=== PATIENT | female | born 2000 | race Caucasian/White ===

== ENCOUNTER 2023-05-18 20:14 | Outpatient (REF) | payer OTHER, SELFPAY ==
[2023-05-22 13:07] LABS: Age Gdln ACOG Testing Note (.); IGP, rfx Aptima HPV ASCU Note (.)
== END 2023-05-18 20:15 | disposition home or self-care (01) ==
LOC: LAB 20:14
PROVIDERS: Visit Provider Obstetrics & Gynecology
DX: Z01.419 Encounter for gynecological examination (general) (routine) without abnormal findings (principal); R87.610 Atypical squamous cells of undetermined significance on cytologic smear of cervix (ASC-US); R87.810 Cervical high risk human papillomavirus (HPV) DNA test positive
CPT/HCPCS: G0145

== ENCOUNTER 2023-06-26 21:48 | Emergency (ER) | payer OTHER, SELFPAY ==
[2023-06-26 21:53] VITALS: BP 143/93; PULSE 88; RESP 16; TEMP 37.1; O2SAT 100; BMI 27.6
--- NOTE | 2023-06-26 22:04 | ED.GENADUL1 ---
HPI - General Adult General Chief complaint: Headache Stated complaint: HEADACHE Time Seen by Provider: 06/26/23 22:02 Source: patient Mode of arrival: walk-in Limitations: no limitations History of Present Illness HPI narrative: presents complaining of migraine headache. similar headaches in the past. Headache started 3 days ago and is associated with nausea. headache along right side of her head. No visual complaint or involvement of her extremities. Onset (ago): day(s) Related Data Allergies Allergy/AdvReac Type Severity Reaction Status Date / Time No Known Drug Allergies Allergy Verified 06/26/23 21:53 Review of Systems ROS Status of ROS 10 or more systems reviewed and unremarkable except as noted in history and [facility] Social History Smoking status: Never smoker Exam Constitutional Vital Signs, click to edit/add: Last Vital Signs Temp 98.7 F 06/26/23 21:53 Pulse 88 06/26/23 21:53 Resp 16 06/26/23 21:53 BP 143/93 H 06/26/23 21:53 Pulse Ox 100 06/26/23 21:53 O2 Del Method Room Air 06/26/23 21:53 Common normals: no apparent distress, average body habitus, oriented x3, no limitations, healthy appearing and alert Eye Common normals: PERRL, EOMs intact bilaterally and conjunctivae normal Respiratory Common normals: normal respiratory effort, no retractions, no use of accessory muscles and clear to auscultation bilaterally Cardio Common normals: regular rate, regular rhythm, S1 normal heart sound and S2 normal heart sound GI Common normals: Normal to inspection, nondistended, normoactive bowel sounds present, soft to palpation and non-tender Extremity Common normals: normal to inspection and full ROM Neuro Common normals: oriented x3, CN's II-XII intact bilaterally, moves all extremities, no focal motor deficits and no sensory deficits noted Psych Appearance: grossly normal Course Vital Signs Vital signs: Vital Signs Temperature 98.7 F 06/26/23 21:53 Pulse Rate 88 06/26/23 21:53 Respiratory Rate 16 06/26/23 21:53 Blood Pressure 143/93 H 06/26/23 21:53 Pulse Oximetry 100 06/26/23 21:53 Oxygen Delivery Method Room Air 06/26/23 21:53 Temperature 98.7 F 06/26/23 21:53 Pulse Rate 88 06/26/23 21:53 Respiratory Rate 16 06/26/23 21:53 Blood Pressure 143/93 H 06/26/23 21:53 Pulse Oximetry 100 06/26/23 21:53 Oxygen Delivery Method Room Air 06/26/23 21:53 Medical Decision Making MDM Narrative Medical decision making narrative: patient presents complaining of migraine headache. similar to past headache. Headache improved with treatment in the department and patient is discharged home Lab Data Labs: Lab Results 06/26/23 Range/Units 22:00 WBC 8.5 (4.0-11.0) 10^3/uL RBC 5.01 (4.20-5.40) 10^6/uL Hgb 13.6 (12.0-16.0) g/dL Hct 41.8 (36.0-48.0) % MCV 83.4 (81.0-99.0) fL MCH 27.1 (26.7-34.0) pg MCHC 32.5 (29.9-35.2) g/dL RDW 14.2 (11.0-15.0) % Plt Count 338 (150-450) 10^3/uL MPV 9.8 (9.5-13.5) fL Neut % (Auto) 41.3 L (43.0-75.0) % Lymph % (Auto) 47.9 (20.5-60.0) % [place] % (Auto) 8.2 (1.7-12.0) % Eos % (Auto) 2.0 (0.9-7.0) % Baso % (Auto) 0.4 (0.2-2.0) % Neut # (Auto) 3.5 (1.4-6.5) 10^3/uL Lymph # (Auto) 4.1 H (1.2-3.8) 10^3/uL [place] # (Auto) 0.7 (0.3-0.8) 10^3/uL Eos # (Auto) 0.2 (0.0-0.7) 10^3/uL Baso # (Auto) 0.0 (0.0-0.1) 10^3/uL Abs Immat Gran (auto) 0.02 (0.00-0.03) 10^3/uL Imm/Tot Granulo (auto) 0.2 (0.0-0.5) % Sodium 137 (136-145) mmol/L Potassium 3.7 (3.5-5.1) mmol/L Chloride 104 (98-107) mmol/L Carbon Dioxide 25.8 (21.0-32.0) mmol/L Anion Gap 10.9 BUN 14.0 (7.0-18.0) mg/dL Creatinine 0.74 (0.55-1.02) mg/dL Est GFR ( Amer) >60 (>=60) Est GFR (Non-Af Amer) >60 (>=60) BUN/Creatinine Ratio 18.9 Glucose 90 (74-106) mg/dL Calcium 8.9 (8.5-10.1) mg/dL Discharge Plan Discharge Chief Complaint: Headache Clinical Impression: Migraine Instructions: Migraine Headache (ED) Additional Instructions: follow up with your doctor next week for recheck Stand Alone Forms: Portal Instructions Referrals: KODY CHICAS [Primary Care Provider] - 1 week
[2023-06-26 22:13] LABS: Basophils Percent Auto 0.4 % (0.2-2.0); Eosinophils Absolute Auto 0.2 10^3/uL (0.0-0.7); Hematocrit 41.8 % (36.0-48.0); Hemoglobin 13.6 g/dL (12.0-16.0); Immature Granulocytes Abs Auto 0.02 10^3/uL (0.00-0.03); Immature Granulocytes Pct Auto 0.2 % (0.0-0.5); Lymphocytes Absolute Auto 4.1 10^3/uL (1.2-3.8); Lymphocytes Percent Auto 47.9 % (20.5-60.0); Mean Corpuscular HGB Conc 32.5 g/dL (29.9-35.2); Mean Corpuscular Hemoglobin 27.1 pg (26.7-34.0); Mean Corpuscular Volume 83.4 fL (81.0-99.0); Mean Platelet Volume 9.8 fL (9.5-13.5); Monocytes Absolute Auto 0.7 10^3/uL (0.3-0.8); Monocytes Percent Auto 8.2 % (1.7-12.0); Neutrophils Absolute Auto 3.5 10^3/uL (1.4-6.5); Neutrophils Percent Auto 41.3 % (43.0-75.0); Platelet Count 338 10^3/uL (150-450); Red Blood Count 5.01 10^6/uL (4.20-5.40); Red Cell Distribution Width 14.2 % (11.0-15.0); White Blood Count 8.5 10^3/uL (4.0-11.0)
[2023-06-26 22:22] LABS: Anion Gap 10.9; BUN Creatinine Ratio 18.9; Calcium 8.9 mg/dL (8.5-10.1); Carbon Dioxide 25.8 mmol/L (21.0-32.0); Chloride 104 mmol/L (98-107); Estimated GFR (African America >60 (>=60); Estimated GFR (Non-African Ame >60 (>=60); Glucose 90 mg/dL (74-106); Potassium 3.7 mmol/L (3.5-5.1); Sodium 137 mmol/L (136-145)
[2023-06-26] MEDS: METOCLOPRAMIDE HCL 10 MG/2 ML VIAL IVP (22:29)
[2023-06-26] MEDS: METHYLPREDNISOLONE SOD SUCC PF 125 MG/2 ML VIAL IVP (22:29)
--- NOTE | 2023-06-26 23:35 | ED.GENADUL1 ---
HPI - General Adult General Chief complaint: Headache Stated complaint: HEADACHE Time Seen by Provider: 06/26/23 22:02 Source: patient Mode of arrival: walk-in Limitations: no limitations Related Data Allergies Allergy/AdvReac Type Severity Reaction Status Date / Time No Known Drug Allergies Allergy Verified 06/26/23 21:53 PFSH PFSH Social History Smoking status: Never smoker Exam Constitutional Vital Signs, click to edit/add: Last Vital Signs Temp 98.7 F 06/26/23 21:53 Pulse 88 06/26/23 21:53 Resp 16 06/26/23 21:53 BP 143/93 H 06/26/23 21:53 Pulse Ox 100 06/26/23 21:53 O2 Del Method Room Air 06/26/23 21:53 Course Vital Signs Vital signs: Vital Signs Temperature 98.7 F 06/26/23 21:53 Pulse Rate 88 06/26/23 21:53 Respiratory Rate 16 06/26/23 21:53 Blood Pressure 143/93 H 06/26/23 21:53 Pulse Oximetry 100 06/26/23 21:53 Oxygen Delivery Method Room Air 06/26/23 21:53 Temperature 98.7 F 06/26/23 21:53 Pulse Rate 88 06/26/23 21:53 Respiratory Rate 16 06/26/23 21:53 Blood Pressure 143/93 H 06/26/23 21:53 Pulse Oximetry 100 06/26/23 21:53 Oxygen Delivery Method Room Air 06/26/23 21:53 Medical Decision Making Lab Data Labs: Lab Results 06/26/23 Range/Units 22:00 WBC 8.5 (4.0-11.0) 10^3/uL RBC 5.01 (4.20-5.40) 10^6/uL Hgb 13.6 (12.0-16.0) g/dL Hct 41.8 (36.0-48.0) % MCV 83.4 (81.0-99.0) fL MCH 27.1 (26.7-34.0) pg MCHC 32.5 (29.9-35.2) g/dL RDW 14.2 (11.0-15.0) % Plt Count 338 (150-450) 10^3/uL MPV 9.8 (9.5-13.5) fL Neut % (Auto) 41.3 L (43.0-75.0) % Lymph % (Auto) 47.9 (20.5-60.0) % [place] % (Auto) 8.2 (1.7-12.0) % Eos % (Auto) 2.0 (0.9-7.0) % Baso % (Auto) 0.4 (0.2-2.0) % Neut # (Auto) 3.5 (1.4-6.5) 10^3/uL Lymph # (Auto) 4.1 H (1.2-3.8) 10^3/uL [place] # (Auto) 0.7 (0.3-0.8) 10^3/uL Eos # (Auto) 0.2 (0.0-0.7) 10^3/uL Baso # (Auto) 0.0 (0.0-0.1) 10^3/uL Abs Immat Gran (auto) 0.02 (0.00-0.03) 10^3/uL Imm/Tot Granulo (auto) 0.2 (0.0-0.5) % Sodium 137 (136-145) mmol/L Potassium 3.7 (3.5-5.1) mmol/L Chloride 104 (98-107) mmol/L Carbon Dioxide 25.8 (21.0-32.0) mmol/L Anion Gap 10.9 BUN 14.0 (7.0-18.0) mg/dL Creatinine 0.74 (0.55-1.02) mg/dL Est GFR ( Amer) >60 (>=60) Est GFR (Non-Af Amer) >60 (>=60) BUN/Creatinine Ratio 18.9 Glucose 90 (74-106) mg/dL Calcium 8.9 (8.5-10.1) mg/dL Discharge Plan Discharge Chief Complaint: Headache Clinical Impression: Migraine Patient Disposition: Home, Self-Care Mode of Transportation: Private Vehicle Instructions: Migraine Headache (ED) Additional Instructions: follow up with your doctor next week for recheck Stand Alone Forms: Portal Instructions Referrals: KODY CHICAS [Primary Care Provider] - 1 week Discharge Date/Time: 06/26/23 23:43
== END 2023-06-26 23:43 | disposition home or self-care (01) ==
PROVIDERS: Emergency Provider Internal Medicine; PCP Nurse Practitioner Family
DX: G43.909 Migraine, unspecified, not intractable, without status migrainosus (principal)
CPT/HCPCS: 36415; 80048; 85025; 96374; 96375; 99284; J2930

== ENCOUNTER 2023-11-09 11:40 | Outpatient (OUT) | payer OTHER, SELFPAY ==
--- NOTE | 2023-11-09 11:46 | US_ITS ---
[address] [address] Patient Name: ELLIS SNYDER MRN: [id number] date: 2000 Sex: F Assigned Patient Location: US Current Patient Location: US Accession/Order Number: [id number] Exam Date: 11/09/2023 11:45 Report Date: 11/09/2023 15:16 At the request of: BETH BO Procedure: US pelvis transvaginal EXAM: US pelvis transvaginal INDICATION: PELVIC PAIN COMPARISON: Obstetrical ultrasound 02/03/2021 TECHNIQUE: Transabdominal and transvaginal ultrasound with grayscale, color Doppler and spectral Doppler imaging. FINDINGS: Retroverted Uterus:7.6 x 3.4 x 5.8 cm Grossly normal myometrial echotexture. Endometrium:8.0 mm. Intrauterine device appears to be within the upper and mid endometrial canal. Right ovary: 3.2 x 1.8 x 1.9 cm. Volume: 5.9 cc Left ovary: 4.2 x 1.9 x 3.5cm. Volume: 14.1 cc 2.9 x 1.7 x 1.6 cm simple left ovarian cyst. Normal color Doppler with arterial spectral tracing to both ovaries. No free fluid in the cul-de-sac. US/US pelvis transvaginal IMPRESSION: 1. Simple left ovarian cyst. No ovarian torsion. 2. Intrauterine device appears to be in satisfactory position. Electronically authenticated by: VERENICE ADAMS Date: 11/09/2023 15:16
== END 2023-11-09 11:41 | disposition home or self-care (01) ==
LOC: US 11:43
PROVIDERS: PCP Nurse Practitioner Family; Visit Provider Obstetrics & Gynecology
DX: N94.10 Unspecified dyspareunia (principal); N83.292 Other ovarian cyst, left side
CPT/HCPCS: 76830

== ENCOUNTER 2023-12-08 15:27 | Outpatient (OUT) | payer OTHER, SELFPAY ==
--- NOTE | 2023-12-08 15:31 | US_ITS ---
[address] [address] Patient Name: ELLIS SNYDER MRN: [id number] date: 2000 Sex: F Assigned Patient Location: US Current Patient Location: Accession/Order Number: [id number] Exam Date: 12/08/2023 15:45 Report Date: 12/09/2023 05:07 At the request of: BETH BO Procedure: US pelvis transvaginal EXAMINATION: US pelvis transvaginal HISTORY: Dyspareunia in female N94.10 COMPARISON: No relevant comparison available. FINDINGS: Uterus measures 7.0 x 5.3 0.6 cm. Normal in size, contour and echotexture. No focal myometrial mass. The endometrium measures 5 mm. Linear hyperechogenicity within the endometrial cavity with acoustic shadowing, normally positioned IUD The right ovary is normal measuring 3.2 x 2.2 x 1.7 cm. Normal color Doppler flow. The left ovary measures 5.0 x 3.0 x 2.2 cm. Normal color Doppler flow. No ascites US/US pelvis transvaginal IMPRESSION: No acute abnormality Normal position of the IUD Electronically authenticated by: ORLIN LOCK Date: 12/09/2023 05:07
--- OUTSIDE RECORDS SUMMARY | 2023-12-08 15:38 | XMS_ITS | CCD ---
Author Name Unknown Address [address] [place] [address] Organization [facility] Care Team Providers Care Vp Public Relations Name Role Phone [place] TRylanJackie Adriana Primary Care Provider 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 Unavailable Unavailable Unavailable ANUPAM, DR CAMPOS Admitting Unavailable ANUPAM, DR CAMPOS Attending Unavailable JUAN FRANCISCO, ANGELINA Primary Care Unavailable ANUPAM, DR CAMPOS Consulting Unavailable ANUPAM, DR CAMPOS Admitting Unavailable ANUPAM, DR CAMPOS Attending Unavailable JUAN FRANCISCO, ANGELINA Primary Care Unavailable ANUPAM, DR CAMPOS Admitting Unavailable ANUPAM, DR CAMPOS Attending Unavailable JUAN FRANCISCO, ANGELINA Primary Care Unavailable ANUPAM, DR CAMPOS Consulting Unavailable JUAN FRANCISCO, ANGELINA Primary Care Unavailable SAMARA RUCKER Consulting Unavailable SAMARA RUCKER Admitting Unavailable SAMARA RUCKER Attending Unavailable SHIV CALVO Consulting Unavailable JUAN FRANCISCO, ANGELINA Admitting Unavailable ANGELINA CHICAS Attending Unavailable JUAN FRANCISCO, ANGELINA Primary Care Unavailable DR STELLA BROWN Consulting Unavailable ANGELINA CHICAS Consulting Unavailable GABRIEL, DR HALEY Admitting Unavailable GABRIEL, DR HALEY Attending Unavailable JUAN FRANCISCO, ANGELINA Primary Care Unavailable GABRIEL, DR HALEY Consulting Unavailable Jayshree, Dr. Rosmery Haynes Attending U myles Martell, Dr. Rosmery Haynes Attending U myles CEDILLO, PCP Primary Care Unavailable Jayshree, Dr. Rosmery Haynes Attending U myles Esqueda Jr, Dr. Cecilia Rubio Referring U myles Martell, Dr. Rosmery Haynes Attending U myles Martell, Dr. Rosmery Haynes Attending U navsatyaable Jayshree, Dr. Rosmery Haynes Referring U navailable Gerry, Dr. Gustavo Cedeño Attending Unavailable Dumot, Dr. Gustavo Cedeño Attending Unavailable Jayshree, Dr. Rosmery Haynes Referring U annaleesatyaable Juan Francisco, CLEANING TEAM MEMBER-C Angelina De La O Primary Care Provider Tomas, SITE SAFETY REPRESENTATIVE-BC Emily Demetria Emergency Provider DO Niraj Guzman Admit Provider DO Niraj Guzman Attending Provider Ishaan Alvarado Attending Unavailable Ishaan Alvarado Admitting Unavailable 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 Primary Care Unavailable 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 Primary Care Unavailable Niraj Guzman Admitting Unavailable Niraj Guzman Attending Unavailable BETH BO Attending Unavailable BETH BO Attending Unavailable Medications Current Medications Medication Drug Class(es) Dates Sig (Normalized) Sig (Original) [id number]-Cydioom Fumarate-Fa () 28-800 mg-mcg Tablet (3 sources) Start: 04-25-2021 [id number]-Uujmtcc Fumarate-Fa () 28-800 mg-mcg Tablet Active TAB PO April 25, 2021 7:11pm Start: 04-25-2021 End: 05-21-2023 [id number]-Vuytijo Fumarate-Fa ( ) 28-800 mg-mcg Tablet Discontinued TAB PO April 25, 2021 12:00am May 21, 2023 7:30am terconazole 4 mg/ml vaginal cream (2 sources) Azole Antifungal Start: 05-21-2023 Terconazole A ctive VAGINAL May 21, 2023 12:00am traMADol hydrochloride 50 mg oral tablet (1 source) Opioid Agonist Start: 05-22-2023 take 50 mg by mouth every six hours Tramadol Active 50 MG PO Q6H 20 7 May 22, 2023 12:00am Completed/Discontinued Medications Medication Drug Class(es) Dates Sig (Normalized) Sig (Original) Norethindrone-E.Est radiol-Iron (3 sources) Estrogen Start: 09-20-2020 End: 04-25-2021 Norethindrone-E.Estr adiol-Iron (12/10 ()) 1 mg-20 mcg (21)/75 mg (7) tablet Discontinued 1 TAB PO Daily September 20, 2020 10:23pm April 25, 2021 7:10pm Start: 09-20-2020 End: 04-25-2021 Norethindrone-E.Estradiol-Ir on (12/10 (28)) 1 mg-20 mcg (21)/75 mg (7) tablet Discontinued 1 TAB PO Daily September 20, 2020 12:00am April 25, 2021 7:10pm No Reported Medications (11 sources) No Reported Medi cations Quantity: 0 Refills: 0 Ordered: 29-Jun-2022 DO Active Problems Active Problems Problem Classification Problem Date Documented Date Episodic/Chronic Abdominal pain (5 sources) Right lower quadrant pain; Translations: [Right lower quadrant pain] Onset: 3 05-21-2023 Episodic Appendicitis and other appendiceal conditions (5 sources) Appendicitis; Translations: [Unspecified appendicitis] Onset: 3 05-21-2023 Episodic Esophageal disorders (2 sources) Gastro-esophageal reflux disease without esophagitis; Translations: [Gastro-esophageal reflux disease without esophagitis] Onset: 3 Chronic Headache; including migraine (2 sources) Migraine; Translations: [Migraine, unspecified, not intractable, without status migrainosus] 06-03-2022 Chronic Headache; including migraine (1 source) Headache; including migraine; Translations: [Headache, unspecified] Onset: 2 Immunizations and screening for infectious disease (1 source) Encounter for screening for human papillomavirus (HPV); Translations: [ENC SCREENING HUMAN PAPILLOMAVIRUS] Onset: 2 Episodic Other connective tissue disease (3 sources) Musculoskeletal pain; Translations: [Myalgia, other site] 09-21-2020 Episodic Other gastrointestinal disorders (12 sources) Dysphagia; Translations: [Dysphagia, pharyngoesophageal phase] Onset: 3 Episodic Other gastrointestinal disorders (2 sources) Dysphagia, pharyngoesophageal phase; Translations: [Dysphagia, pharyngoesophageal phase] Onset: 3 Episodic Other lower respiratory disease (11 sources) H/O: respiratory disease; Translations: [Personal history of other diseases of respiratory system] Episodic Other nutritional; endocrine; and metabolic disorders (11 sources) Overweight in adulthood with body mass index of 25 or more but less than 30; Translations: [Body Mass Index 26.0-26.9, adult] Episodic Other nutritional; endocrine; and metabolic disorders (1 source) Abnormal weight loss; Translations: [Abnormal weight loss] Onset: 3 Episodic Other and delivery including normal (3 sources) ; Translations: [Encounter for supervision of normal , unspecified, unspecified trimester] 04-25-2021 Episodic Other screening for suspected conditions (not mental disorders or infectious disease) (4 sources) Encounter for screening for malignant neoplasm of cervix; Translations: [ENC SCREENING MALIG NEOPLASM CERV] Onset: 2 Episodic Other upper respiratory disease (11 sources) Edema of larynx; Translations: [Vocal cord edema] Episodic Other upper respiratory disease (11 sources) Vocal cord dysfunction; Translations: [Other diseases of vocal cords] Episodic Other upper respiratory disease (11 sources) Disorder of the larynx; Translations: [Other diseases of larynx, not elsewhere classified] Episodic Other upper respiratory disease (11 sources) Dysphonia; Translations: [Dysphonia] Episodic Residual codes; unclassified (2 sources) Personal history of other specified conditions; Translations: [Personal history of other specified conditions] Onset: 3 Episodic Residual codes; unclassified (1 source) Early satiety; Translations: [Early satiety] Onset: 3 Episodic Unclassified (3 sources) COUGH, UNSPECIFIED; Translations: [COUGH, UNSPECIFIED] Onset: 2 Past or Other Problems Problem Classification Problem Date Documented Da te Episodic/Chronic Other aftercare (1 source) 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; Translations: [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] Onset: 01-15-2022 Episodic Other female genital disorders (4 sources) Other specified conditions associated with female genital organs and menstrual cycle; Translations: [OTH SPEC COND FE GEN ORG MENST CYCL] Onset: 04-27-2022 Episodic Other gastrointestinal disorders (4 sources) Dysphagia, unspecified; Translations: [DYSPHAGIA UNSPECIFIED] Onset: 01-12-2022 Episodic Unclassified (1 source) COUGH, UNSPECIFIED; Translations: [COUGH, UNSPECIFIED] Onset: 01-13-2022 Results Test Name Value Interpretation Reference Range Facility Basophils Auto (Bld) [#/Vol] Ordered By: Niraj Guzman on 05-22-2023 Basophils (Bld) [#/Vol] 0.0 10*3/uL 0.0-0.2 [facility] Basophils/100 WBC Auto (Bld) Ordered By: Niraj Guzman on 05-22-2023 Basophils/100 WBC (Bld) 0.1 % . [facility] Complete Blood Count Auto Di ffon 05-22-2023 Basophils (Bld) [#/Vol] 0.0 10*3/uL Normal 0.0-0.2 [facility] Comment on above: Result Comment: PERF ORMED BY: [facility] [address] [place] [address] PATHOLOGIST RELOCATION ASSOCIATE NANCY NAPIER M.D. Performed By: #### C BC ####[address] Basophils/100 WBC (Bld) 0.1 % Normal . [facility] Comment on above: Performed By: #### C BC ####[place] [id number] [facility] Eosinophils (Bld) [#/Vol] 0.0 10*3/uL Normal 0.0-0.45 [facility] Comment on above: Performed By: #### C BC ####[place] [id number] [facility] Eosinophils/100 WBC (Bld) 0.0 % Normal . [facility] Comment on above: Performed By: #### C BC ####[place] [id number] [facility] Erythrocyte distribution width (RBC) [Ratio] 14.3 % Normal 11.9-15.3 [facility] Comment on above: Performed By: #### C BC ####[place] [id number] [facility] Hematocrit (Bld) [Volume fraction] 37.0 % Normal 34.0-46.4 [facility] Comment on above: Performed By: #### C BC ####[place] [id number] [facility] Hemoglobin (Bld) [Mass/Vol] 12.1 g/dL Normal 11.8-15.4 [facility] Comment on above: Performed By: #### C BC ####[place] [id number] [facility] Lymphocytes (Bld) [#/Vol] 1.1 10*3/uL Normal 1.00-4.8 [facility] Comment on above: Performed By: #### C BC ####[place] [id number] [facility] Lymphocytes/100 WBC (Bld) 10.7 % Normal . [facility] Comment on above: Performed By: #### C BC ####[place] [id number] [facility] MCH (RBC) [Entitic mass] 26.7 pg Normal 24.7-34.3 [facility] Comment on above: Performed By: #### C BC ####[place] [id number] [facility] MCV (RBC) [Entitic vol] 81.6 fL Normal 80-100 [facility] Comment on above: Performed By: #### C BC ####[place] [id number] [facility] Mean Corpuscular HGB Conc 32.7 g/dL Normal 32.0-35.0 [facility] Comment on above: Performed By: #### C BC ####[place] [id number] [facility] Monocytes (Bld) [#/Vol] 0.4 10*3/uL Normal 0.0-0.8 [facility] Comment on above: Performed By: #### C BC ####[place] [id number] [facility] Monocytes/100 WBC (Bld) 4.2 % Normal . [facility] Comment on above: Performed By: #### C BC ####[place] [id number] [facility] Neutrophils (Bld) [#/Vol] 8.5 10*3/uL High 1.8-7.7 [facility] Comment on above: Performed By: #### C BC ####[address] Neutrophils/100 WBC (Bld) 85.0 % Normal . [facility] Comment on above: Performed By: #### C BC ####[address] NRBC% 0.2 /100{WBC} Normal 0-0.5 [facility] Comment on above: Performed By: #### C BC ####[address] Platelet mean volume (Bld) [Entitic vol] 8.4 fL Normal 6.3-10.7 [facility] Comment on above: Performed By: #### C BC ####[address] Platelets (Bld) [#/Vol] 302 10*3/uL Normal 150-450 [facility] Comment on above: Performed By: #### C BC ####[address] RBC (Bld) [#/Vol] 4.54 10*6/uL Normal 3.60-5.00 [facility] Comment on above: Performed By: #### C BC ####[address] WBC (Bld) [#/Vol] 10.1 10*3/uL Normal 3.8-11.6 [facility] Comment on above: Performed By: #### C BC ####[address] Eosinophils Auto (Bld) [#/Vo l]Ordered By: Niraj Guzman on 05-22-2023 Eosinophils (Bld) [#/Vol] 0.0 10*3/uL 0.0-0.45 [facility] Eosinophils/100 WBC Auto (Bl d)Ordered By: Niraj Guzman on 05-22-2023 Eosinophils/100 WBC (Bld) 0.0 % . [facility] Erythrocyte distribution wid th Auto (RBC) [Ratio]Ordered By: Niraj Guzman on 05-22-2023 Erythrocyte distribution width (RBC) [Ratio] 14.3 % 11.9-15.3 [facility] Hematocrit Auto (Bld) [Volum e fraction]Ordered By: Niraj Guzman on 05-22-2023 Hematocrit (Bld) [Volume fraction] 37.0 % 34.0-46.4 [facility] Hemoglobin [Mass/volume] in BloodOrdered By: Niraj Guzman on 05-22-2023 Hemoglobin (Bld) [Mass/Vol] 12.1 g/dL 11.8-15.4 [facility] Leukocytes [#/volume] correc geo for nucleated erythrocytes in Blood by Automated counOrdered By: Niraj Guzman on 05-22-2023 WBC corrected for nucl RBC Auto (Bld) [#/Vol] 10.1 10*3/uL 3.8-11.6 [facility] Lymphocytes Auto (Bld) [#/Vo l]Ordered By: Niraj Guzman on 05-22-2023 Lymphocytes (Bld) [#/Vol] 1.1 10*3/uL 1.00-4.8 [facility] Lymphocytes/100 WBC Auto (Bl d)Ordered By: Niraj Guzman on 05-22-2023 Lymphocytes/100 WBC (Bld) 10.7 % . [facility] MCH Auto (RBC) [Entitic mass ]Ordered By: Niraj Guzman on 05-22-2023 MCH (RBC) [Entitic mass] 26.7 pg 24.7-34.3 [facility] MCHC Auto (RBC) [Mass/Vol]Or dered By: Niraj Guzman on 05-22-2023 MCHC (RBC) [Mass/Vol] 32.7 g/dL 32.0-35.0 [facility] MCV Auto (RBC) [Entitic vol] Ordered By: Niraj Guzman on 05-22-2023 MCV (RBC) [Entitic vol] 81.6 fL 80-100 [facility] Monocytes Auto (Bld) [#/Vol] Ordered By: Niraj Guzman on 05-22-2023 Monocytes (Bld) [#/Vol] 0.4 10*3/uL 0.0-0.8 [facility] Monocytes/100 WBC Auto (Bld) Ordered By: Niraj Guzman on 05-22-2023 Monocytes/100 WBC (Bld) 4.2 % . [facility] Neutrophils Auto (Bld) [#/Vo l]Ordered By: Niraj Guzman on 05-22-2023 Neutrophils (Bld) [#/Vol] 8.5 10*3/uL 1.8-7.7 [facility] Neutrophils/100 WBC Auto (Bl d)Ordered By: Niraj Guzman on 05-22-2023 Neutrophils/100 WBC (Bld) 85.0 % . [facility] Nucleated erythrocytes [Pres ence] in Blood by Automated countOrdered By: Niraj Guzman on 05-22-2023 Nucleated RBC Auto Ql (Bld) 0.2 /100{WBC} 0-0.5 [facility] Platelet mean volume Auto (B ld) [Entitic vol]Ordered By: Niraj Guzman on 05-22-2023 Platelet mean volume (Bld) [Entitic vol] 8.4 fL 6.3-10.7 [facility] Platelets Auto (Bld) [#/Vol] Ordered By: Niraj Guzman on 05-22-2023 Platelets (Bld) [#/Vol] 302 10*3/uL 150-450 [facility] RBC Auto (Bld) [#/Vol]Ordere d By: Niraj Guzman on 05-22-2023 RBC (Bld) [#/Vol] 4.54 10*6/uL 3.60-5.00 [facility] WBC Auto (Bld) [#/Vol]Ordere d By: Niraj Guzman on 05-22-2023 WBC (Bld) [#/Vol] 10.1 10*3/uL 3.8-11.6 [facility] Alanine aminotransferase [En zymatic activity/volume] in Serum or PlasmaOrdered By: Emily Marin on 05-21-2023 ALT [Catalytic activity/Vol] 16 U/L 7-52 [facility] Albumin [Mass/volume] in Ser um or Plasma by Bromocresol green (BCG) dye binding methoOrdered By: Emily Reidore on 05-21-2023 Albumin BCG dye [Mass/Vol] 4.3 g/dL 3.5-5.7 [facility] Alkaline phosphatase [Enzyma tic activity/volume] in Serum or PlasmaOrdered By: Emily Aaronimore on 05-21-2023 ALP [Catalytic activity/Vol] 131 U/L 34-104 [facility] Aspartate aminotransferase [ Enzymatic activity/volume] in Serum or PlasmaOrdered By: Emily Reidore on 05-21-2023 AST [Catalytic activity/Vol] 13 U/L 13-39 [facility] Automated erythrocytes count in urine sediment (number/area)Ordered By: Emily Marin on 05-21-2023 RBC Auto (Urine sed) [#/Area] 0-1 [HPF] 0-4 [facility] Automated leukocytes count i n urine sediment (number/area)Ordered By: Emily Marin on 05-21-2023 WBC Auto (Urine sed) [#/Area] 3-4 [HPF] 0-4 [facility] Basophils Auto (Bld) [#/Vol] Ordered By: Emily Marin on 05-21-2023 Basophils (Bld) [#/Vol] 0.0 10*3/uL 0.0-0.2 [facility] Basophils/100 WBC Auto (Bld) Ordered By: Emilyshae Marin on 05-21-2023 Basophils/100 WBC (Bld) 0.3 % . [facility] Bilirubin Test strip Ql (U)O rdered By: Emily Marin on 05-21-2023 Bilirubin Ql (U) Negative Negative [facility] Bilirubin.total [Mass/volume ] in Serum or PlasmaOrdered By: Emily Marin on 05-21-2023 Bilirubin [Mass/Vol] 0.3 mg/dL 0.3-1.[address] [facility] CT abdomen pelvis w conon CT abdomen pelvis w [facility] [place] [address] [place] [address] CT Scan Report Signed Patient: Yoanna Snyder MR#: [id number] 2 : 2000 Acct:[id number] Age/Sex: 23 / F ADM Date: 05/21/23 Loc: ER Room: Type: [facility] ER Attending Dr: Copies to: JAREN Mcmillan Ordering Provider: JAREN Mcmillan Date of Service: 05/21/23 CT/CT abdomen pelvis w con: rlq abd pain r/o cyst appy CT Abdomen and Pelvis withcontrast TECHNIQUE: Axial imaging with 2-D reconstruction.90 cc of Isovue-300. The CT exam was performed using one or more the following dose reduction techniques: Automated exposure control, adjustment of the MA and/or Kv according to patient size, or use of the iterative reconstruction technique. COMPARISON: None History: Right lower quadrant pain since last night. Leukocytosis. LIMITATIONS: None LOWER THORAX Unremarkable LIVER: Unremarkable GALLBLADDER: No gallbladder abnormality identified. BILE DUCTS: No dilatation SPLEEN: Unremarkable PANCREAS: Unremarkable ADRENAL GLANDS: Unremarkable KIDNEYS:Unremarkable AORTA: No abdominal aortic aneurysm identified. RETROPERITONEUM: No significant retroperitoneal abnormalities identified. MESENTERY:Unremarkabl e SMALL BOWEL: The small bowel loops are nondistended. APPENDIX: The appendix is dilated with diameter of 8 mm. Adjacent stranding identified. 4 mm appendicolith is in the ostium region. No adjacent abscess. No pneumoperitoneum. COLON: Unremarkable URINARY BLADDER: Urinary bladder is unremarkable. REPRODUCTIVE SYSTEM: Reproductive structures are unremarkable. PNEUMOPERITONEUM: None PERITONEAL FLUID:None BONY STRUCTURES: Unremarkable ABDOMINAL WALL: Unremarkable CT/CT abdomen pelvis w con IMPRESSION: Findings consistent with acute appendicitis. A preliminary findings given at 1210 hours 05/21/2023 Impression dictated by: Francisco Burroughs M.D.05/21/2023 12:19 PM Dictation Location: [place] [address] Transcribed By: [facility] 05/21/23 1219 Dictated By: Francisco Burruoghs DO 05/21/23 1207 Signed By: 05/21/23 1219 [facility] Calcium [Mass/volume] in Ser um or PlasmaOrdered By: Emily Bullimore on 05-21-2023 Calcium [Mass/Vol] 9.1 mg/dL 8.6-10.3 [facility] Carbon dioxide, total [Moles /volume] in Serum or PlasmaOrdered By: Emily Bullimore on 05-21-2023 CO2 [Moles/Vol] 24.3 mmol/L 21.0-31.0 [facility] Chloride [Moles/volume] in S diana or PlasmaOrdered By: Emily Bullimore on 05-21-2023 Chloride [Moles/Vol] 104 mmol/L 98-107 [facility] Color Auto (U)Ordered By: Gi nger Bullimore on 05-21-2023 Color (U) Yellow Yellow [facility] Complete Blood Count Auto Di ffon 05-21-2023 Basophils (Bld) [#/Vol] 0.0 10*3/uL Normal 0.0-0.2 [facility] Comment on above: Result Comment: PERF ORMED BY: [facility] [address] [place] [address] PATHOLOGIST RELOCATION ASSOCIATE NANCY NAPIER M.D. Performed By: #### C MP, CBC ####[address] Basophils/100 WBC (Bld) 0.3 % Normal . [facility] Comment on above: Performed By: #### C MP, CBC ####[address] Eosinophils (Bld) [#/Vol] 0.1 10*3/uL Normal 0.0-0.45 [facility] Comment on above: Performed By: #### C MP, CBC ####[place] [id number] [facility] Eosinophils/100 WBC (Bld) 0.8 % Normal . [facility] Comment on above: Performed By: #### C MP, CBC ####[address] Erythrocyte distribution width (RBC) [Ratio] 14.2 % Normal 11.9-15.3 [facility] Comment on above: Performed By: #### C MP, CBC ####[address] Hematocrit (Bld) [Volume fraction] 40.7 % Normal 34.0-46.4 [facility] Comment on above: Performed By: #### C MP, CBC ####[address] Hemoglobin (Bld) [Mass/Vol] 13.6 g/dL Normal 11.8-15.4 [facility] Comment on above: Performed By: #### C MP, CBC ####[address] Lymphocytes (Bld) [#/Vol] 1.3 10*3/uL Normal 1.00-4.8 [facility] Comment on above: Performed By: #### C MP, CBC ####[address] Lymphocytes/100 WBC (Bld) 11.1 % Normal . [facility] Comment on above: Performed By: #### C MP, CBC ####[address] MCH (RBC) [Entitic mass] 27.3 pg Normal 24.7-34.3 [facility] Comment on above: Performed By: #### C MP, CBC ####[address] MCV (RBC) [Entitic vol] 81.9 fL Normal 80-100 [facility] Comment on above: Performed By: #### C MP, CBC ####[address] Mean Corpuscular HGB Conc 33.3 g/dL Normal 32.0-35.0 [facility] Comment on above: Performed By: #### C MP, CBC ####[address] Monocytes (Bld) [#/Vol] 0.7 10*3/uL Normal 0.0-0.8 [facility] Comment on above: Performed By: #### C MP, CBC ####[address] [address] [facility] Monocytes/100 WBC (Bld) 17.88 % Normal 0.00-20.00 [facility] Comment on above: Performed By: #### C MP, CBC ####[place] [id number] [facility] Monocytes/100 WBC (Bld) 5.8 % Normal . [facility] Comment on above: Performed By: #### C MP, CBC ####[place] [id number] [facility] Neutrophils (Bld) [#/Vol] 9.8 10*3/uL High 1.8-7.7 [facility] Comment on above: Performed By: #### C MP, CBC ####[place] [id number] [facility] Neutrophils/100 WBC (Bld) 82.0 % Normal . [facility] Comment on above: Performed By: #### C MP, CBC ####[place] [id number] [facility] NRBC% 0.0 /100{WBC} Normal 0-0.5 [facility] Comment on above: Performed By: #### C MP, CBC ####[place] [id number] [facility] Platelet mean volume (Bld) [Entitic vol] 8.4 fL Normal 6.3-10.7 [facility] Comment on above: Performed By: #### C MP, CBC ####[address] [address] [facility] Platelets (Bld) [#/Vol] 313 10*3/uL Normal 150-450 [facility] Comment on above: Performed By: #### C MP, CBC ####[place] [id number] [facility] RBC (Bld) [#/Vol] 4.97 10*6/uL Normal 3.60-5.00 [facility] Comment on above: Performed By: #### C MP, CBC ####[place] [id number] [facility] WBC (Bld) [#/Vol] 12.0 10*3/uL High 3.8-11.6 [facility] Comment on above: Performed By: #### C MP, CBC ####[place] [id number] [facility] Comprehensive Metabolic Pane gee 05-21-2023 Albumin [Mass/Vol] 4.3 g/dL Normal 3.5-5.7 [facility] Comment on above: Performed By: #### C MP, CBC ####[address] Albumin/Globulin [Mass ratio] 1.3 {ratio} Normal [facility] Comment on above: Performed By: #### C MP, CBC ####[place] [id number] [facility] ALP [Catalytic activity/Vol] 131 U/L High 34-104 [facility] Comment on above: Performed By: #### C MP, CBC ####[place] [id number] [facility] ALT [Catalytic activity/Vol] 16 U/L Normal 7-52 [facility] Comment on above: Performed By: #### C MP, CBC ####[place] [id number] [facility] Anion gap [Moles/Vol] 9.7 mmol/L Normal 6.0-15.0 [facility] Comment on above: Performed By: #### C MP, CBC ####[place] [id number] [facility] AST [Catalytic activity/Vol] 13 U/L Normal 13-39 [facility] Comment on above: Performed By: #### C MP, CBC ####[place] [id number] [facility] Bilirubin [Mass/Vol] 0.3 mg/dL Normal 0.3-1.0 [facility] Comment on above: Performed By: #### C MP, CBC ####[place] [id number] [place] [address] [facility] Calcium [Mass/Vol] 9.1 mg/dL Normal 8.6-10.3 [facility] Comment on above: Performed By: #### C MP, CBC ####[place] [id number] [place] [address] [facility] Chloride [Moles/Vol] 104 mmol/L Normal 98-107 [facility] Comment on above: Performed By: #### C MP, CBC ####[place] [address] [place] [address] [facility] CO2 [Moles/Vol] 24.3 mmol/L Normal 21.0-31.0 [facility] Comment on above: Performed By: #### C MP, CBC ####[place] [id number] [facility] Creatinine [Mass/Vol] 0.67 mg/dL Normal 0.60-1.20 [facility] Comment on above: Performed By: #### C MP, CBC ####[place] [id number] [place] Creatinine Clr Calc Pharmacy 134.83 [facility] Comment on above: Result Comment: PERF ORMED BY: [facility] [address] [facility] [place] [address] PATHOLOGIST RELOCATION ASSOCIATE NANCY NAPIER M.D. Performed By: #### C MP, CBC ####[place] [id number] [facility] GFR/1.73 sq M.predicted MDRD (S/P/Bld) [Vol rate/Area] mL/min/{1.73_m2} [facility] Comment on above: Performed By: #### C MP, CBC ####[address] [address] [facility] Globulin (S) [Mass/Vol] 3.4 g/dL Normal [facility] Comment on above: Performed By: #### C MP, CBC ####[facility] Glucose [Mass/Vol] 114 mg/dL High 70-100 [facility] Comment on above: Result Comment: [facility] Glucose Reference Range is dependent on time and content of last meal. Glucose of more than 200 mg/dL in a nonstressed, ambulatory subject supports the diagnosis of Diabetes Mellitus. ADA recommended reference range Performed By: #### C MP, CBC ####[place] [id number] Potassium [Moles/Vol] 4.0 mmol/L Normal 3.5-5.1 [facility] Comment on above: Performed By: #### C MP, CBC ####[address] Protein [Mass/Vol] 7.7 g/dL Normal 6.4-8.9 [facility] Comment on above: Performed By: #### C MP, CBC ####[address] Sodium [Moles/Vol] 134 mmol/L Low 136-145 [facility] Comment on above: Performed By: #### C MP, CBC ####[place] [id number] Urea nitrogen [Mass/Vol] 14 mg/dL Normal 7-25 [facility] Comment on above: Performed By: #### C MP, CBC ####[place] [id number] [facility] Creatinine [Mass/volume] in Serum or PlasmaOrdered By: Emily Marin on 05-21-2023 Creatinine [Mass/Vol] 0.67 mg/dL 0.60-1.20 [facility] Dipstick and Microscopicon 0 05-21-2023 Appearance (U) Clear Normal Clear [facility] Comment on above: Order Comment: Name Collection Type:: Clean-Voided Midstream Performed By: #### U HCG, ADDONUAPLUS #### [facility] [address] [place] [address] [place] Bacteria,Urine 1+ High None Seen [facility] Comment on above: Order Comment: Name Collection Type:: Clean-Voided Midstream Performed By: #### U HCG, ADDONUAPLUS #### [facility] [address] [place] [address] [place] Bilirubin,Urine Negative Normal Negative [facility] Comment on above: Order Comment: Name Collection Type:: Clean-Voided Midstream Performed By: #### U HCG, ADDONUAPLUS #### [facility] [address] [place] [address] [place] Color (U) Yellow Normal Yellow [facility] Comment on above: Order Comment: Name Collection Type:: Clean-Voided Midstream Performed By: #### U HCG, ADDONUAPLUS #### [facility] [address] [place] [address] [place] Glucose Ql (U) Normal Normal Normal [facility] Comment on above: Order Comment: Name Collection Type:: Clean-Voided Midstream Performed By: #### U HCG, ADDONUAPLUS #### [facility] [address] [place] [address] [place] Hyaline Casts,Urine 0-8 Normal 0-8 [facility] Comment on above: Order Comment: Name Collection Type:: Clean-Voided Midstream Performed By: #### U HCG, ADDONUAPLUS #### [facility] [address] [place] [address] [place] Ketones Ql (U) Negative Normal Negative [facility] Comment on above: Order Comment: Name Collection Type:: Clean-Voided Midstream Performed By: #### U HCG, ADDONUAPLUS #### [facility] [address] [place] [address] [place] Leukocyte esterase Test strip Ql (U) 1+ High Negative [facility] Comment on above: Order Comment: Name Collection Type:: Clean-Voided Midstream Performed By: #### U HCG, ADDONUAPLUS #### [facility] [address] [place] [address] [place] Nitrite,Urine Negative Normal Negative [facility] Comment on above: Order Comment: Name Collection Type:: Clean-Voided Midstream Performed By: #### U HCG, ADDONUAPLUS #### [facility] [address] [place] [address] Occult Blood,Urine Negative Normal Negative [facility] Comment on above: Order Comment: Name Collection Type:: Clean-Voided Midstream Performed By: #### U HCG, ADDONUAPLUS #### [address] pH (U) 5.5 [pH] Normal 5.0-9.0 [facility] Comment on above: Order Comment: Name Collection Type:: Clean-Voided Midstream Performed By: #### U HCG, ADDONUAPLUS #### [address] Protein,Urine Negative Normal Negative [facility] Comment on above: Order Comment: Name Collection Type:: Clean-Voided Midstream Performed By: #### U HCG, ADDONUAPLUS #### [facility] [address] [place] [address] RBC LM.HPF (Urine sed) [#/Area] 0 /[HPF] Normal 0-4 [facility] Comment on above: Order Comment: Name Collection Type:: Clean-Voided Midstream Performed By: #### U HCG, ADDONUAPLUS #### [address] Specificy [place],Urine 1.027 Normal 1.001-1.030 [facility] Comment on above: Order Comment: Name Collection Type:: Clean-Voided Midstream Performed By: #### U HCG, ADDONUAPLUS #### [facility] [address] [place] [address] Squamous Epithelial Cell,Urine 5-9 High 0-2 [facility] Comment on above: Order Comment: Name Collection Type:: Clean-Voided Midstream Performed By: #### U HCG, ADDONUAPLUS #### [address] Urobilinogen,Urine Normal Normal Normal [facility] Comment on above: Order Comment: Name Collection Type:: Clean-Voided Midstream Performed By: #### U HCG, ADDONUAPLUS #### [facility] [address] [place] [address] [place] WBC,Urine 3-4 Normal 0-4 [facility] Comment on above: Order Comment: Name Collection Type:: Clean-Voided Midstream Performed By: #### U HCG, ADDONUAPLUS #### [facility] [address] Eosinophils Auto (Bld) [#/Vo l]Ordered By: Emily Aaronimore on 05-21-2023 Eosinophils (Bld) [#/Vol] 0.1 10*3/uL 0.0-0.45 [facility] Eosinophils/100 WBC Auto (Bl d)Ordered By: Emilyshae Aaronimore on 05-21-2023 Eosinophils/100 WBC (Bld) 0.8 % . [facility] Erythrocyte distribution wid th Auto (RBC) [Ratio]Ordered By: Emily Marin on 05-21-2023 Erythrocyte distribution width (RBC) [Ratio] 14.2 % 11.9-15.3 [facility] Globulin Calc (S) [Mass/Vol] Ordered By: [facility] Tomas on 05-21-2023 Globulin (S) [Mass/Vol] 3.4 g/dL F [facility] Glucose [Mass/volume] in Ser um or PlasmaOrdered By: Emily Marin on 05-21-2023 Glucose [Mass/Vol] 114 mg/dL 70-100 [facility] Comment on above: ADA recommended refe rence rangeRandom Glucose Reference Range is dependent on time and content of last meal. Glucose of more than 200 mg/dL in a nonstressed, ambulatory subject supports the diagnosis of Diabetes Mellitus. HCG ( test) Nora gómez Ql (U)Ordered By: KAREN WALKER on 05-21-2023 HCG ( test) Ql (U) Negative [facility] HCG,Urineon 05-21-2023 Beta HCG ( test) Ql (U) Negative Normal [facility] Comment on above: Order Comment: Name Collection Type:: Clean-Voided Midstream Result Comment: PERF ORMED BY: [facility] [address] [place] [address] PATHOLOGIST RELOCATION ASSOCIATE NANCY NAPIER M.D. Performed By: #### U MAXIMILIANO, JUSTICE #### [address] Hematocrit Auto (Bld) [Volum e fraction]Ordered By: Emily Bullimore on 05-21-2023 Hematocrit (Bld) [Volume fraction] 40.7 % 34.0-46.4 [facility] Hemoglobin [Mass/volume] in BloodOrdered By: Emily Bullimore on 05-21-2023 Hemoglobin (Bld) [Mass/Vol] 13.6 g/dL 11.8-15.4 [facility] Ketones Auto test strip (U) [Mass/Vol]Ordered By: Emily Bullimore on 05-21-2023 Ketones (U) [Mass/Vol] Negative Negative [facility] Gee 05-21-2023 L - -------- Specimen: [id number] Received: 05/23/23 Status: NANCY Oneill Num: [id number] Spec Type: Surgical Subm Dr: Niraj Guzman DO Tissues: A Appendix - Other than Incidental (APPENDIX) Procedures: SHAGGY, Gross/Micro L3 -------- Age/ Patient Sex Location Account Attending Physician -------- Yoanna Snyder / 4N [id number] Niraj Guzman,DO -------- SPEC NUM: [id number] RECD: 05/23/23 STATUS: NANCY ONEILL NUM: [id number] MICHELLE: 05/21/23145[facility] DR: Niraj Guzman DO ENTERED: 05/23/23 [facility] DR: GAYE TYPE: Surgical DEPT: S ORDERED: HE, Gross/Micro L3 ORDERED: HE, Gross/Micro L3 Pathological Diagnosis Appendix, appendectomy: - Acute suppurative appendicitis and periappendicitis. Clinical Information Cramps Gross Description Received in formalin labeled with the patient's name, number and appendix is a 4.5 x 0.7 cm vermiform appendix with attached mesoappendix measuring up to 1.8 cm. The serosa is dutton- bustamante with lozoya-white fibrinous exudate at the distal tip. The average wall thickness is 0.3 cm. The lumen measures up to 0.3 cm in diameter and contains red brown semisolid material. The mucosa is hemorrhagic towards the distal tip of the specimen. No discrete site of perforation is identified. Cut Off Saw Operator sections are submitted in one cassette labeled A1. Microscopic Description One H E slide reviewed. The microscopic examination confirms the diagnosis. -------- Specimen: [id number] Received: 05/23/23 Status: NANCY Oneill Num: [id number] Spec Type: Surgical Subm Dr: Niraj Guzman DO Tissues: A Appendix - Other than Incidental (APPENDIX) Procedures: SHAGGY Gross/Nino L3 -------- Patient: Yoanna Snyder [id number] (Continued) -------- Specimen: [id number] Received: 05/23/23 (Continued) Signed (signature on file) Alia Tatum MD 05/25/23 1159 -------- Specimen: [id number] Received: 05/23/23 Status: NANCY Oneill Num: [id number] Spec Type: Surgical Subm Dr: Niraj Guzman DO Tissues: A Appendix - Other than Incidental (APPENDIX) Procedures: Alok COON L3 -------- Patient: Yoanna Snyder [id number] (Continued) -------- Specimen: [id number] Received: 05/23/23 (Continued) CPT Codes 51692 -------- -------- Specimen: [id number] Received: 05/23/23 Status: NANCY Oneill Num: [id number] Spec Type: Surgical Subm Dr: Niraj Guzman DO Tissues: A Appendix - Other than Incidental (APPENDIX) Procedures: Alok COON L3 -------- Patient: Yoanna Snyder [id number] (Continued) -------- Signed (signature on file) Alia Tatum MD 05/25/23 1159 Normal [facility] Laboratory - UrinalysisOrder ed By: Emily Marin on 05-21-2023 Hyaline casts LM Ql (Urine sed) 0-8 [LPF] 0-8 [facility] Leukocytes [#/volume] correc geo for nucleated erythrocytes in Blood by Automated counOrdered By: Emily Marin on 05-21-2023 WBC corrected for nucl RBC Auto (Bld) [#/Vol] 12.0 10*3/uL 3.8-11.6 [facility] Lymphocytes Auto (Bld) [#/Vo l]Ordered By: Emily Marin on 05-21-2023 Lymphocytes (Bld) [#/Vol] 1.3 10*3/uL 1.00-4.8 [facility] Lymphocytes/100 WBC Auto (Bl d)Ordered By: Emily Marin on 05-21-2023 Lymphocytes/100 WBC (Bld) 11.1 % . [facility] MCH Auto (RBC) [Entitic mass ]Ordered By: Emily Marin on 05-21-2023 MCH (RBC) [Entitic mass] 27.3 pg 24.7-34.3 [facility] MCHC Auto (RBC) [Mass/Vol]Or dered By: Emily Bullimore on 05-21-2023 MCHC (RBC) [Mass/Vol] 33.3 g/dL 32.0-35.0 [facility] MCV Auto (RBC) [Entitic vol] Ordered By: Emily Aaronimore on 05-21-2023 MCV (RBC) [Entitic vol] 81.9 fL 80-100 F [facility] Monocyte distribution width [Entitic volume] in Blood by AutomatedOrdered By: Emily Bullimore on 05-21-2023 Monocyte distribution width Auto (Bld) [Entitic vol] 17.88 % 0.00-20.00 [facility] Monocytes Auto (Bld) [#/Vol] Ordered By: Emily Bullimore on 05-21-2023 Monocytes (Bld) [#/Vol] 0.7 10*3/uL 0.0-0.8 [facility] Monocytes/100 WBC Auto (Bld) Ordered By: Emily Bullimore on 05-21-2023 Monocytes/100 WBC (Bld) 5.8 % . [facility] Neutrophils Auto (Bld) [#/Vo l]Ordered By: Emily Bullimore on 05-21-2023 Neutrophils (Bld) [#/Vol] 9.8 10*3/uL 1.8-7.7 [facility] Neutrophils/100 WBC Auto (Bl d)Ordered By: Emily Aaronimore on 05-21-2023 Neutrophils/100 WBC (Bld) 82.0 % . [facility] Nitrite Test strip Ql (U)Ord ered By: Emily Aaronimdionte on 05-21-2023 Nitrite Ql (U) Negative Negative [facility] No Panel InformationOrdered By: Emily Marin on 05-21-2023 Estimated GFR (CKD-EPI) > 60.0 mL/Min [facility]acy Creatinine Clearance (Chem 134.83 [facility] Nucleated erythrocytes [Pres ence] in Blood by Automated countOrdered By: Emily Aaronimore on 05-21-2023 Nucleated RBC Auto Ql (Bld) 0.0 /100{WBC} 0-0.5 [facility] Platelet mean volume Auto (B ld) [Entitic vol]Ordered By: Emily Bullimore on 05-21-2023 Platelet mean volume (Bld) [Entitic vol] 8.4 fL 6.3-10.7 [facility] Platelets Auto (Bld) [#/Vol] Ordered By: Emily Bullimore on 05-21-2023 Platelets (Bld) [#/Vol] 313 10*3/uL 150-450 [facility] Potassium [Moles/volume] in Serum or PlasmaOrdered By: Emily Bullimore on 05-21-2023 Potassium [Moles/Vol] 4.0 mmol/L 3.5-5.1 [facility] Protein Auto test strip (U) [Mass/Vol]Ordered By: Emily Bullimore on 05-21-2023 Protein (U) [Mass/Vol] Negative Negative [facility] Protein [Mass/volume] in Ser um or PlasmaOrdered By: Emily Bullimore on 05-21-2023 Protein [Mass/Vol] 7.7 g/dL 6.4-8.9 [facility] RBC Auto (Bld) [#/Vol]Ordere d By: Emily Bullimore on 05-21-2023 RBC (Bld) [#/Vol] 4.97 10*6/uL 3.60-5.00 [facility] Serum or plasma albumin/glob ulin mass ratioOrdered By: Emily Bullimore on 05-21-2023 Albumin/Globulin [Mass ratio] 1.3 {ratio} [facility] Serum or plasma anion gap de terminationOrdered By: Emily Bullimore on 05-21-2023 Anion gap [Moles/Vol] 9.7 mmol/L 6.0-15.0 [facility] Sodium [Moles/volume] in Ser um or PlasmaOrdered By: Emily Bullimore on 05-21-2023 Sodium [Moles/Vol] 134 mmol/L 136-145 [facility] Specific gravity Auto test s trip (U) [Rel density]Ordered By: Emily Bullimore on 05-21-2023 Specific gravity (U) [Rel density] 1.027 1.001-1.030 [facility] Squamous epithelial cells de tection in urine sediment by light microscopyOrdered By: Emily Marin on 05-21-2023 Epithelial cells.squamous LM Ql (Urine sed) 5-9 [HPF] 0-2 [facility] Urea nitrogen [Mass/volume] in Serum or PlasmaOrdered By: Emily Marin on 05-21-2023 Urea nitrogen [Mass/Vol] 14 mg/dL 7-25 [facility] Urine bacteria detection by automated methodOrdered By: Emily Marin on 05-21-2023 Bacteria Auto Ql (U) 1+ None Seen [facility] Urine clarity by refractomet ry automatedOrdered By: Emily Marin on 05-21-2023 Clarity Refractometry automated (U) Clear Clear [facility] Urine glucose measurement by automated test strip (mass/volume)Ordered By: Emily Marin on 05-21-2023 Glucose Auto test strip (U) [Mass/Vol] Normal mg/dL Normal [facility] Urine hemoglobin detection b y automated test stripOrdered By: Emily Marin on 05-21-2023 Hemoglobin Auto test strip Ql (U) Negative Negative [facility] Urine leukocyte esterase det ection by automated test stripOrdered By: Emily Marin on 05-21-2023 Leukocyte esterase Auto test strip Ql (U) 1+ Negative [facility] Urobilinogen Auto test strip (U) [Mass/Vol]Ordered By: Emily Marin on 05-21-2023 Urobilinogen (U) [Mass/Vol] Normal mg/dL Normal [facility] WBC Auto (Bld) [#/Vol]Ordere d By: Emily Marin on 05-21-2023 WBC (Bld) [#/Vol] 12.0 10*3/uL 3.8-11.6 [facility] pH Auto test strip (U)Ordere d By: Emily Marin on 05-21-2023 pH (U) 5.5 [pH] 5.0-9.0 [facility] Esophageal MALAGON pH Capsule Results / Interpretationon 01-26-2023 Esophageal MALAGON pH Capsule Results / Interpretation PATIENTNAME Patient Name: Yoanna Snyder EXAMDATE Procedure Date: 01/26/2023 2:40 PM PATIENTID PATIENTACCOUNTNUM PATIENTDOB Date of : 2000 PATIENTROOM Site: ETHNICITY Ethnicity: Not or RACE Race: White PROVDR Attending MD: Gustavo Garrett DO, [id number] ENDOPROCEDURENAME Procedure: Esophageal MALAGON pH Capsule Results / Interpretation INDICATION Indications: Failure to respond to treatment of esophageal reflux PRIMARYPROVIDER Providers: Gustavo Garrett DO (Doctor) Gastroenterology EDREFPROVIDER Referring MD: Rosmery Martell MD CURRENT_MEDS Medicines: None COMPLIC Complications: No immediate complications. ENDOPROCEDURETEXT Procedure: The MALAGON pH capsule was previously placed. Results from that study were obtained for interpretation. The MALAGON was accomplished without difficulty. The patient tolerated the procedure well. FINDING Findings: DAY 1 ACID REFLUX ANALYSIS: - Acid Exposure with pH < 4.0: Total Percent Time: 1.3 %. - Number of Reflux Episodes: Total Refluxes: 12 Number of reflux episodes > 5 minutes: 1. - Longest reflux episode: 8 minutes. - See the [employer] MALAGON data report for further details. DAY 2 ACID REFLUX ANALYSIS: - Acid Exposure Time(s) for pH < 4.0: Total Percent Time: 0.5 %. - Number of Reflux Episodes: Total Refluxes: 7 Number of reflux episodes > 5 minutes: 0. - Longest reflux episode: 3 minutes. - See the [employer] MALAGON data report for further details. TOTALS FOR ACID REFLUX ANALYSIS: - Acid Exposure Time(s) for pH < 4.0: Total Percent Time: 0.9 %. - Number of Reflux Episodes: Total Refluxes: 18 Number of reflux episodes > 5 minutes: 1. - Longest reflux episode: 8 minutes - Symptom Correlation: Reflux episodes did not correlate with symptoms noted during the study. - See the [employer] MALAGON data report for further details. EBL Estimated Blood Loss: Estimated blood loss: none. IMPRESS Impression: - Normal ambulatory esophageal pH study. ENDORECOMMENDATION Recommendation: - Return to referring physician as previously scheduled. ATTDRPART Attending Participation: I have reviewed and interpreted the results of the above documented diagnostic study. SIGNATURENAME DO Gustavo Diasot, DO SIGNATUREDATE 01/26/2023 2:51:11 PM SIGNATUREONFILEIND This report has been signed electronically. NUMADDENDA Number of Addenda: 0 INITIATEDON Note Initiated On: 01/26/2023 2:40 PM Normal [facility] No Panel Informationon 01-26 [email or web address] } [facility] Work Phone: [facility] Work Phone: High Resolution esophageal m anometryon 01-20-2023 High Resolution esophageal manometry PATIENTNAME Patient Name: Yoanna Snyder EXAMDATE Procedure Date: 01/20/2023 1:00 PM PATIENTID PATIENTACCOUNTNUM PATIENTDOB Date of : 2000 PATIENTROOM Site: [facility] 1 ETHNICITY Ethnicity: Not or RACE Race: White PROVDR Attending MD: Ross Du MD, [id number] ENDOPROCEDURENAME Procedure: High Resolution esophageal manometry INDICATION Indications: Esophageal dysphagia, Weight loss, pt sts difficulty to initiate to swallow solid food and hot cold liquids, that causes to cough, pt sts sometimes chest pain with just sitting up , pt denies acid reflux. pt sts off meds x 2-3 months. PRIMARYPROVIDER Providers: Ross Du MD (Doctor) Gastroenterology, Tati Gutierrez RN (Nurse) EDREFPROVIDER Referring MD: Rosmery Martell MD ENDOPROCEDURETEXT Procedure: After obtaining informed consent, the manometry catheter was inserted. Throughout the procedure, the patient's blood pressure, pulse, and oxygen saturations were monitored. FINDING Findings: The LES pressure is normal at 31 mmHg and it appears to relax normally with a normal median IRP at 3 mmHg There is no evidence of a hiatal hernia The study of the esophageal peristalsis shows normal esophageal motility in all liquid swallows with a normal mean DCI of 1010 mmHg.sec.cm IMPEDANCE: - There was complete bolus clearance in 80 % of swallows. IMPRESS Impression: - Normal esophageal manometry. ENDORECOMMENDATION Recommendation: - Return to referring physician as previously scheduled. SIGNATURENAME Ross Du MD SIGNATUREDATE 01/27/2023 1:54:45 PM SIGNATUREONFILEIND This report has been signed electronically. NUMADDENDA Number of Addenda: 0 INITIATEDON Note Initiated On: 01/20/2023 12:49 PM Normal [facility] No Panel Informationon 01-20 [email or web address] } [facility] Work Phone: [facility] Work Phone: Order Reconciliationon 01-20 Order Reconciliation Page 1 Discharge Reconciliation Document Reconciliation Type: Discharge requested on behalf of Marcela Colon (Physician) done by Marcela Colon) Discharge - Reconciliation: 20-Jan-2023 14:41 by: Marcela Colon) Current OrdersDateHOME MEDICATIONS AT DISCHARGE DateReconciliation Comment/ Additional Information Lidocaine Viscous 2% (XYLOCAINE VISCOUS)DOSE = 4 mL Topical Every 6 HoursClinician Notes: for emot to nares. 20-Jan-2023 13:30 Lidocaine Viscous 2% is not required Normal [facility] Upper GI endoscopyon 023 Upper GI endoscopy PATIENTNAME Patient Name: Yoanna Snyder EXAMDATE Procedure Date: 01/20/2023 2:26 PM PATIENTID PATIENTACCOUNTNUM PATIENTDOB Date of : 2000 PATIENTROOM Site: [place] [address] ETHNICITY Ethnicity: Not or RACE Race: White PROVDR Attending MD: Marcela Colon MD, [id number] ENDOPROCEDURENAME Procedure: Upper GI endoscopy INDICATION Indications: Epigastric abdominal distress, Follow-up of gastro-esophageal reflux disease, Chronic cough, Early satiety PTPROFILE Patient Profile: This is a 22 year old female who has been having a chronic cough associated with eating and drinking, along with GERD, early satiety and some cramping. For further work-up she has been referred for EGD with [facility] PRIMARYPROVIDER Providers: Marcela Colon MD (Doctor) Gastroenterology, Ross Du MD (Doctor) , Tati Gutierrez, RN (Nurse) , Rosa Kaur, RN (Nurse) , Jeaneth Malik RN (Nurse) EDREFPROVIDER Referring MD: Rosmery Martell MD [facility] Provider Care Team: 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 CURRENT_MEDS Medicines: Monitored Anesthesia Care COMPLIC Complications: No immediate complications. ENDOPROCEDURETEXT Procedure: Pre-Anesthesia Assessment: - Prior to the procedure, a History and Physical was performed, and patient medications and allergies were reviewed. The patient's tolerance of previous anesthesia was also reviewed. The risks and benefits of the procedure and the sedation options and risks were discussed with the patient. All questions were answered, and informed consent was obtained. Prior Anticoagulants: The patient has taken no anticoagulant or antiplatelet agents. ASA Grade Assessment: II - A patient with mild systemic disease. After reviewing the risks and benefits, the patient was deemed in satisfactory condition to undergo the procedure. After obtaining informed consent, the endoscope was passed under direct vision. Throughout the procedure, the patient's blood pressure, pulse, and oxygen saturations were monitored continuously. The endoscope was introduced through the mouth, and advanced to the second part of duodenum. The upper GI endoscopy was accomplished without difficulty. The patient tolerated the procedure well. FINDING Findings: The hypopharynx was normal. The examined esophagus was normal. There is no endoscopic evidence of Alonso's esophagus, bleeding, esophagitis, stenosis, ulcerations, varices or lower esophageal sphincter tone abnormalities in the entire esophagus. The Z-line was regular and was found 38 cm from the incisors. The gastroesophageal flap valve was visualized endoscopically and classified as Hill Grade II (fold present, opens with respiration). The entire examined stomach was normal. There is no endoscopic evidence of bleeding, erythema or inflammatory changes suggestive of gastritis, ulceration or papules in the entire examined stomach. The examined duodenum was normal. The [facility]ON capsule with delivery system was introduced through the mouth and advanced into the esophagus, such that the MALAGON pH capsule was positioned 32 cm from the incisors, which was 6 cm proximal to the GE junction. Suction was applied to the well of the MALAGON pH capsule to suck in the adjacent mucosa of the esophagus using the external vacuum pump set at a minimum vacuum pressure of 550 mmHg for 60 seconds. The [facility]ON pH capsule was then deployed by depressing the plunger on top of the handle to advance the locking pin into the mucosa, thereby attaching the capsule to the esophagus. The plunger was then rotated a quarter turn clockwise to release the capsule from the delivery system. The delivery system was then withdrawn. Endoscopy was utilized for probe placement and diagnostic evaluation. The scope was reinserted to evaluate placement of the [facility]ON capsule. Visualization showed the [facility] capsule to be in an appropriate position. SEDATION Moderate Sedation: Sedation provided by Anesthesia EBL Estimated Blood Loss: Estimated blood loss: none. IMPRESS Impression: - Normal hypopharynx. - Normal esophagus. - Gastroesophageal flap valve classified as Hill Grade II (fold present, opens with respiration). - Normal stomach. - Normal examined duodenum. - No upper GI abnormalities were found during today's exam, including esophagitis, gastritis, ulcers, erosions or stenosis. - The MALAGON pH capsule was positioned 32 cm from the incisors, which was 6 cm proximal to the GE junction. - No specimens collected. ENDORECOMMENDATION Recommendation: - The patient will be observed post-procedure, until all discharge criteria are met. - Discharge patient to home. - Resume previous diet. - Continue present medications. - Return to your referring physician, Dr. Martell at appointment to be scheduled for follow-up. - The findings and recommendation (more content not included)... 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 You need speech therapy as part of your treatment. We will help you to schedule your speech appointment after your visit or you can call Speech Therapy Scheduling at [phone]. Please follow up pending the outcome of speech therapy. Welcome to Dr. Martell?s clinic. We are here to assist you through your ENT care at [facility]. Dr. Martell is an ENT surgeon who specializes in voice, airway and swallowing issues. This means that she specializes in taking care of patients with complex voice, airway and swallowing problems. Dr. Martell's office number is [phone]. Please use this number to contact her and her care team regardless of which office you use to access care. This number is the most direct way to communicate with all the members of the care team. Dr. Martell?s construction secretary answers the office phone from 9am-4pm Mon-Fri. Call [phone] and push 2. She can help you with scheduling of appointments, general questions and information. You may need to leave a message if she is helping another patient. In this case, someone from the team will call you back the same day if you leave your message before 3pm, or the next business morning. Dr. Martell?s nurse and can be reached by calling [phone]. We make every effort to return phone calls the same day. If you are in need of urgent assistance after hours, please call [phone] and ask for ENT grounds person. Dr. Martell works closely with speech therapists as they work together to help solve your issues with speech and swallowing. You may see a speech therapist during your appointment if Dr. Martell feels this is needed. If you need to reach speech therapy to talk with a therapist or to schedule an appointment, please call [phone]. Others who may be included in your care are dieticians, social workers, audiologists, neurologists, and physical therapists. Dr. Martell will provide these referrals as needed. Please let her know if you would like to request a specific referral. For your convenience, Dr. Martell sees patients at different [facility] locations including the [facility] at [facility], and [facility] at the [facility]. While we try to make your appointments as convenient as possible, occasionally a visit to another location may be necessary to provide the best care for you. Dr. Martell makes every effort to run on time for your appointments. Therefore, if you are more than 30 minutes late unrelated to a scan or another appointment such therapy or audiology, your appointment will need to be rescheduled to another day. We appreciate your understanding. We look forward to working with you to meet your healthcare goals. By signing my name below, I, Monique Boateng, attest that this documentation has been prepared under the direction and in the presence of Dr. Rosmery Martell MD. All medical record entries made by the Scribe were at my direction and personally dictated by me. I have reviewed the chart and agree that the record accurately reflects my personal performance of the history, physical exam, discussion and plan. Provider Impressions This is an initial visit for intractable cough secondary and pharyngoesophageal dysphagia without clear etiology. It has at this point become intractable and associated with irritable larynx.Findings on laryngoscopy show mild muscle tension dysphonia and bilateral vocal cord edema likely related to cough. We often see some component of MTD, with MTdysphagia. Given normal MBS and CT neck - also feel comfortable with this diagnosis of exclusion. Exacerbating factors include: irritable larynx Treatment options discussed includin. She will work with speech therapy on cough avoidance strategies and relaxed throat phonation and breathing. Discussed virtual visits until resolution 2. If no success in 2-3 sessions, will consider further reflux or motility testing. The patient?s questions were answered. Chief Complaint Voice History of Present IllnessYOANNA SNYDER is a 22 year female who presents for an evaluation of cough. She has coughing with meals that started during a meal 6 months ago. The patient reports that there are no preceding events. She was seen by Dr. Esqueda who found no abnormalities- no scope examination was performed per the patient. She was trialed on a PPI f (more content not included)... 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 Short term goals: Patient will increase vocal wellness and decrease phono trauma in adherence with clinician prescribed vocal hygiene and wellness program per patient report 80% of his/her day. Patient will demonstrate independent use of voice/swallow/breathi ng techniques x 80% accuracy. Recommendations For Therapeutic Interventions: swallow exercises and vocal hygiene program Potential for improvement: good Factors affecting prognosis: none Discussed plan of care with: patient and physician Discussed risks/benefits with patient/caregiver. Patient/caregiver agreeable with plan of care. Plan of care was developed with input and agreement by the patient. Assessment Voice assessment: Patient presents with intractable cough 2/2 a diagnosis of ILS, MTD and MTDys. Additional findings included mild MTD and bilateral vocal cord edema. Patient appears to be an excellent candidate for therapy which will target vocal wellness and behavioral modification. Voice quality based on the GRBAS scale: 0=absent; 1=mild; 2=moderate; 3=severe Grade: 1 Roughness: 1 Breathiness: 0 Asthenia: 0 Strain: 0 Contributing Factors: supraglottic compression and habitual behaviors that misuse/abuse the voice NOMS Score: moderate: level 4 Treatment recommendations: treatment indicated (see goals below) Adult Risk Screening There are no spiritual/cultural practices/values/need s that are important to know Initial Fall Risk Screening: KELSEYIE has not fallen in the last 6 months. Pain Scale: On a scale of 0 to 10, the patient rates the pain at 0. Domestic Violence Screen: Does not feel threatened or abused physically, emotionally or sexually. Do you feel UNSAFE? The patient feels safe in the home. Depression/Suicide Screening: During the past 2 weeks, the patient has not felt down, depressed or hopeless. During the past 2 weeks, the patient has not felt little interest or pleasure in doing things. She does not have a risk of suicide. She has not had thoughts of harming others. Lange Learner(s) are identified by the patient as person(s) most likely to participate in providing care, such as managing medications or taking them to doctors? appointments. Primary Language for learning: Chadian. Insurance Insurance reviewed Visit number: 1 Onset Date: 2021 Subjective Living Environment: home Patient arrival: independent Voice evaluation: Reason for Referral: YOANNA SNYDER is a 22 year female who presents for an evaluation of cough. She has coughing with meals that started during a meal 6 months ago. The patient reports that there are no preceding events. She was seen by Dr. Esqueda who found no abnormalities- no scope examination was performed per the patient. She was trialed on a PPI for 3 months and a reflux diet with no improvement. The patient states she has globus sensation that worsens during her meals. This is present with both liquids and solids. She had an episode of a coughing fit and went to the ED. She had a CT chest and there were cardiopulmonary processes per report. She underwent with a MBS that was negative for aspiration or penetration, per the patient report. She brought in a copy of her MBS. The cough is intractable. It resolves when she stops eating. No episodes of emesis. She states that her cough has improved 25% with no intervention or management. No neck discomfort. No heartburn or indigestion. No changes in her voice. She has chronic breathing issues at baseline. She is not able to take a deep breath. PMH: chronic cough Social: Tobacco - none Referred by: Dr. Martell Prior level of function: within functional limits Voice Use Inventory: Voice misuse/abuse: yes cough throat clear Exposure to noise: no Exposure to respiratory irritants: no Consistent use of singing voice: no Patient self assessment: Daily water intake: yes Reflux history: no Objective PERCEPTUAL VOICE FEATURES Intonation: WFL Loudness: WFL Nasal resonance: WFL Additional vocal characteristics noted included: Throat clears/coughing Globus complaints FLEXIBLE LARYNGOSCOPY Glottic closure: complete Vocal fold mobility: normal Mucosal edge: smooth bilaterally Vascularity: mild bilateral vocal cord edema Subglottis: widely patent Interarytenoid edema: none Compression: AP > FVC Deep breaths: mild splinting Treatment Total time in clinic is 35 minutes. Treatment/Instruction s/Information Provided: Instructed patient this date in: cough/throat clear reduction techniques (effortful swal (more content not included)... Normal [facility] Tobacco Screening.on 022 Adult depression screening assessment Yes [facility] Work Phone: Fall risk assessment a) No falls within the last year [facility] Work Phone: Tobacco use status [facility] b) No [facility] Signature Professional Jac C Work Phone: Pap IG, rfx Aptima HPV ASCUo n 06-11-2022 . . Normal [facility] Comment on above: Performed By: #### P APHR7A #### [facility] [address] [place] [address] Dr. Garrett Galeas DIAGNOSIS: Comment [facility] Comment on above: Result Comment: NEGA TIVE FOR INTRAEPITHELIAL LESION OR MALIGNANCY. FUNGAL ORGANISMS MORPHOLOGICALLY CONSISTENT WITH ALLI SPECIES ARE PRESENT. Performed By: #### P APHR7A #### [facility] [address] [place] [address] Dr. Garrett Galeas Methodology: Comment [facility] Comment on above: Result Comment: This liquid based ThinPrep(R) pap test was screened with the use of an image guided system. Performed By: #### P APHR7A #### [facility] [address] [place] [address] Dr. Garrett Galeas Note: Comment [facility] Comment on above: Result Comment: The Pap smear is a screening test designed to aid in the detection of premalignant and malignant conditions of the uterine cervix. It is not a diagnostic procedure and should not be used as the sole means of detecting cervical cancer. Both false-positive and false-negative reports do occur. . Performed By: #### P APHR7A #### [facility] [address] [place] [address] Dr. Garrett Gaelas Performed by: Comment Normal [facility] Comment on above: Result Comment: Erick Wilson, Pick And Shovel Worker (ASCP) Performed By: #### P APHR7A #### [facility] [address] [address] [address] Garrett Galeas Reflex Criteria: Comment Normal [facility] Comment on above: Result Comment: The HPV DNA reflex criteria were not met with this specimen result therefore, no HPV testing was performed. . Performed By: #### P APHR7A #### [facility] [address] [address] [address] Garrett Galeas Specimen adequacy: Comment Normal [facility] Comment on above: Result Comment: Sati sfactory for evaluation. Endocervical and/or squamous metaplastic cells (endocervical component) are present. Performed By: #### P APHR7A #### [facility] [address] [address] [address] head stroke alert wo cono n 06-03-2022 CT head stroke alert wo con [facility] [place] [address] [place] [address] CT Scan Report Signed Patient: Yoanna Snyder MR#: [id number] 2 : 2000 Acct:[id number] Age/Sex: 22 / F ADM Date: 06/03/22 Loc: ER Room: Type: PRE ER Attending Dr: Copies to: Ishaan Alvarado MD Ordering Provider: Ishaan Alvarado MD Date of Service: 06/03/22 CT/CT head stroke alert wo con: stroke CT head stroke alert wo con 06/03/2022 6:57 PM SIGNS AND SYMPTOMS: Left-sided headache, blurred vision in left eye TECHNIQUE:Multi-detec tor CT axial slices of the brain were obtained without IV contrast. CT was performed with one or more of the following dose reduction techniques: Automated exposure control, adjustment of the mA and/or kV according to patient size, or use of iterative reconstruction technique. COMPARISON: None. FINDINGS: There is no shift of the midline structures, acute intracranial bleeding, mass effects, or evidence of acute ischemia. The ventricular system is normal in size. The brainstem and the cerebellum are unremarkable. The visualized intraorbital contents, the visualized paranasal sinuses, and the infratemporal soft tissues show no acute abnormality. The osseous structures in the skull base and the calvarium show no abnormality. CT/CT head stroke alert wo con IMPRESSION: Normal noncontrasted CT brain. Findings were discussed with Dr. Alvarado at 7:12 PM on 06/03/2022 Impression dictated by: Romario Richmond M.D.06/03/2022 7:11 PM Dictation Location: [place] [address] Transcribed By: [facility] 06/03/221910 Dictated By: Romario Richmond II, MD 06/03/221908 Signed By: 06/03/221910 Normal [facility] Complete Blood Count Auto Di ffon 06-03-2022 Basophils (Bld) [#/Vol] 0.0 10*3/uL Normal 0.0-0.2 [facility] Comment on above: Result Comment: PERF ORMED BY: [place] [address] PATHOLOGIST RELOCATION ASSOCIATE NANCY NAPIER M.D. Performed By: #### C KMB, CK, CBC, CMP, PTT, PT, HS TROP #### [address] Basophils/100 WBC (Bld) 0.5 % Normal . [facility] Comment on above: Performed By: #### C KMB, CK, CBC, CMP, PTT, PT, HS TROP #### [address] Eosinophils (Bld) [#/Vol] 0.2 10*3/uL Normal 0.0-0.45 [facility] Comment on above: Performed By: #### C KMB, CK, CBC, CMP, PTT, PT, HS TROP #### [address] Eosinophils/100 WBC (Bld) 3.1 % Normal . [facility] Comment on above: Performed By: #### C KMB, CK, CBC, CMP, PTT, PT, HS TROP #### [address] Erythrocyte distribution width (RBC) [Ratio] 16.0 % High 11.9-15.3 [facility] Comment on above: Performed By: #### C KMB, CK, CBC, CMP, PTT, PT, HS TROP #### [address] Hematocrit (Bld) [Volume fraction] 40.0 % Normal 34.0-46.4 [facility] Comment on above: Performed By: #### C KMB, CK, CBC, CMP, PTT, PT, HS TROP #### [address] Hemoglobin (Bld) [Mass/Vol] 12.9 g/dL Normal 11.8-15.4 [facility] Comment on above: Performed By: #### C KMB, CK, CBC, CMP, PTT, PT, HS TROP #### [address] Lymphocytes (Bld) [#/Vol] 2.8 10*3/uL Normal 1.00-4.8 [facility] Comment on above: Performed By: #### C KMB, CK, CBC, CMP, PTT, PT, HS TROP #### [address] Lymphocytes/100 WBC (Bld) 36.2 % Normal . [facility] Comment on above: Performed By: #### C KMB, CK, CBC, CMP, PTT, PT, HS TROP #### [address] MCH (RBC) [Entitic mass] 25.3 pg Normal 24.7-34.3 [facility] Comment on above: Performed By: #### C KMB, CK, CBC, CMP, PTT, PT, HS TROP #### [address] MCV (RBC) [Entitic vol] 78.2 fL Low 80-100 F [facility] Comment on above: Performed By: #### C KMB, CK, CBC, CMP, PTT, PT, HS TROP #### [address] Mean Corpuscular HGB Conc 32.3 g/dL Normal 32.0-35.0 [facility] Comment on above: Performed By: #### C KMB, CK, CBC, CMP, PTT, PT, HS TROP #### [address] Monocytes (Bld) [#/Vol] 0.8 10*3/uL Normal 0.0-0.8 [facility] Comment on above: Performed By: #### C KMB, CK, CBC, CMP, PTT, PT, HS TROP #### [address] Monocytes/100 WBC (Bld) 9.7 % Normal . [facility] Comment on above: Performed By: #### C KMB, CK, CBC, CMP, PTT, PT, HS TROP #### [address] Neutrophils (Bld) [#/Vol] 4.0 10*3/uL Normal 1.8-7.7 [facility] Comment on above: Performed By: #### C KMB, CK, CBC, CMP, PTT, PT, HS TROP #### [address] Neutrophils/100 WBC (Bld) 50.5 % Normal . [facility] Comment on above: Performed By: #### C KMB, CK, CBC, CMP, PTT, PT, HS TROP #### [place] [address] [place] Nucleated RBC/100 WBC (Bld) [Ratio] 0.1 % Normal 0-0.5 [facility] Comment on above: Performed By: #### C KMB, CK, CBC, CMP, PTT, PT, HS TROP #### [address] Platelet mean volume (Bld) [Entitic vol] 8.3 fL Normal 6.3-10.7 [facility] Comment on above: Performed By: #### C KMB, CK, CBC, CMP, PTT, PT, HS TROP #### [address] [place] [address] [place] Platelets (Bld) [#/Vol] 337 10*3/uL Normal 150-450 [facility] Comment on above: Performed By: #### C KMB, CK, CBC, CMP, PTT, PT, HS TROP #### [facility] [address] RBC (Bld) [#/Vol] 5.12 10*6/uL High 3.60-5.00 [facility] Comment on above: Performed By: #### C KMB, CK, CBC, CMP, PTT, PT, HS TROP #### [address] WBC (Bld) [#/Vol] 7.8 10*3/uL Normal 4.5-11.0 [facility] Comment on above: Performed By: #### C KMB, CK, CBC, CMP, PTT, PT, HS TROP #### [address] Comprehensive Metabolic Pane gee 06-03-2022 Albumin [Mass/Vol] 3.7 g/dL Normal 3.2-5.5 [facility] Comment on above: Performed By: #### C KMB, CK, CBC, CMP, PTT, PT, HS TROP #### [address] Albumin/Globulin [Mass ratio] 1.0 {ratio} Normal [facility] Comment on above: Performed By: #### C KMB, CK, CBC, CMP, PTT, PT, HS TROP #### [address] ALP [Catalytic activity/Vol] 120 U/L High 32-92 [facility] Comment on above: Result Comment: PERF ORMED BY: [place] [address] PATHOLOGIST RELOCATION ASSOCIATE NANCY NAPIER M.D. Performed By: #### C KMB, CK, CBC, CMP, PTT, PT, HS TROP #### [address] [place] [address] [place] ALT [Catalytic activity/Vol] 21 U/L Normal 10-60 [facility] Comment on above: Performed By: #### C KMB, CK, CBC, CMP, PTT, PT, HS TROP #### [address] AST [Catalytic activity/Vol] 19 U/L Normal 10-42 [facility] Comment on above: Performed By: #### C KMB, CK, CBC, CMP, PTT, PT, HS TROP #### [address] Bilirubin [Mass/Vol] 0.5 mg/dL Normal 0.3-1.2 [facility] Comment on above: Performed By: #### C KMB, CK, CBC, CMP, PTT, PT, HS TROP #### [address] Calcium [Mass/Vol] 9.2 mg/dL Normal 8.2-10.2 [facility] Comment on above: Performed By: #### C KMB, CK, CBC, CMP, PTT, PT, HS TROP #### [address] Chloride [Moles/Vol] 100 mmol/L Normal 95-114 [facility] Comment on above: Performed By: #### C KMB, CK, CBC, CMP, PTT, PT, HS TROP #### [address] CO2 [Moles/Vol] 25.9 mmol/L Normal 22.0-30.0 [facility] Comment on above: Performed By: #### C KMB, CK, CBC, CMP, PTT, PT, HS TROP #### [address] Creatinine [Mass/Vol] 0.66 mg/dL Normal 0.44-1.03 [facility] Comment on above: Performed By: #### C KMB, CK, CBC, CMP, PTT, PT, HS TROP #### [address] [place] [address] [place] Estimated GFR ( Angela > 60 Normal [facility] Comment on above: Result Comment: GFR estimated reference range: According to KDOQI guidelines, <60 ml/min/1.73m2 is sufficient to diagnose a patient with chronic kidney disease. Performed By: #### C KMB, CK, CBC, CMP, PTT, PT, HS TROP #### [facility] [address] Estimated GFR (Non- Am > 60 Normal [facility] Comment on above: Performed By: #### C KMB, CK, CBC, CMP, PTT, PT, HS TROP #### [address] Globulin (S) [Mass/Vol] 3.6 g/dL Normal [facility] Comment on above: Performed By: #### C KMB, CK, CBC, CMP, PTT, PT, HS TROP #### [address] Glucose [Mass/Vol] 92 mg/dL Normal 70-100 [facility] Comment on above: Result Comment: [facility] Glucose Reference Range is dependent on time and content of last meal. Glucose of more than 200 mg/dL in a nonstressed, ambulatory subject supports the diagnosis of Diabetes Mellitus. ADA recommended reference range Performed By: #### C KMB, CK, CBC, CMP, PTT, PT, HS TROP #### [address] Potassium [Moles/Vol] 3.4 mmol/L Low 3.5-5.1 [facility] Comment on above: Performed By: #### C KMB, CK, CBC, CMP, PTT, PT, HS TROP #### [address] Protein [Mass/Vol] 7.3 g/dL Normal 6.1-7.9 [facility] Comment on above: Performed By: #### C KMB, CK, CBC, CMP, PTT, PT, HS TROP #### [address] [address] [place] Sodium [Moles/Vol] 136 mmol/L Normal 136-146 [facility] Comment on above: Performed By: #### C KMB, CK, CBC, CMP, PTT, PT, HS TROP #### [facility] [address] Urea nitrogen [Mass/Vol] 12 mg/dL Normal 9-23 [facility] Comment on above: Performed By: #### C KMB, CK, CBC, CMP, PTT, PT, HS TROP #### [facility] [address] [place] [address] Creatine Kinaseon 06-03-2022 CK [Catalytic activity/Vol] 124 U/L Normal 22-269 [facility] Comment on above: Performed By: #### C KMB, CK, CBC, CMP, PTT, PT, HS TROP ####[place] [id number] Creatinine Kinase MBon 06-03 CK.MB [Mass/Vol] 0.7 ng/mL Normal 0.6-6.3 [facility] Comment on above: Performed By: #### C KMB, CK, CBC, CMP, PTT, PT, HS TROP ####[facility] CKMB Relative Index 0.5 % Normal 0.00-2.50 [facility] Comment on above: Performed By: #### C KMB, CK, CBC, CMP, PTT, PT, HS TROP ####[place] [id number] ECG 12 lead ECGon 06-03-2022 ECG 12 lead ECG [facility] [place] [address] [place] [address] Electrocardiograph Report Signed Patient: Yoanna Snyder MR#: [id number] 2 : 2000 Acct:[id number] Age/Sex: 22 / F ADM Date: 06/03/22 Loc: ER Room: Type: [facility] ER Attending Dr: Ordering Provider: Ishaan Alvarado MD Date of Service: 07/ ECG/ECG 12 lead ECG: stroke alert Copies to: Test Reason : Blood Pressure : 161/084 mmHG Vent. Rate : 082 BPM Atrial Rate : 082 BPM P-R Int : 138 ms QRS Dur : 082 ms QT Int : 360 ms P-R-T Axes : 060 079 046 degrees QTc Int : 420 ms Normal sinus rhythm with sinus arrhythmia Normal ECG No previous ECGs available Confirmed by ISHAAN ALVARADO MD ([id number]) on 06/04/2022 1:25:38 AM Referred By: Electronically Signed By:ISHAAN ALVARADO MD Transcribed By: MUS Signed By Ishaan Alvarado MD 05/21 04/11 0125 [facility] Glucose Poct Glucometerson 0 06-03-2022 Commemt1 Glu2: Cleaned Meter [facility] Comment on above: Result Comment: PERF ORMED BY: [place] [address] PATHOLOGIST RELOCATION ASSOCIATE NANCY NAPIER M.D. Performed By: #### G LULS ####Point of Care testing, Glucose [Mass/Vol] 83 mg/dL [facility] Comment on above: Result Comment: [facility] Glucose Reference Range is dependent on time and content of last meal. Glucose of more than 200 mg/dL in a nonstressed, ambulatory subject supports the diagnosis of Diabetes Mellitus. Performed By: #### G LULS ####Point of Care testing, Partial Thromboplastin Timeo n 06-03-2022 aPTT Coag (Bld) [Time] 31.9 s Normal 25.1-36.5 [facility] Comment on above: Result Comment: PERF ORMED BY: [place] [address] PATHOLOGIST RELOCATION ASSOCIATE NANCY NAPIER M.D. Performed By: #### C KMB, CK, CBC, CMP, PTT, PT, HS TROP #### [address] Prothrombin Time INRon 06-03 INR Coag (PPP) [Relative time] 1.1 {INR} [facility] Comment on above: Result Comment: INR Therapeutic Range A) Pre- and Peroperative OAT started two weeks before surgery. NOT HIP SURGERY: 1.5 - 2.5 HIP SURGERY: 2 - 3 B) Primary and secondary prevention of venous THROMBOSIS: 2 - 3 C) Active venous thrombosis, pulmonary embolism and prevention of recurrent venous thrombosis: 2 - 3 D) Prevention of arterial thromboembolism including patients with mechanical heart valves: 3 - 4.5 Performed By: #### C KMB, CK, CBC, CMP, PTT, PT, HS TROP #### [facility] [address] PT Coag (PPP) [Time] 12.3 s Normal 9.0-12.9 [facility] Comment on above: Performed By: #### C KMB, CK, CBC, CMP, PTT, PT, HS TROP #### [facility] [address] Troponin I High Sensitivityo n 06-03-2022 Troponin I High Sensitivity 3 pg/mL Normal 0-15 [facility] Comment on above: Result Comment: PERF ORMED BY: [facility] 1111 [place] [address] PATHOLOGIST RELOCATION ASSOCIATE NANCY NAPIER M.D. Performed By: #### C KMB, CK, CBC, CMP, PTT, PT, HS TROP ####[facility] [address] CHLAMYDIA/GONOCOCCUS YESSENIA (SW AB/URINE/PAPon 04-30-2022 Chlamydia trachomatis, YESSENIA Negative Normal Negative [facility] Comment on above: Performed By: #### C T/NGNA #### [facility] [address] [place] [address] [address] Garrett Galeas Neisseria gonorrhoeae, YESSENIA Negative Normal Negative [facility] Comment on above: Performed By: #### C T/NGNA #### [facility] [address] [place] [address] [address] Garrett Galeas VAGINITIS/VAGINOSIS DNA PROB [place] 04-29-2022 Alli species Positive Abnormal Negative [facility] Comment on above: Performed By: #### V AGINT #### [facility] [address] [place] [address] Dr. Garrett Galeas Gardnerella vaginalis Negative Normal Negative [facility] Comment on above: Performed By: #### V AGINT #### [facility] [address] [place] [address] Dr. Garrett Galeas Trichomonas vaginalis Negative Normal Negative [facility] Comment on above: Performed By: #### V AGINT #### [facility] [address] [place] [address] Dr. Garrett Galeas CBC AUTO DIFFon 01-13-2022 BASO # 0.0 103/ul Normal 0.0-0.1 [facility] Comment on above: Performed By: #### C BC #### [facility] [address] [place] [address] Dr. Garrett Galeas Basophils/100 WBC (Bld) 0.5 % Normal 0.2-2.0 [facility] Comment on above: Performed By: #### C BC #### [facility] [address] [place] [address] Dr. Garrett Galeas EO # 0.3 103/ul Normal 0.0-0.7 [facility] Comment on above: Performed By: #### C BC #### [facility] [address] [place] [address] Dr. Garrett Galeas Eosinophils/100 WBC (Bld) 4.8 % Normal 0.9-7.0 [facility] Comment on above: Performed By: #### C BC #### [facility] [address] [place] [address] Dr. Garrett Galeas Erythrocyte distribution width (RBC) [Ratio] 16.6 % Critically high 11.0-15.0 [facility] Comment on above: Performed By: #### C BC #### [facility] [address] [place] [address] Dr. Garrett Galeas Hematocrit (Bld) [Volume fraction] 37.8 % Normal 36.0-48.0 [facility] Comment on above: Performed By: #### C BC #### [facility] [address] [place] [address] Dr. Garrett Galeas Hemoglobin (Bld) [Mass/Vol] 11.7 g/dL Critically low 12.0-16.0 [facility] Comment on above: Performed By: #### C BC #### [facility] [address] [place] [address] Dr. Garrett Galeas IG # 0.01 10e3/ul Normal 0.00-0.03 [facility] Comment on above: Performed By: #### C BC #### [facility] [address] [place] [address] Dr. Garrett Galeas IG % 0.1 % Normal 0.0-0.5 [facility] Comment on above: Performed By: #### C BC #### [facility] [address] [place] [address] Dr. Garrett Galeas LYMPH # 3.3 103/ul Normal 1.2-3.8 [facility] Comment on above: Performed By: #### C BC #### [facility] [address] [place] [address] Dr. Garrett Galeas Lymphocytes/100 WBC (Bld) 41.7 % Normal 20.5-60.0 [facility] Comment on above: Performed By: #### C BC #### [facility] [address] [place] [address] Dr. Garrett Galeas MANUAL DIFF REQ NO Normal [facility] Comment on above: Performed By: #### C BC #### [facility] [address] [place] [address] Dr. Garrett Galeas MCH (RBC) [Entitic mass] 24.0 pg Critically low 26.7-34.0 [facility] Comment on above: Performed By: #### C BC #### [facility] [address] [place] [address] Dr. Garrett Galeas MCHC (RBC) [Mass/Vol] 31.0 g/dL Normal 29.9-35.2 [facility] Comment on above: Performed By: #### C BC #### [facility] [address] [place] [address] Dr. Garrett Galeas MCV (RBC) [Entitic vol] 77.5 fL Critically low 81.0-99. 0 [facility] Comment on above: Performed By: #### C BC #### [facility] [address] [place] [address] Dr. Garrett Galeas MONO # 0.6 103/ul Normal 0.3-0.8 [facility] Comment on above: Performed By: #### C BC #### [facility] [address] [place] [address] Dr. Garrett Galeas Monocytes/100 WBC (Bld) 7.7 % Normal 1.7-12.0 [facility] Comment on above: Performed By: #### C BC #### [facility] [address] [place] [address] Dr. Garrett Galeas NEUT # 3.6 103/ul Normal 1.4-6.5 [facility] Comment on above: Performed By: #### C BC #### [facility] [address] [place] [address] Dr. Garrett Galeas Neutrophils/100 WBC (Bld) 45.2 % Normal 43.0-75.0 [facility] Comment on above: Performed By: #### C BC #### [facility] [address] [place] [address] Dr. Garrett Galeas Platelet mean volume (Bld) [Entitic vol] 10.3 fL Normal 9.5-13.5 [facility] Comment on above: Performed By: #### C BC #### [facility] [address] [place] [address] Dr. Garrett Galeas PLT 381 103/ul Normal 150-450 [facility] Comment on above: Performed By: #### C BC #### [facility] [address] [place] [address] Dr. Garrett Galeas RBC 4.88 106/ul Normal 4.20-5.40 [facility] Comment on above: Performed By: #### C BC #### [facility] [address] [place] [address] Dr. Garrett Galeas WBC 7.9 103/ul Normal 4.0-11.0 [facility] Comment on above: Performed By: #### C BC #### [facility] [address] [address] [address] NECK ST W CONon CT NECK ST W CON EXAMINATION: CT NECK ST W CON HISTORY: Cough when swallowing COMPARISON: None. TECHNIQUE: CT examination of the soft tissues of the neck following the administration of intravenous contrast. Coronal and sagittal reformations were performed. Dose reduction techniques were achieved by using automated exposure control and/or adjustment of mA and/or kV according to patient size and/or use of iterative reconstruction technique. FINDINGS: Airway is midline. No abnormalities of the pharynx, larynx, or epiglottis. The lung apices are clear. Retropharyngeal and paraspinal soft tissues are within normal limits. No lymphadenopathy or concerning masses. Thyroid lobes are normal and symmetric. Normal parotid, submandibular, and sublingual glands. No fractures, bone lesions, or other osseous abnormalities. The common carotid arteries, internal carotid arteries and external carotid arteries are patent. The vertebral and basilar arteries appear patent. There is no aneurysm, dissection, critical stenosis or vascular malformation. The visualized paranasal sinuses and mastoid air cells are well developed and well-aerated. IMPRESSION: No acute findings in the neck. Electronically authenticated by: SHIV CALVO Date: 2022-01-13 06:46 Normal [facility] PROF CHEM 8 (BAS METB)on Anion gap [Moles/Vol] 14.5 mmol/L Normal [facility] Comment on above: Performed By: #### B MP #### [facility] [address] [place] [address] Dr. Garrett Galeas Calcium [Mass/Vol] 9.0 mg/dL Normal 8.4-10.2 [facility] Comment on above: Performed By: #### B MP #### [facility] [address] [place] [address] Dr. Garrett Galeas Chloride [Moles/Vol] 105 mmol/L Normal 98-107 [facility] Comment on above: Performed By: #### B MP #### [facility] [address] [place] [address] Dr. Garrett Galeas CO2 [Moles/Vol] 23.6 mmol/L Normal 22.0-30.0 [facility] Comment on above: Performed By: #### B MP #### [facility] [address] [address] [address] Garrett Galeas Creatinine [Mass/Vol] 0.61 mg/dL Normal 0.52-1.04 [facility] Comment on above: Performed By: #### B MP #### [facility] [address] [address] [address] Garrett Galeas EGFR-AF CITIZEN [place] >60 Normal >=60 [facility] Comment on above: Performed By: #### B MP #### [facility] [address] [address] [address] Garrett Galeas EGFR-NON AF CITIZEN OF [place] >60 Normal >=60 [facility] Comment on above: Performed By: #### B MP #### [facility] [address] [address] [address] Garrett Galeas Glucose [Mass/Vol] 103 mg/dL Normal 74-106 [facility] Comment on above: Performed By: #### B MP #### [facility] [address] [place] [address] Dr. Garrett Galeas Potassium [Moles/Vol] 4.1 mmol/L Normal 3.4-5.0 [facility] Comment on above: Performed By: #### B MP #### [facility] [address] [address] [address] Garrett Galeas Sodium [Moles/Vol] 139 mmol/L Normal 137-145 [facility] Comment on above: Performed By: #### B MP #### [facility] [address] [address] [address] Garrett Galeas Urea nitrogen [Mass/Vol] 20.0 mg/dL Critically high 7.0-17.0 [facility] Comment on above: Performed By: #### B MP #### [facility] [address] [address] [address] Garrett Galeas Urea nitrogen/Creatinine [Mass ratio] 32.8 mg/mg Normal [facility] Comment on above: Performed By: #### B #### [facility] [address] [address] [address] Garrett Galeas XR MODIFIED BARIUM SWALLOWon 01-12-2022 XR MODIFIED BARIUM SWALLOW EXAMINATION: XR MODIFIED BARIUM SWALLOW HISTORY: Dysphagia COMPARISON: No relevant comparison available. TECHNIQUE: A swallowing evaluation was performed with fluoroscopy in the usual manner. Standard level fluoroscopic mode of operation utilized. FINDINGS: ORAL PHASE: Normal deglutition. PHARYNGEAL PHASE: Normal swallowing. ASPIRATION: None. STRUCTURE: Normal. No visible obstruction, stricture, or dilatation. OTHER: Negative. IMPRESSION: 1. Normal examination with multiple repeat sequences and additional evaluation of the pharynx, hypopharynx, trachea, and upper esophagus. No appreciable abnormalities to account for the patient's repeated coughing after each episode of swallowing. Further evaluation is recommended. 2. Please see speech pathologist's report for additional discussion of findings and recommendations. Electronically authenticated by: STELLA BROWN Date: 2022-01-12 14:07 Normal [facility] OPERATIVE REPORTon 9 OPERATIVE REPORT PATIENT NAME: YOANNA SNYDER DATE OF : 2000 ACCT: [id number] ROOM: [facility] ROOM DATE OF SURGERY: 05/08/2019 ATTENDING SURGEON: Ishaan Ingram MD ANESTHESIA: General anesthesia. PREOPERATIVE DIAGNOSIS: Subtenon cyst, left, medial. POSTOPERATIVE DIAGNOSIS: Subtenon cyst, left, medial. OPERATION: Excision of subtenon cyst, left eye, on previous surgical eye, release of scar tissue. COMPLICATIONS: None. INDICATIONS: The patient had strabismus surgery and developed a subtenon cyst unresponsive to conservative measures. DESCRIPTION OF OPERATION: The patient was brought to the operating room and placed in the supine position on the operating table. After general anesthesia was achieved, the left eye was prepped and draped in the usual sterile ophthalmic fashion. A pickup and Ileana scissors were used to do a conjunctival peritomy. Sharp and blunt dissection was carried out with Ileana scissors. A large hook was used to isolate the medial rectus muscle. Just anterior to the medial rectus muscle was a subtenon cyst. This was bluntly and sharply dissected with Ileana scissors. The cyst was removed in total and electrocautery was used for hemostasis. The conjunctiva was closed using direct pressure. The patient tolerated the procedure well and was transferred to recovery in stable condition. Postop instructions, including followup, were given to the family. Attending Surgeon: MD MINERVA Wren #:[id number] /MB /ss Normal [facility] URINE TESTon 05-08 HCG ( test) Ql (U) Negative Normal NEG [facility] Comment on above: Performed By: #### U CG #### [facility] [address] [facility] [address] Vital Signs Date Time Vital Sign Value Performing Clinician Nicolei shivam 05-22-2023 13:55-0400 Body temperature 97.8 [degF] CLEANING TEAM MEMBER-C 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 Work Phone: [facility] 05-22-2023 13:55-0400 Diastolic blood pressure 88 mm[Hg] CLEANING TEAM MEMBER-C 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 Work Phone: [facility] 05-22-2023 13:55-0400 Heart rate 90 /min CLEANING TEAM MEMBER-C 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 Work Phone: [facility] 05-22-2023 13:55-0400 Respiratory rate 16 /min CLEANING TEAM MEMBER-C 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 Work Phone: [facility] 05-22-2023 13:55-0400 SaO2% (BldA) [Mass fraction] 96 % CLEANING TEAM MEMBER-C 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 Work Phone: [facility] 05-22-2023 13:55-0400 Systolic blood pressure 136 mm[Hg] CLEANING TEAM MEMBER-C 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 Work Phone: [facility] 05-22-2023 05:31-0400 Body weight 78.2 kg CLEANING TEAM MEMBER-C 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 Work Phone: [facility] 05-21-2023 23:50-0400 Inhaled oxygen flow rate 10 L/min CLEANING TEAM MEMBER-C 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 Work Phone: [facility] 05-21-2023 16:15-0400 Diastolic blood pressure 79 mm[Hg] CLEANING TEAM MEMBER-C Angelina Brownmer Work Phone: [facility] 05-21-2023 16:15-0400 Heart rate 115 /min CLEANING TEAM MEMBER-C Angelina Brownmer Work Phone: [facility] 05-21-2023 16:15-0400 Respiratory rate 16 /min CLEANING TEAM MEMBER-C Angelina Brownmer Work Phone: [facility] 05-21-2023 16:15-0400 SaO2% (BldA) [Mass fraction] 99 % CLEANING TEAM MEMBER-C Angelina Brownmer Work Phone: [facility] 05-21-2023 16:15-0400 Systolic blood pressure 145 mm[Hg] CLEANING TEAM MEMBER-C Angelina Brownmer Work Phone: [facility] 05-21-2023 16:00-0400 Body temperature 98.4 [degF] CLEANING TEAM MEMBER-C Angelina Brownmer Work Phone: [facility] 05-21-2023 15:22-0400 Inhaled oxygen flow rate 10 L/min CLEANING TEAM MEMBER-C 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 Work Phone: [facility] 05-21-2023 14:57-0400 Body height 165.1 cm CLEANING TEAM MEMBER-C Angelina Brownmer Work Phone: [facility] 05-21-2023 14:57-0400 Body mass index (BMI) [Ratio] 28.6 kg/m2 CLEANING TEAM MEMBER-C Angelina Brownmer Work Phone: [facility] 05-21-2023 14:57-0400 Body weight 78 kg CLEANING TEAM MEMBER-C Angelina Brownmer Work Phone: [facility] 06-29-2022 10:10-0400 Body height 167.64 cm Angelina Brownmer Work Phone: [facility] Jac C Work Phone: 06-29-2022 10:10-0400 Body mass index (BMI) [Ratio] 26.02 kg/m2 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 Work Phone: [facility] C Work Phone: 06-29-2022 10:10-0400 Body surface area Derived from formula 1.82 m2 Angelina Brownmer Work Phone: [facility] Professional Jac C Work Phone: 06-29-2022 10:10-0400 Body temperature 97.1 [degF] 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 Work Phone: [facility] Professional Jac C Work Phone: 06-29-2022 10:10-0400 Body weight 73.12 kg 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 Work Phone: [facility] Professional Jac C Work Phone: 04-25-2021 19:09-0400 Body height 165.1 cm Jackie Ag T Work Phone: [facility] 04-25-2021 19:09-0400 Body mass index (BMI) [Ratio] 23.6 kg/m2 Jackie Mancillaw T Work Phone: [facility] 04-25-2021 19:09-0400 Body temperature 98.8 [degF] Jackie Mancillaw T Work Phone: [facility] 04-25-2021 19:09-0400 Body weight 64.3 kg Jackie Mancillaw T Work Phone: [facility] 04-25-2021 19:09-0400 Diastolic blood pressure 80 mm[Hg] Jackie Shelbymew T Work Phone: [facility] 04-25-2021 19:09-0400 Heart rate 94 /min Jackie Mancillaw T Work Phone: [facility] 06-05-2021 19:09-0400 Respiratory rate 18 /min Jackie Curiel Work Phone: [facility] 04-25-2021 19:09-0400 SaO2% (BldA) [Mass fraction] 96 % Jackie Curiel Work Phone: [facility] 04-25-2021 19:09-0400 Systolic blood pressure 148 mm[Hg] Jackie Curiel Work Phone: [facility] Encounters Encounter Date Encounter Type Care Provider Facility Start: 12-05-2023 End: 12-05-2023 ambulatory BETH BO Not Available Start: 11-09-2023 End: 11-09-2023 ambulatory BETH BO Not Available Start: 05-21-2023 End: 05-22-2023 ambulatory 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 Facility:[facility] Start: 05-21-2023 End: 05-22-2023 Evaluation and management of inpatient CLEANING TEAM MEMBER-C 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 Work Phone: [facility] Work Phone: Start: 01-26-2023 AUDIT Angelina mendoza Work Phone: BQ-Evvuqrceegenpeex-Srf ja DHI Work Phone: Start: 01-20-2023 End: 01-20-[address] Gustavo Garrett Facility:[facility] Start: 12-27-2022 AUDIT Angelina mendoza Work Phone: EP-Jcqolgeqiyknga-Xwbct an Voice Work Phone: Start: 11-16-2022 End: 11-16-[address] BETH BO Facility: Start: 08-23-2022 AUDIT Angelina mendoza Work Phone: GQ-Wsyymblczhsmsw-Tplxx an Voice Work Phone: Start: 08-20-[address] Rosmery Martell Facility:[id number] Start: 08-20-2022 AUDIT Angelina Lao r Work Phone: DE-Wxuebgdlxgrdld-Rvski an Voice Work Phone: Start: 08-20-2022 Patient encounter procedure 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 [facility] [address] [place] Work Phone: Start: 07-23-[address] Rosmery Martell Facility:[id number] Start: 07-23-2022 Patient encounter procedure 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 [facility] [address] [place] Work Phone: Start: 07-16-2022 Patient encounter procedure 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 [facility] [address] [place] Work Phone: Start: 07-16-[address] Rosmery Martell Facility:[id number] Start: 06-29-[address] Rosmery Martell Facility:[id number] Start: 06-29-2022 Patient encounter procedure 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 Work Phone: Rehab [facility] Professional Jac C Work Phone: Start: 06-29-2022 ambulatory PCP UNKNOWN Facility:[id number] Start: 06-09-2022 Encounter for cervic al smear to confirm findings of recent normal smear following initial abnormal smear DR BETH BO [facility] Start: 06-08-2022 End: 06-08-[address] BETH BO Facility:[facility]1 Start: 06-08-2022 End: 06-08-2022 Encounter for cervical smear to confirm findings of recent normal smear following initial abnormal smear DR BETH BO Facility:[facility]1 Start: 06-03-2022 End: 06-03-2022 Emergency department patient visit Ishaan Alvarado Facility:[facility] Start: 04-27-2022 End: 04-27-[address] SUDHA RIOS Facility:[facility]1 Start: 01-13-2022 End: 01-13-2022 ambulatory ANGELINA JUAN FRANCISCO Facility:[facility]1 Start: 01-12-2022 End: 01-13-2022 ambulatory ANGELINA JUAN FRANCISCO Facility:[facility]1 Start: 04-25-2021 End: 04-25-2021 Emergency department patient visit Jackie Curiel Work Phone: [facility]-Emergency Room Procedures Date Procedure Procedure Detail Performing Clinician Start: 05-21-2023 Laparoscopic appendectomy CLEANING TEAM MEMBER-Gunner Chicas Work Phone: Start: 05-21-2023 Computed tomography of abdomen and pelvis with contrast CLEANING TEAM MEMBER-C 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 Work Phone: Plan of Treatment Date Care Activity Detail Author Start: 05-22-2023 [facility] Start: 05-21-2023 Hospital admission [facility] Start: 05-21-2023 [facility] Start: 01-20-2023 EGCOLT, Provider: Marcela Colon, Status: Pen, Time: 2:30 PM ALEXANDRIA, Provider: Marcela Colon, Status: Pen, Time: 2:30 PM [facility] Work Phone: Start: 08-20-2022 VIRFUGENE, Provider : Genna Rahman, Status: Pen, Time: 9:00 AM VIRFUVHOME, Provider: Genna Rahman, Status: Pen, Time: 9:00 AM [facility] [address] [place] Work Phone: Start: 07-30-2022 VIRFUGENE, Provider : Genna Rahman, Status: Pen, Time: 9:45 AM VIRFUVKARIMEE, Provider: Genna Rahman, Status: Pen, Time: 9:45 AM [facility] Professional Jac C Work Phone: Start: 07-23-2022 VIRFUVGEO, Provider : Genna Rahman, Status: Pen, Time: 9:00 AM VIRFUVKARIMEE, Provider: Genna Rahman, Status: Pen, Time: 9:00 AM [facility] Professional Jac C Work Phone: Start: 07-16-2022 VIRRUTHANN, Provider : Genna Rahman, Status: Pen, Time: 9:00 AM AYLIN, Provider: Genna Rahman, Status: Pen, Time: 9:00 AM [facility] Professional Jac C Work Phone: Patient Education [facility] Patient referral [facility] Immunizations Immunization Date Immunization Notes Care Provider Fa rylanflorence 08-22-2020 influenza virus vacc ine, unspecified formulation Angelinaclaude Chicas Work Phone: [facility] Work Phone: 09-01-2018 meningococcal B vacc ine, recombinant, OMV, adjuvanted Angelina S Juan Francisco Work Phone: [facility] Work Phone: 07-25-2018 meningococcal B vacc ine, recombinant, OMV, adjuvanted Angelina S Juan Francisco Work Phone: [facility] Work Phone: 07-25-2018 meningococcal polysaccharide (groups A, C, Y and W-135) diphtheria toxoid conjugate vaccine (MCV4P) 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 Work Phone: [facility] Work Phone: 09-05-2014 influenza virus vacc ine, live, attenuated, for intranasal use 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 Work Phone: [facility] Work Phone: 08-04-2012 influenza virus vacc ine, whole virus 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 Work Phone: [facility] Work Phone: 11-01-2011 hepatitis A vaccine, pediatric/adolescent dosage, 2 dose schedule Angelina S Juan Francisco Work Phone: [facility] Work Phone: 11-01-2011 human papilloma viru s vaccine, quadrivalent Angelina S Juan Francisco Work Phone: [facility] Work Phone: 07-29-2011 human papilloma viru s vaccine, quadrivalent Angelina S Juan Francisco Work Phone: [facility] Work Phone: 03-10-2011 hepatitis A vaccine, pediatric/adolescent dosage, 2 dose schedule 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 Work Phone: [facility] Work Phone: 03-10-2011 human papilloma viru s vaccine, quadrivalent Angelinaclaude Chicas Work Phone: [facility] Work Phone: 03-10-2011 meningococcal polysaccharide (groups A, C, Y and W-135) diphtheria toxoid conjugate vaccine (MCV4P) 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 Work Phone: [facility] Work Phone: 03-10-2011 tetanus toxoid, redu aysha diphtheria toxoid, and acellular pertussis vaccine, adsorbed Angelinaclaude Chicas Work Phone: [facility] Work Phone: 02-11-2005 diphtheria, tetanus toxoids and acellular pertussis vaccine, unspecified formulation 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 Work Phone: [facility] Work Phone: 02-11-2005 measles, mumps and rubella virus vaccine 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 Work Phone: [facility] Work Phone: 02-11-2005 poliovirus vaccine, inactivated 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 Work Phone: [facility] Work Phone: 07-12-2002 measles, mumps and rubella virus vaccine 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 Work Phone: [facility] Work Phone: 2000 diphtheria, tetanus toxoids and acellular pertussis vaccine, unspecified formulation 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 Work Phone: [facility] Work Phone: 2000 haemophilus influenz ae type b conjugate and Hepatitis B vaccine 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 Work Phone: [facility] Work Phone: 2000 poliovirus vaccine, inactivated 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 Work Phone: [facility] Work Phone: 2000 diphtheria, tetanus toxoids and acellular pertussis vaccine, unspecified formulation 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 Work Phone: [facility] Work Phone: 2000 haemophilus influenz ae type b vaccine, HbOC conjugate Angelina S Juan Francisco Work Phone: [facility] Work Phone: 2000 poliovirus vaccine, inactivated Angelina S Juan Francisco Work Phone: [facility] Work Phone: 2000 diphtheria, tetanus toxoids and acellular pertussis vaccine, unspecified formulation Angelina S Juan Francisco Work Phone: [facility] Work Phone: 2000 haemophilus influenz ae type b conjugate and Hepatitis B vaccine Angelina S Juan Francisco Work Phone: [facility] Work Phone: 2000 poliovirus vaccine, inactivated Angelina S Juan Francisco Work Phone: [facility] Work Phone: 2000 hepatitis B vaccine, pediatric or pediatric/adolescent dosage 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 Work Phone: [facility] Work Phone: Payers Date Payer Category Payer Self-pay [id number] 2000 Unknown [id number] 2000 Unknown [id number] 2000 Unknown [id number] 2000 Unknown [id number] 2000 Unknown [id number] 2000 Unknown [id number] 2000 Unknown [id number] 2000 Unknown [id number] 2000 Unknown [id number] [id number] 2000 Unknown [id number] [id number] 2000 Unknown [id number] 2000 Unknown [id number] 2000 Unknown [id number] [id number] 2000 Unknown [id number] 2000 Unknown [id number] 1959 Medicaid [id number] Unknown [id number] Unknown [facility] [place] Unknown [id number] Unknown [id number] Social History Date Type Detail Facility Start: 04-25-2021 End: 05-21-2023 Tobacco smoking status NHIS Never smoked tobacco (finding) [facility] Start: 2000 Sex Assigned At Female F [facility] Non-smoker Non-smoker [facility] Professional Jac C Work Phone: Goals Date Patient Goal Desired Activity /State Functional Status Date Assessment Result Facility 05-22-2023 Functional status Patient is Pro gressing Toward Baseline [facility] Work Phone: Mental Status Date Assessment Result Facility 05-22-2023 Cognitive function Cognitive Sta tus Patient at Baseline [facility] Work Phone: Clinical Notes 07-16-2022 to 05-21-2023 Note Date & Type Note Facility 05-21-2023 History and physi leonard note Note Date/Time May 21, 2023 1:18p m [facility] [address] [place] [address] General Surgery H&P Signed Patient: Yoanna Snyder MR#: [id number] : 2000 Acct:[id number] Age/Sex: 23 / F Adm Date: 3 Loc: ER Room: Type: [facility] ER Attending Dr: Copies to: Emily Marin, JAREN Chicas, MARITZA Guzman,DO~ Date of Service: 05/21/2023 HPI History of Present Illness HPI: Ms. Snyder is a 23 year old female who came to emergency department with abdominal pain. Yesterday it was a vague upper abdominal discomfort which started to progress over the course of the day 2 right lower quadrant pain. Shenever had a pain like this before. This is gotten increasingly uncomfortable and is unrelenting. She not having any frequency urgency or dysuria. No blood in the urine. No change in menstrual cycle or vaginal discharge. She not having any fevers chills or sweats. She is having regular bowel movements no constipation or diarrhea. She not seeing any blood in the stool. She does not have history of diarrhea or blood in the stool. There is no family history of inflammatory bowel disease or GI malignancy. She is never had a pain like this before. She has a 2-year-old at home, she is always putting her child first andfor her to come to the hospital this definitely with significant pain She has no past medical history. She does have an eye surgery that she did havea sedation for without difficulty No family history of any problems with anesthesia Review of Systems Review of Systems All other systems reviewed & are negative unless noted below or in HPI [facility] Medical History (Updated 05/21/23 @ 13:17 by Niraj Guzman DO) Anxiety Depression Surgical History (Updated 05/21/23 @ 07:32 by Sari Howard RN) Hx of eye surgery Social History Smoking Status: Never smoker Substance Use Type: None Meds Medications and Allergies Allergies No Known Allergies Allergy (Verified 05/21/23 07:29) Home Medications terconazole 0.4 % vaginal cream vaginal 05/21/23 [History] Exam Physical Exam Vital Signs: Temp Pulse Resp BP Pulse Ox O2 Del Method 97.8 F 80 18 125/71 100 Room Air 05/21/23 09:38 05/21/23 11:47 05/21/23 11:47 05/21/23 11:47 05/21/23 11:47 05/21/23 11:47 Narrative: Patient is comfortable she is pleasant conversive. With movement she is uncomfortable. Head is atraumatic normocephalic. Eyes are without a scleral icterus. Neck no anterior posterior cervical lymphadenopathy. Heart is regular rate rhythm. Lungs are clear. Abdomen is soft it focally tender in the right lower quadrant without any guarding rebound or rigidity. This is consistent with appendicitis. No hernia. No inguinal hernia. Extremities no edema Results Intake and Output 24 hour I&O: Intake & Output 05/20/23 05/21/23 05/21/23 23:59 07:59 15:59 Intake Total 1000 / 1000 Balance 1000 / 1000 Weight 78 kg Labs 05/21/23 10:20 05/21/23 10:20 Laboratory Results - last 72 hr 05/21/23 10:20: PHA Creatinine Clear 134.83, Sodium 134 L, Potassium 4.0, Chloride 104, Carbon Dioxide 24.3, Anion Gap 9.7, BUN 14, Creatinine 0.67, Est GFR (CKD-EPI) > 60.0, Glucose 114 H, Calcium 9.1, Total Bilirubin 0.3, AST 13, ALT 16, Alkaline Phosphatase 131 H, Total Protein 7.7, Albumin 4.3, Globulin 3.4, Albumin/Globulin Ratio 1.3 05/21/23 10:20: Corrected WBC 12.0 H, Uncorrected WBC Count 12.0 H, RBC 4.97, Hgb 13.6, Hct 40.7, MCV 81.9, MCH 27.3, MCHC 33.3, RDW 14.2, Plt Count 313, MPV 8.4, Neut % (Auto) 82.0, Lymph % (Auto) 11.1, Liberty % (Auto) 5.8, Eos % (Auto) 0.8, Baso % (Auto) 0.3, Nucleat RBC Rel Count 0.0, Neut # (Auto) 9.8 H, Lymph # (Auto) 1.3, Liberty # (Auto) 0.7, Eos # (Auto) 0.1, Baso # (Auto) 0.0, Monocyte Dist Width 17.88 05/21/23 09:24: Urine Color Yellow, Urine Appearance Clear, Urine pH 5.5, Ur Specific [place] 1.027, Urine Protein Negative, Urine Glucose (UA) Normal, Urine Ketones Negative, Urine Occult Blood Negative, Urine Nitrite Negative, Urine Bilirubin Negative, Urine Urobilinogen Normal, Ur Leukocyte Esterase 1+ H, Urine RBC 0-1, Urine WBC 3-4, Ur Squamous Epith Cells 5-9 H, Urine Bacteria 1+ H, Hyaline Casts 0-8, Urine HCG, Qual Negative A&P - General Surgery (1) Appendicitis: Plan: Right lower quadrant pain with fecalith and signs of appendicitis is well as clinical history consistent with appendicitis Especially with fecalith would absolutely recommend surgical appendectomy. We discussed the anesthetic, the surgery, the risks and the benefits and potential complications of laparoscopic appendectomy including possible open surgery, possible infection, possible damage to intra-abdominal structures, possible identification of other processes intraoperatively. Need for activity restriction postoperatively. She would like to proceed with surgery. Code(s): K37 - Unspecified appendicitis Status: Acute (2) Right lower quadrant pain: Code(s): R10.31 - Right lower quadrant pain Status: Acute Osteopathic Structural Exam OSE The patient did not have a structural examination because: Acute appendicitis Documented By: Niraj Guzman DO 05/21/23 1317 Signed By: <Electronically signed by DO Niraj Guzman> 05/21/23 [id number] [facility] Work Phone: 1(339) 190-774809-30-2022 NotePlan of Care Patient instructed to call if problems. Discharge patient: Achieved all and/or the most significant goal(s). . Patient to follow up with physician after GI workup. Discussed plan of care with: patient and physician Patient/caregiver agreeable with plan of care. Assessment Patient reports continued reduction in cough since practicing the learned strategies, especially the gargle technique and sniff/swallow strategy. If a cough is triggered unrelated to swallowing she uses the RTB with a hiss effectively. However, she does report that a few times a week with her dinner meal solids may trigger a coughingfit that may last 3-5 minutes despite use of the cough suppression strategies. She typically does not resume the meal for fear of another coughing fit. She can drink fluids without trouble. She has the sensation that something is stuck in her throat when that happens. Clinician will notify Dr. Martell as the plan was if symptoms persisted following several visits of speech therapy additional reflux including manometry testing would be ordered. This date reviewed HEP including cough/throat clear reduction strategies and swallow guidelines. Further guidance from ENT to follow. Voice: Voice quality based on the GRBAS scale: 0=absent; 1=mild; 2=moderate; 3=severe Grade: 0 Roughness: 0 Breathiness: 0 Asthenia: 0 Strain: 0 Voice: level 4 initial Reason For Visit An interactive audio and video telecommunication system which permits real time communications between the patient (at the originating site) and provider (at the distant site) was utilized to providethis telehealth service. Verbal consent was requested and obtained from YOANNA SNYDER on this date, 08/20/2022 09:00 AM , for a telehealth visit. Adult Risk Screening Initial Fall Risk Screening: YOANNA has not fallen in the last 6 months. Pain Scale: On a scale of 0 to 10, the patient rates the pain at 0. Lange Learner(s) are identified by the patient as person(s) most likely to participate in providing care, such as managing medications or taking them to doctors? appointments. Primary Language for learning: Chadian. Insurance Insurance reviewed Visit number: 4 Onset Date: 2021 Subjective Living Environment: home Patient arrival: independent Patient alert and ready to participate in telehealth visit this date. 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 Short term goals: Patient will increase vocal wellness and decrease phono trauma in adherence with clinician prescribed vocal hygiene and wellness program per patient report 80% of his/her day. MET Patient will demonstrate independent use of voice/swallow/breathing techniques x 80% accuracy. MET Treatment Time in clinic started at 900 Time in clinic ended at 920 Total time in clinic is 20 minutes. Provided to: patient Response to education: verbalized understanding and demonstrated understanding Patient/caregiver verbalized understanding and agreement: yes Limited Codes ([facility] [facility] Only): [id number] Speech language treatment limited. Signatures Electronically signed by : Genna Rahman CCC-GREEN HOUSE MANAGER; Aug 20 2022 12:07PM EST (Author) [id number] Reason for visit Narrative* An interactive audio and video telecommunication system which permits real time communications between the patient (at the originating site) and provider (at the distant site) was utilized to providethis telehealth service. * Verbal consent was requested and obtained from KELSEYSEAN LILLIAN on this date, 08/20/2022 09:00 AM , for a telehealth visit. [facility] [address] [place] Work Phone: 1(434) 799-286509-02-2022 NotePlan of Care Continue Current Plan of Care Progress with POC, as tolerated. Patient instructed to call if problems. Discussed plan of care with: patient Patient/caregiver agreeable with plan of care. Assessment Patient reports continued reduction in cough since practicing the learned strategies, especially the gargle technique and sniff/swallow strategy. This date reviewed HEP including cough/throat clear reduction strategies and RVT bubble blowing and lip trilling. No patient questions or concerns. Suggested she try a few PO items that traditionally lead to cough such as nuts or other crunchy foods. However, patient unable to this date 2/2 having a tooth infection and on a soft diet only. She states she feels comfortable with the strategies. Patient notes that when a cough is triggered it often lasts for up to a minute. Re-instructed in RTB with a hiss to break the cough quicker and help to reduce her laryngeal irritability. Reassured patient that she is starting to show progress and should continue to progress in the coming weeks. Next visit moved for several weeks out as for now she has the tools she requires to reset her laryngeal response. Patient in agreement with plan. Voice: Voice quality based on the GRBAS scale: 0=absent; 1=mild; 2=moderate; 3=severe Grade: 0 Roughness: 0 Breathiness: 0 Asthenia: 0 Strain: 0 Voice: level 4 initial Reason For Visit An interactive audio and video telecommunication system which permits real time communications between the patient (at the originating site) and provider (at the distant site) was utilized to providethis telehealth service. Verbal consent was requested and obtained from YOANNA SNYDER on this date, 07/23/2022 09:00 AM , for a telehealth visit. Adult Risk Screening Initial Fall Risk Screening: YOANNA has not fallen in the last 6 months. Pain Scale: On a scale of 0 to 10, the patient rates the pain at 0. Lange Learner(s) are identified by the patient as person(s) most likely to participate in providing care, such as managing medications or taking them to doctors? appointments. Primary Language for learning: Chadian. Insurance Insurance reviewed Visit number: 3 Onset Date: 2021 Subjective Living Environment: home Patient arrival: independent Patient alert and ready to participate in telehealth visit this date. 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 Short term goals: Patient will increase vocal wellness and decrease phono trauma in adherence with clinician prescribed vocal hygiene and wellness program per patient report 80% of his/her day. MET Patient will demonstrate independent use of voice/swallow/breathing techniques x 80% accuracy. Treatment Time in clinic started at 900 Time in clinic ended at 920 Total time in clinic is 20 minutes. Provided to: patient Response to education: verbalized understanding, demonstrated understanding and needs reinforcement Patient/caregiver verbalized understanding and agreement: yes Limited Codes ([facility] [place] Only): [id number] Speech language treatment limited. Signatures Electronically signed by : Genna Rahman CCC-GREEN HOUSE MANAGER; Jul 23 2022 10:13AM EST (Author) [id number] Reason for visit Narrative* An interactive audio and video telecommunication system which permits real time communications between the patient (at the originating site) and provider (at the distant site) was utilized to providethis telehealth service. * Verbal consent was requested and obtained from YOANNA SNYDER on this date, 07/23/2022 09:00 AM , for a telehealth visit. [facility] [address] [place] Work Phone: 1(711) 745-626008-26-2022 NotePlan of Care Continue Current Plan of Care Progress with POC, as tolerated. Discussed plan of care with: patient Patient/caregiver agreeable with plan of care. Assessment Patient reports some reduction in cough since practicing the learned strategies, especially the gargle technique. This date reviewed cough/throat clear reduction strategies and initiated training to improve diaphragmatic breath support and unload supraglottic compression associated with speech and s wallowing. Most favorable technique this date was RVT bubble blowing and lip trilling. Multimodality cueing, instruction in proper posture and repeated trials improved patient performance accuracy. Finally, instructed patient in compensatory swallowing strategy sniff/swallow to reduction MTDysphagia symptoms. Following instruction patient completed with sips of water and noted increased swallowease and comfort. Encouraged use with all swallows including liquids and solids. Instructions emailed to facilitate accurate home carryover. Voice: Voice quality based on the GRBAS scale: 0=absent; 1=mild; 2=moderate; 3=severe Grade: 1 Roughness: 1 Breathiness: 0 Asthenia: 0 Strain: 0 Voice: level 4 initial Reason For Visit An interactive audio and video telecommunication system which permits real time communications between the patient (at the originating site) and provider (at the distant site) was utilized to providethis telehealth service. Verbal consent was requested and obtained from YOANNA SNYDER on this date, 07/16/2022 09:00 AM , for a telehealth visit. Adult Risk Screening Initial Fall Risk Screening: YOANNA has not fallen in the last 6 months. Pain Scale: On a scale of 0 to 10, the patient rates the pain at 0. Lange Learner(s) are identified by the patient as person(s) most likely to participate in providing care, such as managing medications or taking them to doctors? appointments. Primary Language for learning: Chadian. Insurance Insurance reviewed Visit number: 2 Onset Date: 2021 Subjective Living Environment: home Patient arrival: independent Patient alert and ready to participate in telehealth visit this date. 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 Short term goals: Patient will increase vocal wellness and decrease phono trauma in adherence with clinician prescribed vocal hygiene and wellness program per patient report 80% of his/her day. Patient will demonstrate independent use of voice/swallow/breathing techniques x 80% accuracy. Treatment Time in clinic started at 900 Time in clinic ended at 930 Total time in clinic is 30 minutes. Provided to: patient Response to education: verbalized understanding, demonstrated understanding and needs reinforcement Patient/caregiver verbalized understanding and agreement: yes CPT Code 63054 Treatment of speech, language AND voice Signatures Electronically signed by : Genna Rahman CCC-GREEN HOUSE MANAGER; Jul 16 2022 9:39AM EST (Author) [id number] Reason for visit Narrative* An interactive audio and video telecommunication system which permits real time communications between the patient (at the originating site) and provider (at the distant site) was utilized to providethis telehealth service. * Verbal consent was requested and obtained from KELSEYSEAN LILLIAN on this date, 07/16/2022 09:00 AM , for a telehealth visit. [facility] [address] [place] Work Phone: Evaluation noteNo assessment information available [facility] Diagnosis Onset Date Resolution Status Appendicitis acute Right lower quadrant pain ac santy [facility] Work Phone: History of Present illness Narrative* Voice assessment: * Patient presents with intractable cough 2/2 a diagnosis of ILS, MTD and MTDys. Additional findings included mild MTD and bilateral vocal cord edema. Patient appears to be an excellent candidate for therapy which will target vocal wellness and behavioral modification. * Voice quality based on the GRBAS scale: 0=absent; 1=mild; 2=moderate; 3=severe * Grade: 1 * Roughness: 1 * Breathiness: 0 * Asthenia: 0 * Strain: 0 * Contributing Factors: supraglottic compression and habitual behaviors that misuse/abuse the voice * NOMS Score: moderate: level 4 * Treatment recommendations: treatment indicated (see goals below) [facility] Work Phone: History of Present illness Narrative* Patient reports some reduction in cough since practicing the learned strategies, especially the gargle technique. This date reviewed cough/throat clear reduction strategies and initiated training to improve diaphragmatic breath support and unload supraglottic compression associated with speech and swallowing. Most favorable technique this date was RVT bubble blowing and lip trilling. Multimodality cueing, instruction in proper posture and repeated trials improved patient performance accuracy. * Finally, instructed patient in compensatory swallowing strategy sniff/swallow to reduction MTDysphagia symptoms. Following instruction patient completed with sips of water and noted increased swallowease and comfort. Encouraged use with all swallows including liquids and solids. * Instructions emailed to facilitate accurate home carryover. * Voice: Voice quality based on the GRBAS scale: 0=absent; 1=mild; 2=moderate; 3=severe * Grade: 1 * Roughness: 1 * Breathiness: 0 * Asthenia: 0 * Strain: 0 * Voice: level 4 initial [facility] [address] [place] Work Phone: History of Present illness Narrative* Patient reports continued reduction in cough since practicing the learned strategies, especially the gargle technique and sniff/swallow strategy. This date reviewed HEP including cough/throat clear reduction strategies and RVT bubble blowing and lip trilling. No patient questions or concerns. Suggested she try a few PO items that traditionally lead to cough such as nuts or other crunchy foods. However, patient unable to this date 2/2 having a tooth infection and on a soft diet only. She states she feels comfortable with the strategies. * Patient notes that when a cough is triggered it often lasts for up to a minute. Re-instructed in RTB with a hiss to break the cough quicker and help to reduce her laryngeal irritability. * Reassured patient that she is starting to show progress and should continue to progress in the coming weeks. Next visit moved for several weeks out as for now she has the tools she requires to reset her laryngeal response. Patient in agreement with plan. * Voice: Voice quality based on the GRBAS scale: 0=absent; 1=mild; 2=moderate; 3=severe * Grade: 0 * Roughness: 0 * Breathiness: 0 * Asthenia: 0 * Strain: 0 * Voice: level 4 initial [facility] [address] [place] Work Phone: History of Present illness Narrative* Patient reports continued reduction in cough since practicing the learned strategies, especially the gargle technique and sniff/swallow strategy. If a cough is triggered unrelated to swallowing she uses the RTB with a hiss effectively. * However, she does report that a few times a week with her dinner meal solids may trigger a coughingfit that may last 3-5 minutes despite use of the cough suppression strategies. She typically does not resume the meal for fear of another coughing fit. She can drink fluids without trouble. She has the sensation that something is stuck in her throat when that happens. Clinician will notify Dr. Martell as the plan was if symptoms persisted following several visits of speech therapy additional reflux including manometry testing would be ordered. * This date reviewed HEP including cough/throat clear reduction strategies and swallow guidelines. Further guidance from ENT to follow. * Voice: Voice quality based on the GRBAS scale: 0=absent; 1=mild; 2=moderate; 3=severe * Grade: 0 * Roughness: 0 * Breathiness: 0 * Asthenia: 0 * Strain: 0 * Voice: level 4 initial [facility] [address] [place] Work Phone: Hospital Discharge instructions Additional Instructions DISCHARGE INSTRUCTIONS FOR GENERAL SURGERY YOUR ACTIVITY MAY INCLUDE: -Going up and down stairs slowly. -Walking around the house or outside if the weather is satisfactory. -No driving until you are seen in office and cleared for driving. -Light housework or light work permitted in 2 weeks. -Heavy lifting permitted 4 weeks At your first office visit we will discuss: Return to work, return to sports, return to exercise, etc. WOUND CARE/INCISION CARE: -Keep incision clean and dry -Showering is okay, no tub baths or swimming -Is it common to feel pulling or sharp sticking sensations in the area of incision, these sensations are a part of the normal healing process. -If you develop fever, increasing pain, redness, or swelling around the incision, please notify our office MEDICATION -Resume all previous medications that you were taking for problems unrelated to your surgery, unless informed otherwise. If there are any problems with this, please call the original prescribing doctor. If you have any other questions regarding medications, please call our office. -Over the counter medications such as Acetaminophen, Ibuprofen, Naproxen, and others may be used as directed for pain unless a prescription was provided. Please call office of Dr. Guzman on Tuesday morning to get an appointment for 1 week. You are off work until that time, any further work notes can be done at the office.[facility] Work Phone: Progress note Author Niraj Guzman [facility] May 25, 2023 8:21am Note Date/Time May 22, 2023 1:05p m [facility] [address] [place] [address] General Surgery Progress Note Signed Patient: Yoanna Snyder MR#: [id number] : 2000 Acct:[id number] Age/Sex: 23 / F Adm Date: 3 Loc: 4N Room: [address] [place] [address] Type: DIS INOo Attending Dr: Niraj Guzman DO Copies to: ~ Date of Service: 05/22/2023 Allergies & Medications Medications and Allergies Allergies No Known Allergies Allergy (Verified 05/21/23 07:29) Home Medications terconazole 0.4 % vaginal cream vaginal 05/21/23 [History] tramadol 50 mg tablet 50 mg PO Q6H PRN pain 7 days #20 tabs 05/22/23 [Rx] Active Medications Docusate Sodium (Docusate 100 Mg Capsule) 100 mg PO BID [facility] Stop: 05/20/24 20:59 Last Admin: 05/22/23 08:10 Dose: 100 mg Hydromorphone HCl (Hydromorphone 0.5 Mg/0.5 Ml Syringe) 1 mg IV-PUSH Q3H PRN PRN Reason: Pain Last Admin: 05/21/23 23:46 Dose: 1 mg Cefazolin Sodium (Ancef) 2 gm in 50 mls @ 100 mls/hr IV Q8H GOYO Stop: 05/22/23 18:59 Last Admin: 05/22/23 11:53 Dose: 100 mls/hr Metronidazole (Flagyl) 500 mg in 100 mls @ 100 mls/hr IV Q8H GOYO Stop: 05/22/23 17:59 Last Admin: 05/22/23 09:33 Dose: 100 mls/hr Ibuprofen (Ibuprofen 600 Mg Tablet) 600 mg PO Q6H PRN PRN Reason: Pain Stop: 05/20/24 16:56 Last Admin: 05/22/23 09:32 Dose: 600 mg Ondansetron HCl (Ondansetron 4 Mg/2 Ml Vial) 4 mg IV-PUSH Q6H PRN PRN Reason: Nausea And Vomiting Stop: 05/20/24 16:56 Tramadol HCl (Tramadol 50 Mg Tablet) 50 mg PO Q6H PRN PRN Reason: Pain Stop: 11/17/23 16:56 Last Admin: 05/22/23 08:10 Dose: 50 mg Exam Physical Exam Vital Signs: Temp Pulse Resp BP Pulse Ox O2 Del Method O2 Flow Rate 98.0 F 106 H 20 122/69 98 Room Air 10 05/22/23 11:15 05/22/23 11:15 05/22/23 11:15 05/22/23 11:15 05/22/23 11:15 05/22/23 11:15 05/21/23 23:50 Narrative: Patient is comfortable she is pleasant conversive. With movement she is uncomfortable. Head is atraumatic normocephalic. Eyes are without a scleral icterus. Neck no anterior posterior cervical lymphadenopathy. Heart is regular rate rhythm. Lungs are clear. Abdomen is soft it focally tender in the right lower quadrant without any guarding rebound or rigidity. This is consistent with appendicitis. No hernia. No inguinal hernia. Extremities no edema Objective Pain Assessment Abdomen: Pain Description: Tender Pain Intensity: 2 Intake & Output 24 hour I&O: Intake & Output 05/21/23 05/22/23 05/22/23 23:59 07:59 15:59 Intake Total 840 / 2890 150 / 850 700 / 850 Output Total 150 / 150 Balance 690 / 2740 150 / 850 700 / 850 Weight 78.2 kg Labs 05/22/23 04:54 05/21/23 10:20 Laboratory Results - Last 48 hrs. 05/22/23 04:54: Corrected WBC 10.1, Uncorrected WBC Count 10.1, RBC 4.54, Hgb 12.1, Hct 37.0, MCV 81.6, MCH 26.7, MCHC 32.7, RDW 14.3, Plt Count 302, MPV 8.4, Neut % (Auto) 85.0, Lymph % (Auto) 10.7, [place] % (Auto) 4.2, Eos % (Auto) 0.0, Baso % (Auto) 0.1, Nucleat RBC Rel Count 0.2, Neut # (Auto) 8.5 H, Lymph # (Auto) 1.1, Liberty # (Auto) 0.4, Eos # (Auto) 0.0, Baso # (Auto) 0.0 05/21/23 10:20: PHA Creatinine Clear 134.83, Sodium 134 L, Potassium 4.0, Chloride 104, Carbon Dioxide 24.3, Anion Gap 9.7, BUN 14, Creatinine 0.67, Est GFR (CKD- EPI) > 60.0, Glucose 114 H, Calcium 9.1, Total Bilirubin 0.3, AST 13, ALT 16, Alkaline Phosphatase 131 H, Total Protein 7.7, Albumin 4.3, Globulin 3.4, Albumin/Globulin Ratio 1.3 05/21/23 10:20: Corrected WBC 12.0 H, Uncorrected WBC Count 12.0 H, RBC 4.97, Hgb 13.6, Hct 40.7, MCV 81.9, MCH 27.3, MCHC 33.3, RDW 14.2, Plt Count 313, MPV 8.4, Neut % (Auto) 82.0, Lymph % (Auto) 11.1, Liberty % (Auto) 5.8, Eos % (Auto) 0.8, Baso % (Auto) 0.3, Nucleat RBC Rel Count 0.0, Neut # (Auto) 9.8 H, Lymph # (Auto) 1.3, Liberty # (Auto) 0.7, Eos # (Auto) 0.1, Baso # (Auto) 0.0, Monocyte Dist Width 17.88 05/21/23 09:24: Urine Color Yellow, Urine Appearance Clear, Urine pH 5.5, Ur Specific [place] 1.027, Urine Protein Negative, Urine Glucose (UA) Normal, Urine Ketones Negative, Urine Occult Blood Negative, Urine Nitrite Negative, Urine Bilirubin Negative, Urine Urobilinogen Normal, Ur Leukocyte Esterase 1+ H, Urine RBC 0-1, Urine WBC 3-4, Ur Squamous Epith Cells 5-9 H, Urine Bacteria 1+ H, Hyaline Casts 0-8, Urine HCG, Qual Negative A&P - General Surgery Assessment/Plan (1) Appendicitis: Plan: Right lower quadrant pain with fecalith and signs of appendicitis is well as clinical history consistent with appendicitis Especially with fecalith would absolutely recommend surgical appendectomy. We discussed the anesthetic, the surgery, the risks and the benefits and potential complications of laparoscopic appendectomy including possible open surgery, possible infection, possible damage to intra-abdominal structures, possible identification of other processes intraoperatively. Need for activity restriction postoperatively. She would like to proceed with surgery. Code(s): K37 - Unspecified appendicitis Status: Acute (2) Right lower quadrant pain: Code(s): R10.31 - Right lower quadrant pain Status: Acute Documented By: Niraj Guzman DO 05/22/23 1302 Signed By: <Electronically signed by DO Niraj Guzman> 05/25/23 0821 [facility] Work Phone: Summary Purpose Family History No Family History Records FoundNo Family History Records FoundNo Family History Records FoundNo Family History Records FoundNo Family History Records FoundNo Family History Records FoundNo Family History Records Found Advance Directives No Advanced Directives Records Found Advance Directive Response Recorded Date/ Time Advance Directives No September 20, 2020 10:47pm Chief Complaint and Reason for Visit Chief Complaint 22 wks preg, cannot feel babies movement Chief Complaint cramps Reason for Visit Appendicitis Right lower quadrant pain Additional Source Comments INFORMATION SOURCE (unrecogn ized section and content) DATE CREATED AUTHOR 05/19/2019 [facility] DATE CREATED AUTHOR AUTHOR'S ORGANIZ ATION 08/24/2022 [employer] DATE CREATED AUTHOR AUTHOR'S ORGANIZ ATION 11/19/2022 [facility] DATE CREATED AUTHOR AUTHOR'S ORGANIZ ATION 01/28/2023 [facility] DATE CREATED AUTHOR AUTHOR'S ORGANIZ ATION 01/29/2023 [facility] DATE CREATED AUTHOR AUTHOR'S ORGANIZ ATION 05/30/2023 [facility] DATE CREATED AUTHOR AUTHOR'S ORGANIZ ATION 12/05/2023 [facility] EPIC Goals (unrecognized section and content) Goals may be documented in a n alternate section Care Teams (unrecognized sec tion and content) Team Status: Active Member Role Status Dates 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 NP-C Primary Care Provider Active Team Status: Inactive Member Role Status Dates 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 , CLEANING TEAM MEMBER-C Primary Care Provider Active Emily Marin , [facility]- Emergency Provider Active Niraj Guzman , DO Admit Provider, Attending Provider Ac tive Team Status: Active Member Role Status Dates Angelina Jaylyn Chicas , CLEANING TEAM MEMBER-C Primary Care Provider Active Emily Marin , [facility]- Emergency Provider Active Niraj Guzman , DO Admit Provider, Attending Provider Ac tive FOR RECORDS PERTAINING TO PATIENTS WHO ARE OR HAVE BEEN ENROLLED IN A CHEMICAL DEPENDENCY/SUBSTANCEABUSE PROGRAM, SOME INFORMATION MAY BE OMITTED. This clinical summary was aggregated from multiple sources. Caution should be exercised in using it in the provision of clinical care. This summary normalizes information from multiple sources, and as a consequence, information in this document may materially change the coding, format and clinical context of patient data. In addition, data may be omitted in some cases. CLINICAL DECISIONS SHOULD BE BASED ON THE PRIMARY CLINICAL RECORDS. [facility] [employer] [facility]. provides no warranty or guarantee of the accuracy or completeness of information in this document.
== END 2023-12-08 15:28 | disposition home or self-care (01) ==
LOC: US 15:27
PROVIDERS: PCP Nurse Practitioner Family; Visit Provider Obstetrics & Gynecology
DX: N94.10 Unspecified dyspareunia (principal); R10.2 Pelvic and perineal pain
CPT/HCPCS: 76830

== ENCOUNTER 2024-03-02 10:50 | Outpatient (OUT) | payer OTHER, SELFPAY ==
--- OUTSIDE RECORDS SUMMARY | 2024-03-02 11:06 | XMS_ITS | CCD ---
Author Organization [facility] Care Team Providers Care Clinical Data Manager Name Role Phone Jackie Rothman [facility] Primary Care Provider 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 Unavailable Unavailable [...] Consulting Unavailable JUAN FRANCISCO, ANGELINA Admitting Unavailable JUAN FRANCISCOANGELINA ASHLEY Attending Unavailable JUAN FRANCISCO, ANGELINA Primary Care Unavailable KEVIN, DR STELLA Perez Consulting Unavailable JUAN FRANCISCO, ANGELINA Consulting Unavailable GABRIEL, DR HALEY Admitting Unavailable KARASIK, DR HALEY Attending Unavailable JUAN FRANCISCO, ANGELINA Primary Care Unavailable KARMURRAY, DR HALEY Consulting Unavailable Maroniajoaquin, Dr. Rosmery Haynes Attending U navailable Jayshree, Dr. Rosmery Haynes Attending U navailrambo UNKNOWN, PCP Primary Care Unavailable Jayshree, Dr. Rosmery Haynes Attending U navsatyaable Yin Torre, Dr. Cecilia Rubio Referring U navailable Marsam, Dr. Rosmery Haynes Attending U navsatyaable Jayshree, Dr. Rosmery Haynes Attending U navailable Jayshree, Dr. Rosmery Haynes Referring U navailable Dumot, Dr. Gustavo Cedeño Attending Unavailable Gerry, Dr. Gustavo Cedeño Attending Unavailable Dr. 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 Angelina De La O Primary Care Provider Tomas [facility] Emily Demetria Emergency Provider DO Niraj Guzman Admit Provider DO Niraj Guzman Attending Provider [phone] Ishaan Alvarado Attending Unavailable Ishaan Alvarado Admitting Unavailable 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 Primary Care Unavailable 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 Primary Care Unavailable Niraj Guzman Admitting Unavailable Niraj Guzman Attending Unavailable BETH BO Attending Unavailable CHRIS XAVIER Attending Unavailable BTEH BO Attending Unavailable BETH BO Attending Unavailable CHRIS XAVIER Attending Unavailable BETH BO Attending Unavailable Medications Current Medications Medication Drug Class(es) Dates Sig (Normalized) Sig (Original) [id number] Fumarate-Fa () 28-800 mg-mcg Tablet (3 sources) Start: 04-25-2021 [id number] Fumarate-Fa () 28-800 mg-mcg Tablet Active TAB PO April 25, 2021 7:11pm Start: 04-25-2021 End: 05-21-2023 [id number] Fumarate-Fa ( ) 28-800 mg-mcg Tablet Discontinued [...] Start: 09-20-2020 End: 04-25-2021 Norethindrone-E.Estr adiol-Iron (12/10 (28)) 1 mg-20 mcg (21)/75 mg (7) tablet Discontinued 1 TAB PO Daily September 20, 2020 10:23pm April 25, 2021 7:10pm Start: 09-20-2020 End: 04-25-2021 Norethindrone-E.Estradiol-Ir on (12/10 ()) 1 mg-20 mcg (21)/75 mg [...] te Episodic/Chronic Other aftercare (1 source) 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 [facility] Complete Blood Count Auto Di ffon 05-22-2023 Basophils (Bld) [#/Vol] 0.0 10*3/uL Normal 0.0-0.2 [facility] Comment on above: Result Comment: PERF ORMED BY: [facility] [address] [place] [address] PATHOLOGIST BOTANY TEACHER NANCY NAPIER M.D. Performed By: #### C BC ####[address] Basophils/100 WBC (Bld) 0.1 % Normal . [facility] Comment on above: Performed By: #### C BC ####[place] [id number] [facility] Eosinophils (Bld) [#/Vol] 0.0 10*3/uL Normal 0.0-0.45 [facility] Comment on above: Performed By: #### C BC ####[place] [id number] [facility] Eosinophils/100 WBC (Bld) 0.0 % Normal . [facility] Comment on above: Performed By: #### C BC ####[place] [id number] [facility] Erythrocyte distribution width (RBC) [Ratio] 14.3 % Normal 11.9-15.3 [facility] Comment on above: Performed By: #### C BC ####[place] [id number] [facility] Hematocrit (Bld) [Volume fraction] 37.0 % Normal 34.0-46.4 [facility] Comment on above: Performed By: #### C BC ####[address] [address] [facility] Hemoglobin (Bld) [Mass/Vol] 12.1 g/dL Normal 11.8-15.4 [facility] Comment on above: Performed By: #### C BC ####[address] [address] [facility] Lymphocytes (Bld) [#/Vol] 1.1 10*3/uL Normal 1.00-4.8 [facility] Comment on above: Performed By: #### C BC ####[address] [address] [facility] Lymphocytes/100 WBC (Bld) 10.7 % Normal . [facility] Comment on above: Performed By: #### C BC ####[place] [id number] [facility] MCH (RBC) [Entitic mass] 26.7 pg Normal 24.7-34.3 [facility] Comment on above: Performed By: #### C BC ####[place] [id number] [facility] MCV (RBC) [Entitic vol] 81.6 fL Normal 80-[address] [facility] Comment on above: Performed By: #### C BC ####[place] [id number] [facility] Mean Corpuscular HGB Conc 32.7 g/dL Normal 32.0-35.0 [facility] Comment on above: Performed By: #### C BC ####[place] [id number] [facility] Monocytes (Bld) [#/Vol] 0.4 10*3/uL Normal 0.0-0.8 [facility] Comment on above: Performed By: #### C BC ####[place] [id number] [facility] Monocytes/100 WBC (Bld) 4.2 % Normal . [facility] Comment on above: Performed By: #### C BC ####[address] Neutrophils (Bld) [#/Vol] 8.5 10*3/uL High 1.8-7.7 [facility] Comment on above: Performed By: #### C BC ####[address] Neutrophils/100 WBC (Bld) 85.0 % Normal . [facility] Comment on above: Performed By: #### C BC ####[address] NRBC% 0.2 /100{WBC} Normal 0-0.5 [facility] Comment on above: Performed By: #### C BC ####[address] Platelet mean volume (Bld) [Entitic vol] 8.4 fL Normal 6.3-10.7 [facility] Comment on above: Performed By: #### C BC ####[address] Platelets (Bld) [#/Vol] 302 10*3/uL Normal 150-450 [facility] Comment on above: Performed By: #### C BC ####[address] RBC (Bld) [#/Vol] 4.54 10*6/uL Normal 3.60-5.00 [facility] Comment on above: Performed By: #### C BC ####[address] WBC (Bld) [#/Vol] 10.1 10*3/uL Normal 3.8-11.6 [facility] Comment on above: Performed By: #### C BC ####[address] Eosinophils Auto (Bld) [#/Vo l]Ordered By: Niraj Guzman on 05-22-2023 Eosinophils (Bld) [#/Vol] 0.0 10*3/uL 0.0-0.45 [facility] Eosinophils/100 WBC Auto (Bl d)Ordered By: Niraj Guzman on 05-22-2023 Eosinophils/100 WBC (Bld) 0.0 % . [facility] Erythrocyte distribution wid th Auto (RBC) [Ratio]Ordered By: Niraj Guzman on 05-22-2023 Erythrocyte distribution width (RBC) [Ratio] 14.3 % 11.9-15.3 [facility] Hematocrit Auto (Bld) [Volum e fraction]Ordered By: Niraj Guzman on 05-22-2023 Hematocrit (Bld) [Volume fraction] 37.0 % 34.0-46.4 [facility] Hemoglobin [Mass/volume] in BloodOrdered By: Niraj Guzman on 05-22-2023 Hemoglobin (Bld) [Mass/Vol] 12.1 g/dL 11.8-15.4 [facility] Leukocytes [#/volume] correc geo for nucleated erythrocytes in Blood by Automated counOrdered By: Niraj Guzman on 05-22-2023 WBC corrected for nucl RBC Auto (Bld) [#/Vol] 10.1 10*3/uL 3.8-11.6 [facility] Lymphocytes Auto (Bld) [#/Vo l]Ordered By: Niraj Guzman on 05-22-2023 Lymphocytes (Bld) [#/Vol] 1.1 10*3/uL 1.00-4.8 [facility] Lymphocytes/100 WBC Auto (Bl d)Ordered By: Niraj Guzman on 05-22-2023 Lymphocytes/100 WBC (Bld) 10.7 % . [facility] MCH Auto (RBC) [Entitic mass ]Ordered By: Niraj Guzman on 05-22-2023 MCH (RBC) [Entitic mass] 26.7 pg 24.7-34.3 [facility] MCHC Auto (RBC) [Mass/Vol]Or dered By: Niraj Guzman on 05-22-2023 MCHC (RBC) [Mass/Vol] 32.7 g/dL 32.0-35.0 [facility] MCV Auto (RBC) [Entitic vol] Ordered By: Niraj Guzman on 05-22-2023 MCV (RBC) [Entitic vol] 81.6 fL 80-[address] [facility] Monocytes Auto (Bld) [#/Vol] Ordered By: Niraj Guzman on 05-22-2023 Monocytes (Bld) [#/Vol] 0.4 10*3/uL 0.0-0.8 [facility] Monocytes/100 WBC Auto (Bld) Ordered By: Niraj Guzman on 05-22-2023 Monocytes/100 WBC (Bld) 4.2 % . [facility] Neutrophils Auto (Bld) [#/Vo l]Ordered By: Niraj Guzman on 05-22-2023 Neutrophils (Bld) [#/Vol] 8.5 10*3/uL 1.8-7.7 [facility] Neutrophils/100 WBC Auto (Bl d)Ordered By: Niraj Guzman on 05-22-2023 Neutrophils/100 WBC (Bld) 85.0 % . [facility] Nucleated erythrocytes [Pres ence] in Blood by Automated countOrdered By: Niraj Guzman on 05-22-2023 Nucleated RBC Auto Ql (Bld) 0.2 /100{WBC} 0-0.5 [facility] Platelet mean volume Auto (B ld) [Entitic vol]Ordered By: Niraj Guzman on 05-22-2023 Platelet mean volume (Bld) [Entitic vol] 8.4 fL 6.3-10.7 [facility] Platelets Auto (Bld) [#/Vol] Ordered By: Niraj Guzman on 05-22-2023 Platelets (Bld) [#/Vol] 302 10*3/uL 150-450 [facility] RBC Auto (Bld) [#/Vol]Ordere d By: Niraj Guzman on 05-22-2023 RBC (Bld) [#/Vol] 4.54 10*6/uL 3.60-5.00 [facility] WBC Auto (Bld) [#/Vol]Ordere d By: Niraj Guzman on 05-22-2023 WBC (Bld) [#/Vol] 10.1 10*3/uL 3.8-11.6 [facility] Alanine aminotransferase [En zymatic activity/volume] in Serum or PlasmaOrdered By: Emily Marin on 05-21-2023 ALT [Catalytic activity/Vol] 16 U/L 7-52 [facility] Albumin [Mass/volume] in Ser um or Plasma by Bromocresol green (BCG) dye binding methoOrdered By: Emily Bullimore on 05-21-2023 Albumin BCG dye [Mass/Vol] 4.3 g/dL 3.5-5.7 [facility] Alkaline phosphatase [Enzyma tic activity/volume] in Serum or PlasmaOrdered By: Emily Aaronimore on 05-21-2023 ALP [Catalytic activity/Vol] 131 U/L 34-104 [facility] Aspartate aminotransferase [ Enzymatic activity/volume] in Serum or PlasmaOrdered By: Emily Aaronimore on 05-21-2023 AST [Catalytic activity/Vol] 13 U/L 13-39 [facility] Automated erythrocytes count in urine sediment (number/area)Ordered By: Emily Marin on 05-21-2023 RBC Auto (Urine sed) [#/Area] 0-1 [HPF] 0-4 [facility] Automated leukocytes count i n urine sediment (number/area)Ordered By: Emily Marin on 05-21-2023 WBC Auto (Urine sed) [#/Area] 3-4 [HPF] 0-4 [facility] Basophils Auto (Bld) [#/Vol] Ordered By: Emily Reidore on 05-21-2023 Basophils (Bld) [#/Vol] 0.0 10*3/uL 0.0-0.2 [facility] Basophils/100 WBC Auto (Bld) Ordered By: Emilyshae Marin on 05-21-2023 Basophils/100 WBC (Bld) 0.3 % . [facility] Bilirubin Test strip Ql (U)O rdered By: Emily Marin on 05-21-2023 Bilirubin Ql (U) Negative Negative [facility] Bilirubin.total [Mass/volume ] in Serum or PlasmaOrdered By: Emily Marin on 05-21-2023 Bilirubin [Mass/Vol] 0.3 mg/dL 0.3-1.0 [facility] CT abdomen pelvis w conon CT abdomen pelvis w con [facility] [place] [address] [place] [address] CT Scan Report Signed Patient: Yoanna Snyder MR#: [id number] 2 : 2000 Acct:[id number] Age/Sex: 23 / F ADM Date: 05/21/23 Loc: ER Room: Type: [facility] ER Attending Dr: Copies to: JAREN Mcmillan [...] Francisco Burroughs M.D.05/21/2023 12:19 PM Dictation Location: [place] [address] Transcribed By: [facility] 05/21/23 1219 Dictated By: Francisco Burroughs DO 05/21/23 1207 Signed By: 05/21/[address] [facility] Calcium [Mass/volume] in Ser um or PlasmaOrdered By: Emily Bullimore on 05-21-2023 Calcium [Mass/Vol] 9.1 mg/dL 8.6-10.3 [facility] Carbon dioxide, total [Moles /volume] in Serum or PlasmaOrdered By: Emily Bullimore on 05-21-2023 CO2 [Moles/Vol] 24.3 mmol/L 21.0-31.0 [facility] Chloride [Moles/volume] in S diana or PlasmaOrdered By: Emily Bullimore on 05-21-2023 Chloride [Moles/Vol] 104 mmol/L 98-107 [facility] Color Auto (U)Ordered By: Gi avani Bullimore on 05-21-2023 Color (U) Yellow Yellow [facility] Complete Blood Count Auto Di ffon 05-21-2023 Basophils (Bld) [#/Vol] 0.0 10*3/uL Normal 0.0-0.2 [facility] Comment on above: Result Comment: PERF ORMED BY: [facility] [address] [place] [address] PATHOLOGIST BOTANY TEACHER NANCY NAPIER M.D. Performed By: #### C MP, CBC ####[address] Basophils/100 WBC (Bld) 0.3 % Normal . [facility] Comment on above: Performed By: #### C MP, CBC ####[address] Eosinophils (Bld) [#/Vol] 0.1 10*3/uL Normal 0.0-0.45 [facility] Comment on above: Performed By: #### C MP, CBC ####[address] Eosinophils/100 WBC (Bld) 0.8 % Normal . [facility] Comment on above: Performed By: #### C MP, CBC ####[address] Erythrocyte distribution width (RBC) [Ratio] 14.2 % Normal 11.9-15.3 [facility] Comment on above: Performed By: #### C MP, CBC ####[address] Hematocrit (Bld) [Volume fraction] 40.7 % Normal 34.0-46.4 [facility] Comment on above: Performed By: #### C MP, CBC ####[address] Hemoglobin (Bld) [Mass/Vol] 13.6 g/dL Normal 11.8-15.4 [facility] Comment on above: Performed By: #### C MP, CBC ####[address] Lymphocytes (Bld) [#/Vol] 1.3 10*3/uL Normal 1.00-4.8 [facility] Comment on above: Performed By: #### C MP, CBC ####[address] Lymphocytes/100 WBC (Bld) 11.1 % Normal . [facility] Comment on above: Performed By: #### C MP, CBC ####[address] MCH (RBC) [Entitic mass] 27.3 pg Normal 24.7-34.3 [facility] Comment on above: Performed By: #### C MP, CBC ####[address] MCV (RBC) [Entitic vol] 81.9 fL Normal 80-[address] [facility] Comment on above: Performed By: #### C MP, CBC ####[address] Mean Corpuscular HGB Conc 33.3 g/dL Normal 32.0-35.0 [facility] Comment on above: Performed By: #### C MP, CBC ####[address] Monocytes (Bld) [#/Vol] 0.7 10*3/uL Normal 0.0-0.8 [facility] Comment on above: Performed By: #### C MP, CBC ####[place] [id number] [facility] Monocytes/100 WBC (Bld) 17.88 % Normal 0.00-20.[address] [facility] Comment on above: Performed By: #### C MP, CBC ####[place] [id number] [facility] Monocytes/100 WBC (Bld) 5.8 % Normal . [facility] Comment on above: Performed By: #### C MP, CBC ####[address] Neutrophils (Bld) [#/Vol] 9.8 10*3/uL High 1.8-7.7 [facility] Comment on above: Performed By: #### C MP, CBC ####[place] [id number] [facility] Neutrophils/100 WBC (Bld) 82.0 % Normal . [facility] Comment on above: Performed By: #### C MP, CBC ####[place] [id number] [facility] NRBC% 0.0 /100{WBC} Normal 0-0.5 [facility] Comment on above: Performed By: #### C MP, CBC ####[place] [id number] [facility] Platelet mean volume (Bld) [Entitic vol] 8.4 fL Normal 6.3-10.7 [facility] Comment on above: Performed By: #### C MP, CBC ####[place] [id number] [facility] Platelets (Bld) [#/Vol] 313 10*3/uL Normal 150-450 [facility] Comment on above: Performed By: #### C MP, CBC ####[place] [id number] [facility] RBC (Bld) [#/Vol] 4.97 10*6/uL Normal 3.60-5.00 [facility] Comment on above: Performed By: #### C MP, CBC ####[place] [id number] [facility] WBC (Bld) [#/Vol] 12.0 10*3/uL High 3.8-11.6 [facility] Comment on above: Performed By: #### C MP, CBC ####[place] [id number] [facility] Comprehensive Metabolic Pane gee 05-21-2023 Albumin [Mass/Vol] 4.3 g/dL Normal 3.5-5.7 [facility] Comment on above: Performed By: #### C MP, CBC ####[place] [id number] [facility] Albumin/Globulin [Mass ratio] 1.3 {ratio} Normal [facility] Comment on above: Performed By: #### C MP, CBC ####[place] [id number] [facility] ALP [Catalytic activity/Vol] 131 U/L High 34-104 [facility] Comment on above: Performed By: #### C MP, CBC ####[place] [id number] [facility] ALT [Catalytic activity/Vol] 16 U/L Normal 7-52 [facility] Comment on above: Performed By: #### C MP, CBC ####[place] [id number] [facility] Anion gap [Moles/Vol] 9.7 mmol/L Normal 6.0-15.0 [facility] Comment on above: Performed By: #### C MP, CBC ####[place] [id number] [facility] AST [Catalytic activity/Vol] 13 U/L Normal 13-39 [facility] Comment on above: Performed By: #### C MP, CBC ####[place] [id number] [facility] Bilirubin [Mass/Vol] 0.3 mg/dL Normal 0.3-1.0 [facility] Comment on above: Performed By: #### C MP, CBC ####[place] [id number] [place] [address] [facility] Calcium [Mass/Vol] 9.1 mg/dL Normal 8.6-10.3 [facility] Comment on above: Performed By: #### C MP, CBC ####[place] [id number] [place] [address] [facility] Chloride [Moles/Vol] 104 mmol/L Normal 98-107 [facility] Comment on above: Performed By: #### C MP, CBC ####[place] [id number] [place] [id number] [facility] CO2 [Moles/Vol] 24.3 mmol/L Normal 21.0-31.0 [facility] Comment on above: Performed By: #### C MP, CBC ####[place] [id number] [facility] Creatinine [Mass/Vol] 0.67 mg/dL Normal 0.60-1.20 [facility] Comment on above: Performed By: #### C MP, CBC ####[place] [id number] [facility] Creatinine Clr Calc Pharmacy 134.[address] [facility] Comment on above: Result Comment: PERF ORMED BY: [facility] [address] [place] [address] PATHOLOGIST BOTANY TEACHER NANCY NAPIER M.D. Performed By: #### C MP, CBC ####[place] [id number] [facility] GFR/1.73 sq M.predicted MDRD (S/P/Bld) [Vol rate/Area] mL/min/{1.73_m2} [facility] Comment on above: Performed By: #### C MP, CBC ####[address] [address] [facility] Globulin (S) [Mass/Vol] 3.4 g/dL Normal [facility] Comment on above: Performed By: #### C MP, CBC ####[facility] [place] [address] [facility] Glucose [Mass/Vol] 114 mg/dL High 70-100 [facility] Comment on above: Result Comment: [place] Glucose Reference Range is dependent on time and content of last meal. Glucose of more than 200 mg/dL in a nonstressed, ambulatory subject supports the diagnosis of Diabetes Mellitus. ADA recommended reference range Performed By: #### C MP, CBC ####[facility] [place] [id number] [facility] Potassium [Moles/Vol] 4.0 mmol/L Normal 3.5-5.1 [facility] Comment on above: Performed By: #### C MP, CBC ####[address] Protein [Mass/Vol] 7.7 g/dL Normal 6.4-8.9 [facility] Comment on above: Performed By: #### C MP, CBC ####[place] [id number] [facility] Sodium [Moles/Vol] 134 mmol/L Low 136-145 [facility] Comment on above: Performed By: #### C MP, CBC ####[place] [id number] [place] [id number] [facility] Urea nitrogen [Mass/Vol] 14 mg/dL Normal 7-25 [facility] Comment on above: Performed By: #### C MP, CBC ####[place] [id number] [facility] Creatinine [Mass/volume] in Serum or PlasmaOrdered By: Emily Marin on 05-21-2023 Creatinine [Mass/Vol] 0.67 mg/dL 0.60-1.20 [facility] Dipstick and Microscopicon 0 05-21-2023 Appearance (U) Clear Normal Clear [facility] Comment on above: Order Comment: Name Collection Type:: Clean-Voided Midstream Performed By: #### U HCG, ADDONUAPLUS #### [facility] [address] [place] [address] [place] Bacteria,Urine 1+ High None Seen [facility] Comment on above: Order Comment: Name Collection Type:: Clean-Voided Midstream Performed By: #### U HCG, ADDONUAPLUS #### [facility] [address] [place] [address] [place] Bilirubin,Urine Negative Normal Negative [facility] Comment on above: Order Comment: Name Collection Type:: Clean-Voided Midstream Performed By: #### U HCG, ADDONUAPLUS #### [facility] [address] [place] [address] [place] Color (U) Yellow Normal Yellow [facility] Comment on above: Order Comment: Name Collection Type:: Clean-Voided Midstream Performed By: #### U HCG, ADDONUAPLUS #### [facility] [address] [place] [address] [place] Glucose Ql (U) Normal Normal Normal [facility] Comment on above: Order Comment: Name Collection Type:: Clean-Voided Midstream Performed By: #### U HCG, ADDONUAPLUS #### [facility] [address] [place] [address] [place] Hyaline Casts,Urine 0-8 Normal 0-8 [facility] Comment on above: Order Comment: Name Collection Type:: Clean-Voided Midstream Performed By: #### U HCG, ADDONUAPLUS #### [facility] [address] [place] [address] [place] Ketones Ql (U) Negative Normal Negative [facility] Comment on above: Order Comment: Name Collection Type:: Clean-Voided Midstream Performed By: #### U HCG, ADDONUAPLUS #### [facility] [address] [place] [address] [place] Leukocyte esterase Test strip Ql (U) 1+ High Negative [facility] Comment on above: Order Comment: Name Collection Type:: Clean-Voided Midstream Performed By: #### U HCG, ADDONUAPLUS #### [facility] [address] [place] [address] [place] Nitrite,Urine Negative Normal Negative [facility] Comment on above: Order Comment: Name Collection Type:: Clean-Voided Midstream Performed By: #### U HCG, ADDONUAPLUS #### [address] Occult Blood,Urine Negative Normal Negative [facility] Comment on above: Order Comment: Name Collection Type:: Clean-Voided Midstream Performed By: #### U HCG, ADDONUAPLUS #### [address] pH (U) 5.5 [pH] Normal 5.0-9.0 [facility] Comment on above: Order Comment: Name Collection Type:: Clean-Voided Midstream Performed By: #### U HCG, ADDONUAPLUS #### [address] Protein,Urine Negative Normal Negative [facility] Comment on above: Order Comment: Name Collection Type:: Clean-Voided Midstream Performed By: #### U HCG, ADDONUAPLUS #### [address] RBC LM.HPF (Urine sed) [#/Area] 0 /[HPF] Normal 0-4 [facility] Comment on above: Order Comment: Name Collection Type:: Clean-Voided Midstream Performed By: #### U HCG, ADDONUAPLUS #### [address] Specificy [place],Urine 1.027 Normal 1.001-1.030 [facility] Comment on above: Order Comment: Name Collection Type:: Clean-Voided Midstream Performed By: #### U HCG, ADDONUAPLUS #### [address] Squamous Epithelial Cell,Urine 5-9 High 0-2 [facility] Comment on above: Order Comment: Name Collection Type:: Clean-Voided Midstream Performed By: #### U HCG, ADDONUAPLUS #### [address] Urobilinogen,Urine Normal Normal Normal [facility] Comment on above: Order Comment: Name Collection Type:: Clean-Voided Midstream Performed By: #### U HCG, ADDONUAPLUS #### [facility] [address] [place] [address] [place] WBC,Urine 3-4 Normal 0-4 [facility] Comment on above: Order Comment: Name Collection Type:: Clean-Voided Midstream Performed By: #### U HCG, ADDONUAPLUS #### [facility] [address] Eosinophils Auto (Bld) [#/Vo l]Ordered By: Emily Aaronimore on 05-21-2023 Eosinophils (Bld) [#/Vol] 0.1 10*3/uL 0.0-0.45 [facility] Eosinophils/100 WBC Auto (Bl d)Ordered By: Emilyshae Aaronimore on 05-21-2023 Eosinophils/100 WBC (Bld) 0.8 % . [facility] Erythrocyte distribution wid th Auto (RBC) [Ratio]Ordered By: Emilyshae Marin on 05-21-2023 Erythrocyte distribution width (RBC) [Ratio] 14.2 % 11.9-15.3 [facility] Globulin Calc (S) [Mass/Vol] Ordered By: Emilyshae Marin on 05-21-2023 Globulin (S) [Mass/Vol] 3.4 g/dL [facility] Glucose [Mass/volume] in Ser um or PlasmaOrdered By: Emily Marin on 05-21-2023 Glucose [Mass/Vol] 114 mg/dL 70-100 [facility] Comment on above: ADA recommended refe rence rangeRandom Glucose Reference Range is dependent on time and content of last meal. Glucose of more than 200 mg/dL in a nonstressed, ambulatory subject supports the diagnosis of Diabetes Mellitus. HCG ( test) Nora gómez Ql (U)Ordered By: PROVIDER TEMP on 05-21-2023 HCG ( test) Ql (U) Negative [facility] HCG,Urineon 05-21-2023 Beta HCG ( test) Ql (U) Negative Normal [facility] Comment on above: Order Comment: Name Collection Type:: Clean-Voided Midstream Result Comment: PERF ORMED BY: [facility] [address] [place] [address] PATHOLOGIST BOTANY TEACHER NANCY NAPIER M.D. Performed By: #### U HCG, ADDLADIUAPLUS #### [facility] [address] Hematocrit Auto (Bld) [Volum e fraction]Ordered By: Emily Bullimore on 05-21-2023 Hematocrit (Bld) [Volume fraction] 40.7 % 34.0-46.4 [facility] Hemoglobin [Mass/volume] in BloodOrdered By: Emily Bullimore on 05-21-2023 Hemoglobin (Bld) [Mass/Vol] 13.6 g/dL 11.8-15.4 [facility] Ketones Auto test strip (U) [Mass/Vol]Ordered By: Emily Bullimore on 05-21-2023 Ketones (U) [Mass/Vol] Negative Negative [facility] Gee 05-21-2023 L - -------- Specimen: [id number] Received: 05/23/23 Status: NANCY Oneill Num: [id number] Spec Type: Surgical Subm Dr: Niraj Guzman DO Tissues: A Appendix - Other than Incidental (APPENDIX) Procedures: SHAGGY, Gross/Micro L3 -------- Age/ Patient Sex Location Account Attending Physician -------- Yoanna Snyder 23/ 4N [id number] Niraj Guzman,DO -------- SPEC NUM: [id number] RECD: 05/23/23 STATUS: NANCY ONEILL NUM: [id number] MICHELLE: 05/21/23 [facility] DR: Niraj Guzman DO ENTERED: 05/23/23 [facility] DR: GAYE TYPE: Surgical DEPT: S [...] No discrete site of perforation is identified. Hand Kiss Setter sections are submitted in one cassette labeled A1. Microscopic Description One H E slide reviewed. The microscopic examination confirms the diagnosis. -------- Specimen: [id number] Received: 05/23/23 Status: NANCY Oneill Num: [id number] Spec Type: Surgical Subm Dr: Niraj Guzman DO Tissues: A Appendix - Other than Incidental (APPENDIX) Procedures: SHAGGY, Gross/Nino L3 -------- Patient: Yoanna Snyder [id number] (Continued) -------- Specimen: [id number] Received: 05/23/23 (Continued) Signed (signature on file) Alia Tatum MD 05/25/23 1159 -------- Specimen: [id number] Received: 05/23/23 Status: NANCY Oneill Num: [id number] Spec Type: Surgical Subm Dr: Nirja Guzman DO Tissues: A Appendix - Other than Incidental (APPENDIX) Procedures: Alok COON L3 -------- Patient: Yoanna Snyder [id number] (Continued) -------- Specimen: [id number] Received: 05/23/23 (Continued) CPT Codes 24684 -------- -------- Specimen: [id number] Received: 05/23/23 Status: NANCY Oneill Num: [id number] Spec Type: Surgical Subm Dr: Niraj Guzman DO Tissues: A Appendix - Other than Incidental (APPENDIX) Procedures: HE, Gross/Micro L3 -------- Patient: Yoanna Snyder [id number] (Continued) -------- Signed (signature on file) Alia Tatum MD 05/25/23 1159 Normal [facility] - UrinalysisOrder ed By: Emily Marin on 05-21-2023 Hyaline casts LM Ql (Urine sed) 0-8 [LPF] 0-8 [facility] Leukocytes [#/volume] correc geo for nucleated erythrocytes in Blood by Automated counOrdered By: Emily Marin on 05-21-2023 WBC corrected for nucl RBC Auto (Bld) [#/Vol] 12.0 10*3/uL 3.8-11.6 [facility] Lymphocytes Auto (Bld) [#/Vo l]Ordered By: Emily Marin on 05-21-2023 Lymphocytes (Bld) [#/Vol] 1.3 10*3/uL 1.00-4.8 [facility] Lymphocytes/100 WBC Auto (Bl d)Ordered By: Emily Marin on 05-21-2023 Lymphocytes/100 WBC (Bld) 11.1 % . [facility] MCH Auto (RBC) [Entitic mass ]Ordered By: Emily Marin on 05-21-2023 MCH (RBC) [Entitic mass] 27.3 pg 24.7-34.3 [facility] MCHC Auto (RBC) [Mass/Vol]Or dered By: Emily Aaronimore on 05-21-2023 MCHC (RBC) [Mass/Vol] 33.3 g/dL 32.0-35.0 Fir [facility] MCV Auto (RBC) [Entitic vol] Ordered By: Emily Aaronimore on 05-21-2023 MCV (RBC) [Entitic vol] 81.9 fL 80-[address] [facility] Monocyte distribution width [Entitic volume] in Blood by AutomatedOrdered By: Emily Marin on 05-21-2023 Monocyte distribution width Auto (Bld) [Entitic vol] 17.88 % 0.00-20.00 [facility] Monocytes Auto (Bld) [#/Vol] Ordered By: Emily Aaronimore on 05-21-2023 Monocytes (Bld) [#/Vol] 0.7 10*3/uL 0.0-0.8 [facility] Monocytes/100 WBC Auto (Bld) Ordered By: Emily Aaronimore on 05-21-2023 Monocytes/100 WBC (Bld) 5.8 % . F [facility] Neutrophils Auto (Bld) [#/Vo l]Ordered By: Emily Aaronimore on 05-21-2023 Neutrophils (Bld) [#/Vol] 9.8 10*3/uL 1.8-7.7 [facility] Neutrophils/100 WBC Auto (Bl d)Ordered By: Emily Reidore on 05-21-2023 Neutrophils/100 WBC (Bld) 82.0 % . [facility] Nitrite Test strip Ql (U)Ord ered By: Emily Marin on 05-21-2023 Nitrite Ql (U) Negative Negative [facility] No Panel InformationOrdered By: Emily Marin on 05-21-2023 Estimated GFR (CKD-EPI) > 60.0 mL/Min [facility] Creatinine Clearance (Chem 134.83 [facility] Nucleated erythrocytes [Pres ence] in Blood by Automated countOrdered By: Emily Marin on 05-21-2023 Nucleated RBC Auto Ql (Bld) 0.0 /100{WBC} 0-0.5 [facility] Platelet mean volume Auto (B ld) [Entitic vol]Ordered By: Emily Bullimore on 05-21-2023 Platelet mean volume (Bld) [Entitic vol] 8.4 fL 6.3-10.7 [facility] Platelets Auto (Bld) [#/Vol] Ordered By: Emily Bullimore on 05-21-2023 Platelets (Bld) [#/Vol] 313 10*3/uL 150-450 [facility] Potassium [Moles/volume] in Serum or PlasmaOrdered By: Emily Bullimore on 05-21-2023 Potassium [Moles/Vol] 4.0 mmol/L 3.5-5.1 [facility] Protein Auto test strip (U) [Mass/Vol]Ordered By: Emily Bullimore on 05-21-2023 Protein (U) [Mass/Vol] Negative Negative [facility] Protein [Mass/volume] in Ser um or PlasmaOrdered By: Emily Bullimore on 05-21-2023 Protein [Mass/Vol] 7.7 g/dL 6.4-8.9 [facility] RBC Auto (Bld) [#/Vol]Ordere d By: Emily Bullimore on 05-21-2023 RBC (Bld) [#/Vol] 4.97 10*6/uL 3.60-5.00 [facility] Serum or plasma albumin/glob ulin mass ratioOrdered By: Emily Bullimore on 05-21-2023 Albumin/Globulin [Mass ratio] 1.3 {ratio} [facility] Serum or plasma anion gap de terminationOrdered By: Emily Bullimore on 05-21-2023 Anion gap [Moles/Vol] 9.7 mmol/L 6.0-15.0 [facility] Sodium [Moles/volume] in Ser um or PlasmaOrdered By: Emily Bullimore on 05-21-2023 Sodium [Moles/Vol] 134 mmol/L 136-145 [facility] Specific gravity Auto test s trip (U) [Rel density]Ordered By: Emily Bullimore on 05-21-2023 Specific gravity (U) [Rel density] 1.027 1.001-1.030 [facility] Squamous epithelial cells de tection in urine sediment by light microscopyOrdered By: Emily Marin on 05-21-2023 Epithelial cells.squamous LM Ql (Urine sed) 5-9 [HPF] 0-2 [facility] Urea nitrogen [Mass/volume] in Serum or PlasmaOrdered By: Emily Marin on 05-21-2023 Urea nitrogen [Mass/Vol] 14 mg/dL 7-25 [facility] Urine bacteria detection by automated methodOrdered By: Emily Marin on 05-21-2023 Bacteria Auto Ql (U) 1+ None Seen [facility] Urine clarity by refractomet ry automatedOrdered By: Emily Marin on 05-21-2023 Clarity Refractometry automated (U) Clear Clear [facility] Urine glucose measurement by automated test strip (mass/volume)Ordered By: Emily Marin on 05-21-2023 Glucose Auto test strip (U) [Mass/Vol] Normal mg/dL Normal [facility] Urine hemoglobin detection b y automated test stripOrdered By: Emily Marin on 05-21-2023 Hemoglobin Auto test strip Ql (U) Negative Negative [facility] Urine leukocyte esterase det ection by automated test stripOrdered By: Emily Marin on 05-21-2023 Leukocyte esterase Auto test strip Ql (U) 1+ Negative [facility] Urobilinogen Auto test strip (U) [Mass/Vol]Ordered By: Emily Marin on 05-21-2023 Urobilinogen (U) [Mass/Vol] Normal mg/dL Normal [facility] WBC Auto (Bld) [#/Vol]Ordere d By: Emily Marin on 05-21-2023 WBC (Bld) [#/Vol] 12.0 10*3/uL 3.8-11.6 [facility] pH Auto test strip (U)Ordere d By: Emily Marin on 05-21-2023 pH (U) 5.5 [pH] 5.0-9.0 [facility] Esophageal MALAGON pH Capsule Results / Interpretationon 01-26-2023 Esophageal MALAGON pH Capsule Results / Interpretation PATIENTNAME Patient Name: Yoanna Snyder EXAMDATE Procedure Date: 01/26/2023 2:40 PM PATIENTID PATIENTACCOUNTNUM PATIENTDOB Date of : 2000 PATIENTROOM Site: ETHNICITY Ethnicity: Not or RACE Race: White PROVDR Attending MD: Gustavo Garrett DO, [id number] ENDOPROCEDURENAME Procedure: Esophageal MALAGON pH Capsule Results [...] above documented diagnostic study. SIGNATURENAME DO Gustavo Dias DO SIGNATUREDATE 01/26/2023 2:51:11 PM SIGNATUREONFILEIND This report has been signed electronically. NUMADDENDA Number of Addenda: 0 INITIATEDON Note Initiated On: 01/26/2023 2:40 PM Normal [facility] No Panel Informationon 01-26 [email or web address] } [facility] Work Phone: [facility] Work Phone: High Resolution esophageal m anometryon 01-20-2023 High Resolution esophageal manometry PATIENTNAME Patient Name: Yoanna Snyder EXAMDATE Procedure Date: 01/20/2023 1:00 PM PATIENTID PATIENTACCOUNTNUM PATIENTDOB Date of : 2000 PATIENTROOM Site: [facility] 1 ETHNICITY Ethnicity: Not or RACE Race: White PROVDR Attending MD: Ross Du MD, [id number] ENDOPROCEDURENAME Procedure: High Resolution esophageal manometry INDICATION [...] Note Initiated On: 01/20/2023 12:49 PM Normal [facility] No Panel Informationon 01-20 [email or web address] } [facility] Work Phone: [facility] Work Phone: Order Reconciliationon 01-20 Order Reconciliation [...] Lidocaine Viscous 2% is not required Normal [facility] Upper GI endoscopyon 023 Upper GI endoscopy PATIENTNAME Patient Name: Yoanna Snyder EXAMDATE Procedure Date: 01/20/2023 2:26 PM PATIENTID PATIENTACCOUNTNUM PATIENTDOB Date of : 2000 PATIENTROOM Site: [place] [address] ETHNICITY Ethnicity: Not or RACE Race: White PROVDR Attending MD: Marcela Colon MD, [id number] ENDOPROCEDURENAME Procedure: Upper GI endoscopy INDICATION Indications: Epigastric abdominal distress, Follow-up of gastro-esophageal reflux disease, Chronic cough, Early satiety PTPROFILE Patient Profile: This is a 22 year old female who has been having a chronic cough associated with eating and drinking, along with GERD, early satiety and some cramping. For further work-up she has been referred for EGD with MALAGON and EMOT. PRIMARYPROVIDER Providers: Marcela Colon MD (Doctor) Gastroenterology, Ross Du MD (Doctor) , Tati Gutierrez, RN (Nurse) , Rosa Kaur, RN (Nurse) , Jeaneth Malik RN (Nurse) EDREFPROVIDER Referring MD: Rosmery Martell MD [facility] Provider Care Team: 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 CURRENT_MEDS Medicines: [...] and recommendation (more content not included)... 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 You need speech therapy as part of your treatment. We will help you to schedule your speech appointment after your visit or you can call Speech Therapy Scheduling at [phone]. Please follow up pending the outcome of speech therapy. Welcome to Dr. Martell?s clinic. We are here to assist you through your ENT care at [facility]. Dr. Martell is an ENT surgeon who specializes in voice, airway and swallowing issues. This means that she specializes in taking care of patients with complex voice, airway and swallowing problems. Dr. Martell's office number is [phone]. Please use this number to contact her and her care team regardless of which office you use to access care. This number is the most direct way to communicate with all the members of the care team. Dr. Martell?s financial secretary answers the office phone from 9am-4pm Mon-Tue. Call [phone] and push 2. She can help you with scheduling of appointments, general questions and information. You may need to leave a message if she is helping another patient. In this case, someone from the team will call you back the same day if you leave your message before 3pm, or the next business morning. Dr. Martell?s nurse and can be reached by calling [phone]. We make every effort to return phone calls the same day. If you are in need of urgent assistance after hours, please call [phone] and ask for ENT correctional case manager. Dr. Martell works closely with speech therapists as they work together to help solve your issues with speech and swallowing. You may see a speech therapist during your appointment if Dr. Martell feels this is needed. If you need to reach speech therapy to talk with a therapist or to schedule an appointment, please call [phone]. Others who may be included in your care are dieticians, social workers, audiologists, neurologists, and physical therapists. Dr. Martell will provide these referrals as needed. Please let her know if you would like to request a specific referral. For your convenience, Dr. Martell sees patients at different [facility] locations including the [facility], and [facility] at the [facility]. While we try to make your appointments [...] PPI f (more content not included)... 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 Alnge Learner(s) are identified by the patient as person(s) most likely to participate in providing care, such as managing medications or taking them to doctors? appointments. Primary Language for learning: Macedonian. Insurance Insurance reviewed Visit number: 1 Onset [...] 022 Adult depression screening assessment Yes [facility] C Work Phone: Fall risk assessment a) No falls within the last year [facility] Work Phone: Tobacco use status [facility] b) No [facility] Work Phone: Pap IG, rfx Aptima HPV ASCUo n 06-11-2022 . . Normal [facility] Comment on above: Performed By: #### P APHR7A #### [facility] [address] [place] [address] Dr. Garrett Galeas DIAGNOSIS: Comment [facility] Comment on above: Result Comment: NEGA TIVE FOR INTRAEPITHELIAL LESION OR MALIGNANCY. FUNGAL ORGANISMS MORPHOLOGICALLY CONSISTENT WITH ALLI SPECIES ARE PRESENT. Performed By: #### P APHR7A #### [facility] [address] [place] [address] Dr. Garrett Galeas Methodology: Comment [facility] Comment on above: Result Comment: This liquid based ThinPrep(R) pap test was screened with the use of an image guided system. Performed By: #### P APHR7A #### [facility] [address] [place] [address] Dr. Garrett Galeas Note: Comment [facility] Comment on above: Result Comment: The Pap smear is a screening test designed to aid in the detection of premalignant and malignant conditions of the uterine cervix. It is not a diagnostic procedure and should not be used as the sole means of detecting cervical cancer. Both false-positive and false-negative reports do occur. . Performed By: #### P APHR7A #### [facility] [address] [place] [address] Dr. Garrett Galeas Performed by: Comment Normal [facility] Comment on above: Result Comment: Erick Wilson, Principal Biostatistician (ASCP) Performed By: #### P APHR7A #### [facility] [address] [place] [address] [address] Garrett Galeas Reflex Criteria: Comment Normal [facility] Comment on above: Result Comment: The HPV DNA reflex criteria were not met with this specimen result therefore, no HPV testing was performed. . Performed By: #### P APHR7A #### [facility] [address] [place] [address] [address] Garrett Galeas Specimen adequacy: Comment Normal [facility] Comment on above: Result Comment: Sati sfactory for evaluation. Endocervical and/or squamous metaplastic cells (endocervical component) are present. Performed By: #### P APHR7A #### [facility] [address] [place] [address] head stroke alert wo cono n 06-03-2022 CT head stroke alert wo con [facility] [place] [address] CT Scan Report Signed Patient: Yoanna Snyder MR#: [id number] 2 : 2000 Acct:[id number] Age/Sex: 22 / F ADM Date: 06/03/22 [...] Romario Richmond M.D.06/03/2022 7:11 PM Dictation Location: [place] [address] Transcribed By: MARA 06/03/221910 Dictated By: Romario Richmond II, MD 06/03/221908 Signed By: 06/03/221910 Normal [facility] Complete Blood Count Auto Di ffon 06-03-2022 Basophils (Bld) [#/Vol] 0.0 10*3/uL Normal 0.0-0.2 [facility] Comment on above: Result Comment: PERF ORMED BY: [place] [address] PATHOLOGIST BOTANY TEACHER NANCY NAPIER M.D. Performed By: #### C KMB, CK, CBC, CMP, PTT, PT, HS TROP #### [address] Basophils/100 WBC (Bld) 0.5 % Normal . [facility] Comment on above: Performed By: #### C KMB, CK, CBC, CMP, PTT, PT, HS TROP #### [facility] [address] [place] [address] Eosinophils (Bld) [#/Vol] 0.2 10*3/uL Normal 0.0-0.45 [facility] Comment on above: Performed By: #### C KMB, CK, CBC, CMP, PTT, PT, HS TROP #### [facility] [address] [place] [address] [place] Eosinophils/100 WBC (Bld) 3.1 % Normal . [facility] Comment on above: Performed By: #### C KMB, CK, CBC, CMP, PTT, PT, HS TROP #### [facility] [address] Erythrocyte distribution width (RBC) [Ratio] 16.0 % High 11.9-15.3 [facility] Comment on above: Performed By: #### C KMB, CK, CBC, CMP, PTT, PT, HS TROP #### [address] Hematocrit (Bld) [Volume fraction] 40.0 % Normal 34.0-46.4 [facility] Comment on above: Performed By: #### C KMB, CK, CBC, CMP, PTT, PT, HS TROP #### [address] Hemoglobin (Bld) [Mass/Vol] 12.9 g/dL Normal 11.8-15.4 [facility] Comment on above: Performed By: #### C KMB, CK, CBC, CMP, PTT, PT, HS TROP #### [address] Lymphocytes (Bld) [#/Vol] 2.8 10*3/uL Normal 1.00-4.8 [facility] Comment on above: Performed By: #### C KMB, CK, CBC, CMP, PTT, PT, HS TROP #### [address] Lymphocytes/100 WBC (Bld) 36.2 % Normal . [facility] Comment on above: Performed By: #### C KMB, CK, CBC, CMP, PTT, PT, HS TROP #### [address] MCH (RBC) [Entitic mass] 25.3 pg Normal 24.7-34.3 [facility] Comment on above: Performed By: #### C KMB, CK, CBC, CMP, PTT, PT, HS TROP #### [address] MCV (RBC) [Entitic vol] 78.2 fL Low 80-[address] [facility] Comment on above: Performed By: #### C KMB, CK, CBC, CMP, PTT, PT, HS TROP #### [address] Mean Corpuscular HGB Conc 32.3 g/dL Normal 32.0-35.0 [facility] Comment on above: Performed By: #### C KMB, CK, CBC, CMP, PTT, PT, HS TROP #### [facility] [address] Monocytes (Bld) [#/Vol] 0.8 10*3/uL Normal 0.0-0.8 [facility] Comment on above: Performed By: #### C KMB, CK, CBC, CMP, PTT, PT, HS TROP #### [address] Monocytes/100 WBC (Bld) 9.7 % Normal . [facility] Comment on above: Performed By: #### C KMB, CK, CBC, CMP, PTT, PT, HS TROP #### [address] Neutrophils (Bld) [#/Vol] 4.0 10*3/uL Normal 1.8-7.7 [facility] Comment on above: Performed By: #### C KMB, CK, CBC, CMP, PTT, PT, HS TROP #### [address] Neutrophils/100 WBC (Bld) 50.5 % Normal . [facility] Comment on above: Performed By: #### C KMB, CK, CBC, CMP, PTT, PT, HS TROP #### [address] Nucleated RBC/100 WBC (Bld) [Ratio] 0.1 % Normal 0-0.5 [facility] Comment on above: Performed By: #### C KMB, CK, CBC, CMP, PTT, PT, HS TROP #### [address] Platelet mean volume (Bld) [Entitic vol] 8.3 fL Normal 6.3-10.7 [facility] Comment on above: Performed By: #### C KMB, CK, CBC, CMP, PTT, PT, HS TROP #### [facility] [address] Platelets (Bld) [#/Vol] 337 10*3/uL Normal 150-450 [facility] Comment on above: Performed By: #### C KMB, CK, CBC, CMP, PTT, PT, HS TROP #### [facility] [address] RBC (Bld) [#/Vol] 5.12 10*6/uL High 3.60-5.00 [facility] Comment on above: Performed By: #### C KMB, CK, CBC, CMP, PTT, PT, HS TROP #### [facility] [address] WBC (Bld) [#/Vol] 7.8 10*3/uL Normal 4.5-11.0 [facility] Comment on above: Performed By: #### C KMB, CK, CBC, CMP, PTT, PT, HS TROP #### [facility] [address] Comprehensive Metabolic Pane gee 06-03-2022 Albumin [Mass/Vol] 3.7 g/dL Normal 3.2-5.5 [facility] Comment on above: Performed By: #### C KMB, CK, CBC, CMP, PTT, PT, HS TROP #### [address] Albumin/Globulin [Mass ratio] 1.0 {ratio} Normal [facility] Comment on above: Performed By: #### C KMB, CK, CBC, CMP, PTT, PT, HS TROP #### [address] ALP [Catalytic activity/Vol] 120 U/L High 32-92 [facility] Comment on above: Result Comment: PERF ORMED BY: [place] [address] PATHOLOGIST BOTANY TEACHER NANCY NAPIER M.D. Performed By: #### C KMB, CK, CBC, CMP, PTT, PT, HS TROP #### [facility] [address] ALT [Catalytic activity/Vol] 21 U/L Normal 10-60 [facility] Comment on above: Performed By: #### C KMB, CK, CBC, CMP, PTT, PT, HS TROP #### [facility] [address] AST [Catalytic activity/Vol] 19 U/L Normal 10-42 [facility] Comment on above: Performed By: #### C KMB, CK, CBC, CMP, PTT, PT, HS TROP #### [facility] [address] Bilirubin [Mass/Vol] 0.5 mg/dL Normal 0.3-1.2 [facility] Comment on above: Performed By: #### C KMB, CK, CBC, CMP, PTT, PT, HS TROP #### [facility] [address] [address] Calcium [Mass/Vol] 9.2 mg/dL Normal 8.2-10.2 [facility] Comment on above: Performed By: #### C KMB, CK, CBC, CMP, PTT, PT, HS TROP #### [address] Chloride [Moles/Vol] 100 mmol/L Normal 95-114 [facility] Comment on above: Performed By: #### C KMB, CK, CBC, CMP, PTT, PT, HS TROP #### [address] CO2 [Moles/Vol] 25.9 mmol/L Normal 22.0-30.0 [facility] Comment on above: Performed By: #### C KMB, CK, CBC, CMP, PTT, PT, HS TROP #### [address] Creatinine [Mass/Vol] 0.66 mg/dL Normal 0.44-1.03 [facility] Comment on above: Performed By: #### C KMB, CK, CBC, CMP, PTT, PT, HS TROP #### [facility] [address] Estimated GFR ( Angela > 60 Normal [facility] Comment on above: Result Comment: GFR estimated reference range: According to KDOQI guidelines, <60 ml/min/1.73m2 is sufficient to diagnose a patient with chronic kidney disease. Performed By: #### C KMB, CK, CBC, CMP, PTT, PT, HS TROP #### [facility] [address] Estimated GFR (Non- Am > 60 Normal [facility] Comment on above: Performed By: #### C KMB, CK, CBC, CMP, PTT, PT, HS TROP #### [facility] [address] Globulin (S) [Mass/Vol] 3.6 g/dL Normal [facility] Comment on above: Performed By: #### C KMB, CK, CBC, CMP, PTT, PT, HS TROP #### [address] Glucose [Mass/Vol] 92 mg/dL Normal 70-100 [facility] Comment on above: Result Comment: [place] Glucose Reference Range is dependent on time and content of last meal. Glucose of more than 200 mg/dL in a nonstressed, ambulatory subject supports the diagnosis of Diabetes Mellitus. ADA recommended reference range Performed By: #### C KMB, CK, CBC, CMP, PTT, PT, HS TROP #### [facility] [address] Potassium [Moles/Vol] 3.4 mmol/L Low 3.5-5.1 [facility] Comment on above: Performed By: #### C KMB, CK, CBC, CMP, PTT, PT, HS TROP #### [facility] [address] Protein [Mass/Vol] 7.3 g/dL Normal 6.1-7.9 [facility] Comment on above: Performed By: #### C KMB, CK, CBC, CMP, PTT, PT, HS TROP #### [facility] [address] Sodium [Moles/Vol] 136 mmol/L Normal 136-146 [facility] Comment on above: Performed By: #### C KMB, CK, CBC, CMP, PTT, PT, HS TROP #### [facility] [address] Urea nitrogen [Mass/Vol] 12 mg/dL Normal 9-23 [facility] Comment on above: Performed By: #### C KMB, CK, CBC, CMP, PTT, PT, HS TROP #### [facility] [address] [place] [id number] [facility] Creatine Kinaseon 06-03-2022 CK [Catalytic activity/Vol] 124 U/L Normal 22-269 [facility] Comment on above: Performed By: #### C KMB, CK, CBC, CMP, PTT, PT, HS TROP ####[facility] Creatinine Kinase MBon 06-03 CK.MB [Mass/Vol] 0.7 ng/mL Normal 0.6-6.3 [facility] Comment on above: Performed By: #### C KMB, CK, CBC, CMP, PTT, PT, HS TROP ####[facility] [place] [id number] [facility] CKMB Relative Index 0.5 % Normal 0.00-2.50 [facility] Comment on above: Performed By: #### C KMB, CK, CBC, CMP, PTT, PT, HS TROP ####[facility] [place] [id number] [facility] ECG 12 lead ECGon 06-03-2022 ECG 12 lead ECG [facility] Main [place] [address] [place] [address] Electrocardiograph Report Signed Patient: Yoanna Snyder MR#: [id number] 2 : 2000 Acct:[id number] Age/Sex: 22 / F ADM Date: 06/03/22 Loc: ER Room: Type: [facility] ER Attending Dr: Ordering Provider: Ishaan Alvarado MD Date of Service: 06/03/22 ECG/ECG 12 lead ECG: stroke alert Copies [...] By Ishaan Alvarado MD 05/21 04/[address] [facility] Glucose Poct Glucometerson 0 06-03-2022 Commemt1 Glu2: Cleaned Meter [facility] Comment on above: Result Comment: PERF ORMED BY: [place] [address] PATHOLOGIST [employer]OTANY TEACHER NANCY NAPIER M.D. Performed By: #### G LULS ####Point of Care testing, Glucose [Mass/Vol] 83 mg/dL Normal [facility] Comment on above: Result Comment: [facility] Glucose Reference Range is dependent on time and content of last meal. Glucose of more than 200 mg/dL in a nonstressed, ambulatory subject supports the diagnosis of Diabetes Mellitus. Performed By: #### G LULS ####Point of Care testing, Partial Thromboplastin Timeo n 06-03-2022 aPTT Coag (Bld) [Time] 31.9 s Normal 25.1-36.5 [facility] Comment on above: Result Comment: PERF ORMED BY: [place] [address] PATHOLOGIST BOTANY TEACHER NANCY NAPIER M.D. Performed By: #### C KMB, CK, CBC, CMP, PTT, PT, HS TROP #### [address] [address] [facility] Prothrombin Time INRon 06-03 INR Coag (PPP) [Relative time] 1.1 {INR} Normal [facility] Comment on above: Result Comment: INR Therapeutic [...] CBC, CMP, PTT, PT, HS TROP #### [facility] [address] PT Coag (PPP) [Time] 12.3 s Normal 9.0-12.9 [facility] Comment on above: Performed By: #### C KMB, CK, CBC, CMP, PTT, PT, HS TROP #### [facility] [address] Troponin I High Sensitivityo n 06-03-2022 Troponin I High Sensitivity 3 pg/mL Normal 0-15 [facility] Comment on above: Result Comment: PERF ORMED BY: [facility] [address] [place] [address] PATHOLOGIST BOTANY TEACHER NANCY NAPIER M.D. Performed By: #### C KMB, CK, CBC, CMP, PTT, PT, HS TROP ####[facility] [id number] CHLAMYDIA/GONOCOCCUS YESSENIA (SW AB/URINE/PAPon 04-30-2022 Chlamydia trachomatis, YESSENIA Negative Normal Negative [facility] Comment on above: Performed By: #### C T/NGNA #### [facility] [address] [address] [address] Garrett Galeas Neisseria gonorrhoeae, YESSENIA Negative Normal Negative [facility] Comment on above: Performed By: #### C T/NGNA #### [facility] [address] [place], [place] [address] Dr. Garrett Galeas VAGINITIS/VAGINOSIS DNA PROB Diego 04-29-2022 Alli species Positive Abnormal Negative [facility] Comment on above: Performed By: #### V AGINT #### [facility] [address] [place] [address] Dr. Garrett Galeas Gardnerella vaginalis Negative Normal Negative [facility] Comment on above: Performed By: #### V AGINT #### [facility] [address] [place] [address] Dr. Garrett Galeas Trichomonas vaginalis Negative Normal Negative [facility] Comment on above: Performed By: #### V AGINT #### [facility] [address] [place] [address] Dr. Garrett Galeas CBC AUTO DIFFon 01-13-2022 BASO # 0.0 103/ul Normal 0.0-0.1 [facility] Comment on above: Performed By: #### C BC #### [facility] [address] [place] [address] Dr. Garrett Galeas Basophils/100 WBC (Bld) 0.5 % Normal 0.2-2.[address] [facility] Comment on above: Performed By: #### C BC #### [facility] [address] [place] [address] Dr. Garrett Galeas EO # 0.3 103/ul Normal 0.0-0.7 [facility] Comment on above: Performed By: #### C BC #### [facility] [address] [place] [address] Dr. Garrett Galeas Eosinophils/100 WBC (Bld) 4.8 % Normal 0.9-7.0 [facility] Comment on above: Performed By: #### C BC #### [facility] [address] [place] [address] Dr. Garrett Galeas Erythrocyte distribution width (RBC) [Ratio] 16.6 % Critically high 11.0-15.0 [facility] Comment on above: Performed By: #### C BC #### [facility] [address] [place] [address] Dr. Garrett Galeas Hematocrit (Bld) [Volume fraction] 37.8 % Normal 36.0-48.0 [facility] Comment on above: Performed By: #### C BC #### [facility] [address] [place] [address] Dr. Garrett Galeas Hemoglobin (Bld) [Mass/Vol] 11.7 g/dL Critically low 12.0-16.0 [facility] Comment on above: Performed By: #### C BC #### [facility] [address] [address] [address] Garrett Galeas IG # 0.01 10e3/ul Normal 0.00-0.03 [facility] Comment on above: Performed By: #### C BC #### [facility] [address] [place] [address] Dr. Garrett Galeas IG % 0.1 % Normal 0.0-0.5 [facility] Comment on above: Performed By: #### C BC #### [facility] [address] [place] [address] Dr. Garrett Galeas LYMPH # 3.3 103/ul Normal 1.2-3.8 [facility] Comment on above: Performed By: #### C BC #### [facility] [address] [place] [address] Dr. Garrett Galeas Lymphocytes/100 WBC (Bld) 41.7 % Normal 20.5-60.0 [facility] Comment on above: Performed By: #### C BC #### [facility] [address] [place] [address] Dr. Garrett Galeas MANUAL DIFF REQ NO Normal [facility] Comment on above: Performed By: #### C BC #### [facility] [address] [place] [address] Dr. Garrett Galeas MCH (RBC) [Entitic mass] 24.0 pg Critically low 26.7-34.0 [facility] Comment on above: Performed By: #### C BC #### [facility] [address] [place] [address] Dr. Garrett Galeas MCHC (RBC) [Mass/Vol] 31.0 g/dL Normal 29.9-35.2 [facility] Comment on above: Performed By: #### C BC #### [facility] [address] [place], [place] [id number] Dr. Garrett Galeas MCV (RBC) [Entitic vol] 77.5 fL Critically low 81.0-99. 0 [facility] Comment on above: Performed By: #### C BC #### [facility] [address] [place] [address] Dr. Garrett Galeas MONO # 0.6 103/ul Normal 0.3-0.8 [facility] Comment on above: Performed By: #### C BC #### [facility] [address] [place] [address] Dr. Garrett Galeas Monocytes/100 WBC (Bld) 7.7 % Normal 1.7-12.[address] [facility] Comment on above: Performed By: #### C BC #### [facility] [address] [place] [address] Dr. Garrett Galeas NEUT # 3.6 103/ul Normal 1.4-6.5 [facility] Comment on above: Performed By: #### C BC #### [facility] [address] [place] [address] Dr. Garrett Galeas Neutrophils/100 WBC (Bld) 45.2 % Normal 43.0-75.0 [facility] Comment on above: Performed By: #### C BC #### [facility] [address] [place] [address] Dr. Garrett Galeas Platelet mean volume (Bld) [Entitic vol] 10.3 fL Normal 9.5-13.5 [facility] Comment on above: Performed By: #### C BC #### [facility] [address] [place] [address] Dr. Garrett Galeas PLT 381 103/ul Normal 150-450 [facility] Comment on above: Performed By: #### C BC #### [facility] [address] [place] [address] Dr. Garrett Galeas RBC 4.88 106/ul Normal 4.20-5.40 [facility] Comment on above: Performed By: #### C BC #### [facility] [address] [place] [address] Dr. Garrett Galeas WBC 7.9 103/ul Normal 4.0-11.0 [facility] Comment on above: Performed By: #### C BC #### [facility] [address] N[address]K [address] W [...] SHIV CALVO Date: 2022-01-13 06:46 Normal [facility] PROF CHEM 8 (BAS METB)on Anion gap [Moles/Vol] 14.5 mmol/L Normal [facility] Comment on above: Performed By: #### B MP #### [facility] [address] [place] [address] [address] [address] Garrett Galeas Calcium [Mass/Vol] 9.0 mg/dL Normal 8.4-10.2 [facility] Comment on above: Performed By: #### B MP #### [facility] [address] [place], [place] [address] Dr. Garrett Galeas Chloride [Moles/Vol] 105 mmol/L Normal 98-107 [facility] Comment on above: Performed By: #### B MP #### [facility] [address] [address] [address] Garrett Galeas CO2 [Moles/Vol] 23.6 mmol/L Normal 22.0-30.0 [facility] Comment on above: Performed By: #### B MP #### [facility] [address] [address] [address] Garrett Galeas Creatinine [Mass/Vol] 0.61 mg/dL Normal 0.52-1.04 [facility] Comment on above: Performed By: #### B MP #### [facility] [address] [address] [address] Garrett Galeas EGFR-AF MEXICAN >60 Normal >=60 [facility] Comment on above: Performed By: #### B MP #### [facility] [address] [address] [address] Garrett Galeas EGFR-NON AF MEXICAN >60 Normal >=60 [facility] Comment on above: Performed By: #### B MP #### [facility] [address] [address] [address] Garrett Galeas Glucose [Mass/Vol] 103 mg/dL Normal 74-106 [facility] Comment on above: Performed By: #### B MP #### [facility] [address] [address] [address] Garrett Galeas Potassium [Moles/Vol] 4.1 mmol/L Normal 3.4-5.0 [facility] Comment on above: Performed By: #### B MP #### [facility] [address] [address] [address] Garrett Galeas Sodium [Moles/Vol] 139 mmol/L Normal 137-145 [facility] Comment on above: Performed By: #### B MP #### [facility] [address] [address] [address] Garrett Galeas Urea nitrogen [Mass/Vol] 20.0 mg/dL Critically high 7.0-17.0 [facility] Comment on above: Performed By: #### B MP #### [facility] [address] [address] [address] Garrett Galeas Urea nitrogen/Creatinine [Mass ratio] 32.8 mg/mg Normal [facility] Comment on above: Performed By: #### B #### [facility] [address] [place] [address] Dr. Garrett Galeas XR MODIFIED BARIUM SWALLOWon [...] by: STELLA BROWN Date: 2022-01-12 14:07 Normal [facility] OPERATIVE REPORTon 9 OPERATIVE REPORT PATIENT NAME: YOANNA SNYDER DATE OF : 2000 ACCT: [id number] ROOM: [facility] ROOM DATE OF SURGERY: 05/08/2019 ATTENDING SURGEON: [...] were given to the family. Attending Surgeon: Ishaan Ingram MD TIBrenda #:[id number] /MB /ss Normal [facility] URINE TESTon 05-08 HCG ( test) Ql (U) Negative Normal NEG [facility] Comment on above: Performed By: #### U CG #### [facility] 1 [facility] [address] Vital Signs Date Time Vital Sign Value Performing Clinician Amari langley 05-22-2023 13:55-0400 Body temperature 97.8 [degF] HOOP DRIVING MACHINE OPERATOR HELPER-C 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 Work Phone: [facility] 05-22-2023 13:55-0400 Diastolic blood pressure 88 mm[Hg] HOOP DRIVING MACHINE OPERATOR HELPER-C 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 Work Phone: [facility] 05-22-2023 13:55-0400 Heart rate 90 /min HOOP DRIVING MACHINE OPERATOR HELPER-C 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 Work Phone: [facility] 05-22-2023 13:55-0400 Respiratory rate 16 /min HOOP DRIVING MACHINE OPERATOR HELPER-C 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 Work Phone: [facility] 05-22-2023 13:55-0400 SaO2% (BldA) [Mass fraction] 96 % HOOP DRIVING MACHINE OPERATOR HELPER-C 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 Work Phone: [facility] 05-22-2023 13:55-0400 Systolic blood pressure 136 mm[Hg] HOOP DRIVING MACHINE OPERATOR HELPER-C 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 Work Phone: [facility] 05-22-2023 05:31-0400 Body weight 78.2 kg HOOP DRIVING MACHINE OPERATOR HELPER-C 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 Work Phone: [facility] 05-21-2023 23:50-0400 Inhaled oxygen flow rate 10 L/min HOOP DRIVING MACHINE OPERATOR HELPER-C 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 Work Phone: [facility] 05-21-2023 16:15-0400 Diastolic blood pressure 79 mm[Hg] HOOP DRIVING MACHINE OPERATOR HELPER-C Angelina Brownmer Work Phone: [facility] 05-21-2023 16:15-0400 Heart rate 115 /min HOOP DRIVING MACHINE OPERATOR HELPER-C Angelinaclaude Brownmer Work Phone: [facility] 05-21-2023 16:15-0400 Respiratory rate 16 /min HOOP DRIVING MACHINE OPERATOR HELPER-C Angelina Brownmer Work Phone: [facility] 05-21-2023 16:15-0400 SaO2% (BldA) [Mass fraction] 99 % HOOP DRIVING MACHINE OPERATOR HELPER-C Angelina Brownmer Work Phone: [facility] 05-21-2023 16:15-0400 Systolic blood pressure 145 mm[Hg] HOOP DRIVING MACHINE OPERATOR HELPER-C Angelina Brownmer Work Phone: [facility] 05-21-2023 16:00-0400 Body temperature 98.4 [degF] HOOP DRIVING MACHINE OPERATOR HELPER-C 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 Work Phone: [facility] 05-21-2023 15:22-0400 Inhaled oxygen flow rate 10 L/min HOOP DRIVING MACHINE OPERATOR HELPER-C 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 Work Phone: [facility] 05-21-2023 14:57-0400 Body height 165.1 cm HOOP DRIVING MACHINE OPERATOR HELPER-C Angelina Brownmer Work Phone: [facility] 05-21-2023 14:57-0400 Body mass index (BMI) [Ratio] 28.6 kg/m2 HOOP DRIVING MACHINE OPERATOR HELPER-C Angelina Brownmer Work Phone: [facility] 05-21-2023 14:57-0400 Body weight 78 kg HOOP DRIVING MACHINE OPERATOR HELPER-C Angelina Brownmer Work Phone: [facility] 06-29-2022 10:10-0400 Body height 167.64 cm Angelinaclaude Brownmer [facility] Work Phone: 06-29-2022 10:10-0400 Body mass index (BMI) [Ratio] 26.02 kg/m2 Angelina Brownmer Work Phone: [facility] Professional Jac C Work Phone: 06-29-2022 10:10-0400 Body surface area Derived from formula 1.82 m2 Angelina Machado Juan Francisco Work Phone: [facility] Professional Jac C Work Phone: 06-29-2022 10:10-0400 Body temperature 97.1 [degF] Angelina Machado Juan Francisco [facility] Professional Jac C Work Phone: 06-29-2022 10:10-0400 Body weight 73.12 kg Angelina Brownmer [facility]: [facility] Professional Jac C Work Phone: 04-25-2021 19:09-0400 Body height 165.1 cm Jackie Ag T Work Phone: [facility] 04-25-2021 19:09-0400 Body mass index (BMI) [Ratio] 23.6 kg/m2 Jackie Ag T Work Phone: [facility] 04-25-2021 19:09-0400 Body temperature 98.8 [degF] Jackie Mancillaw T Work Phone: [facility] 04-25-2021 19:09-0400 Body weight 64.3 kg Jackie Ag T Work Phone: [facility] 04-25-2021 19:09-0400 Diastolic blood pressure 80 mm[Hg] Jackie Mancillaw T Work Phone: [facility] 04-25-2021 19:09-0400 Heart rate 94 /min Jackie Mancillaw T Work Phone: [facility] 04-25-2021 19:09-0400 Respiratory rate 18 /min Jackie Curiel Work Phone: [facility] 04-25-2021 19:09-0400 SaO2% (BldA) [Mass fraction] 96 % Jackie Curiel Work Phone: [facility] 04-25-2021 19:09-0400 Systolic blood pressure 148 mm[Hg] Jackie Curiel Work Phone: [facility] Encounters Encounter Date Encounter Type Care Provider Facility Start: 02-14-2024 End: 02-14-2024 ambulatory BETH ANUPAM Not Available Start: 02-07-2024 End: 02-07-2024 ambulatory CHRIS XAVIER Not Available Start: 01-26-2024 End: 01-26-2024 ambulatory BETH ANUPAM Not Available Start: 01-25-2024 End: 01-25-2024 ambulatory CHRIS XAVIER Not Available Start: 12-05-2023 End: 12-05-2023 ambulatory BETH ANUPAM Not Available Start: 11-09-2023 End: 11-09-2023 ambulatory BETH ANUPAM Not Available Start: 05-21-2023 End: 05-22-2023 ambulatory 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 Facility:[facility] Start: 05-21-2023 End: 05-22-2023 Evaluation and management of inpatient HOOP DRIVING MACHINE OPERATOR HELPER-C 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 Work Phone: [facility] Work Phone: Start: 01-26-2023 AUDIT Angelina Lao r Work Phone: [facility] Work Phone: Start: 01-20-2023 End: 01-20-[address] Gustavo Garrett Facility[facility] Start: 12-27-2022 AUDIT Angelina Brownme r Work Phone: JD-Dxizpfudxvtpvr-Hrvdq [facility] Work Phone: Start: 11-16-2022 End: 11-16-[address] BETH BO Facility:[facility] Start: 08-23-2022 AUDIT Angelina Lao r Work Phone: MX-Aheazqbnfkrgxi-Wrlbr an Voice Work Phone: Start: 08-20-[address] Rosmery Martell Facility:[id number] Start: 08-20-2022 AUDIT Angelina Lao r Work Phone: ZZ-Brbkprcqvvaquj-Nattt an Voice Work Phone: Start: 08-20-2022 Patient encounter procedure Angelina Brownmer [facility] [address] [place] Work Phone: Start: 07-23-[address] Rosmery Martell Facility:[id number] Start: 07-23-2022 Patient encounter procedure Angelina Brownmer [facility] Phone[facility] [address] [place] Work Phone: Start: 07-16-2022 Patient encounter procedure Angelina Brownmer [facility]: [facility] [address] [place] Work Phone: Start: 07-16-[address] Rosmery Martell Facility:[id number] Start: 06-29-[address] Rosmery Martell Facility:[id number] Start: 06-29-2022 Patient encounter procedure 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 [facility] Work Phone: Start: 06-29-2022 ambulatory PCP UNKNOWN Facility:[id number] Start: 06-09-2022 Encounter for cervic al smear to confirm findings of recent normal smear following initial abnormal smear DR BETH BO [facility] Start: 06-08-2022 End: 06-08-[address] BETH BO Facility:[facility] Start: 06-08-2022 End: 06-08-2022 Encounter for cervical smear to confirm findings of recent normal smear following initial abnormal smear DR BETH BO Facility:[facility] Start: 06-03-2022 End: 06-03-2022 Emergency department patient visit Ishaan Alvarado Facility:[facility] Start: 04-27-2022 End: 04-27-[address] SUDHA RIOS Facility:[facility] Start: 01-13-2022 End: 01-13-2022 ambulatory ANGELINA CHICAS Facility:[facility] Start: 01-12-2022 End: 01-13-2022 ambulatory ANGELINA CHICAS Facility:[facility] Start: 04-25-2021 End: 04-25-2021 Emergency department patient visit Jackiejoaquin Curiel Work Phone: [facility]-Emergency Room Procedures Date Procedure Procedure Detail Performing Clinician Start: 05-21-2023 Laparoscopic appendectomy HOOP DRIVING MACHINE OPERATOR HELPER-C 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 Work Phone: Start: 05-21-2023 Computed tomography of abdomen and pelvis with contrast HOOP DRIVING MACHINE OPERATOR HELPER-C 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 Work Phone: Plan of Treatment Date Care Activity Detail Author Start: 05-22-2023 [facility] Start: 05-21-2023 Hospital admission [facility] Start: 05-21-2023 [facility] Start: 01-20-2023 [place], Provider: Marcela Colon, Status: Pen, Time: 2:30 PM [place], Provider: Marcela Colon, Status: Pen, Time: 2:30 PM [facility] Work Phone: Start: 08-20-2022 VIRRUTHANN, Provider : Genna Rahman, Status: Pen, Time: 9:00 AM AYLIN, Provider: Genna Rahman, Status: Pen, Time: 9:00 AM [facility] [address] [place] Work Phone: Start: 07-30-2022 VIRFUGENE, Provider : Genna Rahman, Status: Pen, Time: 9:45 AM AYLIN, Provider: Genna Rahman, Status: Pen, Time: 9:45 AM [facility] Professional Jac C Work Phone: Start: 07-23-2022 VIRFUGENE, Provider : Genna Rahman, Status: Pen, Time: 9:00 AM VIRFUVKARIMEE, Provider: Genna Rahman, Status: Pen, Time: 9:00 AM [facility] Professional Jac C Work Phone: Start: 07-16-2022 VIRFUGENE, Provider : Genna Rahman, Status: Pen, Time: 9:00 AM VIRFUVHOME, Provider: Genna Rahman, Status: Pen, Time: 9:00 AM [facility] Professional Jac C Work Phone: Patient Education [facility] Patient referral [facility] Immunizations Immunization Date Immunization Notes Care Provider Fa cili 08-22-2020 influenza virus vacc ine, unspecified formulation 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 Work Phone: [facility] Work Phone: 09-01-2018 meningococcal B vacc ine, recombinant, OMV, adjuvanted Angelina S Juan Francisco Work Phone: [facility] Work Phone: 07-25-2018 meningococcal B vacc ine, recombinant, OMV, adjuvanted Angelina S Juan Francisco Work Phone: [facility] Work Phone: 07-25-2018 meningococcal polysaccharide (groups A, C, Y and W-135) diphtheria toxoid conjugate vaccine (MCV4P) 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 Work Phone: [facility] Work Phone: 09-05-2014 influenza virus vacc ine, live, attenuated, for intranasal use 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 Work Phone: [facility] Work Phone: 08-04-2012 influenza virus vacc ine, whole virus 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 Work Phone: [facility] Work Phone: 11-01-2011 hepatitis A vaccine, pediatric/adolescent dosage, 2 dose schedule Angelina S Juan Francisco Work Phone: [facility] Work Phone: 11-01-2011 human papilloma viru s vaccine, quadrivalent Angelina S Juan Francisco Work Phone: [facility] Work Phone: 07-29-2011 human papilloma viru s vaccine, quadrivalent Angelina S Juan Francisco Work Phone: [facility] Work Phone: 03-10-2011 hepatitis A vaccine, pediatric/adolescent dosage, 2 dose schedule Angelina S Juan Francisco Work Phone: [facility] Work Phone: 03-10-2011 human papilloma viru s vaccine, quadrivalent Angelina S Juan Francisco Work Phone: [facility] Work Phone: 03-10-2011 meningococcal polysaccharide (groups A, C, Y and W-135) diphtheria toxoid conjugate vaccine (MCV4P) 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 Work Phone: [facility] Work Phone: 03-10-2011 tetanus toxoid, redu aysha diphtheria toxoid, and acellular pertussis vaccine, adsorbed Angelinaclaude Chicas Work Phone: [facility] Work Phone: 02-11-2005 diphtheria, tetanus toxoids and acellular pertussis vaccine, unspecified formulation Angelina S Juan Francisco Work Phone: [facility] Work Phone: 02-11-2005 measles, mumps and rubella virus vaccine Angelina S Juan Francisco Work Phone: [facility] Work Phone: 02-11-2005 poliovirus vaccine, inactivated 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 Work Phone: [facility] Work Phone: 07-12-2002 measles, mumps and rubella virus vaccine Angelina S Juan Francisco Work Phone: [facility] Work Phone: 2000 diphtheria, tetanus toxoids and acellular pertussis vaccine, unspecified formulation Angelina S Juan Francisco Work Phone: [facility] Work Phone: 2000 haemophilus influenz ae type b conjugate and Hepatitis B vaccine Angelina S Juan Francisco Work Phone: [facility] Work Phone: 2000 poliovirus vaccine, inactivated Angelina S Juan Francisco Work Phone: [facility] Work Phone: 2000 diphtheria, tetanus toxoids and acellular pertussis vaccine, unspecified formulation Angelina S Juan Francisco Work Phone: [facility] Work Phone: 2000 haemophilus influenz ae type b vaccine, HbOC conjugate Angelina S Juan Francisco Work Phone: [facility] Work Phone: 2000 poliovirus vaccine, inactivated Angelina S Juan Francisco Work Phone: [facility] Work Phone: 2000 diphtheria, tetanus toxoids and acellular pertussis vaccine, unspecified formulation Angelina S Juan Francisco Work Phone: [facility] Work Phone: 2000 haemophilus influenz ae type b conjugate and Hepatitis B vaccine Angelina S Juan Francisco Work Phone: [facility] Work Phone: 2000 poliovirus vaccine, inactivated Angelina S Juan Francisco Work Phone: [facility] Work Phone: 2000 hepatitis B vaccine, pediatric or pediatric/adolescent dosage Angelina S Juan Francisco Work Phone: [facility] Work Phone: Payers Date Payer Category Payer Self-pay [id number] 2000 Unknown [id number] 2000 Unknown [id number] 2.16.840.1.323046.3.579.2.593 2000 Unknown [id number] 2.16.840.1.997761.3.579.2.593 2000 Unknown [id number] 2.16.840.1.895204.3.579.2.593 2000 Unknown [id number] 2.16.840.1.557195.3.579.2.593 2000 Unknown [id number] 2.16.840.1.020927.3.579.2.593 2000 Unknown [id number] 2.16.840.1.042267.3.579.2.356 2000 Unknown [id number] 2.16.840.1.614974.3.579.2.356 2000 Unknown [id number] 2.16.840.1.289921.3.579.2.356 2000 Unknown [id number] 2.16.840.1.150372.3.579.2.356 2000 Unknown [id number] 2.16.840.1.034825.3.579.2.356 2000 Unknown [id number] 2.16.840.1.321275.3.579.2.356 2000 Unknown [id number] 2.16.840.1.815894.3.579.2.356 2000 Unknown [id number] 2.16.840.1.291366.3.579.2.1259 2000 Unknown [id number] 2.16.840.1.581464.3.579.2.9 2000 Unknown [id number] 2.16.840.1.504616.3.579.2.1259 2000 Unknown [id number] 2.16.840.1.277879.3.579.2.1259 2000 Unknown [id number] 2.16.840.1.932942.3.579.2.1259 2000 Unknown [id number] 2.16.840.1.621978.3.579.2.1259 1959 Medicaid [id number] Unknown [id number] Unknown [facility] [place] Unknown [id number] 2.16.840.1.101840.3.579.2.531 Unknown [id number] 2.16.840.1.434414.3.579.2.531 Social History Date Type Detail Facility Start: 04-25-2021 End: 05-21-2023 Tobacco smoking status NHIS Never smoked tobacco (finding) [facility] Start: 2000 Sex Assigned At Female F [facility] Non-smoker [facility] Work Phone: Goals Date Patient Goal Desired Activity /State Functional Status Date Assessment Result Facility 05-22-2023 Functional status Patient is Pro gressing Toward Baseline [facility] Work Phone: Mental Status Date Assessment Result Facility 05-22-2023 Cognitive function Cognitive Sta tus Patient at Baseline [facility] Work Phone: Clinical Notes 07-16-2022 to 05-21-2023 Note Date & Type Note Facility 05-21-2023 History and physi leonard note Note Date/Time May 21, 2023 1:18p m [facility] [address] [place] [address] General Surgery H&P Signed Patient: Yoanna Snyder MR#: [id number] : 2000 Acct:[id number] Age/Sex: 23 / F Adm Date: 3 Loc: ER Room: Type: [facility] ER Attending Dr: Copies to: Emily Marin, PROJECT CONTROLS SCHEDULER-C Angelina Jaylyn Juan FranciscoMARITZA ashley DO~ Date of Service: 05/21/2023 HPI History of [...] negative unless noted below or in HPI [facility] Medical History (Updated 05/21/23 @ 13:17 by [...] % (Auto) 82.0, Lymph % (Auto) 11.1, Lamar % (Auto) 5.8, Eos % (Auto) 0.8, Baso % (Auto) 0.3, Nucleat RBC Rel Count 0.0, Neut # (Auto) 9.8 H, Lymph # (Auto) 1.3, Lamar # (Auto) 0.7, Eos # (Auto) 0.1, Baso # (Auto) 0.0, Monocyte Dist Width 17.88 05/21/23 09:24: Urine Color Yellow, Urine Appearance Clear, Urine pH 5.5, Ur Specific Elmer 1.027, Urine Protein Negative, Urine Glucose (UA) [...] appendicitis Documented By: Niraj Guzman DO 05/21/23 1315 Signed By: <Electronically signed by DO Niraj Guzman> 05/21/23 1315 [facility] Work Phone: 1(528) 704-932909-30-2022 NotePlan of Care Patient instructed to call [...] to doctors? appointments. Primary Language for learning: Macedonian. Insurance Insurance reviewed Visit number: 4 Onset Date: 2021 Subjective Living Environment: home Patient arrival: independent Patient alert and ready to participate in telehealth visit this date. Objective Progress to date: nursing home goals: Improve overall vocal and swallowing health [...] verbalized understanding and agreement: yes Limited Codes ([facility] Only): [id number] Speech language treatment limited. Signatures Electronically signed by : Genna Rahman CCC-GAMING MANAGER; Aug 20 2022 12:07PM EST (Author) [id number] Reason for visit Narrative* An interactive audio and video telecommunication system which permits real time communications between the patient (at the originating site) and provider (at the distant site) was utilized to providethis telehealth service. * Verbal consent was requested and obtained from YOANNA SNYDER on this date, 08/20/2022 09:00 AM , for a telehealth visit. [facility] [address] [place] Work Phone: 1(250) 134-912509-02-2022 NotePlan of Care Continue Current Plan of [...] to doctors? appointments. Primary Language for learning: Macedonian. Insurance Insurance reviewed Visit number: 3 Onset Date: 2021 Subjective Living Environment: home Patient arrival: independent Patient alert and ready to participate in telehealth visit this date. Objective Progress to date: nursing home goals: Improve overall vocal and swallowing health [...] verbalized understanding and agreement: yes Limited Codes ([facility] Only): [id number] Speech language treatment limited. Signatures Electronically signed by : Genna Rahman CCC-GAMING MANAGER; Jul 23 2022 10:13AM EST (Author) [id number] Reason for visit Narrative* An interactive audio and video telecommunication system which permits real time communications between the patient (at the originating site) and provider (at the distant site) was utilized to providethis telehealth service. * Verbal consent was requested and obtained from YOANNA SNYDER on this date, 07/23/2022 09:00 AM , for a telehealth visit. [facility] [address] [place] Work Phone: 1(554) 491-324708-26-2022 NotePlan of Care Continue Current Plan of [...] to doctors? appointments. Primary Language for learning: Macedonian. Insurance Insurance reviewed Visit number: 2 Onset Date: 2021 Subjective Living Environment: home Patient arrival: independent Patient alert and ready to participate in telehealth visit this date. Objective Progress to date: powered bridge specialist goals: Improve overall vocal and swallowing health [...] verbalized understanding and agreement: yes CPT Code 76328 Treatment of speech, language AND voice Signatures Electronically signed by : Genna Rahman CCC-GAMING MANAGER; Jul 16 2022 9:39AM EST (Author) [id number] Reason for visit Narrative* An interactive audio and video telecommunication system which permits real time communications between the patient (at the originating site) and provider (at the distant site) was utilized to providethis telehealth service. * Verbal consent was requested and obtained from YOANNA SNYDER on this date, 07/16/2022 09:00 AM , for a telehealth visit. [facility] [address] [place] Work Phone: Evaluation noteNo assessment information available [facility] Diagnosis Onset Date Resolution Status Appendicitis acute Right lower quadrant pain ac [place] [facility] Work Phone: History of Present [...] recommendations: treatment indicated (see goals below) [facility] Work Phone: History of Present illness Narrative* [...] 0 * Voice: level 4 initial [facility] [address] [place] Work Phone: History of Present [...] Strain: 0 * Voice: level 4 [facility] [address] [place] Work Phone: History of Present illness [...] 0 * Voice: level 4 initial [facility] [address] [place] Work Phone: Hospital Discharge instructions Additional [...] work notes can be done at the office.[facility] Work Phone: Progress note Author Niraj Guzman [facility] May 25, 2023 8:21am Note Date/Time May 22, 2023 1:05p m [facility] [address] [place] [address] General Surgery Progress Note Signed Patient: Yoanna Snyder MR#: [id number] : 2000 Acct:[id number] Age/Sex: 23 / F Adm Date: 3 Loc: 4N Room: 1W9438-4 Type: DIS INOo Attending Dr: Niraj Guzman [...] 100 Mg Capsule) 100 mg PO BID [facility] Stop: 05/20/24 20:59 Last Admin: 05/22/23 08:10 Dose: 100 mg Hydromorphone HCl (Hydromorphone 0.5 Mg/0.5 Ml Syringe) 1 mg IV-PUSH Q3H PRN PRN Reason: Pain Last Admin: 05/21/23 23:46 Dose: 1 mg Cefazolin Sodium (Ancef) 2 gm in 50 mls @ 100 mls/hr IV Q8H [facility] Stop: 05/22/23 18:59 Last Admin: 05/22/23 11:53 Dose: 100 mls/hr Metronidazole (Flagyl) 500 mg in 100 mls @ 100 mls/hr IV Q8H [facility] Stop: 05/22/23 17:59 Last Admin: 05/22/23 09:33 [...] % (Auto) 85.0, Lymph % (Auto) 10.7, Lamar % (Auto) 4.2, Eos % (Auto) 0.0, Baso % (Auto) 0.1, Nucleat RBC Rel Count 0.2, Neut # (Auto) 8.5 H, Lymph # (Auto) 1.1, Lamar # (Auto) 0.4, Eos # (Auto) 0.0, [...] % (Auto) 82.0, Lymph % (Auto) 11.1, Lamar % (Auto) 5.8, Eos % (Auto) 0.8, Baso % (Auto) 0.3, Nucleat RBC Rel Count 0.0, Neut # (Auto) 9.8 H, Lymph # (Auto) 1.3, Lamar # (Auto) 0.7, Eos # (Auto) 0.1, Baso # (Auto) 0.0, Monocyte Dist Width 17.88 05/21/23 09:24: Urine Color Yellow, Urine Appearance Clear, Urine pH 5.5, Ur Specific Elmer 1.027, Urine Protein Negative, Urine Glucose (UA) [...] <Electronically signed by DO Niraj Guzman> 05/25/23 7896 [facility] Work Phone: Summary Purpose Family History No [...] section and content) DATE CREATED AUTHOR 05/19/2019 [facility] DATE CREATED AUTHOR AUTHOR'S ORGANIZ ATION 08/24/2022 [employer] DATE CREATED AUTHOR AUTHOR'S ORGANIZ ATION 11/19/2022 [facility] DATE CREATED AUTHOR AUTHOR'S ORGANIZ ATION 01/28/2023 [facility] DATE CREATED AUTHOR AUTHOR'S ORGANIZ ATION 01/29/2023 [facility] DATE CREATED AUTHOR AUTHOR'S ORGANIZ ATION 05/30/2023 [facility] DATE CREATED AUTHOR AUTHOR'S ORGANIZ ATION 02/15/2024 [facility] EPIC Goals (unrecognized section and content) Goals may be documented in a n alternate section Care Teams (unrecognized sec tion and content) Team Status: Active Member Role Status Dates 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 [facility] [employer] provides no warranty or guarantee of the accuracy or completeness of information in this document.
== END 2024-03-02 10:51 | disposition home or self-care (01) ==
LOC: PST 10:52
PROVIDERS: PCP Nurse Practitioner Family; Visit Provider Obstetrics & Gynecology
DX: Z01.818 Encounter for other preprocedural examination (principal); R10.2 Pelvic and perineal pain

== ENCOUNTER 2024-03-16 07:41 | Day surgery (SDC) | payer OTHER, SELFPAY ==
[2024-03-02 11:54] VITALS: BP 117/77; PULSE 90; TEMP 36.6; O2SAT 96; BMI 29.3
[2024-03-16] VITALS (15 sets, daily range): BP systolic 118–137; BP diastolic 63–81; PULSE 72–101; TEMP 35.8–36.3; O2SAT 90–100; BMI 30.9
--- OUTSIDE RECORDS SUMMARY | 2024-03-16 07:43 | XMS_ITS | CCD ---
Author Organization [facility] Care Team Providers Care Senior Business Manager Name Role Phone Jackie Rothman [facility] Primary Care Provider 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 Unavailable Unavailable [...] Dr. Rosmery Martell Referring U myles Chicas, WHEAT INSPECTOR-C Angelina De La O Primary Care Provider Tomas [facility] Emily Demetria Emergency Provider DO Niraj Guzman Admit Provider DO Niraj Guzman Attending Provider Ishaan Alvarado Attending Unavailable Ishaan Alvarado Admitting Unavailable 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 Primary Care Unavailable 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 Primary Care Unavailable Niraj Guzman Admitting Unavailable Niraj Guzman Attending Unavailable BETH BO Attending Unavailable HCRIS XAVIER Attending Unavailable BETH BO Attending Unavailable BETH BO Attending Unavailable CHRIS XAVIER Attending Unavailable BETH BO Attending Unavailable Medications Current Medications Medication Drug Class(es) Dates Sig (Normalized) Sig (Original) [id number] Fumarate-Fa () 28-800 mg-mcg Tablet (3 sources) Start: 04-25-2021 [id number] Fumarate-Fa () 28-800 mg-mcg Tablet Active TAB PO April 25, 2021 7:11pm Start: 04-25-2021 End: 05-21-2023 [id number] Fumarate-Fa ( ) 28-800 mg-mcg Tablet Discontinued [...] te Episodic/Chronic Other aftercare (1 source) Other technician terminal and repeater (current) drug therapy; Translations: [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 F [facility] Complete Blood Count Auto Di ffon 05-22-2023 Basophils (Bld) [#/Vol] 0.0 10*3/uL Normal 0.0-0.2 [facility] Comment on above: Result Comment: PERF ORMED BY: [facility] [address] [place] [address] PATHOLOGIST CREW DISPATCHER NANCY NAPIER M.D. Performed By: #### C BC ####[address] Basophils/100 WBC (Bld) 0.1 % Normal . F [facility] Comment on above: Performed By: #### C BC ####[place] [id number] [facility] Eosinophils (Bld) [#/Vol] 0.0 10*3/uL Normal 0.0-0.45 [facility] Comment on above: Performed By: #### C BC ####[place] [id number] [facility] Eosinophils/100 WBC (Bld) 0.0 % Normal . [facility] Comment on above: Performed By: #### C BC ####[place] [id number] [facility] Erythrocyte distribution width (RBC) [Ratio] 14.3 % Normal 11.9-15.3 [facility] Comment on above: Performed By: #### C BC ####[place] [id number] [facility] Hematocrit (Bld) [Volume fraction] 37.0 % Normal 34.0-46.4 [facility] Comment on above: Performed By: #### C BC ####[address] [address] [facility] Hemoglobin (Bld) [Mass/Vol] 12.1 g/dL Normal 11.8-15.4 [facility] Comment on above: Performed By: #### C BC ####[address] [address] [facility] Lymphocytes (Bld) [#/Vol] 1.1 10*3/uL Normal 1.00-4.8 [facility] Comment on above: Performed By: #### C BC ####[address] [address] [facility] Lymphocytes/100 WBC (Bld) 10.7 % Normal . [facility] Comment on above: Performed By: #### C BC ####[place] [id number] [facility] MCH (RBC) [Entitic mass] 26.7 pg Normal 24.7-34.3 [facility] Comment on above: Performed By: #### C BC ####[place] [id number] [facility] MCV (RBC) [Entitic vol] 81.6 fL Normal 80-[address] [facility] Comment on above: Performed By: #### C BC ####[place] [id number] [facility] Mean Corpuscular HGB Conc 32.7 g/dL Normal 32.0-35.0 [facility] Comment on above: Performed By: #### C BC ####[place] [id number] [facility] Monocytes (Bld) [#/Vol] 0.4 10*3/uL Normal 0.0-0.8 [facility] Comment on above: Performed By: #### C BC ####[place] [id number] [facility] Monocytes/100 WBC (Bld) 4.2 % Normal . F [facility] Comment on above: Performed By: #### C BC ####[address] Neutrophils (Bld) [#/Vol] 8.5 10*3/uL High 1.8-7.7 [facility] Comment on above: Performed By: #### C BC ####[address] Neutrophils/100 WBC (Bld) 85.0 % Normal . [facility] Comment on above: Performed By: #### C BC ####[address] NRBC% 0.2 /100{WBC} Normal 0-0.5 [facility] Comment on above: Performed By: #### C BC ####[address] Platelet mean volume (Bld) [Entitic vol] 8.4 fL Normal 6.3-10.7 [facility] Comment on above: Performed By: #### C BC ####[address] Platelets (Bld) [#/Vol] 302 10*3/uL Normal 150-450 [facility] Comment on above: Performed By: #### C BC ####[address] RBC (Bld) [#/Vol] 4.54 10*6/uL Normal 3.60-5.00 [facility] Comment on above: Performed By: #### C BC ####[address] WBC (Bld) [#/Vol] 10.1 10*3/uL Normal 3.8-11.6 [facility] Comment on above: Performed By: #### C BC ####[address] Eosinophils Auto (Bld) [#/Vo l]Ordered By: Niraj Guzman on 05-22-2023 Eosinophils (Bld) [#/Vol] 0.0 10*3/uL 0.0-0.45 [facility] Eosinophils/100 WBC Auto (Bl d)Ordered By: Niraj Guzman on 05-22-2023 Eosinophils/100 WBC (Bld) 0.0 % . [facility] Erythrocyte distribution wid th Auto (RBC) [Ratio]Ordered By: Niraj Guzman on 05-22-2023 Erythrocyte distribution width (RBC) [Ratio] 14.3 % 11.9-15.3 [facility] Hematocrit Auto (Bld) [Volum e fraction]Ordered By: Niraj Guzman on 05-22-2023 Hematocrit (Bld) [Volume fraction] 37.0 % 34.0-46.4 [facility] Hemoglobin [Mass/volume] in BloodOrdered By: Niraj Guzman on 05-22-2023 Hemoglobin (Bld) [Mass/Vol] 12.1 g/dL 11.8-15.4 [facility] Leukocytes [#/volume] correc geo for nucleated erythrocytes in Blood by Automated counOrdered By: Niraj Guzman on 05-22-2023 WBC corrected for nucl RBC Auto (Bld) [#/Vol] 10.1 10*3/uL 3.8-11.6 [facility] Lymphocytes Auto (Bld) [#/Vo l]Ordered By: Niraj Guzman on 05-22-2023 Lymphocytes (Bld) [#/Vol] 1.1 10*3/uL 1.00-4.8 [facility] Lymphocytes/100 WBC Auto (Bl d)Ordered By: Niraj Guzman on 05-22-2023 Lymphocytes/100 WBC (Bld) 10.7 % . [facility] MCH Auto (RBC) [Entitic mass ]Ordered By: Niraj Guzman on 05-22-2023 MCH (RBC) [Entitic mass] 26.7 pg 24.7-34.3 [facility] MCHC Auto (RBC) [Mass/Vol]Or dered By: Niraj Guzman on 05-22-2023 MCHC (RBC) [Mass/Vol] 32.7 g/dL 32.0-35.0 [facility] MCV Auto (RBC) [Entitic vol] Ordered By: Niraj Guzman on 05-22-2023 MCV (RBC) [Entitic vol] 81.6 fL 80-[address] [facility] Monocytes Auto (Bld) [#/Vol] Ordered By: Niraj Guzman on 05-22-2023 Monocytes (Bld) [#/Vol] 0.4 10*3/uL 0.0-0.8 [facility] Monocytes/100 WBC Auto (Bld) Ordered By: Niraj Guzman on 05-22-2023 Monocytes/100 WBC (Bld) 4.2 % . F [facility] Neutrophils Auto (Bld) [#/Vo l]Ordered By: Niraj Guzman on 05-22-2023 Neutrophils (Bld) [#/Vol] 8.5 10*3/uL 1.8-7.7 [facility] Neutrophils/100 WBC Auto (Bl d)Ordered By: Niraj Guzman on 05-22-2023 Neutrophils/100 WBC (Bld) 85.0 % . [facility] Nucleated erythrocytes [Pres ence] in Blood by Automated countOrdered By: Niraj Guzman on 05-22-2023 Nucleated RBC Auto Ql (Bld) 0.2 /100{WBC} 0-0.5 [facility] Platelet mean volume Auto (B ld) [Entitic vol]Ordered By: Niraj Guzman on 05-22-2023 Platelet mean volume (Bld) [Entitic vol] 8.4 fL 6.3-10.7 [facility] Platelets Auto (Bld) [#/Vol] Ordered By: Niraj Guzman on 05-22-2023 Platelets (Bld) [#/Vol] 302 10*3/uL 150-450 [facility] RBC Auto (Bld) [#/Vol]Ordere d By: Niraj Guzman on 05-22-2023 RBC (Bld) [#/Vol] 4.54 10*6/uL 3.60-5.00 [facility] WBC Auto (Bld) [#/Vol]Ordere d By: Niraj Guzman on 05-22-2023 WBC (Bld) [#/Vol] 10.1 10*3/uL 3.8-11.6 [facility] Alanine aminotransferase [En zymatic activity/volume] in Serum or PlasmaOrdered By: Emily Marin on 05-21-2023 ALT [Catalytic activity/Vol] 16 U/L 7-52 [facility] Albumin [Mass/volume] in Ser um or Plasma by Bromocresol green (BCG) dye binding methoOrdered By: Emily Bullimore on 05-21-2023 Albumin BCG dye [Mass/Vol] 4.3 g/dL 3.5-5.7 [facility] Alkaline phosphatase [Enzyma tic activity/volume] in Serum or PlasmaOrdered By: Emily Aaronimore on 05-21-2023 ALP [Catalytic activity/Vol] 131 U/L 34-104 [facility] Aspartate aminotransferase [ Enzymatic activity/volume] in Serum or PlasmaOrdered By: Emily Aaronimore on 05-21-2023 AST [Catalytic activity/Vol] 13 U/L 13-39 [facility] Automated erythrocytes count in urine sediment (number/area)Ordered By: Emily Marin on 05-21-2023 RBC Auto (Urine sed) [#/Area] 0-1 [HPF] 0-4 [facility] Automated leukocytes count i n urine sediment (number/area)Ordered By: Emily Marin on 05-21-2023 WBC Auto (Urine sed) [#/Area] 3-4 [HPF] 0-4 [facility] Basophils Auto (Bld) [#/Vol] Ordered By: Emily Reidore on 05-21-2023 Basophils (Bld) [#/Vol] 0.0 10*3/uL 0.0-0.2 [facility] Basophils/100 WBC Auto (Bld) Ordered By: Emilyshae Marin on 05-21-2023 Basophils/100 WBC (Bld) 0.3 % . F [facility] Bilirubin Test strip Ql (U)O rdered By: Emily Marin on 05-21-2023 Bilirubin Ql (U) Negative Negative [facility] Bilirubin.total [Mass/volume ] in Serum or PlasmaOrdered By: Emily Marin on 05-21-2023 Bilirubin [Mass/Vol] 0.3 mg/dL 0.3-1.[address] [facility] [address] abdomen pelvis w conon CT abdomen pelvis w con [facility] Main Sarah Ann [address] [place] [address] CT Scan Report Signed Patient: Yoanna Snyder MR#: [id number] 2 : 2000 Acct:[id number] Age/Sex: 23 / F ADM Date: 05/21/23 Loc: ER Room: Type: [facility] ER Attending Dr: Copies to: JAREN [...] Francisco Burroughs M.D.05/21/2023 12:19 PM Dictation Location: [place] [address] Transcribed By: [facility] 05/21/23 1219 Dictated By: Francisco Burroughs DO 05/21/23 1207 Signed By: 05/21/23 1219 [facility] Calcium [Mass/volume] in Ser um or PlasmaOrdered By: Emily Bullimore on 05-21-2023 Calcium [Mass/Vol] 9.1 mg/dL 8.6-10.3 [facility] Carbon dioxide, total [Moles /volume] in Serum or PlasmaOrdered By: Emily Bullimore on 05-21-2023 CO2 [Moles/Vol] 24.3 mmol/L 21.0-31.0 [facility] Chloride [Moles/volume] in S diana or PlasmaOrdered By: Emily Bullimore on 05-21-2023 Chloride [Moles/Vol] 104 mmol/L 98-107 [facility] Color Auto (U)Ordered By: Gi avani Bullimore on 05-21-2023 Color (U) Yellow Yellow [facility] Complete Blood Count Auto Di ffon 05-21-2023 Basophils (Bld) [#/Vol] 0.0 10*3/uL Normal 0.0-0.2 [facility] Comment on above: Result Comment: PERF ORMED BY: [facility] [address] [place] [address] PATHOLOGIST CREW DISPATCHER NANCY NAPIER M.D. Performed By: #### C MP, CBC ####[address] Basophils/100 WBC (Bld) 0.3 % Normal . F [facility] Comment on above: Performed By: #### C MP, CBC ####[address] Eosinophils (Bld) [#/Vol] 0.1 10*3/uL Normal 0.0-0.45 [facility] Comment on above: Performed By: #### C MP, CBC ####[address] Eosinophils/100 WBC (Bld) 0.8 % Normal . [facility] Comment on above: Performed By: #### C MP, CBC ####[address] Erythrocyte distribution width (RBC) [Ratio] 14.2 % Normal 11.9-15.3 [facility] Comment on above: Performed By: #### C MP, CBC ####[address] Hematocrit (Bld) [Volume fraction] 40.7 % Normal 34.0-46.4 [facility] Comment on above: Performed By: #### C MP, CBC ####[address] Hemoglobin (Bld) [Mass/Vol] 13.6 g/dL Normal 11.8-15.4 [facility] Comment on above: Performed By: #### C MP, CBC ####[address] Lymphocytes (Bld) [#/Vol] 1.3 10*3/uL Normal 1.00-4.8 [facility] Comment on above: Performed By: #### C MP, CBC ####[address] Lymphocytes/100 WBC (Bld) 11.1 % Normal . [facility] Comment on above: Performed By: #### C MP, CBC ####[address] MCH (RBC) [Entitic mass] 27.3 pg Normal 24.7-34.3 [facility] Comment on above: Performed By: #### C MP, CBC ####[address] MCV (RBC) [Entitic vol] 81.9 fL Normal 80-[address] [facility] Comment on above: Performed By: #### C MP, CBC ####[address] Mean Corpuscular HGB Conc 33.3 g/dL Normal 32.0-35.0 [facility] Comment on above: Performed By: #### C MP, CBC ####[address] Monocytes (Bld) [#/Vol] 0.7 10*3/uL Normal 0.0-0.8 [facility] Comment on above: Performed By: #### C MP, CBC ####[place] [id number] [facility] Monocytes/100 WBC (Bld) 17.88 % Normal 0.00-20.[address] [facility] Comment on above: Performed By: #### C MP, CBC ####[place] [id number] [facility] Monocytes/100 WBC (Bld) 5.8 % Normal . F [facility] Comment on above: Performed By: #### C MP, CBC ####[address] Neutrophils (Bld) [#/Vol] 9.8 10*3/uL High 1.8-7.7 [facility] Comment on above: Performed By: #### C MP, CBC ####[place] [id number] [facility] Neutrophils/100 WBC (Bld) 82.0 % Normal . [facility] Comment on above: Performed By: #### C MP, CBC ####[place] [id number] [facility] NRBC% 0.0 /100{WBC} Normal 0-0.5 [facility] Comment on above: Performed By: #### C MP, CBC ####[place] [id number] [facility] Platelet mean volume (Bld) [Entitic vol] 8.4 fL Normal 6.3-10.7 [facility] Comment on above: Performed By: #### C MP, CBC ####[place] [id number] [facility] Platelets (Bld) [#/Vol] 313 10*3/uL Normal 150-450 [facility] Comment on above: Performed By: #### C MP, CBC ####[place] [id number] [facility] RBC (Bld) [#/Vol] 4.97 10*6/uL Normal 3.60-5.00 [facility] Comment on above: Performed By: #### C MP, CBC ####[place] [id number] [facility] WBC (Bld) [#/Vol] 12.0 10*3/uL High 3.8-11.6 [facility] Comment on above: Performed By: #### C MP, CBC ####[place] [id number] [facility] Comprehensive Metabolic Pane gee 05-21-2023 Albumin [Mass/Vol] 4.3 g/dL Normal 3.5-5.7 [facility] Comment on above: Performed By: #### C MP, CBC ####[place] [id number] [facility] Albumin/Globulin [Mass ratio] 1.3 {ratio} Normal [facility] Comment on above: Performed By: #### C MP, CBC ####[place] [phone] [facility] ALP [Catalytic activity/Vol] 131 U/L High 34-104 [facility] Comment on above: Performed By: #### C MP, CBC ####[place] [id number] [facility] ALT [Catalytic activity/Vol] 16 U/L Normal 7-52 [facility] Comment on above: Performed By: #### C MP, CBC ####[place] [id number] [facility] Anion gap [Moles/Vol] 9.7 mmol/L Normal 6.0-15.0 [facility] Comment on above: Performed By: #### C MP, CBC ####[place] [id number] [facility] AST [Catalytic activity/Vol] 13 U/L Normal 13-39 [facility] Comment on above: Performed By: #### C MP, CBC ####[place] [id number] [facility] Bilirubin [Mass/Vol] 0.3 mg/dL Normal 0.3-1.0 [facility] Comment on above: Performed By: #### C MP, CBC ####[place] [id number] [place] [address] [facility] Calcium [Mass/Vol] 9.1 mg/dL Normal 8.6-10.3 [facility] Comment on above: Performed By: #### C MP, CBC ####[place] [address] [place] [address] [facility] Chloride [Moles/Vol] 104 mmol/L Normal 98-107 [facility] Comment on above: Performed By: #### C MP, CBC ####[place] [id number] [place] [id number] [facility] CO2 [Moles/Vol] 24.3 mmol/L Normal 21.0-31.0 [facility] Comment on above: Performed By: #### C MP, CBC ####[place] [id number] [facility] Creatinine [Mass/Vol] 0.67 mg/dL Normal 0.60-1.20 [facility] Comment on above: Performed By: #### C MP, CBC ####[place] [id number] [facility] Creatinine Clr Calc Pharmacy 134.83 [facility] Comment on above: Result Comment: PERF ORMED BY: [facility] [address] [address] PATHOLOGIST CREW DISPATCHER NANCY NAPIER M.D. Performed By: #### C MP, CBC ####[place] [id number] [facility] GFR/1.73 sq M.predicted MDRD (S/P/Bld) [Vol rate/Area] mL/min/{1.73_m2} [facility] Comment on above: Performed By: #### C MP, CBC ####[address] [address] [facility] Globulin (S) [Mass/Vol] 3.4 g/dL Normal [facility] Comment on above: Performed By: #### C MP, CBC ####[facility] [place] [address] [facility] Glucose [Mass/Vol] 114 mg/dL High 70-100 [facility] Comment on above: Result Comment: [place] Glucose Reference Range is dependent on time and content of last meal. Glucose of more than 200 mg/dL in a nonstressed, ambulatory subject supports the diagnosis of Diabetes Mellitus. ADA recommended reference range Performed By: #### C MP, CBC ####[facility] [place] [id number] [facility] Potassium [Moles/Vol] 4.0 mmol/L Normal 3.5-5.1 [facility] Comment on above: Performed By: #### C MP, CBC ####[address] Protein [Mass/Vol] 7.7 g/dL Normal 6.4-8.9 [facility] Comment on above: Performed By: #### C MP, CBC ####[place] [id number] [facility] Sodium [Moles/Vol] 134 mmol/L Low 136-145 [facility] Comment on above: Performed By: #### C MP, CBC ####[place] [id number] [place] [id number] [facility] Urea nitrogen [Mass/Vol] 14 mg/dL Normal 7-25 [facility] Comment on above: Performed By: #### C MP, CBC ####[place] [id number] [facility] Creatinine [Mass/volume] in Serum or PlasmaOrdered By: Emily Marin on 05-21-2023 Creatinine [Mass/Vol] 0.67 mg/dL 0.60-1.20 [facility] Dipstick and Microscopicon 0 05-21-2023 Appearance (U) Clear Normal Clear [facility] Comment on above: Order Comment: Name Collection Type:: Clean-Voided Midstream Performed By: #### U HCG, ADDONUAPLUS #### [facility] [address] [place] [address] [place] Bacteria,Urine 1+ High None Seen [facility] Comment on above: Order Comment: Name Collection Type:: Clean-Voided Midstream Performed By: #### U HCG, ADDONUAPLUS #### [facility] [address] [place] [address] [place] Bilirubin,Urine Negative Normal Negative [facility] Comment on above: Order Comment: Name Collection Type:: Clean-Voided Midstream Performed By: #### U HCG, ADDONUAPLUS #### [facility] [address] [place] [address] [place] Color (U) Yellow Normal Yellow [facility] Comment on above: Order Comment: Name Collection Type:: Clean-Voided Midstream Performed By: #### U HCG, ADDONUAPLUS #### [facility] [address] [place] [address] [place] Glucose Ql (U) Normal Normal Normal [facility] Comment on above: Order Comment: Name Collection Type:: Clean-Voided Midstream Performed By: #### U HCG, ADDONUAPLUS #### [facility] [address] [place] [address] [place] Hyaline Casts,Urine 0-8 Normal 0-8 [facility] Comment on above: Order Comment: Name Collection Type:: Clean-Voided Midstream Performed By: #### U HCG, ADDONUAPLUS #### [facility] [address] [place] [address] [place] Ketones Ql (U) Negative Normal Negative [facility] Comment on above: Order Comment: Name Collection Type:: Clean-Voided Midstream Performed By: #### U HCG, ADDONUAPLUS #### [facility] [address] [place] [address] [place] Leukocyte esterase Test strip Ql (U) 1+ High Negative [facility] Comment on above: Order Comment: Name Collection Type:: Clean-Voided Midstream Performed By: #### U HCG, ADDONUAPLUS #### [facility] [address] [place] [address] [place] Nitrite,Urine Negative Normal Negative [facility] Comment on above: Order Comment: Name Collection Type:: Clean-Voided Midstream Performed By: #### U HCG, ADDONUAPLUS #### [address] Occult Blood,Urine Negative Normal Negative [facility] Comment on above: Order Comment: Name Collection Type:: Clean-Voided Midstream Performed By: #### U HCG, ADDONUAPLUS #### [address] pH (U) 5.5 [pH] Normal 5.0-9.0 [facility] Comment on above: Order Comment: Name Collection Type:: Clean-Voided Midstream Performed By: #### U HCG, ADDONUAPLUS #### [address] Protein,Urine Negative Normal Negative [facility] Comment on above: Order Comment: Name Collection Type:: Clean-Voided Midstream Performed By: #### U HCG, ADDONUAPLUS #### [address] RBC LM.HPF (Urine sed) [#/Area] 0 /[HPF] Normal 0-4 [facility] Comment on above: Order Comment: Name Collection Type:: Clean-Voided Midstream Performed By: #### U HCG, ADDONUAPLUS #### [address] Specificy [place],Urine 1.027 Normal 1.001-1.030 [facility] Comment on above: Order Comment: Name Collection Type:: Clean-Voided Midstream Performed By: #### U HCG, ADDONUAPLUS #### [address] Squamous Epithelial Cell,Urine 5-9 High 0-2 [facility] Comment on above: Order Comment: Name Collection Type:: Clean-Voided Midstream Performed By: #### U HCG, ADDONUAPLUS #### [address] Urobilinogen,Urine Normal Normal Normal [facility] Comment on above: Order Comment: Name Collection Type:: Clean-Voided Midstream Performed By: #### U HCG, ADDONUAPLUS #### [facility] [address] [place] [address] [place] WBC,Urine 3-4 Normal 0-4 [facility] Comment on above: Order Comment: Name Collection Type:: Clean-Voided Midstream Performed By: #### U HCG, ADDONUAPLUS #### [facility] [address] Eosinophils Auto (Bld) [#/Vo l]Ordered By: Emily Aaronimore on 05-21-2023 Eosinophils (Bld) [#/Vol] 0.1 10*3/uL 0.0-0.45 [facility] Eosinophils/100 WBC Auto (Bl d)Ordered By: Emilyshae Aaronimore on 05-21-2023 Eosinophils/100 WBC (Bld) 0.8 % . [facility] Erythrocyte distribution wid th Auto (RBC) [Ratio]Ordered By: Emilyshae Marin on 05-21-2023 Erythrocyte distribution width (RBC) [Ratio] 14.2 % 11.9-15.3 [facility] Globulin Calc (S) [Mass/Vol] Ordered By: Emilyshae Marin on 05-21-2023 Globulin (S) [Mass/Vol] 3.4 g/dL [facility] Glucose [Mass/volume] in Ser um or PlasmaOrdered By: Emily Marin on 05-21-2023 Glucose [Mass/Vol] 114 mg/dL 70-100 [facility] Comment on above: ADA recommended refe rence rangeRandom Glucose Reference Range is dependent on time and content of last meal. Glucose of more than 200 mg/dL in a nonstressed, ambulatory subject supports the diagnosis of Diabetes Mellitus. HCG ( test) Nora gómez Ql (U)Ordered By: PROVIDER TEMP on 05-21-2023 HCG ( test) Ql (U) Negative [facility] HCG,Urineon 05-21-2023 Beta HCG ( test) Ql (U) Negative Normal [facility] Comment on above: Order Comment: Name Collection Type:: Clean-Voided Midstream Result Comment: PERF ORMED BY: [facility] [address] [facility] [place] [address] PATHOLOGIST CREW DISPATCHER NANCY NAPIER M.D. Performed By: #### U HCG, ADDALDIUAPLUS #### [facility] [address] Hematocrit Auto (Bld) [Volum e fraction]Ordered By: Emily Bullimore on 05-21-2023 Hematocrit (Bld) [Volume fraction] 40.7 % 34.0-46.4 [facility] Hemoglobin [Mass/volume] in BloodOrdered By: Emily Bullimore on 05-21-2023 Hemoglobin (Bld) [Mass/Vol] 13.6 g/dL 11.8-15.4 [facility] Ketones Auto test strip (U) [Mass/Vol]Ordered By: Emily Bullimore on 05-21-2023 Ketones (U) [Mass/Vol] Negative Negative [facility] Gee 05-21-2023 L - -------- Specimen: [id number] Received: 05/23/23 Status: NANCY Oneill Num: [id number] Spec Type: Surgical Subm Dr: Niraj Guzman DO Tissues: A Appendix - Other than Incidental (APPENDIX) Procedures: SHAGGY, Gross/Micro L3 -------- Age/ Patient Sex Location Account Attending Physician -------- Yoanna Snyder 23/ 4N [id number] Niraj Guzman,DO -------- SPEC NUM: [id number] RECD: 05/23/23 STATUS: NANCY ONEILL NUM: [id number] MICHELLE: 05/21/[address] [facility] [address]: Niraj Guzman DO ENTERED: 05/23/23 [facility] DR: GAYE TYPE: Surgical DEPT: S ORDERED: [...] No discrete site of perforation is identified. Complex Manager sections are submitted in one cassette labeled A1. Microscopic Description One H E slide reviewed. The microscopic examination confirms the diagnosis. -------- Specimen: [id number] Received: 05/23/23 Status: NANCY Oneill Num: [id number] Spec Type: Surgical Subm Dr: Niraj Guzman DO Tissues: A Appendix - Other than Incidental (APPENDIX) Procedures: SHAGGY, Gross/Nino L3 -------- Patient: Yoanna Snyder [id number] (Continued) -------- Specimen: [id number] Received: 05/23/23 (Continued) Signed (signature on file) Alia Tatum MD 05/25/23 1159 -------- Specimen: [id number] Received: 05/23/23 Status: NANCY Oneill Num: [id number] Spec Type: Surgical Subm Dr: Niraj Guzman DO Tissues: A Appendix - Other than Incidental (APPENDIX) Procedures: Alok COON L3 -------- Patient: Yoanna Snyder [id number] (Continued) -------- Specimen: [id number] Received: 05/23/23 (Continued) CPT Codes 40842 -------- -------- Specimen: [id number] Received: 05/23/23 Status: NANCY Oneill Num: [id number] Spec Type: Surgical Subm Dr: Niraj Guzman DO Tissues: A Appendix - Other than Incidental (APPENDIX) Procedures: HE, Gross/Micro L3 -------- Patient: Yoanna Snyder [id number] (Continued) -------- Signed (signature on file) Alia Tatum MD 05/25/23 1159 Normal [facility] Laboratory - UrinalysisOrder ed By: Emily Marin on 05-21-2023 Hyaline casts LM Ql (Urine sed) 0-8 [LPF] 0-8 [facility] Leukocytes [#/volume] correc geo for nucleated erythrocytes in Blood by Automated counOrdered By: Emily Marin on 05-21-2023 WBC corrected for nucl RBC Auto (Bld) [#/Vol] 12.0 10*3/uL 3.8-11.6 [facility] Lymphocytes Auto (Bld) [#/Vo l]Ordered By: Emily Marin on 05-21-2023 Lymphocytes (Bld) [#/Vol] 1.3 10*3/uL 1.00-4.8 [facility] Lymphocytes/100 WBC Auto (Bl d)Ordered By: Emily Marin on 05-21-2023 Lymphocytes/100 WBC (Bld) 11.1 % . [facility] MCH Auto (RBC) [Entitic mass ]Ordered By: Emily Marin on 05-21-2023 MCH (RBC) [Entitic mass] 27.3 pg 24.7-34.3 [facility] MCHC Auto (RBC) [Mass/Vol]Or dered By: Emily Aaronimore on 05-21-2023 MCHC (RBC) [Mass/Vol] 33.3 g/dL 32.0-35.0 Fir [facility] MCV Auto (RBC) [Entitic vol] Ordered By: Emily Aaronimore on 05-21-2023 MCV (RBC) [Entitic vol] 81.9 fL 80-[address] [facility] Monocyte distribution width [Entitic volume] in Blood by AutomatedOrdered By: Emily Marin on 05-21-2023 Monocyte distribution width Auto (Bld) [Entitic vol] 17.88 % 0.00-20.00 [facility] Monocytes Auto (Bld) [#/Vol] Ordered By: Emily Aaronimore on 05-21-2023 Monocytes (Bld) [#/Vol] 0.7 10*3/uL 0.0-0.8 [facility] Monocytes/100 WBC Auto (Bld) Ordered By: Emily Aaronimore on 05-21-2023 Monocytes/100 WBC (Bld) 5.8 % . F [facility] Neutrophils Auto (Bld) [#/Vo l]Ordered By: Emily Aaronimore on 05-21-2023 Neutrophils (Bld) [#/Vol] 9.8 10*3/uL 1.8-7.7 [facility] Neutrophils/100 WBC Auto (Bl d)Ordered By: Emily Reidore on 05-21-2023 Neutrophils/100 WBC (Bld) 82.0 % . [facility] Nitrite Test strip Ql (U)Ord ered By: Emily Marin on 05-21-2023 Nitrite Ql (U) Negative Negative [facility] No Panel InformationOrdered By: Emily Marin on 05-21-2023 Estimated GFR (CKD-EPI) > 60.0 mL/Min [facility] Creatinine Clearance (Chem 134.83 [facility] Nucleated erythrocytes [Pres ence] in Blood by Automated countOrdered By: Emily Marin on 05-21-2023 Nucleated RBC Auto Ql (Bld) 0.0 /100{WBC} 0-0.5 [facility] Platelet mean volume Auto (B ld) [Entitic vol]Ordered By: Emily Bullimore on 05-21-2023 Platelet mean volume (Bld) [Entitic vol] 8.4 fL 6.3-10.7 [facility] Platelets Auto (Bld) [#/Vol] Ordered By: Emily Bullimore on 05-21-2023 Platelets (Bld) [#/Vol] 313 10*3/uL 150-450 [facility] Potassium [Moles/volume] in Serum or PlasmaOrdered By: Emily Bullimore on 05-21-2023 Potassium [Moles/Vol] 4.0 mmol/L 3.5-5.1 [facility] Protein Auto test strip (U) [Mass/Vol]Ordered By: Emily Bullimore on 05-21-2023 Protein (U) [Mass/Vol] Negative Negative [facility] Protein [Mass/volume] in Ser um or PlasmaOrdered By: Emily Bullimore on 05-21-2023 Protein [Mass/Vol] 7.7 g/dL 6.4-8.9 [facility] RBC Auto (Bld) [#/Vol]Ordere d By: Emily Bullimore on 05-21-2023 RBC (Bld) [#/Vol] 4.97 10*6/uL 3.60-5.00 [facility] Serum or plasma albumin/glob ulin mass ratioOrdered By: Emily Bullimore on 05-21-2023 Albumin/Globulin [Mass ratio] 1.3 {ratio} [facility] Serum or plasma anion gap de terminationOrdered By: Emily Bullimore on 05-21-2023 Anion gap [Moles/Vol] 9.7 mmol/L 6.0-15.0 [facility] Sodium [Moles/volume] in Ser um or PlasmaOrdered By: Emily Bullimore on 05-21-2023 Sodium [Moles/Vol] 134 mmol/L 136-145 [facility] Specific gravity Auto test s trip (U) [Rel density]Ordered By: Emily Bullimore on 05-21-2023 Specific gravity (U) [Rel density] 1.027 1.001-1.030 [facility] Squamous epithelial cells de tection in urine sediment by light microscopyOrdered By: Emily Marin on 05-21-2023 Epithelial cells.squamous LM Ql (Urine sed) 5-9 [HPF] 0-2 [facility] Urea nitrogen [Mass/volume] in Serum or PlasmaOrdered By: Emily Marin on 05-21-2023 Urea nitrogen [Mass/Vol] 14 mg/dL 7-25 [facility] Urine bacteria detection by automated methodOrdered By: Emily Marin on 05-21-2023 Bacteria Auto Ql (U) 1+ None Seen [facility] Urine clarity by refractomet ry automatedOrdered By: Emily Marin on 05-21-2023 Clarity Refractometry automated (U) Clear Clear [facility] Urine glucose measurement by automated test strip (mass/volume)Ordered By: Emily Marin on 05-21-2023 Glucose Auto test strip (U) [Mass/Vol] Normal mg/dL Normal [facility] Urine hemoglobin detection b y automated test stripOrdered By: Emily Marin on 05-21-2023 Hemoglobin Auto test strip Ql (U) Negative Negative [facility] Urine leukocyte esterase det ection by automated test stripOrdered By: Emily Marin on 05-21-2023 Leukocyte esterase Auto test strip Ql (U) 1+ Negative [facility] Urobilinogen Auto test strip (U) [Mass/Vol]Ordered By: Emily Marin on 05-21-2023 Urobilinogen (U) [Mass/Vol] Normal mg/dL Normal [facility] WBC Auto (Bld) [#/Vol]Ordere d By: Emily Marin on 05-21-2023 WBC (Bld) [#/Vol] 12.0 10*3/uL 3.8-11.6 [facility] pH Auto test strip (U)Ordere d By: Emily Marin on 05-21-2023 pH (U) 5.5 [pH] 5.0-9.0 [facility] Esophageal MALAGON pH Capsule Results / Interpretationon 01-26-2023 Esophageal MALAGON pH Capsule Results / Interpretation PATIENTNAME Patient Name: Yoanna Snyder EXAMDATE Procedure Date: 01/26/2023 2:40 PM PATIENTID PATIENTACCOUNTNUM PATIENTDOB Date of : 2000 PATIENTROOM Site: ETHNICITY Ethnicity: Not or RACE Race: White PROVDR Attending MD: Gustavo Garrett DO, [id number] ENDOPROCEDURENAME Procedure: Esophageal MALAGON pH Capsule Results [...] Note Initiated On: 01/26/2023 2:40 PM Normal [facility] No Panel Informationon 01-26 [email or web address] } [facility] Work Phone: [facility] Work Phone: High Resolution esophageal m anometryon 01-20-2023 High Resolution esophageal manometry PATIENTNAME Patient Name: Yoanna Snyder EXAMDATE Procedure Date: 01/20/2023 1:00 PM PATIENTID PATIENTACCOUNTNUM PATIENTDOB Date of : 2000 PATIENTROOM Site: [facility] 1 ETHNICITY Ethnicity: Not or RACE Race: White PROVDR Attending MD: Ross Du MD, [id number] ENDOPROCEDURENAME Procedure: High Resolution esophageal manometry INDICATION [...] Note Initiated On: 01/20/2023 12:49 PM Normal [facility] No Panel Informationon 01-20 [email or web address] } [facility] Work Phone: [facility] Work Phone: Order Reconciliationon 01-20 [...] Lidocaine Viscous 2% is not required Normal [facility] Upper GI endoscopyon 023 Upper GI endoscopy PATIENTNAME Patient Name: Yoanna Snyder EXAMDATE Procedure Date: 01/20/2023 2:26 PM PATIENTID PATIENTACCOUNTNUM PATIENTDOB Date of : 2000 PATIENTROOM Site: [place] [address] ETHNICITY Ethnicity: Not or RACE Race: White PROVDR Attending MD: Marcela Colon MD, [id number] ENDOPROCEDURENAME Procedure: Upper GI endoscopy INDICATION Indications: [...] (Nurse) EDREFPROVIDER Referring MD: Rosmery Martell MD [facility] Provider Care Team: 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 CURRENT_MEDS [...] and recommendation (more content not included)... 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 You need speech therapy as part of your treatment. We will help you to schedule your speech appointment after your visit or you can call Speech Therapy Scheduling at [phone]. Please follow up pending the outcome of speech therapy. Welcome to Dr. Martell?s clinic. We are here to assist you through your ENT care at [facility]. Dr. Martell is an ENT surgeon who specializes in voice, airway and swallowing issues. This means that she specializes in taking care of patients with complex voice, airway and swallowing problems. Dr. Martell's office number is [phone]. Please use this number to contact her and her care team regardless of which office you use to access care. This number is the most direct way to communicate with all the members of the care team. Dr. Martell?s colon therapist answers the office phone from 9am-4pm Mon-Tue. Call [phone] and push 2. She can help you with scheduling of appointments, general questions and information. You may need to leave a message if she is helping another patient. In this case, someone from the team will call you back the same day if you leave your message before 3pm, or the next business morning. Dr. Martell?s nurse and can be reached by calling [phone]. We make every effort to return phone calls the same day. If you are in need of urgent assistance after hours, please call [phone] and ask for ENT [employer] marketing [employer] communications at [employer] Dr. Martell works closely with speech therapists as they work together to help solve your issues with speech and swallowing. You may see a speech therapist during your appointment if Dr. Martell feels this is needed. If you need to reach speech therapy to talk with a therapist or to schedule an appointment, please call [phone]. Others who may be included in your care are dieticians, social workers, audiologists, neurologists, and physical therapists. Dr. Martell will provide these referrals as needed. Please let her know if you would like to request a specific referral. For your convenience, Dr. Martell sees patients at different [facility] locations including the [facility] at [facility], and [facility] [place] at the [facility]. While we try to [...] (more content not included)... 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 appointments. Primary Language for learning: Canadian. Insurance Insurance reviewed Visit number: 1 Onset [...] 022 Adult depression screening assessment Yes [facility] Work Phone: Fall risk assessment a) No falls within the last year [facility] Work Phone: Tobacco use status [facility] b) No [facility] Work Phone: Pap IG, rfx Aptima HPV ASCUo n 06-11-2022 . . Normal [facility] Comment on above: Performed By: #### P APHR7A #### [facility] [address] [place] [address] Dr. Garrett Galeas DIAGNOSIS: Comment [facility] Comment on above: Result Comment: NEGA TIVE FOR INTRAEPITHELIAL LESION OR MALIGNANCY. FUNGAL ORGANISMS MORPHOLOGICALLY CONSISTENT WITH ALLI SPECIES ARE PRESENT. Performed By: #### P APHR7A #### [facility] [address] [place] [address] Dr. Garrett Galeas Methodology: Comment [facility] Comment on above: Result Comment: This liquid based ThinPrep(R) pap test was screened with the use of an image guided system. Performed By: #### P APHR7A #### [facility] [address] [place] [address] Dr. Garrett Galeas Note: Comment [facility] Comment on above: Result Comment: The Pap smear is a screening test designed to aid in the detection of premalignant and malignant conditions of the uterine cervix. It is not a diagnostic procedure and should not be used as the sole means of detecting cervical cancer. Both false-positive and false-negative reports do occur. . Performed By: #### P APHR7A #### [facility] [address] [place] [address] Dr. Garrett Galeas Performed by: Comment Normal [facility] Comment on above: Result Comment: Erick Wilson, Labels Molder (ASCP) Performed By: #### P APHR7A #### [facility] [address] [place] [address] [address] Garrett Galeas Reflex Criteria: Comment Normal [facility] Comment on above: Result Comment: The HPV DNA reflex criteria were not met with this specimen result therefore, no HPV testing was performed. . Performed By: #### P APHR7A #### [facility] [address] [place] [address] [address] Garrett Galeas Specimen adequacy: Comment Normal [facility] Comment on above: Result Comment: Sati sfactory for evaluation. Endocervical and/or squamous metaplastic cells (endocervical component) are present. Performed By: #### P APHR7A #### [facility] [address] [place] [address] head stroke alert wo cono n 06-03-2022 CT head stroke alert wo con [facility] [address] CT Scan Report Signed Patient: Yoanna Snyder MR#: [id number] 2 : 2000 Acct:[id number] Age/Sex: 22 / F ADM Date: 06/03/22 [...] Romario Richmond M.D.06/03/2022 7:11 PM Dictation Location: [place] [address] Transcribed By: MARA 06/03/221910 Dictated By: Romario Richmond II, MD 06/03/221908 Signed By: 06/03/221910 Normal [facility] Complete Blood Count Auto Di ffon 06-03-2022 Basophils (Bld) [#/Vol] 0.0 10*3/uL Normal 0.0-0.2 [facility] Comment on above: Result Comment: PERF ORMED BY: [place] [address] PATHOLOGIST CREW DISPATCHER NANCY NAPIER M.D. Performed By: #### C KMB, CK, CBC, CMP, PTT, PT, HS TROP #### [address] Basophils/100 WBC (Bld) 0.5 % Normal . [facility] Comment on above: Performed By: #### C KMB, CK, CBC, CMP, PTT, PT, HS TROP #### [facility] [address] [place] [address] Eosinophils (Bld) [#/Vol] 0.2 10*3/uL Normal 0.0-0.45 [facility] Comment on above: Performed By: #### C KMB, CK, CBC, CMP, PTT, PT, HS TROP #### [facility] [address] [place] [address] [place] Eosinophils/100 WBC (Bld) 3.1 % Normal . [facility] Comment on above: Performed By: #### C KMB, CK, CBC, CMP, PTT, PT, HS TROP #### [facility] [address] Erythrocyte distribution width (RBC) [Ratio] 16.0 % High 11.9-15.3 [facility] Comment on above: Performed By: #### C KMB, CK, CBC, CMP, PTT, PT, HS TROP #### [address] Hematocrit (Bld) [Volume fraction] 40.0 % Normal 34.0-46.4 [facility] Comment on above: Performed By: #### C KMB, CK, CBC, CMP, PTT, PT, HS TROP #### [address] Hemoglobin (Bld) [Mass/Vol] 12.9 g/dL Normal 11.8-15.4 [facility] Comment on above: Performed By: #### C KMB, CK, CBC, CMP, PTT, PT, HS TROP #### [address] Lymphocytes (Bld) [#/Vol] 2.8 10*3/uL Normal 1.00-4.8 [facility] Comment on above: Performed By: #### C KMB, CK, CBC, CMP, PTT, PT, HS TROP #### [address] Lymphocytes/100 WBC (Bld) 36.2 % Normal . [facility] Comment on above: Performed By: #### C KMB, CK, CBC, CMP, PTT, PT, HS TROP #### [address] MCH (RBC) [Entitic mass] 25.3 pg Normal 24.7-34.3 [facility] Comment on above: Performed By: #### C KMB, CK, CBC, CMP, PTT, PT, HS TROP #### [address] MCV (RBC) [Entitic vol] 78.2 fL Low 80-[address] [facility] Comment on above: Performed By: #### C KMB, CK, CBC, CMP, PTT, PT, HS TROP #### [address] Mean Corpuscular HGB Conc 32.3 g/dL Normal 32.0-35.0 [facility] Comment on above: Performed By: #### C KMB, CK, CBC, CMP, PTT, PT, HS TROP #### [facility] [address] Monocytes (Bld) [#/Vol] 0.8 10*3/uL Normal 0.0-0.8 [facility] Comment on above: Performed By: #### C KMB, CK, CBC, CMP, PTT, PT, HS TROP #### [address] Monocytes/100 WBC (Bld) 9.7 % Normal . F [facility] Comment on above: Performed By: #### C KMB, CK, CBC, CMP, PTT, PT, HS TROP #### [address] Neutrophils (Bld) [#/Vol] 4.0 10*3/uL Normal 1.8-7.7 [facility] Comment on above: Performed By: #### C KMB, CK, CBC, CMP, PTT, PT, HS TROP #### [address] Neutrophils/100 WBC (Bld) 50.5 % Normal . [facility] Comment on above: Performed By: #### C KMB, CK, CBC, CMP, PTT, PT, HS TROP #### [address] Nucleated RBC/100 WBC (Bld) [Ratio] 0.1 % Normal 0-0.5 [facility] Comment on above: Performed By: #### C KMB, CK, CBC, CMP, PTT, PT, HS TROP #### [address] Platelet mean volume (Bld) [Entitic vol] 8.3 fL Normal 6.3-10.7 [facility] Comment on above: Performed By: #### C KMB, CK, CBC, CMP, PTT, PT, HS TROP #### [facility] [address] Platelets (Bld) [#/Vol] 337 10*3/uL Normal 150-450 [facility] Comment on above: Performed By: #### C KMB, CK, CBC, CMP, PTT, PT, HS TROP #### [facility] [address] RBC (Bld) [#/Vol] 5.12 10*6/uL High 3.60-5.00 [facility] Comment on above: Performed By: #### C KMB, CK, CBC, CMP, PTT, PT, HS TROP #### [facility] [address] WBC (Bld) [#/Vol] 7.8 10*3/uL Normal 4.5-11.0 [facility] Comment on above: Performed By: #### C KMB, CK, CBC, CMP, PTT, PT, HS TROP #### [facility] [address] Comprehensive Metabolic Pane gee 06-03-2022 Albumin [Mass/Vol] 3.7 g/dL Normal 3.2-5.5 [facility] Comment on above: Performed By: #### C KMB, CK, CBC, CMP, PTT, PT, HS TROP #### [address] Albumin/Globulin [Mass ratio] 1.0 {ratio} Normal [facility] Comment on above: Performed By: #### C KMB, CK, CBC, CMP, PTT, PT, HS TROP #### [address] ALP [Catalytic activity/Vol] 120 U/L High 32-92 [facility] Comment on above: Result Comment: PERF ORMED BY: [place] [address] PATHOLOGIST CREW DISPATCHER NANCY NAPIER M.D. Performed By: #### C KMB, CK, CBC, CMP, PTT, PT, HS TROP #### [facility] [address] ALT [Catalytic activity/Vol] 21 U/L Normal 10-60 [facility] Comment on above: Performed By: #### C KMB, CK, CBC, CMP, PTT, PT, HS TROP #### [facility] [address] AST [Catalytic activity/Vol] 19 U/L Normal 10-42 [facility] Comment on above: Performed By: #### C KMB, CK, CBC, CMP, PTT, PT, HS TROP #### [facility] [address] Bilirubin [Mass/Vol] 0.5 mg/dL Normal 0.3-1.2 [facility] Comment on above: Performed By: #### C KMB, CK, CBC, CMP, PTT, PT, HS TROP #### [facility] [address] Calcium [Mass/Vol] 9.2 mg/dL Normal 8.2-10.2 [facility] Comment on above: Performed By: #### C KMB, CK, CBC, CMP, PTT, PT, HS TROP #### [address] Chloride [Moles/Vol] 100 mmol/L Normal 95-114 [facility] Comment on above: Performed By: #### C KMB, CK, CBC, CMP, PTT, PT, HS TROP #### [address] CO2 [Moles/Vol] 25.9 mmol/L Normal 22.0-30.0 [facility] Comment on above: Performed By: #### C KMB, CK, CBC, CMP, PTT, PT, HS TROP #### [address] Creatinine [Mass/Vol] 0.66 mg/dL Normal 0.44-1.03 [facility] Comment on above: Performed By: #### C KMB, CK, CBC, CMP, PTT, PT, HS TROP #### [facility] [address] Estimated GFR ( Angela > 60 Normal [facility] Comment on above: Result Comment: GFR estimated reference range: According to KDOQI guidelines, <60 ml/min/1.73m2 is sufficient to diagnose a patient with chronic kidney disease. Performed By: #### C KMB, CK, CBC, CMP, PTT, PT, HS TROP #### [facility] [address] Estimated GFR (Non- Am > 60 Normal [facility] Comment on above: Performed By: #### C KMB, CK, CBC, CMP, PTT, PT, HS TROP #### [facility] [address] Globulin (S) [Mass/Vol] 3.6 g/dL Normal [facility] Comment on above: Performed By: #### C KMB, CK, CBC, CMP, PTT, PT, HS TROP #### [address] Glucose [Mass/Vol] 92 mg/dL Normal 70-100 [facility] Comment on above: Result Comment: [place] Glucose Reference Range is dependent on time and content of last meal. Glucose of more than 200 mg/dL in a nonstressed, ambulatory subject supports the diagnosis of Diabetes Mellitus. ADA recommended reference range Performed By: #### C KMB, CK, CBC, CMP, PTT, PT, HS TROP #### [facility] [address] Potassium [Moles/Vol] 3.4 mmol/L Low 3.5-5.1 [facility] Comment on above: Performed By: #### C KMB, CK, CBC, CMP, PTT, PT, HS TROP #### [facility] [address] [address] Protein [Mass/Vol] 7.3 g/dL Normal 6.1-7.9 [facility] Comment on above: Performed By: #### C KMB, CK, CBC, CMP, PTT, PT, HS TROP #### [facility] [address] Sodium [Moles/Vol] 136 mmol/L Normal 136-146 [facility] Comment on above: Performed By: #### C KMB, CK, CBC, CMP, PTT, PT, HS TROP #### [facility] [address] Urea nitrogen [Mass/Vol] 12 mg/dL Normal 9-23 [facility] Comment on above: Performed By: #### C KMB, CK, CBC, CMP, PTT, PT, HS TROP #### [facility] [address] [place] [id number] [facility] Creatine Kinaseon 06-03-2022 CK [Catalytic activity/Vol] 124 U/L Normal 22-269 [facility] Comment on above: Performed By: #### C KMB, CK, CBC, CMP, PTT, PT, HS TROP ####[facility] Creatinine Kinase MBon 06-03 CK.MB [Mass/Vol] 0.7 ng/mL Normal 0.6-6.3 [facility] Comment on above: Performed By: #### C KMB, CK, CBC, CMP, PTT, PT, HS TROP ####[facility] [place] [id number] [facility] CKMB Relative Index 0.5 % Normal 0.00-2.50 [facility] Comment on above: Performed By: #### C KMB, CK, CBC, CMP, PTT, PT, HS TROP ####[facility] [place] [id number] [facility] ECG 12 lead ECGon 06-03-2022 [address] [facility] Main Sarah Ann [address] [place] [address] Electrocardiograph Report Signed Patient: Yoanna Snyder MR#: [id number] 2 : 2000 Acct:[id number] Age/Sex: 22 / F ADM Date: 06/03/22 Loc: ER Room: Type: [facility] ER Attending Dr: Ordering Provider: [...] By Ishaan Alvarado MD 05/21 04/11 0125 [facility] Glucose Poct Glucometerson 0 06-03-2022 Commemt1 Glu2: Cleaned Meter [facility] Comment on above: Result Comment: PERF ORMED BY: [place] [address] PATHOLOGIST CREW DISPATCHER NANCY NAPIER M.D. Performed By: #### G LULS ####Point of Care testing, Glucose [Mass/Vol] 83 mg/dL Normal [facility] Comment on above: Result Comment: [facility] Glucose Reference Range is dependent on time and content of last meal. Glucose of more than 200 mg/dL in a nonstressed, ambulatory subject supports the diagnosis of Diabetes Mellitus. Performed By: #### G LULS ####Point of Care testing, Partial Thromboplastin Timeo n 06-03-2022 aPTT Coag (Bld) [Time] 31.9 s Normal 25.1-36.5 [facility] Comment on above: Result Comment: PERF ORMED BY: [place] [address] PATHOLOGIST CREW DISPATCHER NANCY NAPIER M.D. Performed By: #### C KMB, CK, CBC, CMP, PTT, PT, HS TROP #### [address] [address] [facility] Prothrombin Time INRon 06-03 INR Coag (PPP) [Relative time] 1.1 {INR} Normal [facility] Comment on above: Result Comment: INR [...] CBC, CMP, PTT, PT, HS TROP #### [facility] [address] PT Coag (PPP) [Time] 12.3 s Normal 9.0-12.9 [facility] Comment on above: Performed By: #### C KMB, CK, CBC, CMP, PTT, PT, HS TROP #### [facility] [address] Troponin I High Sensitivityo n 06-03-2022 Troponin I High Sensitivity 3 pg/mL Normal 0-15 [facility] Comment on above: Result Comment: PERF ORMED BY: [facility] [address] [place] [address] PATHOLOGIST CREW DISPATCHER NANCY NAPIER M.D. Performed By: #### C KMB, CK, CBC, CMP, PTT, PT, HS TROP ####[facility] Dmd[address] CHLAMYDIA/GONOCOCCUS YESSENIA (SW AB/URINE/PAPon 04-30-2022 Chlamydia trachomatis, YESSENIA Negative Normal Negative [facility] Comment on above: Performed By: #### C T/NGNA #### [facility] [address] [address] [address] Garrett Galeas Neisseria gonorrhoeae, YESSENIA Negative Normal Negative [facility] Comment on above: Performed By: #### C T/NGNA #### [facility] [address] [place], [place] [address] Dr. Garrett Galeas VAGINITIS/VAGINOSIS DNA PROB [place] 04-29-2022 Alli species Positive Abnormal Negative [facility] Comment on above: Performed By: #### V AGINT #### [facility] [address] [place] [address] Dr. Garrett Galeas Gardnerella vaginalis Negative Normal Negative [facility] Comment on above: Performed By: #### V AGINT #### [facility] [address] [place] [address] Dr. Garrett Galeas Trichomonas vaginalis Negative Normal Negative [facility] Comment on above: Performed By: #### V AGINT #### [facility] [address] [place] [address] Dr. Garrett Galeas CBC AUTO DIFFon 01-13-2022 BASO # 0.0 103/ul Normal 0.0-0.1 [facility] Comment on above: Performed By: #### C BC #### [facility] [address] [place] [address] Dr. Garrett Galeas Basophils/100 WBC (Bld) 0.5 % Normal 0.2-2.0 [facility] Comment on above: Performed By: #### C BC #### [facility] [address] [place] [address] Dr. Garrett Galeas EO # 0.3 103/ul Normal 0.0-0.7 [facility] Comment on above: Performed By: #### C BC #### [facility] [address] [place] [address] Dr. Garrett Galeas Eosinophils/100 WBC (Bld) 4.8 % Normal 0.9-7.0 [facility] Comment on above: Performed By: #### C BC #### [facility] [address] [place] [address] Dr. Garrett Galeas Erythrocyte distribution width (RBC) [Ratio] 16.6 % Critically high 11.0-15.0 [facility] Comment on above: Performed By: #### C BC #### [facility] [address] [place] [address] Dr. Garrett Galeas Hematocrit (Bld) [Volume fraction] 37.8 % Normal 36.0-48.0 [facility] Comment on above: Performed By: #### C BC #### [facility] [address] [place] [address] Dr. Garrett Galeas Hemoglobin (Bld) [Mass/Vol] 11.7 g/dL Critically low 12.0-16.0 [facility] Comment on above: Performed By: #### C BC #### [facility] [address] [place] [address] [address] Garrett Galeas IG # 0.01 10e3/ul Normal 0.00-0.03 [facility] Comment on above: Performed By: #### C BC #### [facility] [address] [place] [address] Dr. Garrett Galeas IG % 0.1 % Normal 0.0-0.5 [facility] Comment on above: Performed By: #### C BC #### [facility] [address] [place] [address] Dr. Garrett Galeas LYMPH # 3.3 103/ul Normal 1.2-3.8 [facility] Comment on above: Performed By: #### C BC #### [facility] [address] [place] [address] Dr. Garrett Galeas Lymphocytes/100 WBC (Bld) 41.7 % Normal 20.5-60.0 [facility] Comment on above: Performed By: #### C BC #### [facility] [address] [place] [address] Dr. Garrett Galeas MANUAL DIFF REQ NO Normal [facility] Comment on above: Performed By: #### C BC #### [facility] [address] [place] [address] Dr. Garrett Galeas MCH (RBC) [Entitic mass] 24.0 pg Critically low 26.7-34.0 [facility] Comment on above: Performed By: #### C BC #### [facility] [address] [place] [address] Dr. Garrett Galeas MCHC (RBC) [Mass/Vol] 31.0 g/dL Normal 29.9-35.2 [facility] Comment on above: Performed By: #### C BC #### [facility] [address] [place], [place] [id number] Dr. Garrett Galeas MCV (RBC) [Entitic vol] 77.5 fL Critically low 81.0-99. 0 [facility] Comment on above: Performed By: #### C BC #### [facility] [address] [place] [address] Dr. Garrett Galeas MONO # 0.6 103/ul Normal 0.3-0.8 [facility] Comment on above: Performed By: #### C BC #### [facility] [address] [place] [address] Dr. Garrett Galeas Monocytes/100 WBC (Bld) 7.7 % Normal 1.7-12.0 [facility] Comment on above: Performed By: #### C BC #### [facility] [address] [place] [address] Dr. Garrett Galeas NEUT # 3.6 103/ul Normal 1.4-6.5 [facility] Comment on above: Performed By: #### C BC #### [facility] [address] [place] [address] Dr. Garrett Galeas Neutrophils/100 WBC (Bld) 45.2 % Normal 43.0-75.0 [facility] Comment on above: Performed By: #### C BC #### [facility] [address] [place] [address] Dr. Garrett Galeas Platelet mean volume (Bld) [Entitic vol] 10.3 fL Normal 9.5-13.5 [facility] Comment on above: Performed By: #### C BC #### [facility] [address] [place] [address] Dr. Garrett Galeas PLT 381 103/ul Normal 150-450 [facility] Comment on above: Performed By: #### C BC #### [facility] [address] [place] [address] Dr. Garrett Galeas RBC 4.88 106/ul Normal 4.20-5.40 [facility] Comment on above: Performed By: #### C BC #### [facility] [address] [place] [address] Dr. Garrett Galeas WBC 7.9 103/ul Normal 4.0-11.0 [facility] Comment on above: Performed By: #### C BC #### [facility] [address] [address] NECK ST W [...] SHIV CALVO Date: 2022-01-13 06:46 Normal [facility] PROF CHEM 8 (BAS METB)on Anion gap [Moles/Vol] 14.5 mmol/L Normal [facility] Comment on above: Performed By: #### B MP #### [facility] [address] [place] [address] [address] [address] Garrett Galeas Calcium [Mass/Vol] 9.0 mg/dL Normal 8.4-10.2 [facility] Comment on above: Performed By: #### B MP #### [facility] [address] [place], [place] [address] Dr. Garrett Galeas Chloride [Moles/Vol] 105 mmol/L Normal 98-107 [facility] Comment on above: Performed By: #### B MP #### [facility] [address] [place] [address] [address] Garrett Galeas CO2 [Moles/Vol] 23.6 mmol/L Normal 22.0-30.0 [facility] Comment on above: Performed By: #### B MP #### [facility] [address] [address] [address] Garrett Galeas Creatinine [Mass/Vol] 0.61 mg/dL Normal 0.52-1.04 [facility] Comment on above: Performed By: #### B MP #### [facility] [address] [address] [address] Garrett Galeas EGFR-AF CAMBODIAN >60 Normal >=60 [facility] Comment on above: Performed By: #### B MP #### [facility] [address] [place] [address] [address] Garrett Galeas EGFR-NON AF CAMBODIAN >60 Normal >=60 [facility] Comment on above: Performed By: #### B MP #### [facility] [address] [place] [address] [address] Garrett Galeas Glucose [Mass/Vol] 103 mg/dL Normal 74-106 [facility] Comment on above: Performed By: #### B MP #### [facility] [address] [address] [address] Garrett Galeas Potassium [Moles/Vol] 4.1 mmol/L Normal 3.4-5.0 [facility] Comment on above: Performed By: #### B MP #### [facility] [address] [address] [address] Garrett Galeas Sodium [Moles/Vol] 139 mmol/L Normal 137-145 [facility] Comment on above: Performed By: #### B MP #### [facility] [address] [place] [address] [address] Garrett Galeas Urea nitrogen [Mass/Vol] 20.0 mg/dL Critically high 7.0-17.0 [facility] Comment on above: Performed By: #### B MP #### [facility] [address] [address] [address] Garrett Galeas Urea nitrogen/Creatinine [Mass ratio] 32.8 mg/mg Normal [facility] Comment on above: Performed By: #### B #### [facility] [address] [place] [address] Dr. Garrett Galeas XR MODIFIED BARIUM SWALLOWon [...] by: STELLA BROWN Date: 2022-01-12 14:07 Normal [facility] OPERATIVE REPORTon 9 OPERATIVE REPORT PATIENT NAME: YOANNA SNYDER DATE OF : 2000 ACCT: [id number] ROOM: [facility] ROOM DATE OF SURGERY: [...] family. Attending Surgeon: Ishaan Ingram MD TIBrenda #:[id number] /MB /ss Normal [facility] URINE TESTon 05-08 HCG ( test) Ql (U) Negative Normal NEG [facility] Comment on above: Performed By: #### U CG #### [facility] [address] [facility] [address] Vital Signs Date Time Vital Sign Value Performing Clinician Amari langley 05-22-2023 13:55-0400 Body temperature 97.8 [degF] WHEAT INSPECTOR-C 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 Work Phone: [facility] 05-22-2023 13:55-0400 Diastolic blood pressure 88 mm[Hg] WHEAT INSPECTOR-C 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 Work Phone: [facility] 05-22-2023 13:55-0400 Heart rate 90 /min WHEAT INSPECTOR-C 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 Work Phone: [facility] 05-22-2023 13:55-0400 Respiratory rate 16 /min WHEAT INSPECTOR-C 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 Work Phone: [facility] 05-22-2023 13:55-0400 SaO2% (BldA) [Mass fraction] 96 % WHEAT INSPECTOR-C 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 Work Phone: [facility] 05-22-2023 13:55-0400 Systolic blood pressure 136 mm[Hg] WHEAT INSPECTOR-C 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 Work Phone: [facility] 05-22-2023 05:31-0400 Body weight 78.2 kg WHEAT INSPECTOR-C 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 Work Phone: [facility] 05-21-2023 23:50-0400 Inhaled oxygen flow rate 10 L/min WHEAT INSPECTOR-C 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 Work Phone: [facility] 05-21-2023 16:15-0400 Diastolic blood pressure 79 mm[Hg] WHEAT INSPECTOR-C Angelina Brownmer Work Phone: [facility] 05-21-2023 16:15-0400 Heart rate 115 /min WHEAT INSPECTOR-C Angelinaclaude Brownmer Work Phone: [facility] 05-21-2023 16:15-0400 Respiratory rate 16 /min WHEAT INSPECTOR-C Angelina Brownmer Work Phone: [facility] 05-21-2023 16:15-0400 SaO2% (BldA) [Mass fraction] 99 % WHEAT INSPECTOR-C Angelina Brownmer Work Phone: [facility] 05-21-2023 16:15-0400 Systolic blood pressure 145 mm[Hg] WHEAT INSPECTOR-C Angelina Brownmer Work Phone: [facility] 05-21-2023 16:00-0400 Body temperature 98.4 [degF] WHEAT INSPECTOR-C 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 Work Phone: [facility] 05-21-2023 15:22-0400 Inhaled oxygen flow rate 10 L/min WHEAT INSPECTOR-C 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 Work Phone: [facility] 05-21-2023 14:57-0400 Body height 165.1 cm WHEAT INSPECTOR-C Angelina Brownmer Work Phone: [facility] 05-21-2023 14:57-0400 Body mass index (BMI) [Ratio] 28.6 kg/m2 WHEAT INSPECTOR-C Angelina Brownmer Work Phone: [facility] 05-21-2023 14:57-0400 Body weight 78 kg WHEAT INSPECTOR-C Angelina Brownmer Work Phone: [facility] 06-29-2022 10:10-0400 Body height 167.64 cm Angelinaclaude Brownmer [facility] Work Phone: 06-29-2022 10:10-0400 Body mass index (BMI) [Ratio] 26.02 kg/m2 Angelina Brownmer Work Phone: [facility] Professional Jac C Work Phone: 06-29-2022 10:10-0400 Body surface area Derived from formula 1.82 m2 Angelina Machado Juan Francisco Work Phone: [facility] Professional Jac C Work Phone: 06-29-2022 10:10-0400 Body temperature 97.1 [degF] Angelina Machado Juan Francisco [facility] Professional Jca C Work Phone: 06-29-2022 10:10-0400 Body weight 73.12 kg Angelina Brownmer Work Phone: [facility] Professional Jac C Work Phone: 04-25-2021 19:09-0400 Body height 165.1 cm Jackie Ag T Work Phone: [facility] 04-25-2021 19:09-0400 Body mass index (BMI) [Ratio] 23.6 kg/m2 Jackie Ag T Work Phone: [facility] 04-25-2021 19:09-0400 Body temperature 98.8 [degF] Jackie Mancillaw T Work Phone: [facility] 04-25-2021 19:09-0400 Body weight 64.3 kg Jackie Ag T Work Phone: [facility] 04-25-2021 19:09-0400 Diastolic blood pressure 80 mm[Hg] Jackie Mancillaw T Work Phone: [facility] 04-25-2021 19:09-0400 Heart rate 94 /min Jackie Mancillaw T Work Phone: [facility] 04-25-2021 19:09-0400 Respiratory rate 18 /min Jackie Curiel Work Phone: [facility] 04-25-2021 19:09-0400 SaO2% (BldA) [Mass fraction] 96 % Jackie Curiel Work Phone: [facility] 04-25-2021 19:09-0400 Systolic blood pressure 148 mm[Hg] Jackie Curiel Work Phone: [facility] Encounters Encounter Date Encounter Type [...] Start: 05-21-2023 End: 05-22-2023 ambulatory 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 Facility:[facility] Start: 05-21-2023 End: 05-22-2023 Evaluation and management of inpatient WHEAT INSPECTOR-C 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 Work Phone: [facility] Work Phone: Start: 01-26-2023 AUDIT Angelina Lao r Work Phone: [facility] Work Phone: Start: 01-20-2023 End: 01-20-[address] Gustavo Garrett Facility:[facility] Start: 12-27-2022 AUDIT Angelina Brownme r Work Phone: VJ-Ybubfuwziivrul-Rpqnx an Voice Work Phone: Start: 11-16-2022 End: 11-16-[address] BETH BO Facility:[facility] Start: 08-23-2022 AUDIT Angelina Lao r Work Phone: KZ-Nyfaritjvvrjdo-Ftkvs [facility] Voice Work Phone: Start: 08-20-[address] Rosmery Martell Facility:[id number] Start: 08-20-2022 AUDIT Angelina Lao r Work Phone: XP-Gvjjlbkjcxhbux-Wrnts an Voice Work Phone: Start: 08-20-2022 Patient encounter procedure Angelina Brownmer [facility]: [facility] [address] [place] Work Phone: Start: 07-23-[address] Rosmery Martell Facility:[id number] Start: 07-23-2022 Patient encounter procedure Angelina Brownmer [facility] [address] [place] Work Phone: Start: 07-16-2022 Patient encounter procedure Angelina Brownmer Work Phone: [facility] [address] [place] Work Phone: Start: 07-16-[address] Rosmery Martell Facility:[id number] Start: 06-29-[address] Rosmery Martell Facility:[id number] Start: 06-29-2022 Patient encounter procedure 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 Work [facility] Work Phone: Start: 06-29-2022 ambulatory PCP UNKNOWN Facility:[id number] Start: 06-09-2022 Encounter for cervic al smear to confirm findings of recent normal smear following initial abnormal smear DR BETH BO [facility] Start: 06-08-2022 End: 06-08-[address] BETH BO Facility:[facility] Start: 06-08-2022 End: 06-08-2022 Encounter for cervical smear to confirm findings of recent normal smear following initial abnormal smear DR BETH BO Facility:[facility] Start: 06-03-2022 End: 06-03-2022 Emergency department patient visit Ishaan lAvarado Facility:[facility] Start: 04-27-2022 End: 04-27-[address] SUDHA RIOS Facility:[facility] Start: 01-13-2022 End: 01-13-2022 ambulatory ANGELINA CHICAS Facility:[facility] Start: 01-12-2022 End: 01-13-2022 ambulatory ANGELINA HCICAS Facility:[facility] Start: 04-25-2021 End: 04-25-2021 Emergency department patient visit Jackiejoaquin Curiel Work Phone: [facility]-Emergency Room Procedures Date Procedure Procedure Detail Performing Clinician Start: 05-21-2023 Laparoscopic appendectomy WHEAT INSPECTOR-C 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 Work Phone: Start: 05-21-2023 Computed tomography of abdomen and pelvis with contrast WHEAT INSPECTOR-C 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 Work Phone: Plan of Treatment Date Care Activity Detail Author Start: 05-22-2023 [facility] Start: 05-21-2023 Hospital admission [facility] Start: 05-21-2023 [facility] Start: 01-20-2023 [place], Provider: Marcela Colon, Status: Pen, Time: 2:30 PM [place], Provider: Marcela Colon, Status: Pen, Time: 2:30 PM [facility] Work Phone: Start: 08-20-2022 VIRRUTHANN, Provider : Genna Rahman, Status: Pen, Time: 9:00 AM AYLIN, Provider: Genna Rahman, Status: Pen, Time: 9:00 AM [facility] [address] [place] Work Phone: Start: 07-30-2022 VIRFUGENE, Provider : Genna Rahman, Status: Pen, Time: 9:45 AM AYLIN, Provider: Genna Rahman, Status: Pen, Time: 9:45 AM [facility] Professional Jac C Work Phone: Start: 07-23-2022 VIRFUGENE, Provider : Genna Rahman, Status: Pen, Time: 9:00 AM VIRFUVKARIMEE, Provider: Genna Rahman, Status: Pen, Time: 9:00 AM [facility] Professional Jac C Work Phone: Start: 07-16-2022 VIRFUGENE, Provider : Genna Rahman, Status: Pen, Time: 9:00 AM VIRFUVHOME, Provider: Genna Rahman, Status: Pen, Time: 9:00 AM [facility] Professional Jac C Work Phone: Patient Education [facility] Patient referral [facility] Immunizations Immunization Date Immunization Notes Care Provider Fa cili 08-22-2020 influenza virus vacc ine, unspecified formulation 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 Work Phone: [facility] Work Phone: 09-01-2018 meningococcal B vacc ine, recombinant, OMV, adjuvanted Angelina S Juan Francisco Work Phone: [facility] Work Phone: 07-25-2018 meningococcal B vacc ine, recombinant, OMV, adjuvanted Angelina S Juan Francisco Work Phone: [facility] Work Phone: 07-25-2018 meningococcal polysaccharide (groups A, C, Y and W-135) diphtheria toxoid conjugate vaccine (MCV4P) 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 Work Phone: [facility] Work Phone: 09-05-2014 influenza virus vacc ine, live, attenuated, for intranasal use 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 Work Phone: [facility] Work Phone: 08-04-2012 influenza virus vacc ine, whole virus 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 Work Phone: [facility] Work Phone: 11-01-2011 hepatitis A vaccine, pediatric/adolescent dosage, 2 dose schedule Angelina S Juan Farncisco Work Phone: [facility] Work Phone: 11-01-2011 human papilloma viru s vaccine, quadrivalent Angelina S Juan Francisco Work Phone: [facility] Work Phone: 07-29-2011 human papilloma viru s vaccine, quadrivalent Angelina S Juan Francisco Work Phone: [facility] Work Phone: 03-10-2011 hepatitis A vaccine, pediatric/adolescent dosage, 2 dose schedule Angelina S Juan Francisco Work Phone: [facility] Work Phone: 03-10-2011 human papilloma viru s vaccine, quadrivalent Angelina S Juan Francisco Work Phone: [facility] Work Phone: 03-10-2011 meningococcal polysaccharide (groups A, C, Y and W-135) diphtheria toxoid conjugate vaccine (MCV4P) 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 Work Phone: [facility] Work Phone: 03-10-2011 tetanus toxoid, redu aysha diphtheria toxoid, and acellular pertussis vaccine, adsorbed Angelinaclaude Chicas Work Phone: [facility] Work Phone: 02-11-2005 diphtheria, tetanus toxoids and acellular pertussis vaccine, unspecified formulation Angelina S Juan Francisco Work Phone: [facility] Work Phone: 02-11-2005 measles, mumps and rubella virus vaccine Angelina S Juan Francisco Work Phone: [facility] Work Phone: 02-11-2005 poliovirus vaccine, inactivated 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 Work Phone: [facility] Work Phone: 07-12-2002 measles, mumps and rubella virus vaccine Angelina S Juan Francisco Work Phone: [facility] Work Phone: 2000 diphtheria, tetanus toxoids and acellular pertussis vaccine, unspecified formulation Angelina S Juan Francisco Work Phone: [facility] Work Phone: 2000 haemophilus influenz ae type b conjugate and Hepatitis B vaccine Angelina S Juan Francisco Work Phone: [facility] Work Phone: 2000 poliovirus vaccine, inactivated Angelina S Juan Francisco Work Phone: [facility] Work Phone: 2000 diphtheria, tetanus toxoids and acellular pertussis vaccine, unspecified formulation Angelina S Juan Francisco Work Phone: [facility] Work Phone: 2000 haemophilus influenz ae type b vaccine, HbOC conjugate Angelina S Juan Francisco Work Phone: [facility] Work Phone: 2000 poliovirus vaccine, inactivated Angelina S Juan Francisco Work Phone: [facility] Work Phone: 2000 diphtheria, tetanus toxoids and acellular pertussis vaccine, unspecified formulation Angelina S Juan Francisco Work Phone: [facility] Work Phone: 2000 haemophilus influenz ae type b conjugate and Hepatitis B vaccine Angelina S Juan Francisco Work Phone: [facility] Work Phone: 2000 poliovirus vaccine, inactivated Angelina S Juan Francisco Work Phone: [facility] Work Phone: 2000 hepatitis B vaccine, pediatric or pediatric/adolescent dosage Angelina S Juan Francisco Work Phone: [facility] Work Phone: Payers Date Payer Category Payer Self-pay [id number] 2000 Unknown [id number] [id number] 2000 Unknown [id number] 2.16.840.1.811853.3.579.2.593 2000 Unknown [id number] 2.16.840.1.723115.3.579.2.593 2000 Unknown [id number] 2.16.840.1.057396.3.579.2.593 2000 Unknown [id number] 2.16.840.1.984196.3.579.2.593 2000 Unknown [id number] 2.16.840.1.843788.3.579.2.593 2000 Unknown [id number] 2.16.840.1.343497.3.579.2.356 2000 Unknown [id number] 2.16.840.1.512138.3.579.2.356 2000 Unknown [id number] 2.16.840.1.418230.3.579.2.356 2000 Unknown [id number] 2.16.840.1.330139.3.579.2.356 2000 Unknown [id number] 2.16.840.1.187059.3.579.2.356 2000 Unknown [id number] 2.16.840.1.368940.3.579.2.356 2000 Unknown [id number] 2.16.840.1.422959.3.579.2.356 2000 Unknown [id number] 2.16.840.1.408251.3.579.2.1259 2000 Unknown [id number] 2.16.840.1.111892.3.579.2.9 2000 Unknown [id number] 2.16.840.1.366263.3.579.2.1259 2000 Unknown [id number] 2.16.840.1.005774.3.579.2.1259 2000 Unknown [id number] 2.16.840.1.306128.3.579.2.1259 2000 Unknown [id number] 2.16.840.1.554955.3.579.2.1259 1959 Medicaid [id number] Unknown [id number] Unknown [facility] [place] Unknown [id number] 2.16.840.1.471481.3.579.2.531 Unknown [id number] 2.16.840.1.724582.3.579.2.531 Social History Date Type Detail Facility Start: 04-25-2021 End: 05-21-2023 Tobacco smoking status NHIS Never smoked tobacco (finding) [facility] Start: 2000 Sex Assigned At Female F [facility] Non-smoker [facility] Work Phone: Goals Date Patient Goal Desired Activity /State Functional Status Date Assessment Result Facility 05-22-2023 Functional status Patient is Pro gressing Toward [facility] Work Phone: Mental Status Date Assessment Result Facility 05-22-2023 Cognitive function Cognitive Sta tus Patient at [facility] Work Phone: Clinical Notes 07-16-2022 to 05-21-2023 Note Date & Type Note Facility 05-21-2023 History and physi leonard note Note Date/Time May 21, 2023 1:18p m [facility] [address] [place] [address] General Surgery H&P Signed Patient: Yoanna Snyder MR#: [id number] : 2000 Acct:[id number] Age/Sex: 23 / F Adm Date: 3 Loc: ER Room: Type: [facility] ER Attending Dr: Copies to: Emily Marin, ENROLLMENT COUNSELOR-C Angelina Jaylyn Juan FranciscoMARITZA sahley DO~ Date of Service: 05/21/2023 HPI History [...] negative unless noted below or in HPI [facility]LY [facility], [facility] Medical History (Updated 05/21/23 @ 13:17 by [...] % (Auto) 82.0, Lymph % (Auto) 11.1, Lyon % (Auto) 5.8, Eos % (Auto) 0.8, Baso % (Auto) 0.3, Nucleat RBC Rel Count 0.0, Neut # (Auto) 9.8 H, Lymph # (Auto) 1.3, Lyon # (Auto) 0.7, Eos # (Auto) 0.1, Baso # (Auto) 0.0, Monocyte Dist Width 17.88 05/21/23 09:24: Urine Color Yellow, Urine Appearance Clear, Urine pH 5.5, Ur Specific [place] 1.027, Urine Protein Negative, Urine Glucose (UA) [...] <Electronically signed by DO Niraj Guzman> 05/21/23 131 [facility] Work Phone: 1(765) 757-773809-30-2022 NotePlan of Care Patient instructed to call [...] to doctors? appointments. Primary Language for learning: Canadian. Insurance Insurance reviewed Visit number: 4 Onset Date: 2021 Subjective Living Environment: home Patient arrival: independent Patient alert and ready to participate in telehealth visit this date. Objective Progress to date: FPC goals: Improve overall vocal and swallowing health [...] verbalized understanding and agreement: yes Limited Codes ([facility] Only): [id number] Speech language treatment limited. Signatures Electronically signed by : Genna Rahman CCC-INSURANCE RISK SURVEYOR; Aug 20 2022 12:07PM EST (Author) [id number] Reason for visit Narrative* An interactive audio and video telecommunication system which permits real time communications between the patient (at the originating site) and provider (at the distant site) was utilized to providethis telehealth service. * Verbal consent was requested and obtained from YOANNA SNYDER on this date, 08/20/2022 09:00 AM , for a telehealth visit. [facility] [address] [place] Work Phone: 1(942) 965-439809-02-2022 NotePlan of Care Continue Current Plan of [...] to doctors? appointments. Primary Language for learning: [place]. Insurance Insurance reviewed Visit number: 3 Onset Date: 2021 Subjective Living Environment: home Patient arrival: independent Patient alert and ready to participate in telehealth visit this date. Objective Progress to date: FPC goals: Improve overall vocal and swallowing health [...] verbalized understanding and agreement: yes Limited Codes ([facility] Only): [id number] Speech language treatment limited. Signatures Electronically signed by : Genna Rahman CCC-INSURANCE RISK SURVEYOR; Jul 23 2022 10:13AM EST (Author) [id number] Reason for visit Narrative* An interactive audio and video telecommunication system which permits real time communications between the patient (at the originating site) and provider (at the distant site) was utilized to providethis telehealth service. * Verbal consent was requested and obtained from YOANNA SNYDER on this date, 07/23/2022 09:00 AM , for a telehealth visit. [facility] [address] [place] Work Phone: 1(624) 229-937708-26-2022 NotePlan of Care Continue Current Plan of [...] to doctors? appointments. Primary Language for learning: [place]. Insurance Insurance reviewed Visit number: 2 Onset Date: 2021 Subjective Living Environment: home Patient arrival: independent Patient alert and ready to participate in telehealth visit this date. Objective Progress to date: roasterman goals: Improve overall vocal and swallowing health [...] verbalized understanding and agreement: yes CPT Code 75334 Treatment of speech, language AND voice Signatures Electronically signed by : Genna Rahman CCC-INSURANCE RISK SURVEYOR; Jul 16 2022 9:39AM EST (Author) [id number] Reason for visit Narrative* An interactive audio and video telecommunication system which permits real time communications between the patient (at the originating site) and provider (at the distant site) was utilized to providethis telehealth service. * Verbal consent was requested and obtained from YOANNA SNYDER on this date, 07/16/2022 09:00 AM , for a telehealth visit. [facility] [address] [place] Work Phone: Evaluation noteNo assessment information available [facility] Diagnosis Onset Date Resolution Status Appendicitis acute Right lower quadrant pain ac iqugmiut [facility] Work Phone: History of Present [...] recommendations: treatment indicated (see goals below) [facility] Work Phone: History of Present illness Narrative* [...] 0 * Voice: level 4 initial [facility] [address] [place] Work Phone: History of [...] Strain: 0 * Voice: level 4 [facility] [address] [place] Work Phone: History of Present illness [...] 0 * Voice: level 4 initial [facility] [address] [place] Work Phone: Hospital Discharge instructions Additional [...] work notes can be done at the office.[facility] Work Phone: Progress note Author Niraj Guzman [facility] May 25, 2023 8:21am Note Date/Time May 22, 2023 1:05p m [facility] [address] [place] [address] General Surgery Progress Note Signed Patient: Yoanna Snyder MR#: [id number] : 2000 Acct:[id number] Age/Sex: 23 / F Adm Date: 3 Loc: 4N Room: 9R6606-9 Type: DIS INOo Attending Dr: Niraj Guzman [...] 100 Mg Capsule) 100 mg PO BID [facility] Stop: 05/20/24 20:59 Last Admin: 05/22/23 08:10 Dose: 100 mg Hydromorphone HCl (Hydromorphone 0.5 Mg/0.5 Ml Syringe) 1 mg IV-PUSH Q3H PRN PRN Reason: Pain Last Admin: 05/21/23 23:46 Dose: 1 mg Cefazolin Sodium (Ancef) 2 gm in 50 mls @ 100 mls/hr IV Q8H [facility] Stop: 05/22/23 18:59 Last Admin: 05/22/23 11:53 Dose: 100 mls/hr Metronidazole (Flagyl) 500 mg in 100 mls @ 100 mls/hr IV Q8H [facility] Stop: 05/22/23 17:59 Last Admin: 05/22/23 [...] % (Auto) 85.0, Lymph % (Auto) 10.7, Lyon % (Auto) 4.2, Eos % (Auto) 0.0, Baso % (Auto) 0.1, Nucleat RBC Rel Count 0.2, Neut # (Auto) 8.5 H, Lymph # (Auto) 1.1, Lyon # (Auto) 0.4, Eos # (Auto) 0.0, [...] % (Auto) 82.0, Lymph % (Auto) 11.1, [place] % (Auto) 5.8, Eos % (Auto) 0.8, Baso % (Auto) 0.3, Nucleat RBC Rel Count 0.0, Neut # (Auto) 9.8 H, Lymph # (Auto) 1.3, [place] # (Auto) 0.7, Eos # (Auto) 0.1, Baso # (Auto) 0.0, Monocyte Dist Width 17.88 05/21/23 09:24: Urine Color Yellow, Urine Appearance Clear, Urine pH 5.5, Ur Specific [place] 1.027, Urine Protein Negative, Urine Glucose (UA) [...] <Electronically signed by DO Niraj Guzman> 05/25/23 [address] [facility] Work Phone: Summary Purpose Family History No [...] section and content) DATE CREATED AUTHOR 05/19/2019 [facility] DATE CREATED AUTHOR AUTHOR'S ORGANIZ ATION 08/24/2022 [employer] DATE CREATED AUTHOR AUTHOR'S ORGANIZ ATION 11/19/2022 [facility] DATE CREATED AUTHOR AUTHOR'S ORGANIZ ATION 01/28/2023 [facility] DATE CREATED AUTHOR AUTHOR'S ORGANIZ ATION 01/29/2023 [facility] DATE CREATED AUTHOR AUTHOR'S ORGANIZ ATION 05/30/2023 [facility] DATE CREATED AUTHOR AUTHOR'S ORGANIZ ATION 02/15/2024 [facility] EPIC Goals (unrecognized section and content) Goals may be documented in a n alternate section Care Teams (unrecognized sec tion and content) Team Status: Active Member Role Status Dates 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 WHEAT INSPECTOR-C Primary Care Provider Active Team Status: Inactive Member Role Status Dates 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 NP-C Primary Care Provider Active Emily Marin , [facility] Emergency Provider Active Niraj Guzman , Admit Provider, Attending Provider Ac tive Team Status: Active Member Role Status Dates 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 WHEAT INSPECTOR-C Primary Care Provider Active Emily Marin , [facility]- Emergency Provider Active Niraj Guzman , [...] BE BASED ON THE PRIMARY CLINICAL RECORDS. [facility] [employer] provides no warranty or guarantee of the accuracy or completeness of information in this document.
[2024-03-16 07:52] LABS: Basophils Percent Auto 0.3 % (0.2-2.0); Eosinophils Absolute Auto 0.2 10^3/uL (0.0-0.7); Eosinophils Percent Auto 1.7 % (0.9-7.0); Hematocrit 42.1 % (36.0-48.0); Hemoglobin 13.6 g/dL (12.0-16.0); Immature Granulocytes Abs Auto 0.01 10^3/uL (0.00-0.03); Immature Granulocytes Pct Auto 0.1 % (0.0-0.5); Lymphocytes Absolute Auto 2.9 10^3/uL (1.2-3.8); Lymphocytes Percent Auto 29.5 % (20.5-60.0); Mean Corpuscular HGB Conc 32.3 g/dL (29.9-35.2); Mean Corpuscular Hemoglobin 27.9 pg (26.7-34.0); Mean Corpuscular Volume 86.3 fL (81.0-99.0); Mean Platelet Volume 9.8 fL (9.5-13.5); Monocytes Absolute Auto 0.6 10^3/uL (0.3-0.8); Monocytes Percent Auto 6.2 % (1.7-12.0); Neutrophils Percent Auto 62.2 % (43.0-75.0); Platelet Count 330 10^3/uL (150-450); Red Blood Count 4.88 10^6/uL (4.20-5.40); Red Cell Distribution Width 13.4 % (11.0-15.0); White Blood Count 9.7 10^3/uL (4.0-11.0)
[2024-03-16] MEDS: LACTATED RINGER'S SOLUTION 1,000 ML 50 ML IV (08:10)
[2024-03-16 08:15] LABS: HCG Quantitative <1 mIU/mL
--- NOTE | 2024-03-16 09:59 | P.ON_ITS ---
Brief Operative Note Date of procedure: 03/16/24 Pre-op diagnosis general: pelvic pain Post-op diagnosis: same as pre-op Procedure: NAME OF PROCEDURE: [diagnostic laparoscopy ] findings pelvic vascular congestion syndrome, normal appearing ovaries uterus and tubes PROCEDURE: The patient was taken back to the Operating Room where she was placed in dorsal lithotomy position after given general anesthesia. The patient was prepped and draped in normal sterile fashion. A sponge stick was placed into the patient's vagina. Attention was turned to the patient's abdomen, where a small umbilical incision was made. The fascia was tented using Carlos clamps and the fascia was entered sharply. Confirmation of intraabdominal placement of the 10 mm port was confirmed under direct visualization using a laparoscope. The patient's abdomen was then insufflated using CO2 gas with approximately 4 liters. A second port was placed left laterally, this was done under direct visualization with a 5 mm port. Survey of the patient's abdomen demonstrated normal liver and gallbladder. Survey of the patient's pelvic anatomy demonstrated normal appearing rt and lt ovary and tubes as well as normal appearing uterus. No endometrial implants could be noted, no evidence of any pelvic disease was seen, normal appearing pelvic cavity. All instruments were removed from the patient's abdomen. The patient's abdomen was deinsufflated of CO2 gas. The patient tolerated the procedure well. Sponge stick was removed from the patient's vagina. The patient's infraumbilical fascia was closed using #0 Vicryl on a GI needle. The patient's skin was closed laterally and infraumbilically using 4-0 Vicryl. The patient tolerated the procedure well. Sponge, lap and needle counts were correct x 2. The patient was taken to Recovery Room in stable condition. Anesthesia: LAYA Surgeon: Jose De Jesus Turner Senior Lead Software Engineer: Tierra Velez Estimated blood loss (mL): 5 Pathology: other Condition: stable Disposition: PACU Urinary Catheter Management Urinary Catheter Management Urethral: Cath placed during this visit: no
[2024-03-16] MEDS: HYDROMORPHONE HCL 0.5 MG/0.5 ML SYRINGE IV (10:40)
[2024-03-16] MEDS: HYDROCODONE/ACET 5-325 MG TABLET 1 TAB PO (10:48)
--- NOTE | 2024-03-16 12:10 | PC.NURSE ---
1144 PATIENT N THE RESTROOM AND URINATED YELLOW TINGED URINE
== END 2024-03-16 11:50 | disposition home or self-care (01) ==
PROVIDERS: PCP Nurse Practitioner Family; Visit Provider Obstetrics & Gynecology
PROC: (CPT 840; principal; 2024-03-16 08:55)
DX: R10.2 Pelvic and perineal pain (principal); N94.89 Other specified conditions associated with female genital organs and menstrual cycle; Z90.49 Acquired absence of other specified parts of digestive tract; Z30.432 Encounter for removal of intrauterine contraceptive device
CPT/HCPCS: 49320; 58301; 36415; 84702; 85025; J1094; J1170; J2704

== ENCOUNTER 2024-06-28 20:43 | Outpatient (REF) | payer OTHER, SELFPAY ==
--- OUTSIDE RECORDS SUMMARY | 2024-06-28 20:47 | XMS_ITS | CCD ---
Author Organization [facility] Care Team Providers Care Hardness Inspector Name Role Phone Jackie Rothman [facility] Primary Care Provider 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 S Unavailable Unavailable Unavailable ANUPAM, DR CAMPOS Admitting [...] Unavailable JUAN FRANCISCO, ANGELINA Admitting Unavailable JUAN FRANCISCO, ANGELINA Attending Unavailable JUAN FRANCISCO, ANGELINA Primary Care Unavailable KEVIN, DR STELLA Perez Consulting Unavailable JUAN FRANCISCO, ANGELINA Consulting Unavailable GABRIEL, DR HALEY Admitting Unavailable KARASIK, DR HALEY Attending Unavailable JUAN FRANCISCO, ANGELINA Primary Care Unavailable KARYEHUDAK, DR HALEY Consulting Unavailable Maroniajoaquin, Dr. Rosmery Haynes Attending U navailable Jayshree, Dr. Rosmery Haynes Attending U navailrambo UNKNOWN, PCP Primary Care Unavailable Jayshree, Dr. Rosmery Haynes Attending U navsam Esqueda Jr, Dr. Cecilia Rubio Referring U navailable Marsam, Dr. Rosmery Haynes Attending U navailrambo Martell, Dr. Rosmery Haynes Attending U navsam Martell, Dr. Rosmery Haynes Referring U navailable Dumot, Dr. Gustavo Cedeño Attending Unavailable Dumot, Dr. Gustavo Cedeño Attending Unavailable Dr. Rosmery Martell Referring U myles Chicas NP-[facility] Primary Care Provider T[facility] Emily Augustin Emergency Provider DO Niraj Guzman Admit Provider DO Niraj Guzman Attending Provider [phone] BETH BO Attending Unavailable CHRIS XAVIER Attending Unavailable BETH BO Attending Unavailable CHRIS XAVIER Attending Unavailable BETH BO Attending Unavailable LUIS SALMERON Attending Unavailable BETH BO Attending Unavailable LUIS SALMERON Attending Unavailable CHRIS XAVIER Attending Unavailable DREW Chicas Primary Care Provider YI [place] Emergency Provider Gerhard [place] Attending Unavailable Gerhard [place] Admitting Unavailable 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 Primary Care Unavailable Medications Current Medications Medication Drug Class(es) Dates Sig (Normalized) Sig (Original) [id number] Fumarate-Fa () 28-800 mg-mcg Tablet (4 sources) Start: 04-25-2021 [id number] Fumarate-Fa () 28-800 mg-mcg Tablet Active TAB PO April 25, 2021 7:11pm Start: 04-25-2021 End: 05-21-2023 [id number] Fumarate-Fa ( ) 28-800 mg-mcg Tablet Discontinued TAB PO April 25, 2021 12:00am May 21, 2023 7:30am terconazole 4 mg/ml vaginal cream (3 sources) Azole Antifungal Start: 05-21-2023 Terconazole A ctive VAGINAL May 21, 2023 12:00am traMADol hydrochloride 50 mg oral tablet (2 sources) Opioid Agonist Start: 05-22-2023 take 50 mg by mouth every six hours Tramadol Active 50 MG PO Q6H 20 7 May 22, 2023 12:00am Completed/Discontinued Medications Medication Drug Class(es) Dates Sig (Normalized) Sig (Original) Norethindrone-E.Est radiol-Iron (4 sources) Estrogen Start: 09-20-2020 End: 04-25-2021 Norethindrone-E.Estr [...] quadrant pain; Translations: [Right lower quadrant pain] 05-21-2023 Episodic Appendicitis and other appendiceal conditions (5 sources) Appendicitis; Translations: [Unspecified appendicitis] 05-21-2023 Episodic Esophageal disorders (2 sources) Gastro-esophageal reflux disease without esophagitis; Translations: [Gastro-esophageal reflux disease without esophagitis] Onset: 3 Chronic Headache; including migraine (3 sources) Migraine; Translations: [Migraine, unspecified, not intractable, without status migrainosus] 06-03-2022 Chronic Immunizations and screening for infectious disease (1 source) Encounter for screening for human papillomavirus (HPV); Translations: [ENC SCREENING HUMAN PAPILLOMAVIRUS] Onset: 2 Episodic Other connective tissue disease (4 sources) Musculoskeletal pain; Translations: [Myalgia, other site] [...] 3 Episodic Other and delivery including normal (4 sources) ; Translations: [Encounter for supervision of [...] satiety; Translations: [Early satiety] Onset: 3 Episodic Superficial injury; contusion (1 source) Insect bite (nonvenomous) of right upper arm, initial encounter; Translations: [Insect bite (nonvenomous) of right upper arm, initial encounter] Onset: 4 Episodic Unclassified (3 sources) COUGH, UNSPECIFIED; Translations: [COUGH, UNSPECIFIED] Onset: 2 Unclassified (1 source) Insect bites 05-27-2024 Past or Other Problems Problem Classification Problem Date Documented Da te Episodic/Chronic Other aftercare (1 source) 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 F [facility] Eosinophils Auto (Bld) [#/Vo l]Ordered By: Niraj Guzman on 05-22-2023 Eosinophils (Bld) [#/Vol] 0.0 10*3/uL 0.0-0.45 [facility] Eosinophils/100 WBC Auto (Bl d)Ordered By: Niraj Guzman on 05-22-2023 Eosinophils/100 WBC (Bld) 0.0 % . [facility] Erythrocyte distribution wid th Auto (RBC) [Ratio]Ordered By: Niraj Guzman on 05-22-2023 Erythrocyte distribution width (RBC) [Ratio] 14.3 % 11.9-15.3 [facility] Hematocrit Auto (Bld) [Volum e fraction]Ordered By: Niraj Guzman on 05-22-2023 Hematocrit (Bld) [Volume fraction] 37.0 % 34.0-46.4 [facility] Hemoglobin [Mass/volume] in BloodOrdered By: Niraj Guzman on 05-22-2023 Hemoglobin (Bld) [Mass/Vol] 12.1 g/dL 11.8-15.4 [facility] Leukocytes [#/volume] correc geo for nucleated erythrocytes in Blood by Automated counOrdered By: Niraj Guzman on 05-22-2023 WBC corrected for nucl RBC Auto (Bld) [#/Vol] 10.1 10*3/uL 3.8-11.6 [facility] Lymphocytes Auto (Bld) [#/Vo l]Ordered By: Niraj Guzman on 07-02-2023 Lymphocytes (Bld) [#/Vol] 1.1 10*3/uL 1.00-4.8 [facility] Lymphocytes/100 WBC Auto (Bl d)Ordered By: Niraj Guzman on 05-22-2023 Lymphocytes/100 WBC (Bld) 10.7 % . [facility] MCH Auto (RBC) [Entitic mass ]Ordered By: Niraj Guzman on 05-22-2023 MCH (RBC) [Entitic mass] 26.7 pg 24.7-34.3 [facility] MCHC Auto (RBC) [Mass/Vol]Or dered By: Niraj Guzman on 05-22-2023 MCHC (RBC) [Mass/Vol] 32.7 g/dL 32.0-35.0 [facility] MCV Auto (RBC) [Entitic vol] Ordered By: Niraj Guzman on 05-22-2023 MCV (RBC) [Entitic vol] 81.6 fL 80-100 [facility] Monocytes Auto (Bld) [#/Vol] Ordered By: Niraj Guzman on 05-22-2023 Monocytes (Bld) [#/Vol] 0.4 10*3/uL 0.0-0.8 [facility] Monocytes/100 WBC Auto (Bld) Ordered By: Niraj Guzman on 05-22-2023 Monocytes/100 WBC (Bld) 4.2 % . [facility] Neutrophils Auto (Bld) [#/Vo l]Ordered By: Niraj Guzman on 05-22-2023 Neutrophils (Bld) [#/Vol] 8.5 10*3/uL 1.8-7.7 [facility] Neutrophils/100 WBC Auto (Bl d)Ordered By: Niraj Guzman on 05-22-2023 Neutrophils/100 WBC (Bld) 85.0 % . [facility] Nucleated erythrocytes [Pres ence] in Blood by Automated countOrdered By: Niraj Guzman on 05-22-2023 Nucleated RBC Auto Ql (Bld) 0.2 /100{WBC} 0-0.5 [facility] Platelet mean volume Auto (B ld) [Entitic vol]Ordered By: Niraj Guzman on 05-22-2023 Platelet mean volume (Bld) [Entitic vol] 8.4 fL 6.3-10.7 [facility] Platelets Auto (Bld) [#/Vol] Ordered By: Niraj Guzman on 05-22-2023 Platelets (Bld) [#/Vol] 302 10*3/uL 150-450 [facility] RBC Auto (Bld) [#/Vol]Ordere d By: Niraj Guzman on 05-22-2023 RBC (Bld) [#/Vol] 4.54 10*6/uL 3.60-5.00 [facility] WBC Auto (Bld) [#/Vol]Ordere d By: Niraj Guzman on 05-22-2023 WBC (Bld) [#/Vol] 10.1 10*3/uL 3.8-11.6 [facility] Alanine aminotransferase [En zymatic activity/volume] in Serum or PlasmaOrdered By: Emily Marin on 05-21-2023 ALT [Catalytic activity/Vol] 16 U/L 7-52 [facility] Albumin [Mass/volume] in Ser um or Plasma by Bromocresol green (BCG) dye binding methoOrdered By: Emily Marin on 05-21-2023 Albumin BCG dye [Mass/Vol] 4.3 g/dL 3.5-5.7 [facility] Alkaline phosphatase [Enzyma tic activity/volume] in Serum or PlasmaOrdered By: Emily Marin on 05-21-2023 ALP [Catalytic activity/Vol] 131 U/L 34-104 [facility] Aspartate aminotransferase [ Enzymatic activity/volume] in Serum or PlasmaOrdered By: Emily Marin on 05-21-2023 AST [Catalytic activity/Vol] 13 U/L 13-39 [facility] Automated erythrocytes count in urine sediment (number/area)Ordered By: Emily Marin on 05-21-2023 RBC Auto (Urine sed) [#/Area] 0-1 [HPF] 0-4 [facility] Automated leukocytes count i n urine sediment (number/area)Ordered By: Emily Marin on 05-21-2023 WBC Auto (Urine sed) [#/Area] 3-4 [HPF] 0-4 [facility] Basophils Auto (Bld) [#/Vol] Ordered By: Emily Bullimore on 05-21-2023 Basophils (Bld) [#/Vol] 0.0 10*3/uL 0.0-0.2 [facility] Basophils/100 WBC Auto (Bld) Ordered By: Emily Bullimore on 05-21-2023 Basophils/100 WBC (Bld) 0.3 % . F [facility] Bilirubin Test strip Ql (U)O rdered By: Emily Bullimore on 05-21-2023 Bilirubin Ql (U) Negative Negative [facility] Bilirubin.total [Mass/volume ] in Serum or PlasmaOrdered By: Emily Bullimore on 05-21-2023 Bilirubin [Mass/Vol] 0.3 mg/dL 0.3-1.0 [facility] Calcium [Mass/volume] in Ser um or PlasmaOrdered By: Emily Bullimore on 05-21-2023 Calcium [Mass/Vol] 9.1 mg/dL 8.6-10.3 [facility] Carbon dioxide, total [Moles /volume] in Serum or PlasmaOrdered By: Emily Bullimore on 05-21-2023 CO2 [Moles/Vol] 24.3 mmol/L 21.0-31.0 [facility] Chloride [Moles/volume] in S diana or PlasmaOrdered By: Emily Bullimore on 05-21-2023 Chloride [Moles/Vol] 104 mmol/L 98-107 [facility] Color Auto (U)Ordered By: Yoanna varma Bullimore on 05-21-2023 Color (U) Yellow Yellow [facility] Creatinine [Mass/volume] in Serum or PlasmaOrdered By: Emily Bullimore on 05-21-2023 Creatinine [Mass/Vol] 0.67 mg/dL 0.60-1.20 [facility] Eosinophils Auto (Bld) [#/Vo l]Ordered By: Emily Bullimore on 05-21-2023 Eosinophils (Bld) [#/Vol] 0.1 10*3/uL 0.0-0.45 [facility] Eosinophils/100 WBC Auto (Bl d)Ordered By: Emily Bullimore on 05-21-2023 Eosinophils/100 WBC (Bld) 0.8 % . [facility] Erythrocyte distribution wid th Auto (RBC) [Ratio]Ordered By: Emily Marin on 05-21-2023 Erythrocyte distribution width (RBC) [Ratio] 14.2 % 11.9-15.3 [facility] Globulin Calc (S) [Mass/Vol] Ordered By: Emily Marin on 05-21-2023 Globulin (S) [Mass/Vol] 3.4 g/dL F [facility] Glucose [Mass/volume] in Ser um or PlasmaOrdered By: Emily Marin on 05-21-2023 Glucose [Mass/Vol] 114 mg/dL 70-100 [facility] Comment on above: ADA recommended refe rence rangeRandom Glucose Reference Range is dependent on time and content of last meal. Glucose of more than 200 mg/dL in a nonstressed, ambulatory subject supports the diagnosis of Diabetes Mellitus. HCG ( test) IAgilbert d Ql (U)Ordered By: KAREN WALKER on 05-21-2023 HCG ( test) Ql (U) Negative [facility] Hematocrit Auto (Bld) [Volum e fraction]Ordered By: Emily Marin on 05-21-2023 Hematocrit (Bld) [Volume fraction] 40.7 % 34.0-46.4 [facility] Hemoglobin [Mass/volume] in BloodOrdered By: Emily Marin on 05-21-2023 Hemoglobin (Bld) [Mass/Vol] 13.6 g/dL 11.8-15.4 [facility] Ketones Auto test strip (U) [Mass/Vol]Ordered By: Emily Marin on 05-21-2023 Ketones (U) [Mass/Vol] Negative Negative [facility] - UrinalysisOrder ed By: Emily Marin on 05-21-2023 Hyaline casts LM Ql (Urine sed) 0-8 [LPF] 0-8 [facility] Leukocytes [#/volume] correc geo for nucleated erythrocytes in Blood by Automated counOrdered By: Emily Marin on 05-21-2023 WBC corrected for nucl RBC Auto (Bld) [#/Vol] 12.0 10*3/uL 3.8-11.6 [facility] Lymphocytes Auto (Bld) [#/Vo l]Ordered By: Emily Bullimore on 05-21-2023 Lymphocytes (Bld) [#/Vol] 1.3 10*3/uL 1.00-4.8 [facility] Lymphocytes/100 WBC Auto (Bl d)Ordered By: Emily Bullimore on 05-21-2023 Lymphocytes/100 WBC (Bld) 11.1 % . [facility] MCH Auto (RBC) [Entitic mass ]Ordered By: Emily Bullimore on 05-21-2023 MCH (RBC) [Entitic mass] 27.3 pg 24.7-34.3 [facility] MCHC Auto (RBC) [Mass/Vol]Or dered By: Emily Bullimore on 05-21-2023 MCHC (RBC) [Mass/Vol] 33.3 g/dL 32.0-35.0 [facility] MCV Auto (RBC) [Entitic vol] Ordered By: Emily Bullimore on 05-21-2023 MCV (RBC) [Entitic vol] 81.9 fL 80-100 [facility] Monocyte distribution width [Entitic volume] in Blood by AutomatedOrdered By: Emily Bullimore on 05-21-2023 Monocyte distribution width Auto (Bld) [Entitic vol] 17.88 % 0.00-20.00 [facility] Monocytes Auto (Bld) [#/Vol] Ordered By: Emily Bullimore on 05-21-2023 Monocytes (Bld) [#/Vol] 0.7 10*3/uL 0.0-0.8 [facility] Monocytes/100 WBC Auto (Bld) Ordered By: Emily Bullimore on 05-21-2023 Monocytes/100 WBC (Bld) 5.8 % . [facility] Neutrophils Auto (Bld) [#/Vo l]Ordered By: Emily Bullimore on 05-21-2023 Neutrophils (Bld) [#/Vol] 9.8 10*3/uL 1.8-7.7 [facility] Neutrophils/100 WBC Auto (Bl d)Ordered By: Emily Marin on 05-21-2023 Neutrophils/100 WBC (Bld) 82.0 % . [facility] Nitrite Test strip Ql (U)Ord ered By: Emily Marin on 05-21-2023 Nitrite Ql (U) Negative Negative [facility] No Panel InformationOrdered By: Emily Marin on 05-21-2023 Estimated GFR (CKD-EPI) > 60.0 mL/Min [facility] Creatinine Clearance (Chem 134.83 [facility] Nucleated erythrocytes [Pres ence] in Blood by Automated countOrdered By: Emily Marin on 05-21-2023 Nucleated RBC Auto Ql (Bld) 0.0 /100{WBC} 0-0.5 [facility] Platelet mean volume Auto (B ld) [Entitic vol]Ordered By: Emily Marin on 05-21-2023 Platelet mean volume (Bld) [Entitic vol] 8.4 fL 6.3-10.7 [facility] Platelets Auto (Bld) [#/Vol] Ordered By: Emily Aaronimdionte on 05-21-2023 Platelets (Bld) [#/Vol] 313 10*3/uL 150-450 [facility] Potassium [Moles/volume] in Serum or PlasmaOrdered By: Emily Marin on 05-21-2023 Potassium [Moles/Vol] 4.0 mmol/L 3.5-5.1 [facility] Protein Auto test strip (U) [Mass/Vol]Ordered By: Emily Marin on 05-21-2023 Protein (U) [Mass/Vol] Negative Negative [facility] Protein [Mass/volume] in Ser um or PlasmaOrdered By: Emily Aaronimore on 05-21-2023 Protein [Mass/Vol] 7.7 g/dL 6.4-8.9 [facility] RBC Auto (Bld) [#/Vol]Ordere d By: Emily Aaronimore on 05-21-2023 RBC (Bld) [#/Vol] 4.97 10*6/uL 3.60-5.00 [facility] Serum or plasma albumin/glob ulin mass ratioOrdered By: Emily Marin on 05-21-2023 Albumin/Globulin [Mass ratio] 1.3 {ratio} [facility] Serum or plasma anion gap de terminationOrdered By: Emily Marin on 05-21-2023 Anion gap [Moles/Vol] 9.7 mmol/L 6.0-15.0 [facility] Sodium [Moles/volume] in Ser um or PlasmaOrdered By: Emily Marin on 05-21-2023 Sodium [Moles/Vol] 134 mmol/L 136-145 [facility] Specific gravity Auto test s trip (U) [Rel density]Ordered By: Emily Marin on 05-21-2023 Specific gravity (U) [Rel density] 1.027 1.001-1.030 [facility] Squamous epithelial cells de tection in urine sediment by light microscopyOrdered By: Emily Marin on 05-21-2023 Epithelial cells.squamous LM Ql (Urine sed) 5-9 [HPF] 0-2 [facility] Urea nitrogen [Mass/volume] in Serum or PlasmaOrdered By: Emily Marin on 05-21-2023 Urea nitrogen [Mass/Vol] 14 mg/dL 7-25 [facility] Urine bacteria detection by automated methodOrdered By: Emily Marin on 05-21-2023 Bacteria Auto Ql (U) 1+ None Seen [facility] Urine clarity by refractomet ry automatedOrdered By: Emily Marin on 05-21-2023 Clarity Refractometry automated (U) Clear Clear [facility] Urine glucose measurement by automated test strip (mass/volume)Ordered By: Emily Marin on 05-21-2023 Glucose Auto test strip (U) [Mass/Vol] Normal mg/dL Normal [facility] Urine hemoglobin detection b y automated test stripOrdered By: Emily Marin on 05-21-2023 Hemoglobin Auto test strip Ql (U) Negative Negative [facility] Urine leukocyte esterase det ection by automated test stripOrdered By: Emily Marin on 05-21-2023 Leukocyte esterase Auto test strip Ql (U) 1+ Negative [facility] Urobilinogen Auto test strip (U) [Mass/Vol]Ordered By: Emily Marin on 05-21-2023 Urobilinogen (U) [Mass/Vol] Normal mg/dL Normal [facility] WBC Auto (Bld) [#/Vol]Ordere d By: Emily Marin on 05-21-2023 WBC (Bld) [#/Vol] 12.0 10*3/uL 3.8-11.6 [facility] pH Auto test strip (U)Ordere d By: Emily Marin on 05-21-2023 pH (U) 5.5 [pH] 5.0-9.0 [facility] Esophageal MALAGON pH Capsule Results / Interpretationon 01-26-2023 Esophageal MALAGON pH Capsule Results / Interpretation PATIENTNAME Patient Name: Yoanna Snyder EXAMDATE Procedure Date: 01/26/2023 2:40 PM PATIENTID PATIENTACCOUNTNUM PATIENTDOB Date of : 2000 PATIENTROOM Site: ETHNICITY Ethnicity: Not or RACE Race: White PROVDR Attending MD: Gustavo Garrett DO, [id number] ENDOPROCEDURENAME Procedure: Esophageal MALAGON pH Capsule Results / Interpretation INDICATION Indications: Failure to respond to treatment of esophageal reflux PRIMARYPROVIDER Providers: Gustavo Garrett DO (Doctor) Gastroenterology EDREFPROVIDER Referring MD: Rosemry Martell MD CURRENT_MEDS Medicines: None COMPLIC Complications: [...] reflux episode: 8 minutes. - See the [employer] MALAGON data report for further details. DAY [...] Note Initiated On: 01/26/2023 2:40 PM Normal [facility] No Panel Informationon 01-26 [email or web address] } [facility] Work Phone: [facility] Work Phone: High Resolution esophageal m anometryon 01-20-2023 High Resolution esophageal manometry PATIENTNAME Patient Name: Yoanna Snyder EXAMDATE Procedure Date: 01/20/2023 1:00 PM PATIENTID PATIENTACCOUNTNUM PATIENTDOB Date of : 2000 PATIENTROOM Site: [facility] ETHNICITY Ethnicity: Not or RACE Race: White PROVDR Attending MD: Ross Du MD, [id number] ENDOPROCEDURENAME Procedure: High Resolution esophageal manometry INDICATION Indications: Esophageal dysphagia, Weight loss, pt sts difficulty to initiate to swallow solid food and hot cold liquids, that causes to cough, pt sts sometimes chest pain with just sitting up , pt denies acid reflux. pt sts off meds x 2-3 months. PRIMARYPROVIDER Providers: Ross Du MD (Doctor) Gastroenterology, Tati Gutierrez, ADRIENNE (Nurse) EDREFPROVIDER Referring MD: Rosmery Martell MD [...] Note Initiated On: 01/20/2023 12:49 PM Normal [facility] No Panel Informationon 01-20 [email or web address] [email or web address] } [facility] Work Phone: [facility] Work Phone: Order Reconciliationon 01-20 Order [...] Upper GI endoscopy PATIENTNAME Patient Name: Yoanna MORIN Procedure Date: 01/20/2023 2:26 PM PATIENTID PATIENTACCOUNTNUM PATIENTDOB Date of : 2000 PATIENTROOM Site: [place] [address] ETHNICITY Ethnicity: Not or RACE Race: White PROVDR Attending MD: Marcela Colon MD, [id number] ENDOPROCEDURENAME Procedure: Upper GI endoscopy INDICATION Indications: [...] Gastroenterology, Ross Du MD (Doctor) , Tati Gutierrez RN (Nurse) , Rosa Kaur RN (Nurse) , Jeaneth Malik RN (Nurse) EDREFPROVIDER Referring MD: Rosmery Martell MD [facility] Provider Care Team: 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 CURRENT_MEDS Medicines: [...] and recommendation (more content not included)... 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 You need speech therapy as part of your treatment. We will help you to schedule your speech appointment after your visit or you can call Speech Therapy Scheduling at [phone]. Please follow up pending the outcome of speech therapy. Welcome to Dr. Martell?s clinic. We are here to assist you through your ENT care at [facility]. Dr. Martell is an ENT surgeon who specializes in voice, airway and swallowing issues. This means that she specializes in taking care of patients with complex voice, airway and swallowing problems. Dr. Martell's office number is [phone]. Please use this number to contact her and her care team regardless of which office you use to access care. This number is the most direct way to communicate with all the members of the care team. Dr. Martell?s corporate secretary answers the office phone from 9am-4pm Mon-Fri. Call [phone] and push 2. She can help you with scheduling of appointments, general questions and information. You may need to leave a message if she is helping another patient. In this case, someone from the team will call you back the same day if you leave your message before 3pm, or the next business morning. Dr. Martell?s nurse and can be reached by calling [phone]. We make every effort to return phone calls the same day. If you are in need of urgent assistance after hours, please call [phone] and ask for ENT out of town collection clerk. Dr. Martell works closely with speech therapists as they work together to help solve your issues with speech and swallowing. You may see a speech therapist during your appointment if Dr. Martell feels this is needed. If you need to reach speech therapy to talk with a therapist or to schedule an appointment, please call [phone]. Others who may be included in your care are dieticians, social workers, audiologists, neurologists, and physical therapists. Dr. Martell will provide these referrals as needed. Please let her know if you would like to request a specific referral. For your convenience, Dr. Martell sees patients at different [facility] locations including the [facility] at [facility], and [facility] at the [facility]. While we try to make your appointments [...] All medical record entries made by the Monique were at my direction and personally dictated [...] PPI f (more content not included)... 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 appointments. Primary Language for learning: Emirati. Insurance Insurance reviewed Visit number: 1 Onset [...] content not included)... Normal [facility] Tobacco Screening.on Adult depression screening assessment Yes [facility] Work Phone: Fall risk assessment a) No falls within the last year [facility] Work Phone: Tobacco use status CPHS b) No U H [facility] Work Phone: Pap IG, rfx Aptima HPV ASCUo n 06-11-2022 . . Normal [facility] Comment on above: Performed By: #### P APHR7A #### [facility] [address] [place] [address] Dr. Garrett Galeas DIAGNOSIS: Comment [facility] Comment on above: Result Comment: NEGA TIVE FOR INTRAEPITHELIAL LESION OR MALIGNANCY. FUNGAL ORGANISMS MORPHOLOGICALLY CONSISTENT WITH ALLI SPECIES ARE PRESENT. Performed By: #### P APHR7A #### [facility] [address] [place] [address] Dr. Garrett Galeas Methodology: Comment [facility] Comment on above: Result Comment: This liquid based ThinPrep(R) pap test was screened with the use of an image guided system. Performed By: #### P APHR7A #### [facility] [address] [place] [address] Dr. Garrett Galeas Note: Comment Normal [facility] Comment on above: Result Comment: The Pap smear is a screening test designed to aid in the detection of premalignant and malignant conditions of the uterine cervix. It is not a diagnostic procedure and should not be used as the sole means of detecting cervical cancer. Both false-positive and false-negative reports do occur. . Performed By: #### P APHR7A #### [facility] [address] [place] [address] Dr. Garrett Galeas Performed by: Comment Normal [facility] Comment on above: Result Comment: Erick Wilson, Consumer Attorney (ASCP) Performed By: #### P APHR7A #### [facility] [address] [place] [address] Dr. Garrett Galeas Reflex Criteria: Comment Normal [facility] Comment on above: Result Comment: The HPV DNA reflex criteria were not met with this specimen result therefore, no HPV testing was performed. . Performed By: #### P APHR7A #### [facility] [address] [place] [address] Dr. Garrett Galeas Specimen adequacy: Comment Normal [facility] Comment on above: Result Comment: Sati sfactory for evaluation. Endocervical and/or squamous metaplastic cells (endocervical component) are present. Performed By: #### P APHR7A #### [facility] [address] [place] [address] Dr. Garrett Galeas CHLAMYDIA/GONOCOCCUS YESSENIA (SW AB/URINE/PAPon 04-30-2022 Chlamydia trachomatis, YESSENIA Negative Normal Negative [facility] Comment on above: Performed By: #### C T/NGNA #### [facility] [address] [place] [address] Dr. Garrett Galeas Neisseria gonorrhoeae, YESSENIA Negative Normal Negative [facility] Comment on above: Performed By: #### C T/NGNA #### [facility] [address] [place] [address] Dr. Garrett Galeas VAGINITIS/VAGINOSIS DNA PROB Diego 04-29-2022 Alli species Positive Abnormal Negative [facility] Comment on above: Performed By: #### V AGINT #### [facility] [address] [place] [address] Dr. Garrett Galeas Gardnerella vaginalis Negative Normal Negative [facility] Comment on above: Performed By: #### V AGINT #### [facility] [address] [place] [address] Dr. Garrett Galeas Trichomonas vaginalis Negative Normal Negative [facility] Comment on above: Performed By: #### V AGINT #### [facility] [address] [place] [address] Dr. Garrett Galeas CBC AUTO DIFFon 01-13-2022 BASO # 0.0 103/ul Normal 0.0-0.1 [facility] Comment on above: Performed By: #### C BC #### [facility] [address] [place] [address] Dr. Garrett Galeas Basophils/100 WBC (Bld) 0.5 % Normal 0.2-2.0 [facility] Comment on above: Performed By: #### C BC #### [facility] [address] [place] [address] Dr. Garrett Galeas EO # 0.3 103/ul Normal 0.0-0.7 [facility] Comment on above: Performed By: #### C BC #### [facility] [address] [place] [address] Dr. Garrett Galeas Eosinophils/100 WBC (Bld) 4.8 % Normal 0.9-7.0 [facility] Comment on above: Performed By: #### C BC #### [facility] [address] [place] [address] Dr. Garrett Galeas Erythrocyte distribution width (RBC) [Ratio] 16.6 % Critically high 11.0-15.0 [facility] Comment on above: Performed By: #### C BC #### [facility] [address] [place] [address] Dr. Garrett Galeas Hematocrit (Bld) [Volume fraction] 37.8 % Normal 36.0-48.0 [facility] Comment on above: Performed By: #### C BC #### [facility] [address] [place] [address] Dr. Garrett Galeas Hemoglobin (Bld) [Mass/Vol] 11.7 g/dL Critically low 12.0-16.0 [facility] Comment on above: Performed By: #### C BC #### [facility] [address] [place] [address] Dr. Garrett Galeas IG # 0.01 10e3/ul Normal 0.00-0.03 [facility] Comment on above: Performed By: #### C BC #### [facility] [address] [place] [address] Dr. Garrett Galeas IG % 0.1 % Normal 0.0-0.5 [facility] Comment on above: Performed By: #### C BC #### [facility] [address] [place] [address] Dr. Garrett Galeas LYMPH # 3.3 103/ul Normal 1.2-3.8 [facility] Comment on above: Performed By: #### C BC #### [facility] [address] [place] [address] Dr. Garrett Galeas Lymphocytes/100 WBC (Bld) 41.7 % Normal 20.5-60.0 [facility] Comment on above: Performed By: #### C BC #### [facility] [address] [place] [address] Dr. Garrett Galeas MANUAL DIFF REQ NO Normal [facility] Comment on above: Performed By: #### C BC #### [facility] [address] [place] [address] Dr. Garrett Galeas MCH (RBC) [Entitic mass] 24.0 pg Critically low 26.7-34.0 [facility] Comment on above: Performed By: #### C BC #### [facility] [address] [place] [address] Dr. Garrett Galeas MCHC (RBC) [Mass/Vol] 31.0 g/dL Normal 29.9-35.2 [facility] Comment on above: Performed By: #### C BC #### [facility] [address] [address] [address] Garrett Galeas MCV (RBC) [Entitic vol] 77.5 fL Critically low 81.0-99. 0 [facility] Comment on above: Performed By: #### C BC #### [facility] [address] [address] [address] Garrett Galeas MONO # 0.6 103/ul Normal 0.3-0.8 [facility] Comment on above: Performed By: #### C BC #### [facility] [address] [address] [address] Garrett Galeas Monocytes/100 WBC (Bld) 7.7 % Normal 1.7-12.0 [facility] Comment on above: Performed By: #### C BC #### [facility] [address] [place] [address] Dr. Garrett Galeas NEUT # 3.6 103/ul Normal 1.4-6.5 [facility] Comment on above: Performed By: #### C BC #### [facility] [address] [place] [address] Dr. Garrett Galeas Neutrophils/100 WBC (Bld) 45.2 % Normal 43.0-75.0 [facility] Comment on above: Performed By: #### C BC #### [facility] [address] [place] [address] Dr. Garrett Galeas Platelet mean volume (Bld) [Entitic vol] 10.3 fL Normal 9.5-13.5 [facility] Comment on above: Performed By: #### C BC #### [facility] [address] [place] [address] Dr. Garertt Galeas PLT 381 103/ul Normal 150-450 [facility] Comment on above: Performed By: #### C BC #### [facility] [address] [place] [address] Dr. Garrett Galeas RBC 4.88 106/ul Normal 4.20-5.40 [facility] Comment on above: Performed By: #### C BC #### [facility] [address] [address] [address] Garrett Galeas WBC 7.9 103/ul Normal 4.0-11.0 [facility] Comment on above: Performed By: #### C BC #### [facility] [address] [place] [address] NECK [address] W CONon CT [...] SHIV CALVO Date: 2022-01-13 06:46 Normal [facility] PROF CHEM 8 (BAS METB)on Anion gap [Moles/Vol] 14.5 mmol/L Normal [facility] Comment on above: Performed By: #### B MP #### [facility] [address] [place] [address] Dr. Garrett Galeas Calcium [Mass/Vol] 9.0 mg/dL Normal 8.4-10.2 [facility] Comment on above: Performed By: #### B MP #### [facility] [address] [place] [address] Dr. Garrett Galeas Chloride [Moles/Vol] 105 mmol/L Normal 98-107 [facility] Comment on above: Performed By: #### B MP #### [facility] [address] [address] [address] Garrett Galeas CO2 [Moles/Vol] 23.6 mmol/L Normal 22.0-30.0 [facility] Comment on above: Performed By: #### B MP #### [facility] [address] [address] [address] Garrett Galeas Creatinine [Mass/Vol] 0.61 mg/dL Normal 0.52-1.04 [facility] Comment on above: Performed By: #### B MP #### [facility] [address] [address] [address] Garrett Galeas EGFR-AF YEMENI >60 Normal >=60 [facility] Comment on above: Performed By: #### B MP #### [facility] [address] [address] [address] Garrett Galeas EGFR-NON AF YEMENI >60 Normal >=60 [facility] Comment on above: Performed By: #### B MP #### [facility] [address] [address] [address] Garrett Galeas Glucose [Mass/Vol] 103 mg/dL Normal 74-106 [facility] Comment on above: Performed By: #### B MP #### [facility] [address] [address] [address] Garrett Galeas Potassium [Moles/Vol] 4.1 mmol/L Normal 3.4-5.0 [facility] Comment on above: Performed By: #### B MP #### [facility] [address] [address] [address] Garrett Galeas Sodium [Moles/Vol] 139 mmol/L Normal 137-145 [facility] Comment on above: Performed By: #### B MP #### [facility] [address] [address] [address] Garrett Galeas Urea nitrogen [Mass/Vol] 20.0 mg/dL Critically high 7.0-17.0 [facility] Comment on above: Performed By: #### B MP #### [facility] [address] [place], [place] [address] Dr. Garrett Galeas Urea nitrogen/Creatinine [Mass ratio] 32.8 mg/mg Normal [facility] Comment on above: Performed By: #### B #### [facility] [address] [place], [place] [address] Dr. Garrett Galeas XR MODIFIED BARIUM SWALLOWon [...] by: STELLA BROWN Date: 2022-01-12 14:07 Normal [facility] OPERATIVE REPORTon OPERATIVE REPORT PATIENT NAME: YOANNA SNYDER DATE OF : 2000 ACCT: [id number] ROOM: [facility] ROOM DATE OF SURGERY: 05/08/2019 ATTENDING SURGEON: Héctor Ingram MD ANESTHESIA: General anesthesia. PREOPERATIVE DIAGNOSIS: [...] were given to the family. Attending Surgeon: Héctor Ingram MD TIBrenda #:[id number] /MB /ss Normal [facility] URINE TESTon 05-08 HCG ( test) Ql (U) Negative Normal NEG [facility] Comment on above: Performed By: #### U CG #### [facility] [address] [facility] [address] Vital Signs Date Time Vital Sign Value Performing Clinician Amari langley 05-27-2024 19:43-0400 Body height 165.1 cm HARVEST SUPERVISOR-C Angelina Juan Francisco Work Phone: [facility] 05-27-2024 19:43-0400 Body temperature 97.4 [degF] HARVEST SUPERVISOR-C Angelina Juan Francisco Work Phone: [facility] 05-27-2024 19:43-0400 Body weight 81.05 kg HARVEST SUPERVISOR-C Angelina Juan Francisco Work Phone: [facility] 05-27-2024 19:43-0400 Diastolic blood pressure 89 mm[Hg] HARVEST SUPERVISOR-C Angelina Juan Francisco Work Phone: [facility] 05-27-2024 19:43-0400 Heart rate 84 /min HARVEST SUPERVISOR-C Angelina Juan Francisco Work Phone: [facility] 05-27-2024 19:43-0400 Respiratory rate 20 /min HARVEST SUPERVISOR-C Angelina Juan Francisco Work Phone: [facility] 05-27-2024 19:43-0400 SaO2% (BldA) [Mass fraction] 98 % HARVEST SUPERVISOR-C Angelina Juan Francisco Work Phone: [facility] 05-27-2024 19:43-0400 Systolic blood pressure 145 mm[Hg] HARVEST SUPERVISOR-C Angelinaclaude Brownmer Work Phone: [facility] 05-22-2023 13:55-0400 Body temperature 97.8 [degF] HARVEST SUPERVISOR-C Angelinaclaude Brownmer Work Phone: [facility] 05-22-2023 13:55-0400 Diastolic blood pressure 88 mm[Hg] HARVEST SUPERVISOR-C Angelinaclaude Brownmer Work Phone: [facility] 05-22-2023 13:55-0400 Heart rate 90 /min HARVEST SUPERVISOR-C Angelinaclaude Brownmer Work Phone: [facility] 05-22-2023 13:55-0400 Respiratory rate 16 /min HARVEST SUPERVISOR-C Angelinaclaude Brownmer Work Phone: [facility] 05-22-2023 13:55-0400 SaO2% (BldA) [Mass fraction] 96 % HARVEST SUPERVISOR-C Angelina Brownmer Work Phone: [facility] 05-22-2023 13:55-0400 Systolic blood pressure 136 mm[Hg] HARVEST SUPERVISOR-C Angelinaclaude Chicas Work Phone: [facility] 05-22-2023 05:31-0400 Body weight 78.2 kg HARVEST SUPERVISOR-C 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 Work Phone: [facility] 05-21-2023 23:50-0400 Inhaled oxygen flow rate 10 L/min HARVEST SUPERVISOR-C Angelina Brownmer Work Phone: [facility] 05-21-2023 16:15-0400 Diastolic blood pressure 79 mm[Hg] HARVEST SUPERVISOR-C Angelinaclaude Brownmer Work Phone: [facility] 05-21-2023 16:15-0400 Heart rate 115 /min HARVEST SUPERVISOR-C Angelina Juan Francisco Work Phone: [facility] 05-21-2023 16:15-0400 Respiratory rate 16 /min HARVEST SUPERVISOR-C Angelina Juan Francisco Work Phone: [facility] 05-21-2023 16:15-0400 SaO2% (BldA) [Mass fraction] 99 % HARVEST SUPERVISOR-C 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 Work Phone: [facility] 05-21-2023 16:15-0400 Systolic blood pressure 145 mm[Hg] HARVEST SUPERVISOR-C 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 Work Phone: [facility] 05-21-2023 16:00-0400 Body temperature 98.4 [degF] HARVEST SUPERVISOR-C 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 Work Phone: [facility] 05-21-2023 15:22-0400 Inhaled oxygen flow rate 10 L/min HARVEST SUPERVISOR-C 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 Work Phone: [facility] 05-21-2023 14:57-0400 Body height 165.1 cm HARVEST SUPERVISOR-C 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 Work Phone: [facility] 05-21-2023 14:57-0400 Body mass index (BMI) [Ratio] 28.6 kg/m2 HARVEST SUPERVISOR-C 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 Work Phone: [facility] 05-21-2023 14:57-0400 Body weight 78 kg HARVEST SUPERVISOR-C 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 Work Phone: [facility] 06-29-2022 10:10-0400 Body height 167.64 cm 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 Work Phone: [facility] Professional Jac C Work Phone: 06-29-2022 10:10-0400 Body mass index (BMI) [Ratio] 26.02 kg/m2 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 [facility] Work Phone: 06-29-2022 10:10-0400 Body surface area Derived from formula 1.82 m2 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 Work Phone: [facility] Professional Jac C Work Phone: 06-29-2022 10:10-0400 Body temperature 97.1 [degF] 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 Work Phone: [facility] Professional [facility] C Work Phone: 06-29-2022 10:10-0400 Body weight 73.12 kg 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 [facility] Work Phone: 04-25-2021 19:09-0400 Body height 165.1 cm Jackie Mancillaw T Work Phone: [facility] 04-25-2021 19:09-0400 Body mass index (BMI) [Ratio] 23.6 kg/m2 Jackie Shelbymew T Work Phone: [facility] 04-25-2021 19:09-0400 Body temperature 98.8 [degF] Jackie Shelbymew T Work Phone: [facility] 04-25-2021 19:09-0400 Body weight 64.3 kg Jackie Mancillaw T Work Phone: [facility] 04-25-2021 19:09-0400 Diastolic blood pressure 80 mm[Hg] Jackie Shelbymew T Work Phone: [facility] 04-25-2021 19:09-0400 Heart rate 94 /min Jackie Shelbymew T Work Phone: [facility] 04-25-2021 19:09-0400 Respiratory rate 18 /min Jackie Shelbymew T Work Phone: [facility] 04-25-2021 19:09-0400 SaO2% (BldA) [Mass fraction] 96 % Jackie Shelbymew T Work Phone: [facility] 04-25-2021 19:09-0400 Systolic blood pressure 148 mm[Hg] Jackie Shelbymew T Work Phone: [facility] Encounters Encounter Date Encounter Type Care Provider Facility Start: 05-27-2024 End: 05-27-2024 Emergency department patient visit HARVEST SUPERVISOR-C Angelina Juan Francisco Work Phone: [facility] Work Phone: Start: 05-15-2024 End: 05-15-2024 ambulatory CHRISJET XAVIER Not Available Start: 04-12-2024 End: 04-12-2024 ambulatory LUIS FAVIOLA Not Available Start: 03-29-2024 End: 03-29-2024 ambulatory LUIS FAVIOLA Not Available Start: 02-14-2024 End: 02-14-2024 ambulatory BETH ANUPAM Not Available Start: 02-07-2024 End: 02-07-2024 ambulatory CHRIS Ny DUC Not Available Start: 01-26-2024 End: 01-26-2024 ambulatory BETH ANUPAM Not Available Start: 01-25-2024 End: 01-25-2024 ambulatory CHRIS XAVIER Not Available Start: 12-05-2023 End: 12-05-2023 ambulatory BETH ANUPAM Not Available Start: 11-09-2023 End: 11-09-2023 ambulatory BETH ANUPAM Not Available Start: 05-21-2023 End: 05-22-2023 Evaluation and management of inpatient HARVEST SUPERVISOR-C Angelina Juan Francisco Work Phone: [facility] [place] [address] Surgical Work Phone: Start: 01-26-2023 AUDIT Angelina Lao r Work Phone: UR-Vvrxhlbscqvgirbo-Lcj ja DHI Work Phone: Start: 01-20-2023 End: 01-20-[address] Gustavo Garrett Facility:[facility] Start: 12-27-2022 AUDIT Angelina Lao r Work Phone: MI-Oiwviukqmlqlwm-Blnqb an Voice Work Phone: Start: 11-16-2022 End: 11-16-[address] BETH BO Facility: Start: 08-23-2022 AUDIT Angelina Lao r Work Phone: PC-Vxrlodqefmxbmx-Bcfbl an Voice Work Phone: Start: 08-20-[address] Rosmery Martell Facility:[id number] Start: 08-20-2022 AUDIT Angelina Lao r Work Phone: MH-Pkknkyxvvrmlco-Bzcmz an Voice Work Phone: Start: 08-20-2022 Patient encounter procedure 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 [facility] [address] [place] Work Phone: Start: 07-23-[address] Rosmery Martell Facility:[id number] Start: 07-23-2022 Patient encounter procedure 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 Work Phone: [facility] [address] [place] Work Phone: Start: 07-16-2022 Patient encounter procedure 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 Work Phone: [facility] [address] [place] Work Phone: Start: 07-16-[address] Rosmery Martell Facility:[id number] Start: 06-29-[address] Rosmery Martell Facility:[id number] Start: 06-29-2022 Patient encounter procedure 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 Work Phone: [facility] Work Phone: Start: 06-29-2022 ambulatory PCP UNKNOWN Facility:[id number] Start: 06-09-2022 Encounter for cervic al smear to confirm findings of recent normal smear following initial abnormal smear DR BETH BO [facility] Start: 06-08-2022 End: 06-08-[address] BETH BO Facility:[facility]1 Start: 06-08-2022 End: 06-08-2022 Encounter for cervical smear to confirm findings of recent normal smear following initial abnormal smear DR BETH BO Facility:[facility] Start: 04-27-2022 End: 04-27-[address] SUDHA RIOS Facility:[facility] Start: 01-13-2022 End: 01-13-2022 ambulatory ANGELINA CHICAS Facility:[facility] Start: 01-12-2022 End: 01-13-2022 ambulatory ANGELINA CHICAS Facility:[facility] Start: 04-25-2021 End: 04-25-2021 Emergency department patient visit Jackie Curiel Work Phone: [facility] Procedures Date Procedure Procedure Detail Performing Clinician Start: 05-21-2023 Laparoscopic appendectomy HARVEST SUPERVISOR-Gunner Chicas Work Phone: Start: 05-21-2023 Computed tomography of abdomen and pelvis with contrast HARVEST SUPERVISOR-C 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 Work Phone: Plan of Treatment Date Care Activity Detail Author Start: 05-22-2023 [facility] Start: 05-21-[address] [facility] Start: 05-21-2023 [facility] Start: 01-20-2023 EGDBRAVO, Provider: Marcela Colon, Status: Pen, Time: 2:30 PM EGDBKALI, Provider: Marcela Colon, Status: Pen, Time: 2:30 PM [facility] Work Phone: Start: 08-20-2022 VIRFUVKARIMEE, Provider : Genna Rahman, Status: Pen, Time: 9:00 AM VIRFUVHOME, Provider: Genna Rahman, Status: Pen, Time: 9:00 AM [facility] [address] [place] Work Phone: Start: 07-30-2022 VIRFUVKARIMEE, Provider : Genna Rahman, Status: Pen, Time: 9:45 AM VIRFUVKARIMEE, Provider: Genna Rahman, Status: Pen, Time: 9:45 AM [facility] Work Phone: Start: 07-23-2022 VIRFUVKARIMEE, Provider : Genna Rahman, Status: Pen, Time: 9:00 AM VIRFUVKARIMEE, Provider: Genna Rahman, Status: Pen, Time: 9:00 AM [facility] Professional Jac C Work Phone: Start: 07-16-2022 VIRRUTHANN, Provider : Genna Rahman, Status: Pen, Time: 9:00 AM AYLIN, Provider: Genna Rahman, Status: Pen, Time: 9:00 AM [facility] Professional Jac C Work Phone: Patient Education [facility] Patient referral [facility] Immunizations Immunization Date Immunization Notes Care Provider Fa cili 08-22-2020 influenza virus vacc ine, unspecified formulation Angelinaclaude Chicas Work Phone: [facility] Work Phone: 09-01-2018 meningococcal B vacc ine, recombinant, OMV, adjuvanted Angelina S Juan Francisco Work Phone: [facility] Work Phone: 07-25-2018 meningococcal B vacc ine, recombinant, OMV, adjuvanted Angelina S Juan Francisco Work Phone: [facility] Work Phone: 07-25-2018 meningococcal polysaccharide (groups A, C, Y and W-135) diphtheria toxoid conjugate vaccine (MCV4P) 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 Work Phone: [facility] Work Phone: 09-05-2014 influenza virus vacc ine, live, attenuated, for intranasal use 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 Work Phone: [facility] Work Phone: 08-04-2012 influenza virus vacc ine, whole virus 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 Work Phone: [facility] Work Phone: 11-01-2011 hepatitis A vaccine, pediatric/adolescent dosage, 2 dose schedule 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 Work Phone: [facility] Work Phone: 11-01-2011 human papilloma viru s vaccine, quadrivalent Angelina S Juan Francisco Work Phone: [facility] Work Phone: 07-29-2011 human papilloma viru s vaccine, quadrivalent Angelina S Juan Francisco Work Phone: [facility] Work Phone: 03-10-2011 hepatitis A vaccine, pediatric/adolescent dosage, 2 dose schedule Angelina S Juan Francisco Work Phone: [facility] Work Phone: 03-10-2011 human papilloma viru s vaccine, quadrivalent Angelina S Juan Francisco Work Phone: [facility] Work Phone: 03-10-2011 meningococcal polysaccharide (groups A, C, Y and W-135) diphtheria toxoid conjugate vaccine (MCV4P) 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 Work Phone: [facility] Work Phone: 03-10-2011 tetanus toxoid, redu aysha diphtheria toxoid, and acellular pertussis vaccine, adsorbed Angelina S Juan Francisco Work Phone: [facility] Work Phone: 02-11-2005 diphtheria, tetanus toxoids and acellular pertussis vaccine, unspecified formulation Angelina S Juan Francisco Work Phone: [facility] Work Phone: 02-11-2005 measles, mumps and rubella virus vaccine Angelina S Juan Francisco Work Phone: [facility] Work Phone: 02-11-2005 poliovirus vaccine, inactivated Angelina S Juan Francisco Work Phone: [facility] Work Phone: 07-12-2002 measles, mumps and rubella virus vaccine Angelina S Juan Francisco Work Phone: [facility] Work Phone: 2000 diphtheria, tetanus toxoids and acellular pertussis vaccine, unspecified formulation Angelina S Juan Francisco Work Phone: [facility] Work Phone: 2000 haemophilus influenz ae type b conjugate and Hepatitis B vaccine 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 Work Phone: [facility] Work Phone: 2000 poliovirus vaccine, inactivated Angelina S Juan Francisco Work Phone: [facility] Work Phone: 2000 diphtheria, tetanus toxoids and acellular pertussis vaccine, unspecified formulation Angelina S Juan Francisco Work Phone: [facility] Work Phone: 2000 haemophilus influenz ae type b vaccine, HbOC conjugate Angelina S Juan Francisco Work Phone: [facility] Work Phone: 2000 poliovirus vaccine, inactivated Angelina S Juan Francisco Work Phone: [facility] Work Phone: 2000 diphtheria, tetanus toxoids and acellular pertussis vaccine, unspecified formulation Angelina S Juan Francisco Work Phone: [facility] Work Phone: 2000 haemophilus influenz ae type b conjugate and Hepatitis B vaccine Angelina S Juan Francisco Work Phone: [facility] Work Phone: 2000 poliovirus vaccine, inactivated Angelina S Juan Francisco Work Phone: [facility] Work Phone: 2000 hepatitis B vaccine, pediatric or pediatric/adolescent dosage Angelina S Juan Francisco Work Phone: [facility] Work Phone: Payers Date Payer Category Payer Self-pay [id number] 2000 Unknown [id number] 2000 Unknown [id number] 2000 Unknown [id number] 2.16.840.1.742481.3.579.2.593 2000 Unknown [id number] .16.840.1.582839.3.579.2.593 2000 Unknown [id number] 2.16.840.1.277666.3.579.2.593 2000 Unknown [id number] 2.16.840.1.849252.3.579.2.593 2000 Unknown [id number] 2.16.840.1.153762.3.579.2.356 2000 Unknown [id number] 2.16.840.1.709830.3.579.2.356 2000 Unknown [id number] 2.16.840.1.813966.3.579.2.356 2000 Unknown [id number] 2.16.840.1.720023.3.579.2.356 2000 Unknown [id number] 2.16.840.1.721476.3.579.2.356 2000 Unknown [id number] 2.16.840.1.142027.3.579.2.356 2000 Unknown [id number] 2.16.840.1.208071.3.579.2.356 2000 Unknown [id number] 2.16.840.1.731681.3.579.2.1258 2000 Unknown [id number] 2.16.840.1.568278.3.579.2.1258 2000 Unknown [id number] 2.16.840.1.807714.3.579.2.1258 2000 Unknown [id number] 2.16.840.1.536341.3.579.2.1258 2000 Unknown [id number] 2.16.840.1.030866.3.579.2.1258 2000 Unknown [id number] 2.16.840.1.459067.3.579.2.1258 2000 Unknown [id number] 2.16.840.1.033842.3.579.2.1258 2000 Unknown [id number] 2.16.840.1.988392.3.579.2.1259 2000 Unknown [id number] 2.16.840.1.133349.3.579.2.1259 1959 Medicaid [id number] Unknown [id number] Unknown [facility] [place] Unknown [id number] 2.16.840.1.052877.3.579.2.531 Social History Date Type Detail Facility Start: 04-25-2021 End: 05-27-2024 Tobacco smoking status NHIS Never smoked tobacco (finding) [facility] Start: 2000 Sex Assigned At Female [facility] Non-smoker [facility] Work Phone: NEGATED: Highlighted row [facility] Goals Date Patient Goal Desired Activity /State Functional Status Date Assessment Result Facility 05-22-2023 Functional status Patient is Pro gressing Toward Baseline [facility] Work Phone: Mental Status Date Assessment Result Facility 05-22-2023 Cognitive function Cognitive Sta tus Patient at Baseline [facility] Work Phone: Clinical Notes 07-16-2022 to 05-27-2024 Note Date & Type Note Facility 05-27-2024 Hospital Discharg e instructions Additional Instructions Use Benadryl every 6-8 hours for allergy and itching. [facility] Work Phone: 05-21-2023 History and physi leonard note Note Date/Time May 21, 2023 1:18p m [facility] [address] [place] [address] General Surgery H&P Signed Patient: Yoanna Snyder MR#: [id number] : 2000 Acct:[id number] Age/Sex: 23 / F Adm Date: 3 Loc: ER Room: Type: [facility] ER Attending Dr: Copies to: Emily Marin, JAREN Chicas, MARITZA Guzman DO~ Date of Service: 05/21/2023 HPI History [...] negative unless noted below or in HPI [facility] Medical History (Updated 05/21/23 @ 13:17 [...] % (Auto) 82.0, Lymph % (Auto) 11.1, Mcdonald % (Auto) 5.8, Eos % (Auto) 0.8, Baso % (Auto) 0.3, Nucleat RBC Rel Count 0.0, Neut # (Auto) 9.8 H, Lymph # (Auto) 1.3, Mcdonald # (Auto) 0.7, Eos # (Auto) 0.1, Baso # (Auto) 0.0, Monocyte Dist Width 17.88 05/21/23 09:24: Urine Color Yellow, Urine Appearance Clear, Urine pH 5.5, Ur Specific Weldon 1.027, Urine Protein Negative, Urine Glucose (UA) [...] <Electronically signed by DO Niraj Guzman> 05/21/23 1318 [facility] Work Phone: 1(793) 439-761809-30-2022 NotePlan of Care Patient instructed to call [...] to doctors? appointments. Primary Language for learning: Emirati. Insurance Insurance reviewed Visit number: 4 Onset Date: 2021 Subjective Living Environment: home Patient arrival: independent Patient alert and ready to participate in telehealth visit this date. Objective Progress to date: intermediate designer goals: Improve overall vocal and swallowing health [...] verbalized understanding and agreement: yes Limited Codes ([facility] Only): [id number] Speech language treatment limited. Signatures Electronically signed by : Genna Rahman CCC-PROJECT MGR; Aug 20 2022 12:07PM DAISY (Author) [id number] Reason for visit Narrative* An interactive audio and video telecommunication system which permits real time communications between the patient (at the originating site) and provider (at the distant site) was utilized to providethis telehealth service. * Verbal consent was requested and obtained from YOANNA SNYDER on this date, 08/20/2022 09:00 AM , for a telehealth visit. [facility] [address] [place] Work Phone: 1(216) 354-336509-02-2022 NotePlan of Care Continue Current Plan of [...] to doctors? appointments. Primary Language for learning: Emirati. Insurance Insurance reviewed Visit number: 3 Onset Date: 2021 Subjective Living Environment: home Patient arrival: independent Patient alert and ready to participate in telehealth visit this date. Objective Progress to date: longterm goals: Improve overall vocal and swallowing health [...] verbalized understanding and agreement: yes Limited Codes ([facility] Only): [id number] Speech language treatment limited. Signatures Electronically signed by : Genna Rahman CCC-PROJECT MGR; Jul 23 2022 10:13AM EST (Author) [id number] Reason for visit Narrative* An interactive audio and video telecommunication system which permits real time communications between the patient (at the originating site) and provider (at the distant site) was utilized to providethis telehealth service. * Verbal consent was requested and obtained from YOANNA SNYDER on this date, 07/23/2022 09:00 AM , for a telehealth visit. [facility] [address] [place] Work Phone: [phone]) 273-882308-26-2022 NotePlan of Care Continue Current Plan of [...] to doctors? appointments. Primary Language for learning: Emirati. Insurance Insurance reviewed Visit number: 2 Onset Date: 2021 Subjective Living Environment: home Patient arrival: independent Patient alert and ready to participate in telehealth visit this date. Objective Progress to date: longterm goals: Improve overall vocal and swallowing health [...] verbalized understanding and agreement: yes CPT Code 50259 Treatment of speech, language AND voice Signatures Electronically signed by : Genna Rahman CCC-PROJECT MGR; Jul 16 2022 9:39AM EST (Author) [id number] Reason for visit Narrative* An interactive audio and video telecommunication system which permits real time communications between the patient (at the originating site) and provider (at the distant site) was utilized to providethis telehealth service. * Verbal consent was requested and obtained from YOANNA LILLIAN on this date, 07/16/2022 09:00 AM , for a telehealth visit. [facility] [address] [place] Work Phone: Evaluation noteNo assessment information available [facility] Diagnosis Onset Date Resolution Status Appendicitis acute Right lower quadrant pain ac [place] [facility] Work Phone: History of Present illness [...] Treatment recommendations: treatment indicated (see goals below) [facility] Work Phone: History of Present illness [...] Strain: 0 * Voice: level 4 initial [facility] [address] [place] Work Phone: History of Present [...] * Voice: level 4 initial [facility] [address] [place] Work Phone: History of [...] * Voice: level 4 initial [facility] [address] [place] Work Phone: Hospital Discharge instructions Additional [...] work notes can be done at the office.[facility] Work Phone: Progress note Author Niraj Guzman [facility] May 25, 2023 8:21am Note Date/Time May 22, 2023 1:05p m [facility] [address] [place] [address] General Surgery Progress Note Signed Patient: Yoanna Snyder MR#: [id number] : 2000 Acct:[id number] Age/Sex: 23 / F Adm Date: 3 Loc: 4N Room: [address] [place] [address] Type: DIS INOo Attending Dr: Niraj Guzman [...] 100 Mg Capsule) 100 mg PO BID [facility] Stop: 05/20/24 20:59 Last Admin: 05/22/23 08:10 Dose: 100 mg Hydromorphone HCl (Hydromorphone 0.5 Mg/0.5 Ml Syringe) 1 mg IV-PUSH Q3H PRN PRN Reason: Pain Last Admin: 05/21/23 23:46 Dose: 1 mg Cefazolin Sodium (Ancef) 2 gm in 50 mls @ 100 mls/hr IV Q8H [facility] Stop: 05/22/23 18:59 Last Admin: 05/22/23 11:53 Dose: 100 mls/hr Metronidazole (Flagyl) 500 mg in 100 mls @ 100 mls/hr IV Q8H [facility] Stop: 05/22/23 17:59 Last Admin: 05/22/23 09:33 [...] 106 H 20 122/69 98 Room Air 05/22/23 11:15 05/22/23 11:15 05/22/23 11:15 05/22/23 [...] % (Auto) 85.0, Lymph % (Auto) 10.7, Mcdonald % (Auto) 4.2, Eos % (Auto) 0.0, Baso % (Auto) 0.1, Nucleat RBC Rel Count 0.2, Neut # (Auto) 8.5 H, Lymph # (Auto) 1.1, Mcdonald # (Auto) 0.4, Eos # (Auto) 0.0, [...] % (Auto) 82.0, Lymph % (Auto) 11.1, Mcdonald % (Auto) 5.8, Eos % (Auto) 0.8, Baso % (Auto) 0.3, Nucleat RBC Rel Count 0.0, Neut # (Auto) 9.8 H, Lymph # (Auto) 1.3, Mcdonald # (Auto) 0.7, Eos # (Auto) 0.1, Baso # (Auto) 0.0, Monocyte Dist Width 17.88 05/21/23 09:24: Urine Color Yellow, Urine Appearance Clear, Urine pH 5.5, Ur Specific Weldon 1.027, Urine Protein Negative, Urine Glucose (UA) [...] signed by DO Niraj Guzman> 05/25/23 0821 [facility] Work Phone: Summary Purpose Family History [...] for Visit Appendicitis Right lower quadrant pain Chief Complaint bug bite: rash Additional Source Comments INFORMATION SOURCE (unrecogn ized section and content) DATE CREATED AUTHOR 05/19/2019 [facility] DATE CREATED AUTHOR AUTHOR'S ORGANIZ ATION 08/24/2022 [employer] DATE CREATED AUTHOR AUTHOR'S ORGANIZ ATION 11/19/2022 [facility] DATE CREATED AUTHOR AUTHOR'S ORGANIZ ATION 01/28/2023 [facility] DATE CREATED AUTHOR AUTHOR'S ORGANIZ ATION 01/29/2023 [facility] DATE CREATED AUTHOR AUTHOR'S ORGANIZ ATION 05/16/2024 [facility] EPIC DATE CREATED AUTHOR AUTHOR'S ORGANIZ ATION 06/14/2024 [facility] Goals (unrecognized section and content) Goals may be documented in a n alternate sectionGoals may be documented in an alternate section Care Teams (unrecognized sec tion and content) Team Status: Active Member Role Status Dates 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 NP-C Primary Care Provider Active Team Status: Inactive Member Role Status Dates 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 NP-C Primary Care Provider Active Emily Marin [facility] Emergency Provider Active Niraj Guzman DO Admit Provider, Attending Provider Ac tive Team Status: Active Member Role Status Dates 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 NP-Gunner Primary Care Provider Active Emily Marin [facility] Emergency Provider Active Niraj Guzman DO Admit Provider, Attending Provider Ac tive Team Status: Inactive Member Role Status Dates 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 NP-Gunner Primary Care Provider Active Start: May 27, 2024 End: May 27, 2024 Gerhard Moctezuma APRN Emergency Provider Active Start: May 27, 2024 End: May 27, 2024 FOR RECORDS PERTAINING TO PATIENTS WHO ARE [...] BE BASED ON THE PRIMARY CLINICAL RECORDS. [facility] [employer] [facility]. provides no warranty or guarantee of the accuracy or completeness of information in this document.
[2024-07-04 15:08] LABS: Age Gdln ACOG Testing Note (.); IGP, rfx Aptima HPV ASCU Note (.)
== END 2024-06-28 20:44 | disposition home or self-care (01) ==
LOC: LAB 20:43
PROVIDERS: PCP Nurse Practitioner Family; Visit Provider Physician Assistant
DX: Z01.419 Encounter for gynecological examination (general) (routine) without abnormal findings (principal)
CPT/HCPCS: 88175

== ENCOUNTER 2025-07-08 15:54 | Outpatient (REF) | payer OTHER, SELFPAY ==
--- OUTSIDE RECORDS SUMMARY | 2025-01-02 06:17 | XMS_ITS ---
Author Organization [facility] in [place] Address [address] [place] [address] Care Team Providers Care Hotel Manager Name Role Phone None, Unknown or Primary Care Provider Unavailab Angelina Monzon [phone] Medications Medication SIG (Take, Route, Frequency, Duration) Notes Start Date End Date Status Permethrin 5 % 1 application Externally once for 1 days apply, leave on for 8 to 14 hours before removing by washing 01/02/2025 Active Encounters Encounter Location Date Provider Diagnosis [facility] [address] [place] [address] 01/02/2025 Angelina Preciado Plan Of Treatment Medication Medication Name Sig Start Date Stop Date Notes Permethrin 5 % 1 application Forest Fire Officer ally once for 1 days 01/02/2025 apply, leave on for 8 to 14 hours before removing by washing Progress Notes * LILLIAN Antonioolga TDOB:2000 (24 yo F)Acc No.[id number]:01/02/2025 Patient: Yoanna BOWDEN :2000 A ge:24 Y S ex:Female Address:[address] [place] [address] * Refills Start Permethrin Cream, 5 %, Externally, 1, 1 application, once, 1 days, Refills=0 Subjective: * Chief Complaints: * * Medical History: * Surgical History: * Hospitalization/Major Diagno stic Procedure: * Medications: Objective: * Vitals: * Physical Examination: Assessment: Plan: * Treatment: * Procedure Codes: * true * Date: Generated for Chela bearden/Valente/Ignacia on: 0 07/08/2025 03:58 PM EDT
--- OUTSIDE RECORDS SUMMARY | 2025-01-04 11:14 | XMS_ITS ---
Author Organization [facility] in [place] Address [address] [place] [address] Care Team Providers Care Shipping Support Clerk Name Role Phone None, Unknown or Primary Care Provider Unavailab Angelina Monzon [phone] REASON FOR VISIT update on rash Medications Medication SIG (Take, Route, Fr equency, Duration) Notes Start Date End Date Status predniSONE 20 MG 2 tablet Orally Once a day for 3 days 01/04/2025 Active Encounters Encounter Location Date Provider Diagnosis [facility] [address] [place] [address] 01/04/2025 Angelina Preciado Plan Of Treatment Medication Medication Name Sig Start Date Stop Date Notes predniSONE 20 MG 2 tablet Orally Once a day for 3 days Progress Notes * Antonio SNYDERolga TDOB:2000 (24 yo F)Acc No.[id number]:01/04/2025 Patient: Brenda LANGSTON Yoanna Curiel :2000 A ge:24 Y S ex:Female Address:[address], [place] [address] * Refills Start predniSONE Tablet, 20 MG, Orally, 6 Tablet, 2 tablet, Once a day, 3 days, Refills=0 Subjective: * Chief Complaints: * U pdate on rash * Medical History: * Surgical History: * Hospitalization/Major Diagno stic Procedure: * Medications: Objective: * Vitals: * Physical Examination: Assessment: Plan: * Treatment: * Procedure Codes: * true * Date: Generated for Chela bearden/Valente/Francesitting on: 0 07/08/2025 10:34 AM EDT
--- OUTSIDE RECORDS SUMMARY | 2025-07-08 10:00 | XMS_ITS | Encounter Summary ---
Author Organization [facility] Address [address] [place] [address] Care Team Providers Care Assurance Analyst Name Role Phone Unallocated, Noms Provider Primary Care Provi laith Reason for Visit * Reason Comments Well Women Visit Encounter Details Date Type Department Care Team (Late Contact Info) Description 07/08/2025 10:00 AM EDT Office Visit [facility] [address] [facility] [phone] Jose De Jesus Turner DO [address] [facility] [address] [place], [place] [id number] Well woman exam with routine gynecological exam; Yeast infection; Pelvic pain in female Social History Tobacco Use Types Packs/Day Years Used Date Smoking Tobacco: Never Smokeless Tobacco: Never Alcohol Use Standard Drinks/Week Comments Never 0 (1 standard drink = 0.6 oz pur e alcohol) caffeine: none Comments No Sex and Gender Information Value Date Recorded Sex Assigned at Female 05/11/2023 9:33 AM EDT Legal Sex Female 11:33 PM EDT Gender Identity Female 05/11/2023 9:33 AM EDT Sexual Orientation Not on file documented as of this encounter Last Filed Vital Signs Vital Sign Reading Time Taken Comments Blood Pressure 114/72 07/08/2025 9:58 AM EDT Pulse - - Temperature - - Respiratory Rate - - Oxygen Saturation - - Inhaled Oxygen Concentration - - Weight 83.8 kg (184 lb 12.8 oz) 07/08/2025 9:58 AM EDT Height - - Body Mass Index 30.75 07/03/2024 1:31 PM EDT documented in this encounter Progress Notes * Lois Menchaca LPN - 07/08/2025 10:00 AM EDT Reason for Appointment: Patient ID: Yoanna Snyder is a 25 y.o. female who presents for Well Women Visit Patient presents today for Annual Exam. MEDICATIONS Current Outpatient Medications Medication Instructions clobetasol (Temovate) 0.05 % cream APPLY A PEA-SIZED AMOUNT OF CREAM TOPICALLY TO AFFECTED AREA IN THE MORNING AND BEFORE BEDTIME ALLERGIES No Known Allergies PROBLEMS Active Ambulatory Problems Diagnosis Date Noted LPRD (laryngopharyngeal reflux disease) 05/30/2023 Pharyngoesophageal dysphagia 05/30/2023 Rash 05/30/2023 Swallowing problem 05/30/2023 Other specified noninflammatory disorders of vagina 05/30/2023 Vaginal itching 05/30/2023 Acute appendicitis 06/21/2023 Dyspareunia in female 01/26/2024 Pelvic pain in female 01/26/2024 Resolved Ambulatory Problems Diagnosis Date Noted No Resolved Ambulatory Problems Past Medical History: Diagnosis Date Appendicitis ASCUS Depression HPV (human papilloma virus) anogenital infection HISTORY PAST MEDICAL HISTORY SOCIAL HISTORY Past Medical History: Diagnosis Date Appendicitis ASCUS Depression HPV (human papilloma virus) anogenital infection Swallowing problem Social History Tobacco Use Smoking status: Never Smokeless tobacco: Never Substance Use Topics Alcohol use: Never Comment: caffeine: none Drug use: Never FAMILY HISTORY Family History Problem Relation Name Age of Onset No Known Problems Brother Throat cancer Maternal Grandfather Hypertension Maternal Grandfather SURGICAL HISTORY Past Surgical History: Procedure Laterality Date APPENDECTOMY 05/21/23 EYE SURGERY x3 LAPAROSCOPY DIAGNOSTIC / BIOPSY / ASPIRATION / LYSIS 03/16/2024 PAP SMEAR 11/16/2022 negative REVIEW OF SYSTEMS Review of Systems: Review of Systems Constitutional: Negative. HENT: Negative. Eyes: Negative. Respiratory: Negative. Cardiovascular: Negative. Gastrointestinal: Negative. Genitourinary: Positive for vaginal discharge. Musculoskeletal: Negative. Skin: Negative. Neurological: Negative. All other systems reviewed and are negative. Hematological: Negative. Endocrine: Negative. Allergic/Immunologic: Negative. OBJECTIVE Objective: Physical Exam Constitutional: Appearance: Normal appearance. She is well-developed. Genitourinary: Vulva normal. Breasts: Breasts are soft. Right: Normal. Left: Normal. Cardiovascular: Rate and Rhythm: Normal rate and regular rhythm. Pulmonary: Effort: Pulmonary effort is normal. Breath sounds: Normal breath sounds. Abdominal: General: Bowel sounds are normal. There is no distension. Palpations: Abdomen is soft. Tenderness: There is no abdominal tenderness. There is no guarding or rebound. Musculoskeletal: General: No swelling. Normal range of motion. Right lower leg: No edema. Left lower leg: No edema. Neurological: Mental Status: She is alert and oriented to person, place, and time. Skin: General: Skin is warm and dry. Psychiatric: Mood and Affect: Mood normal. Behavior: Behavior normal. Vitals and nursing note reviewed. Exam conducted with a excel analyst present. Vitals: Estimated body mass index is 30.75 kg/m?? as calculated from the following: Height as of 24: 5' 5 . Weight as of this encounter: 184 lb 12.8 oz. BP: 114/72 No LMP recorded. (Menstrual status: No Periods). ASSESSMENT & PLAN ICD-10-CM 1. Well woman exam with routine gynecological exam Z01.419 Pap Smear POCT urinalysis dipstick manually resulted Annual Exam: Patient presents today for an annual exam. Patient states she is doing well and has complaints of pelvic pain and yeast infection. Pap was obtained without difficulty. Discussed options with patient for further workup and management of pelvic pain as Nexplanon is helping with cycles. Patient to call office if she decides to proceed to OR for surgical management. Orders Placed This Encounter Procedures POCT urinalysis dipstick manually resulted Follow Up: Patient is to return in one year for annual unless needed otherwise. Documented by Lois Menchaca LPN on behalf of: Jose De Jesus Turner DO documented in this encounter Plan of Treatment Upcoming Encounters Date Type Department Care Team (Late st Contact Info) Description 07/24/2025 1:00 PM EDT Ancillary Procedure [facility] [address] [place] [address] [place] [address] 07/09/2026 11:00 AM EDT Procedure Visit [facility] [address] [facility] [place] [phone] Jose De Jesus Turner DO [address] [place] [address] Scheduled Orders Name Type Priority Associated Diagnoses Orde r Schedule Pap Smear Pathology and Cytology Routine Well woman exam with routine gynecological exam Ordered: 07/08/2025 US Pelvis w/ TV Imaging Routine Pelvic pain in female Expected: 07/08/2025, Expires: 01/08/2026 documented as of this encounter Procedures Procedure Name Priority Date/Time Associated Diagnosis Comments POCT URINALYSIS DIPSTICK Routine 07/08/2025 10:03 AM EDT Well woman exam with routine gynecological exam documented in this encounter Results * (ABNORMAL) POCT urinalysis dipstick manually resulted (07/08/2025 10:03 AM EDT) Color, UA Yellow Clarity, UA Clear Glucose, UA Negative Negative - 2000(110) ++++ mg/dL Bilirubin, UA Negative Negative - 4(70) +++ mg/dL Ketones, UA Negative Negative - 160(16) ++++ mg/dL Spec Grav, UA 1.020 1 - 1.03 Blood, UA Negative Negative - 50 Giovany/mcL pH, UA 6.0 5 - 9 Protein, UA Negative Negative - 2000(20) ++++ mg/dL Urobilinogen, UA 1.0 0.2 - 12 mg/dL Leukocytes, UA Positive Negative - 500+++ Priyank/mcL Nitrite, UA Negative Negative - Positive Urine 07/08/2025 10:0 3 AM EDT us Jose De Jesus Turner DO POINT OF CARE TEST ENTER/EDIT OR DERABLES Final Result documented in this encounter Visit Diagnoses Diagnosis Well woman exam with routine gynecological exam Routine gynecological examination Yeast infection Pelvic pain in female Unspecified symptom associated with female genital organs documented in this encounter Care Teams Assurance Analyst Relationship Specialty Start Date End Date Unallocated, Nomshilo Rushing MD [address] [place] [address] PCP - General 05/31/23 documented as of this encounter
--- OUTSIDE RECORDS SUMMARY | 2025-07-08 15:57 | XMS_ITS | Patient Health Record ---
Author Organization [facility] Address [address] [place] [address] Care Team Providers Care Commissioner Of Conciliation Name Role Phone None, Unknown or Primary Care Provider Unavailab Gennaro Lopez Unavailable [phone] IlanaAngelina ashely Unavailable [phone] Allergies No Known Allergies Reason For Referral No Information Medications Medication SIG (Take, Route, Frequency, Duration) Notes Start Date End Date Status predniSONE 20 MG 2 tablet Orally Once a day for 3 days 01/04/2025 Active Permethrin 5 % 1 application Externally once for 1 days apply, leave on for 8 to 14 hours before removing by washing 01/02/2025 Active Social History Tobacco Use: Social History Observation Description Date Details (start date - stop date) Never Smoker NA - NA Tobacco Use/Smoking Question Answer Notes Patient is a nonsmoker Alcohol Screen (Audit-C) Question Answer Notes Did you have a drink containing alcohol in the p ast year? No Points 0 Interpretation Negative AUDIT-C (Standard) Question Answer Notes Did you have a drink containing alcohol in the p ast year? No Points 0 Interpretation Negative Problems Problem Type SNOMED Code ICD Code Onset Dates Problem Status W/U Status Risk Notes Problem Headache (62770288) Headache (R51) Active confi rmed Problem 845561877 Acquired absence of other specified parts of digestive tract (Z90.49) Active confirmed Problem Gastroesophageal reflux disease (624198669) GERD (gastroesophag eal reflux disease) (K21.9) Active confirmed Problem Epigastric pain (69826053) Epigastric pain (R10.13) Active confirmed Problem Contact dermatitis (92645119) Contact dermatitis (L25.9) Active confirmed Problem Cystic acne (90247638) Cystic acne (L70.0) Active confirmed Problem Dysphagia (86476965) Swallowing problem (R13.10) Active confirmed Problem Mixed anxiety and depressive disorder (967131118) Anxiety and depression (F41.8) Active confirmed Vital Signs Blood pressure diastolic 70 mm Hg 12/25/2024 Height 65 in 12/25/2024 Blood pressure systolic 108 mm Hg 12/25/2024 Weight 183 lbs 12/25/2024 BMI 30.45 kg/m2 12/25/2024 Encounters Encounter Location Date Provider Diagnosis [facility] [address] [place] [address] 01/02/2025 [facility] [address] [place] [address] 01/04/2025 [facility] [address] [place] [address] 12/25/2024 Gennaro Hoy Contact dermatitis L25.9 Assessments Encounter Date Diagnosis (ICD Code) Assessment Notes Treatment Notes Treatment Clinical Notes Section Notes 12/25/2024 Contact dermatitis (ICD-10 - L25.9) Plan Of Treatment No Information Insurance Providers Payer Name Payer Address Payer Phone Subscriber Number Group Number Insured Name Patient Relationship to Insured Coverage Start Date Coverage End Date [employer] [place] [employer] [address] [place] [phone] [id number] Yoanna Snyder Self - patient is the insured Medications Administered Medication Instructions Date of Administration Dosage Notes Dexamethasone, 4mg/mL 12/25/2024 8 mg Medical (General) History Medical History History ICD Code Swallowing problem R13.10 GERD (gastroesophageal reflux disease) K 21.9 Anxiety and depression F41.8 Headache R51 Cystic acne L70.0 Epigastric pain R10.13 Surgical History Surgery Date(Month/Year) eye surgery x6 starting around the age o f 3 Appendectomy 05/21/23
--- OUTSIDE RECORDS SUMMARY | 2025-07-08 15:58 | XMS_ITS | Encounter Summary ---
Author Organization [facility] Address [address] [place] [address] Care Team Providers Care Mobility Specialist Name Role Phone Unallocated, Noms Provider Primary Care Provi laith Encounter Details Date Type Department Care Team (Late Contact Info) Description 05/21/2023 Abstract [facility] [address] [address] Niraj Guzman, [address] [address] Social History Tobacco Use Types Packs/Day Years Used Date Smoking Tobacco: Never Assessed Comments Unknown Sex and Gender Information Value Date Recorded Sex Assigned at Female 05/11/2023 9:33 AM EDT Legal Sex Female 11:33 PM EDT Gender Identity Female 05/11/2023 9:33 AM EDT Sexual Orientation Not on file COVID-19 Exposure Response Date Recorded In the last 10 days, have yo u been in contact with someone who was confirmed or suspected to have Coronavirus/COVID-19? No / Unsure 05/24/2023 8:39 AM EDT documented as of this encounter Plan of Treatment Upcoming Encounters Date Type Department Care Team (Late Contact Info) Description 07/24/2025 1:00 PM EDT Ancillary Procedure [facility] [address] [place] [address] [place] [phone] 07/09/2026 11:00 AM EDT Procedure Visit [facility] [address] [facility] [place] [address] Jose De Jesus Turner DO [address] [facility] [place] [address] documented as of this encounter Visit Diagnoses Not on filedocumented in this encounter Care Teams Mobility Specialist Relationship Specialty Start Date End Date Unallocated, Sergio Rushing MD [address] [place] [address] PCP - General 05/31/23 documented as of this encounter
--- OUTSIDE RECORDS SUMMARY | 2025-07-08 15:58 | XMS_ITS | Encounter Summary ---
Author Organization [facility] Address [address] [place] [address] Care Team Providers Care Payroll Lead Name Role Phone Unallocated, Noms Provider Primary Care Provi laith Encounter Details Date Type Department Care Team (Late Contact Info) Description 06/04/2024 Abstract [facility] [address] [place] [address] [place] [address] Jose De Jesus Turner DO [address] [place] [address] Dr [place], [place] [address] Social History Tobacco Use Types Packs/Day Years [...] on file documented as of this encounter Plan of Treatment Upcoming Encounters Date Type Department Care Team (Late Contact Info) Description 07/24/2025 1:00 PM EDT Ancillary Procedure [facility] [address] [place], [place] [address] [place] [address] 07/09/2026 11:00 AM EDT Procedure Visit [facility] [address] [place], [place] [address] [place] [address] Jose De Jesus Turner, [address] [place] [address] documented as of this encounter Visit Diagnoses Not on filedocumented in this encounter Care Teams Payroll Lead Relationship Specialty Start Date End Date Unallocated, Noms Provider, [place] [address] PCP - General 05/31/23 documented as of this encounter
--- OUTSIDE RECORDS SUMMARY | 2025-07-08 15:58 | XMS_ITS | Clinical Summary ---
Author Organization [facility] Address [address] [place] [address] Care Team Providers Care Environmental Protection Specialist Name Role Phone Unallocated, Noms Provider Primary Care Provi laith Allergies No known active allergies Medications clobetasol (Temovate) 0.05 % creamIndication s:Skin irritation APPLY A PEA-SIZED AMOUNT OF CREAM TOPICALLY TO AFFECTED AREA IN THE MORNING AND BEFORE BEDTIME 45 g 3 4 Active fluconazole (Diflucan) 150 MG tabletIndicatio ns:Yeast infection Take 1 tablet (150 mg) by mouth 1 (one) time for 1 dose 1 tablet 1 5 07/08/20 25 Active [place]-Smoothe/F S Body 0.01 % external oil 4 07/08/20 25 Discontinu ed(Other) ketoconazole (NIZOral) 2 % shampoo 4 07/08/20 25 Discontinu ed(Other) tacrolimus (Protopic) 0.1 % ointment APPLY OINTMENT TOPICALLY TO LEGS ONCE DAILY 4 07/08/20 25 Discontinu ed(Other) FLUoxetine (PROzac) 10 MG capsuleIndicati ons:Mood changes Take 1 capsule (10 mg) by mouth at bedtime 30 capsule 11 4 07/08/20 25 Discontinu ed(Other) hydrOXYzine HCl (Atarax) 25 MG tabletIndicatio ns:Allergic dermatitis Take 1 tablet (25 mg) by mouth every 6 (six) hours if needed for itching And allergic symptoms 30 tablet 1 5 07/08/20 25 Discontinu ed(Other) predniSONE (Deltasone) 20 MG tabletIndicatio ns:Chest congestion Take 3 tabs for 2 days, 2 tabs for 2 days, 1 tab for 2 days, 1/2 tab for 2 days then stop 13 tablet 5 07/08/20 25 Discontinu ed(Other) benzonatate (Tessalon Perles) 100 MG capsuleIndicati ons:Cough, unspecified type Take 1 capsule (100 mg) by mouth 3 (three) times a day as needed for cough Do not crush or chew. 21 capsule 5 07/08/20 25 Discontinu ed(Other) Hospital, Clinic, or Other Facility Administered Medication Ordered Dose Route Frequency Start Date End Date Status etonogestrel-eluting 68 mg contraceptive implant 1 eachIndications:Insertion of Nexplanon 1 each [place] Continuous 08/13/2024 08/13/2027 Active Active Problems Problem Noted Date Diagnosed Date Dyspareunia in female 01/26/2024 Pelvic pain in female 01/26/2024 Acute appendicitis 06/21/2023 LPRD (laryngopharyngeal reflux disease) 05/30/20 Pharyngoesophageal dysphagia 05/30/2023 Rash 05/30/2023 Swallowing problem 05/30/2023 Other specified noninflammatory disorders of vag talisha 05/30/2023 Vaginal itching 05/30/2023 Encounters Date Type Department Care Team Description 07/08/2025 10:00 AM EDT Office Visit [facility] L[facility] [address] [place] [address] Jose De Jesus Turner DO Well woman exam with routine gynecological exam; Yeast infection; Pelvic pain in female 07/08/2025 Bamboo flowsheet [facility] [address] [facility] [place] [address] Jose De Jesus Turner DO 07/01/2025 Travel 04/09/2025 Results Follow-Up [facility] [address] [place] [address] Jessica Contreras, DIPAK PNEUMONIA (HTRX) from Last 3 Months Immunizations Immunization Administration Dates Next Due DTaP, Unspecified 02/11/2005,2000,09/23/20 00,2000 HPV, Quadrivalent 11/01/2011,07/29/2011,03/10/20 11 Hep A, ped/adol, 2 dose 11/01/2011,03/10/2011 Hep B, Adolescent or Pediatric 2000 Hib (HbOC) 2000 Hib / Hep B 2000,2000 IPV 02/11/2005,2000,2000 ,2000 Influenza Whole 08/04/2012 Influenza, Unspecified 08/22/2020 Influenza, live, intranasal 09/05/2014 MMR 02/11/2005,07/12/2002 Meningococcal B, Omv 09/01/2018,07/25/2018 Meningococcal MCV4P 07/25/2018,03/10/2011 Tdap 03/10/2011 Family History Medical History Relation Name Comments No Known Problems Brother Hypertension Maternal Grandfather Throat cancer Maternal Grandfather Relation Name Status Comments Brother Alive Father Alive Maternal Grandfather Alive Maternal Grandmother Alive Mother Alive Paternal Grandfather Alive Paternal Grandmother Alive Son Alive Social History Tobacco Use Types Packs/Day Years [...] AM EDT Sexual Orientation Not on file Last Filed Vital Signs Vital Sign Reading Time Taken Comments Blood Pressure 114/72 07/08/2025 9:58 AM EDT Pulse 100 04/05/2025 10:54 AM EDT Temperature 36.7 C (98 F) 04/05/2025 10:54 AM EDT Respiratory Rate - - Oxygen Saturation 99% 04/05/2025 10: 54 AM EDT Inhaled Oxygen Concentration - - Weight 83.8 kg (184 lb 12.8 oz) 07/08/2025 9:58 AM EDT Height 165.1 cm (5' 5 ) 07/03/2024 1:31 PM EDT Body Mass Index 30.75 07/03/2024 1:31 PM EDT Plan of Treatment Upcoming Encounters Date Type Department Care Team (Late st Contact Info) Description 07/24/2025 1:00 PM EDT Ancillary Procedure [facility] [address] [facility] [place] [address] 07/09/2026 11:00 AM EDT Procedure Visit [facility] [address] [place] [address] Jose De Jesus Turner DO [address] [place], [place] [id number] Health Maintenance Due Date Last Done Comments Influenza Vaccine (#1) 2025 08/22/2020, 2013, 08/04/2012 Procedures Procedure Name Priority Date/Time Associated Diagnosis Comments POCT URINALYSIS DIPSTICK Routine 07/08/2025 10:03 AM EDT Well woman exam with routine gynecological exam from Last 3 Months Results * (ABNORMAL) POCT urinalysis dipstick manually resulted (07/08/2025 10:03 AM EDT) Color, UA Yellow Clarity, UA Clear Glucose, UA Negative Negative - 1999(110) ++++ mg/dL Bilirubin, UA Negative Negative - 4(70) +++ mg/dL Ketones, UA Negative Negative - 160(16) ++++ mg/dL Spec Grav, UA 1.020 1 - 1.03 Blood, UA Negative Negative - 50 Giovany/mcL pH, UA 6.0 5 - 9 Protein, UA Negative Negative - 1999(20) ++++ mg/dL Urobilinogen, UA 1.0 0.2 - 12 mg/dL Leukocytes, UA Positive Negative - 500+++ Priyank/mcL Nitrite, UA Negative Negative - Positive Urine 07/08/2025 10:0 3 AM EDT Jose De Jesus Sozio DO POINT OF CARE TEST ENTER/EDIT OR DERABLES Final Result from Last 3 Months Insurance [employer] Care Teams Environmental Protection Specialist Relationship Specialty Start Date End Date Unallocated, Noms Kristan, [address] [place], [place] [id number] PCP - General 05/31/23
--- OUTSIDE RECORDS SUMMARY | 2025-07-08 15:58 | XMS_ITS | Encounter Summary ---
Author Organization [facility] Address [address] [place] [address] Care Team Providers Care Tube Tester Name Role Phone Unallocated, Noms Provider Primary Care Provi laith Encounter Details Date Type Department Care Team (Late Contact Info) Description 05/23/2023 Abstract [facility] [address] [address] Niraj Guzman, [address] [address] Social History Tobacco Use Types Packs/Day Years [...] 1:00 PM EDT Ancillary Procedure [facility]GIO L[facility]ON [address] [place] [address] [place] [address] 07/09/2026 11:00 AM EDT Procedure Visit [facility] [address] [facility] [address] Jose De Jesus Turner DO [address] [facility] [place] [address] documented as of this encounter Visit Diagnoses Not on filedocumented in this encounter Care Teams Tube Tester Relationship Specialty Start Date End Date Unallocated, Sergio Rushing MD [address] [place] [address] PCP - General 05/31/23 documented as of this encounter
--- OUTSIDE RECORDS SUMMARY | 2025-07-08 15:58 | XMS_ITS | Encounter Summary ---
Author Organization [facility] Address [address] [place] [address] Care Team Providers Care An/Syq 13 Nav/C2 Operator Name Role Phone Unallocated, Noms Provider Primary Care Provi laith Encounter Details Date Type Department Care Team (Late Contact Info) Description 12/09/2023 Clinisync Result Encounter [facility] External Department Unsolicited Beth Turner DO [address], [facility] Social History Tobacco Use Types Packs/Day Years Used Date Smoking Tobacco: Never Smokeless Tobacco: Never Alcohol Use Standard Drinks/Week Comments Never 0 (1 standard drink = 0.6 oz pur e alcohol) caffeine: none Comments Unknown Sex and Gender Information Value Date Recorded Sex Assigned at Female 05/11/2023 9:33 AM EDT Legal Sex Female 11:33 PM EDT Gender Identity Female 05/11/2023 9:33 AM EDT Sexual Orientation Not on file documented as of this encounter Plan of Treatment Upcoming Encounters Date Type Department Care Team (Late Contact Info) Description 07/24/2025 1:00 PM EDT Ancillary Procedure [facility] [address] [place] [address] 07/09/2026 11:00 AM EDT Procedure Visit [facility] [address] [place] [address] Johnny, Beth, DO [address] [place] [address] documented as of this encounter Procedures Procedure Name Priority Date/Time Associated Diagnosis Comments US PELVIS TRANSVAGINAL 12/09/2023 5:07 AM EST documented in this encounter Results * US PELVIS TRANSVAGINAL (12/09/2023 5:07 AM EST) Anatomical Region Laterality Modality Other 12/09/2023 5:07 AM EST Narrative 12/09/2023 5:11 AM EST [address] [address] Ultrasound Report Signed Patient: ELLIS SNYDER MR#: [id number] : 2000 Acct:[id number] Age/Sex: 23 / F ADM Date: 12/08/23 Loc: US Attending Dr: Beth Turner D.O. Ordering Physician: Beth Turner D.O. Date of Service: 12/08/23 Procedure(s): US pelvis transvaginal Accession Number(s): [id number] cc: KODY CHICAS ; Beth Turner D.O. [address] [address] Patient Name: ELLIS SNYDER MRN: [id number] date: 2000 Sex: F Assigned Patient Location: US Current Patient Location: Accession/Order Number: [id number] Exam Date: 12/08/2023 15:45 Report Date: 12/09/2023 05:07 At the request of: BETH TURNER Procedure: US pelvis transvaginal EXAMINATION: US pelvis transvaginal HISTORY: Dyspareunia in female N94.10 COMPARISON: No relevant comparison available. FINDINGS: Uterus measures 7.0 x 5.3 0.6 cm. Normal in size, contour and echotexture. No focal myometrial mass. The endometrium measures 5 mm. Linear hyperechogenicity within the endometrial cavity with acoustic shadowing, normally positioned IUD The right ovary is normal measuring 3.2 x 2.2 x 1.7 cm. Normal color Doppler flow. The left ovary measures 5.0 x 3.0 x 2.2 cm. Normal color Doppler flow. No ascites US/US pelvis transvaginal IMPRESSION: No acute abnormality Normal position of the IUD Electronically authenticated by: ORLIN LOCK Date: 12/09/2023 05:07 Dictated By: Orlin Lock M.D. Signed By: 12/09/23 0511 DD/ 0507 TD/TT: Rn Private Duty: Procedure Note Radiology, Radiologist, MD - 01/25/2024 [place] [address] Ultrasound Report Signed Patient: ELLIS SNYDER TMR#: [id number] : 2000Acct:[id number] Age/Sex: 23 / FADM Date: 12/08/23 Loc: US Attending Dr: Beth Turner D.O. Ordering Physician: Beth Turner D.O. Date of Service: 12/08/23 Procedure(s): US pelvis transvaginal Accession Number(s): [id number] cc: KODY CHICAS ; Beth Turner D.O. The [address] [address] Patient Name: ELLIS SNYDER MRN: [id number] date: 2000 Sex: F Assigned Patient Location: US Current Patient Location: Accession/Order Number: [id number] Exam Date: 12/08/2023 15:45 Report Date: 12/09/2023 05:07 At the request of: BETH TURNER Procedure: US pelvis transvaginal EXAMINATION: US pelvis transvaginal HISTORY: Dyspareunia in female N94.10 COMPARISON: No relevant comparison available. FINDINGS: Uterus measures 7.0 x 5.3 0.6 cm. Normal in size, contour and echotexture.No focal myometrial mass. The endometrium measures 5 mm. Linear hyperechogenicity within theendometrial cavity with acoustic shadowing, normally positioned IUD The right ovary is normal measuring 3.2 x 2.2 x 1.7 cm. Normal colorDoppler flow. The left ovary measures 5.0 x 3.0 x 2.2 cm. Normal color Doppler flow. No ascites US/US pelvis transvaginal IMPRESSION: No acute abnormality Normal position of the IUD Electronically authenticated by: ORLIN LOCK Date: 12/09/2023 05:07 Dictated By: Orlin Lock M.D. Signed By:12/09/23 0511 DD/ 0507 TD/TT: Rn Private Duty: us Beth Johnny DO [facility] Final Result documented in this encounter Visit Diagnoses Not on filedocumented in this encounter Care Teams An/Syq 13 Nav/C2 Operator Relationship Specialty Start Date End Date Unallocated, Noms Provider, [address] [place] [address] PCP - General 05/31/23 documented as of this encounter
--- OUTSIDE RECORDS SUMMARY | 2025-07-08 15:58 | XMS_ITS | Clinical Summary ---
Author Organization [facility] Address [address] [place] [address] Phone Care Team Providers Care English Language Learner Tutor Name Role Phone Angelina Preciado APRN-HAZARDOUS WASTE MATERIAL TECHNICIAN Primary Care Provider Social History Tobacco Use Types Packs/Day Years Used Date Smoking Tobacco: Never Assessed Comments Unknown Sex and Gender Information Value Date Recorded Sex Assigned at Not on file Legal Sex Female 6:37 PM EST Gender Identity Not on file Sexual Orientation Not on file Last Filed Vital Signs Vital Sign Reading Time Taken Comments Blood Pressure - - Pulse - - Temperature 36.2 C (97.1 F) 06/29/2022 10:10 AM EDT Respiratory Rate - - Oxygen Saturation - - Inhaled Oxygen Concentration - - Weight 73.1 kg (161 lb 3 oz) 06/29/2022 10:10 AM EDT Height 167.6 cm (5' 6 ) 06/29/2022 10:10 AM EDT Body Mass Index 26.02 06/29/2022 10:10 AM EDT Plan of Treatment Health Maintenance Due Date Last Done Comments HIV Screening 2000 Lipid Panel 2000 Yearly Adult Physical 2000 MMR Vaccines (1 of 1 - Standard series) 2001 HPV Vaccines (1 - 3-dose series) 2015 Hepatitis C Screening 2018 Hepatitis B Vaccines (1 of 3 - 19+ 3-dose series) 2019 Cervical Cancer Screening 2021 HPV/Cotest 2021 Pap Smear 2021 DTaP/Tdap/Td Vaccines (1 - Tdap) 2022 COVID-19 Vaccine (2023-2 5 season) 2024 Influenza Vaccine (#1) 2025 Zoster Vaccines (1 of 2) 2050 Irritable Bowel Syndrome Discontinued 023, 01/20/2023 HIB Vaccines Aged Out No longer eligi ble based on patient's age to complete this topic Hepatitis A Vaccines Aged Out No long er eligible based on patient's age to complete this topic IPV Vaccines Aged Out No longer eligi ble based on patient's age to complete this topic Meningococcal Vaccine Aged Out No angelia jackelin eligible based on patient's age to complete this topic Pneumococcal Vaccine: Pediatrics and At-Risk Adult Patients Aged Out No longer eligible based on patient's age to complete this topic Rotavirus Vaccines Aged Out No longer eligible based on patient's age to complete this topic Procedures Procedure Name Priority Date/Time Associated Diagnosis Comments MALAGON Routine 01/26/2023 2:40 PM EST from Last 3 Months or Most Recently Relevant to Health Maintenance Results * MALAGON (01/26/2023 2:40 PM EST) Anatomical Region Laterality Modality Endoscopy 01/26/2023 2:40 PM EST Narrative 05/07/2023 5:22 PM EDT Patient Name: Yoanna Snyder Procedure Date: 01/26/2023 2:40 PM Date of : 2000 Site: Ethnicity: Not or Race: White Attending MD: Gustavo Garrett DO, [id number] Procedure: Esophageal MALAGON pH Capsule Results / Interpretation Indications: Failure to respond to treatment of esophageal reflux Providers: Gustavo Garrett DO (Doctor) Gastroenterology Referring MD: Rosmery Martell MD Medicines: None Complications: No immediate complications. Procedure: The MALAGON pH capsule was previously placed. Results from that study were obtained for interpretation. The MALAGON was accomplished without difficulty. The patient tolerated the procedure well. Findings: DAY 1 ACID REFLUX ANALYSIS: - [...] [employer] MALAGON data report for further details. Estimated Blood Loss: Estimated blood loss: none. Impression: - Normal ambulatory esophageal pH study. Recommendation: - Return to referring physician as previously scheduled. Attending Participation: I have reviewed and interpreted the results of the above documented diagnostic study. DO Gustavo Dias DO 01/26/2023 2:51:11 PM This report has been signed electronically. Number of Addenda: 0 Note Initiated On: 01/26/2023 2:40 PM Procedure Note Gustavo Garrett DO - 10/16/2024 Patient Name: Yoanna Snyder Procedure Date: 01/26/2023 2:40 PM Date of : 2000 Site: Ethnicity: Not or Race: White Attending MD: Gustavo Garrett DO, [id number] Procedure: Esophageal MALAGON pH Capsule Results /Interpretation Indications: Failure to respond to treatment of esophagealreflux Providers: Gustavo Garrett DO (Doctor) Gastroenterology Referring MD: Rosmery Martell MD Medicines: None Complications: No immediate complications. Procedure: The MALAGON pH capsule was previously placed. Results from that study were obtained for interpretation.The MALAGON was accomplished without difficulty. Thepatient tolerated the procedure well. Findings: DAY 1 ACID REFLUX ANALYSIS: - [...] Symptom Correlation: Reflux episodes did not correlate withsymptoms noted during the study. - See the [employer] MALAGON data report for further details. Estimated Blood Loss: Estimated blood loss: none. Impression: - Normal ambulatory esophageal pH study. Recommendation: - Return to referring physician as previously scheduled. Attending Participation: I have reviewed and interpreted the results of the above documented diagnostic study. DO Gustavo Dias DO 01/26/2023 2:51:11 PM This report has been signed electronically. Number of Addenda: 0 Note Initiated On: 01/26/2023 2:40 PM Rosmery Martell MD ENDOSCOPY PROCEDURE ORDERAB LES Edited Result - Final from Last 3 Months or Most Recently Relevant to Health Maintenance Care Teams English Language Learner Tutor Relationship Specialty Start Date End Date Angelina Preciado, RN NICU-HAZARDOUS WASTE MATERIAL TECHNICIAN [address] [place] [address] PCP - General 01/20/23
--- OUTSIDE RECORDS SUMMARY | 2025-07-08 15:58 | XMS_ITS | Encounter Summary ---
Author Organization [facility] Address [address] [place] [address] Care Team Providers Care Regional Account Director Name Role Phone Unallocated, Noms Provider Primary Care Provi laith Encounter Details Date Type Department Care Team (Late Contact Info) Description 07/08/2025 Bamboo flowsheet SERGIO LEMON [address] [place] [address] [place] [phone] Jose De Jesus Turner DO [address] [place] [address] [address], [place] [address] Social History Tobacco Use Types Packs/Day Years [...] 1:00 PM EDT Ancillary Procedure SERGIO LEMON [address] [place], [place] [address] [place] [phone] 07/09/2026 11:00 AM EDT Procedure Visit SERGIO LEMON [address] [place], [place] [address] [place] [phone] Jose De Jesus Turner, [address] [place] [address] documented as of this encounter Visit Diagnoses Not on filedocumented in this encounter Care Teams Regional Account Director Relationship Specialty Start Date End Date Unallocated, Noms Provider, [place] [address] PCP - General 05/31/23 documented as of this encounter
--- OUTSIDE RECORDS SUMMARY | 2025-07-08 15:58 | XMS_ITS | Encounter Summary ---
Author Organization [facility] Address [address] [place] [address] Care Team Providers Care Thai Masseur Name Role Phone Unallocated, Noms Provider Primary Care Provi laith Encounter Details Date Type Department Care Team (Late Contact Info) Description 11/09/2023 Clinisync Result Encounter [facility] External Department Unsolicited Beth Turner DO [address], [facility] Social History Tobacco Use Types Packs/Day Years [...] Ancillary Procedure [facility] [address] [place] [address] 07/09/2026 11:00 AM EDT Procedure Visit [facility] [address] [place] [address] Johnny, Beth, DO [address] [place] [address] documented as of this encounter Procedures Procedure Name Priority Date/Time Associated Diagnosis Comments US PELVIS TRANSVAGINAL 11/09/2023 3:16 PM EST documented in this encounter Results * US PELVIS TRANSVAGINAL (11/09/2023 3:16 PM EST) Anatomical Region Laterality Modality Other 11/09/2023 3:16 PM EST Narrative 11/09/2023 3:19 PM EST [address] [address] Ultrasound Report Signed Patient: ELLIS SNYDER MR#: [id number] : 2000 Acct:[id number] Age/Sex: 23 / F ADM Date: 11/09/23 Loc: US Attending Dr: Beth Turner D.O. Ordering Physician: Beth Turner D.O. Date of Service: 11/09/23 Procedure(s): US pelvis transvaginal Accession Number(s): [id number] cc: KODY CHICAS ; Beth Turner D.O. [address] [address] Patient Name: ELLIS SNYDER MRN: [id number] date: 2000 Sex: F Assigned Patient Location: US Current Patient Location: US Accession/Order Number: [id number] Exam Date: 11/09/2023 11:45 Report Date: 11/09/2023 15:16 At the request of: BETH TURNER Procedure: US pelvis transvaginal EXAM: US pelvis transvaginal INDICATION: PELVIC PAIN COMPARISON: Obstetrical ultrasound 02/03/2021 TECHNIQUE: Transabdominal and transvaginal ultrasound with grayscale, color Doppler and spectral Doppler imaging. FINDINGS: Retroverted Uterus:7.6 x 3.4 x 5.8 cm Grossly normal myometrial echotexture. Endometrium:8.0 mm. Intrauterine device appears to be within the upper and mid endometrial canal. Right ovary: 3.2 x 1.8 x 1.9 cm. Volume: 5.9 cc Left ovary: 4.2 x 1.9 x 3.5cm. Volume: 14.1 cc 2.9 x 1.7 x 1.6 cm simple left ovarian cyst. Normal color Doppler with arterial spectral tracing to both ovaries. No free fluid in the cul-de-sac. US/US pelvis transvaginal IMPRESSION: 1. Simple left ovarian cyst. No ovarian torsion. 2. Intrauterine device appears to be in satisfactory position. Electronically authenticated by: TIN ADAMS Date: 11/09/2023 15:16 Dictated By: Tin Adams M.D. Signed By: 11/09/23 1519 DD/ 15 TD/TT: Hot Top Liner: Procedure Note Radiology, Radiologist, MD - 11/10/2023 [place] [address] Ultrasound Report Signed Patient: ELLIS SNYDER TMR#: [id number] : 2000Acct:[id number] Age/Sex: Date: 11/09/23 Loc: US Attending Dr: Beth Turner D.O. Ordering Physician: Beth Turner D.O. Date of Service: 11/09/23 Procedure(s): US pelvis transvaginal Accession Number(s): [id number] cc: KODY CHICAS ; Beth Turner D.O. The [place] [id number] Patient Name: ELLIS SNYDER MRN: [id number] date: 2000 Sex: F Assigned Patient Location: US Current Patient Location: US Accession/Order Number: [id number] Exam Date: 11/09/2023 11:45 Report Date: 11/09/2023 15:16 At the request of: BETH TURNER Procedure: US pelvis transvaginal EXAM: US pelvis transvaginal INDICATION: PELVIC PAIN COMPARISON: Obstetrical ultrasound 02/03/2021 TECHNIQUE: Transabdominal and transvaginal ultrasound with grayscale,color Doppler and spectral Doppler imaging. FINDINGS: Retroverted Uterus:7.6 x 3.4 x 5.8 cm Grossly normal myometrialechotexture. Endometrium:8.0 mm. Intrauterine device appears to be within the upper and mid endometrialcanal. Right ovary: 3.2 x 1.8 x 1.9 cm. Volume: 5.9 cc Left ovary: 4.2 x 1.9 x 3.5cm. Volume: 14.1 cc 2.9 x 1.7 x 1.6 cm simple left ovarian cyst. Normal color Doppler with arterial spectral tracing to both ovaries. No free fluid in the cul-de-sac. US/US pelvis transvaginal IMPRESSION: 1. Simple left ovarian cyst. No ovarian torsion. 2. Intrauterine device appears to be in satisfactory position. Electronically authenticated by: TIN ADAMS Date: 11/09/2023 15:16 Dictated By: Tin Adams M.D. Signed By:11/09/23 1519 DD/ 1516 TD/TT: Hot Top Liner: us Beth Johnny DO [facility] Final Result documented in this encounter Visit Diagnoses Not on filedocumented in this encounter Care Teams Thai Masseur Relationship Specialty Start Date End Date Unallocated, Noms Provider, [address] [place] [address] PCP - General 05/31/23 documented as of this encounter
--- OUTSIDE RECORDS SUMMARY | 2025-07-08 15:58 | XMS_ITS | Encounter Summary ---
Author Organization [facility] Address [address] [place] [address] Care Team Providers Care Maintenance Assistant Name Role Phone Unallocated, Noms Provider Primary Care Provi laith Encounter Details Date Type Department Care Team (Latest Contact Info) Description 07/01/2025 Travel Social History Tobacco Use Types Packs/Day Years [...] EDT Ancillary Procedure [facility] Ernie LEMON [address] [place] [phone] 07/09/2026 11:00 AM EDT Procedure Visit [facility] Ernie LEMON [address] [place] [address] Jose De Jesus Turner DO [address], [place] [phone] documented as of this encounter Visit Diagnoses Not on filedocumented in this encounter Care Teams Maintenance Assistant Relationship Specialty Start Date End Date Unallocated, Noms Provider, [address] [place] [address] PCP - General 05/31/23 documented as of this encounter
[2025-07-10 12:09] LABS: Age Gdln ACOG Testing Note (.); IGP, rfx Aptima HPV ASCU Note (.)
== END 2025-07-08 15:55 | disposition home or self-care (01) ==
LOC: LAB 15:54
PROVIDERS: PCP Nurse Practitioner Family; Visit Provider Obstetrics & Gynecology
DX: Z01.419 Encounter for gynecological examination (general) (routine) without abnormal findings (principal)
CPT/HCPCS: 88175